=== PATIENT | female | born 1935 | race Caucasian/White ===

== ENCOUNTER 2016-07-25 16:26 | Emergency (ER) | payer OTHER ==
[~2016-07-25] VITALS: Ht 160 cm; Wt 69.4 kg
[~2016-07-25 16:26] MED LIST: ATEN50TA PO; BIOT1TAB5 PO; DILT120C9 PO; ENAL10TA9 PO; HMLIS SQ; HYDR4TAB78 PO; INSU100I2 SQ; INSU1INJ23 SQ; LEVO25TA5 PO; MULT-506 PO; NXM/40 PO; SIMV-151 PO; TRAZ1TAB16 PO; VTMD1000 PO
[2016-07-25 16:27] VITALS: TEMP 36.7; Ht 160 cm; Wt 69.4 kg
[2016-07-25] MEDS ORDERED: SODIUM CHLORIDE 0.9% 1000ML 500 ML IV STA (17:09)
[2016-07-25] MEDS ORDERED: HYDR4TAB2 PO (17:13)
--- NOTE | 2016-07-25 17:13 | EMERGENCY ROOM VISIT NOTE ---
History Report prepared by Adina: Thor Matthews Under the Supervision of: Dr. Mark Vargas M.D. First contact with patient: 17:00 Chief Complaint: FLANK PAIN Stated Complaint: PAIN IN RIGHT SIDE History of Present Illness The patient is a 81 year old female who presents to the Emergency Room with complaints of waxing and waning right flank pain beginning last night. She describes her pain as sharp and rates her pain a 5/10 in severity but notes it is worsened with movement. She notes that she did not have pain during the night , but had pain when she rolled over in bed this morning. She states she has back pain at baseline. The patient denies any nausea, urinary symptoms, or bowel issues. She has never had this pain before. She does not recall any recent activity that may have caused this pain. She states she had a hernia repair, Whipple procedure, and complete hysterectomy, and had pancreatic cancer 20 years ago. She notes she still has her pancreas and gallbladder. Source of History: patient Onset: last night Position: other (right flank) Symptom Intensity: 5/10 in severity but becomes worse Quality: sharp Timing: waxes/wanes Modifying Factors (Worsening): movement Associated Symptoms: + back pain (at baseline), No nausea, No urinary symptoms Note: The patient denies having any bowel issues. Review of Systems See HPI for pertinent positives & negatives. A total of 10 systems reviewed and were otherwise negative. Past Medical & Surgical Medical Problems: (1) Back pain (2) Cervicalgia (3) Dyslipidemia (4) GERD (gastroesophageal reflux disease) (5) HTN (hypertension) (6) Lumbar back pain with radiculopathy affecting left lower extremity (7) Pancreatic cancer Surgical Problems: (1) History of hernia repair (2) History of hysterectomy (3) History of resection of pancreas Family History Patient reports no known family medical history. Social History Smoking Status: Never Smoker Marital Status: Housing Status: lives with significant other Occupation Status: retired Current/Historical Medications Scheduled Atenolol (Tenormin), 50 MG PO QAM Biotin (Biotin 5000), 1 TAB PO DAILY Cholecalciferol (Vitamin D3), 1 TAB PO DAILY AFTERNOON Diltiazem Hcl (Diltiazem Hcl Er), 120 MG PO QAM Enalapril Maleate & Hydrochlor (Enalapril Maleate/Hydroch), 1 TAB PO QAM Insulin Human Lispro (Humalog Kwikpen), 12 UNITS SQ dinner Insulin Isophane (Human) (Humulin N Kwikpen), 34 UNITS SQ breakfast Insulin Isophane (Human) (Humulin N Kwikpen), 30 UNITS SQ HS Insulin Lispro (Human) (Humalog Kwikpen), 8 UNITS SQ breakfast Levothyroxine Sodium (Levothyroxine Sodium), 1 TAB PO QAM Multivitamin (Multivitamin), 1 TAB PO DAILY AFTERNOON Simvastatin (Simvastatin), 20 MG PO Q2D Scheduled PRN Esomeprazole Magnesium (Nexium), 40 MG PO DAILY PRN for PRN Hydromorphone Hcl (Dilaudid), 1 TAB PO QAM PRN for Pain Trazodone Hcl (Desyrel), 50 MG PO HS PRN for Sleep Allergies Coded Allergies: Codeine (Verified Allergy, Severe, RASH, 07/25/16) Sulfa Antibiotics (Verified Allergy, Intermediate, rash, 05/12/16) Sulfabenzamide (Verified Allergy, Intermediate, rash, 05/12/16) Sulfacetamide (Verified Allergy, Intermediate, rash, 05/12/16) Sulfathiazole (Verified Allergy, Intermediate, rash, 05/12/16) Insulin Glargine (Verified Allergy, Mild, patient reports she becomes itchy at inj sites after > 7 day, 05/12/16) Erythromycin (Verified Adverse Reaction, Intermediate, abdominal pain, ) NSAIDs (Verified Adverse Reaction, Intermediate, gastric bleeding, ) Hydrocodone (Verified Adverse Reaction, Mild, itching, 05/12/16) Oxycodone (Verified Adverse Reaction, Mild, itching, 05/12/16) Physical Exam Vital Signs Date Time Temp Pulse Resp B/P Pulse Ox O2 Delivery O2 Flow Rate FiO2 07/25/16 20:10 58 17 144/73 95 07/25/16 18:59 64 148/71 07/25/16 16:27 36.7 66 18 167/85 94 Room Air Physical Exam GENERAL: Patient is in no acute distress. HEENT: No acute trauma, normocephalic atraumatic, mucous membranes moist, no nasal congestion, no scleral icterus. NECK: No stridor, no adenopathy, no meningismus, trachea is midline. LUNGS: Clear to auscultation bilaterally, no wheeze, no rhonchi, breath sounds equal. HEART: 2/6 systolic murmur with regular rate and rhythm. ABDOMEN: Soft, tender in right lower quadrant; pain worsens with movement; bowel sounds positive, no hernias, no peritonitis. EXTREMITIES: No cyanosis or edema, full range of motion of all the joints without pain or difficulty, no signs for acute trauma. NEUROLOGIC: Oriented x 3, no acute motor or sensory deficits, no focal weakness. SKIN: No rash, no jaundice, no diaphoresis. Medical Decision & Procedures ER Provider Diagnostic Interpretation: Urine dip shows 1+ leukocytes and no blood. CT results as stated below per my review and radiologist interpretation: CT OF THE ABDOMEN AND PELVIS WITH CONTRAST FINDINGS: There is suspected scarring within visualized portions of the right middle lobe. No pneumatosis, free air or portal venous gas is present. A 5 cm cyst within the upper pole of the right kidney is noted. There is no hydronephrosis. The spleen is not visualized. The body and tail the pancreas are not visualized. There is no hydronephrosis. The adrenal glands and liver are unremarkable with exception of possible fatty infiltration of the liver. There is no evidence for a bowel obstruction. The appendix is normal. No lymphadenopathy is present. A few prominent upper abdominal lymph nodes are unchanged. Post surgical findings within the spine are noted. No ascites is present. There is no abscess. IMPRESSION: No acute process within the abdomen or pelvis. No significant change since prior exam of July 31, 2015. Electronically signed by: Du Newton M.D. 07/25/2016 7:15 PM Dictated Date/Time: 07/25/2016 7:06 PM Laboratory Results 07/25/16 17:45 Red Blood Count 3.94, Mean Corpuscular Volume 91.1, Mean Corpuscular Hemoglobin 31.5, Mean Corpuscular Hemoglobin Concent 34.5, Mean Platelet Volume 10.1, Neutrophils (%) (Auto) 38.7, Lymphocytes (%) (Auto) 41.9, Monocytes (%) (Auto) 12.1, Eosinophils (%) (Auto) 6.0, Basophils (%) (Auto) 1.1, Neutrophils # (Auto ) 4.11, Lymphocytes # (Auto) 4.46, Monocytes # (Auto) 1.29, Eosinophils # (Auto ) 0.64, Basophils # (Auto) 0.12 07/25/16 17:45 Test 07/25/16 16:50 07/25/16 17:45 07/25/16 18:57 Urine Color YELLOW Urine Appearance CLEAR (CLEAR) Urine pH 6.5 (4.5-7.5) Urine Specific Arley 1.010 (1.000-1.030) Urine Protein NEG (NEG) Urine Glucose (UA) NEG (NEG) Urine Ketones NEG (NEG) Urine Occult Blood NEG (NEG) Urine Nitrite NEG (NEG) Urine Bilirubin NEG (NEG) Urine Urobilinogen NEG (NEG) Urine Leukocyte Esterase MODERATE (NEG) Urine WBC (Auto) 10-30 /hpf (0-5) Urine RBC (Auto) 0-4 /hpf (0-4) Urine Hyaline Casts (Auto) 1-5 /lpf (0-5) Urine Epithelial Cells (Auto) >30 /lpf (0-5) Urine Bacteria (Auto) NEG (NEG) White Blood Count 10.64 K/uL (4.8-10.8) Red Blood Count 3.94 M/uL (4.2-5.4) Hemoglobin 12.4 g/dL (12.0-16.0) Hematocrit 35.9 % (37-47) Mean Corpuscular Volume 91.1 fL (80-100) Mean Corpuscular Hemoglobin 31.5 pg (25-34) Mean Corpuscular Hemoglobin Concent 34.5 g/dl (32-36) Platelet Count 325 K/uL (130-400) Mean Platelet Volume 10.1 fL (7.4-10.4) Neutrophils (%) (Auto) 38.7 % Lymphocytes (%) (Auto) 41.9 % Monocytes (%) (Auto) 12.1 % Eosinophils (%) (Auto) 6.0 % Basophils (%) (Auto) 1.1 % Neutrophils # (Auto) 4.11 K/uL (1.4-6.5) Lymphocytes # (Auto) 4.46 K/uL (1.2-3.4) Monocytes # (Auto) 1.29 K/uL (0.11-0.59) Eosinophils # (Auto) 0.64 K/uL (0-0.5) Basophils # (Auto) 0.12 K/uL (0-0.2) RDW Standard Deviation 43.8 fL (36.4-46.3) RDW Coefficient of Variation 13.1 % (11.5-14.5) Immature Granulocyte % (Auto) 0.2 % Immature Granulocyte # (Auto) 0.02 K/uL (0.00-0.02) Anion Gap 7.0 mmol/L (3-11) Est Creatinine Clear Calc Drug Dose 43.9 ml/min Estimated GFR () 64.4 Estimated GFR (Non- 55.5 BUN/Creatinine Ratio 21.2 (10-20) Calcium Level 10.0 mg/dl (8.5-10.1) Total Bilirubin 0.2 mg/dl (0.2-1) Aspartate Amino Transf (AST/SGOT) 24 U/L (15-37) Alanine Aminotransferase (ALT/SGPT) 26 U/L (12-78) Alkaline Phosphatase 73 U/L (45-117) Total Protein 8.2 gm/dl (6.4-8.2) Albumin 4.1 gm/dl (3.4-5.0) Globulin 4.1 gm/dl (2.5-4.0) Albumin/Globulin Ratio 1.0 (0.9-2) Lipase 94 U/L (73-393) Chemistry Specimen Hemolysis Bedside Glucose 73 mg/dl (70-90) Laboratory results reviewed by me. Medications Administered Medications (Trade) Dose Ordered Sig/Andria Route Start Time Stop Time Status Last Admin Dose Admin Sodium Chloride (Nss 1000ml) 500 ml @ 999 mls/hr Q31M STAT IV 07/25/16 17:09 07/25/16 17:39 DC 07/25/16 17:50 999 MLS/HR ED Course 1701: The patient was evaluated in room B2. A complete history and physical exam was performed. 1709: Ordered NSS 500 ml @ 999 mls/hr IV. 1950: Reevaluated the patient. Discussed results and discharge instructions: She verbalized understanding and agreement. The patient is ready for discharge. Medical Decision Differentials include diverticulitis, appendicitis, bowel obstruction, renal colic, UTI, musculoskeletal pain, and hernia. There is no leukocytosis or concerning anemia. No significant kidney failure. The patient's blood sugar is slightly low but she is asymptomatic. There is no hepatitis or pancreatitis. Abdominal and pelvis CT does not show appendicitis, no acute surgical process, no diverticulitis. On exam, the patient did not have peritonitis, there was no hernia. Urinalysis does not show infection or significant hematuria. The patient's pain is worse with movement, I think the pain is musculoskeletal. The patient was reassured. She was given some IV saline during her stay, she did not want anything for pain. Rest, over the counter pain medications, heat to the area were suggested. If worsening, she can return. Impression Primary Impression: RLQ abdominal pain Scribe Attestation The scribe's documentation has been prepared under my direction and personally reviewed by me in its entirety. I confirm that the note above accurately reflects all work, treatment, procedures, and medical decision making performed by me. Departure Information Dispostion Home / Self-Care Referrals Karlo Avalos (PCP) Patient Instructions A Signature Page, My [facility] Additional Instructions rest no lifting heat to the area may help pain meds as before at home return for fever, worsening symptoms or vomiting lab testing and imaging today was all ok
[2016-07-25] MEDS ORDERED: OPTIRAY 320 IV PRN (17:15)
[2016-07-25 17:27] LABS: URINE APPEARANCE CLEAR (CLEAR); URINE COLOR YELLOW; ZZUR CULT IF INDIC CLEAN CATCH YES
[2016-07-25] MEDS ORDERED: BIOTCAP2 PO (17:27)
[2016-07-25 17:28] LABS: URINE BILIRUBIN NEG (NEG); URINE EPITHELIAL CELL AUTO >30 /lpf (0-5); URINE NITRITE NEG (NEG); URINE PH 6.5 (4.5-7.5); UROBILINOGEN NEG (NEG)
[2016-07-25 17:29] LABS: MANUAL MICROSCOPIC REQUIRED? NO; REVIEW REQ? NO
[2016-07-25 17:52] LABS: BASO % 1.1 %; BASO ABS # 0.12 K/uL (0-0.2); COMPLETE YES; HEMATOCRIT 35.9 % (37-47); IG% 0.2 %; LYMPH % 41.9 %; LYMPH ABS # 4.46 K/uL (1.2-3.4); MEAN CELL VOLUME 91.1 fL (80-100); MEAN CORPUSCULAR HEMOGLOBIN 31.5 pg (25-34); MEAN CORPUSCULAR HGB CONC 34.5 g/dl (32-36); MEAN PLATELET VOLUME 10.1 fL (7.4-10.4); MONO % 12.1 %; NEUT % 38.7 %; PLATELET COUNT 325 K/uL (130-400); RED BLOOD COUNT 3.94 M/uL (4.2-5.4); WHITE BLOOD COUNT 10.64 K/uL (4.8-10.8)
[2016-07-25 18:23] LABS: BUN/CREATININE RATIO 21.2 (10-20); CREATININE 0.97 mg/dl (0.60-1.20); POTASSIUM 3.5 mmol/L (3.5-5.1)
--- NOTE | 2016-07-25 19:17 | DIAGNOSTIC IMAGING REPORT ---
CT OF THE ABDOMEN AND PELVIS WITH CONTRAST CLINICAL HISTORY: Abdominal pain. COMPARISON STUDY: CT of the abdomen and pelvis July 31, 2015. TECHNIQUE: Following IV administration of 118 mL of Optiray-320, axial images of the abdomen and pelvis were obtained from the lung bases to the proximal femurs. Images were reviewed in the axial, sagittal, and coronal planes. IV contrast was administered without complication. CT DOSE: 262.71 mGy.cm FINDINGS: There is suspected scarring within visualized portions of the right middle lobe. No pneumatosis, free air or portal venous gas is present. A 5 cm cyst within the upper pole of the right kidney is noted. There is no hydronephrosis. The spleen is not visualized. The body and tail the pancreas are not visualized. There is no hydronephrosis. The adrenal glands and liver are unremarkable with exception of possible fatty infiltration of the liver. There is no evidence for a bowel obstruction. The appendix is normal. No lymphadenopathy is present. A few prominent upper abdominal lymph nodes are unchanged. Post surgical findings within the spine are noted. No ascites is present. There is no abscess. IMPRESSION: No acute process within the abdomen or pelvis. No significant change since prior exam of July 31, 2015. Electronically signed by: Du Newton M.D. 07/25/2016 7:15 PM Dictated Date/Time: 07/25/2016 7:06 PM
[2016-07-25 20:10] VITALS: BP 144/73; PULSE 58; O2SAT 95
== END 2016-07-25 20:54 | disposition home or self-care (01) ==
LOC: C.EDB 16:27
DX: R10.31 Right lower quadrant pain (principal); E78.5 Hyperlipidemia, unspecified; I10 Essential (primary) hypertension; Z79.899 Other long term (current) drug therapy; Z79.4 Long term (current) use of insulin; Z85.07 Personal history of malignant neoplasm of pancreas

== ENCOUNTER → 2016-12-27 | Day surgery (SDC) | payer OTHER ==
[2016-12-22 08:40] VITALS: BMI 26.0
[~2016-12-27] VITALS: Ht 160 cm; Wt 67.7 kg
[~2016-12-27] MED LIST changes: -BIOT1TAB5 PO; +BIOTCAP2 PO; +LIDOCAINE HCL 2% 2 ML VIAL (20MG/ML) ONE; +PROPOFOL IV EMULSION 10 MG/ML 20 ML VIAL IV ONE; +TRAZ-119 PO; -TRAZ1TAB16 PO
[2016-12-27 08:46] VITALS: Ht 160 cm; Wt 67.7 kg
--- NOTE | 2016-12-27 08:54 | Endo History and Physical ---
History & Physical Date of Service: Dec 27, 2016. Chief Complaint: History of colon polyps Referring Physician: Karlo Avalos History of Present Illness 81 yo CF who presents for colonoscopy secondary to history of colon polyps. Past Medical History Diabetes, Arthritis, Asthma, Reflux, Cancer, Liver Disease Past Surgical History Hx Cardiac Surgery: No Hx Internal Defibrillator: No Hx Pacemaker: No Hx Abdominal Surgery: Yes (GHAZALA, RT INGUINAL HERNIA) Hx of Implantable Prosthesis: No Hx Post-Op Nausea and Vomiting: No Hx Cancer Surgery: Yes (WHIPPLE PROCEDURE) Hx Thoracic Surgery: No Hx Orthopedic: Yes (DECOMPESSION FUSION L4-S1) Hx Urinary Tract Surgery: No Family History None Social History Smoking Status: Never Smoker Hx Substance Use: No Hx Alcohol Use: Yes (ONCE A YEAR, ONE DRINK OF WINE) Allergies Coded Allergies: Codeine (Verified Allergy, Severe, RASH, 12/22/16) Sulfa Antibiotics (Verified Allergy, Intermediate, rash, 12/22/16) Sulfabenzamide (Verified Allergy, Intermediate, rash, 12/22/16) Sulfacetamide (Verified Allergy, Intermediate, rash, 12/22/16) Sulfathiazole (Verified Allergy, Intermediate, rash, 12/22/16) Insulin Glargine (Verified Allergy, Mild, patient reports she becomes itchy at inj sites after > 7 day, 12/22/16) Erythromycin (Verified Adverse Reaction, Intermediate, abdominal pain, 12/22) NSAIDs (Verified Adverse Reaction, Intermediate, gastric bleeding, 12/22/16) Hydrocodone (Verified Adverse Reaction, Mild, itching, 12/22/16) Oxycodone (Verified Adverse Reaction, Mild, itching, 12/22/16) Current Medications Reported Home Medications Medications Dose Route/Sig Max Daily Dose Days Date Category Dose Instructions Biotin 5000 (Biotin) 5 Mg Cap 1 Tab PO DAILY 07/25/16 Reported Multivitamin (Multivitamins) Tab 1 Tab PO DAILY AFTERNOON 05/12/16 Reported Levothyroxine Sodium 25 Mcg Tab 1 Tab PO QAM 90 05/12/16 Reported Desyrel (Trazodone Hcl) 50 Mg Tab 50 Mg PO HS PRN 07/31/15 Reported Simvastatin 20 Mg Tab 20 Mg PO Q2D 07/31/15 Reported TAKES IN PM Humalog Kwikpen (Insulin Human Lispro) 100 Units/Ml Inj 12 Units SQ DINNER 07/31/15 Reported Humalog Kwikpen (Insulin Lispro (Human)) 100 Unit/Ml Inj 8 Units SQ BREAKFAST 07/31/15 Reported Humulin N Kwikpen (Insulin Isophane (Human)) 100 Unit/Ml Inj 30 Units SQ HS 07/31/15 Reported Humulin N Kwikpen (Insulin Isophane (Human)) 100 Unit/Ml Inj 34 Units SQ BREAKFAST 07/31/15 Reported Vitamin D3 (Cholecalciferol) 1,000 Inter.unit Tab 1 Tab PO DAILY AFTERNOON 07/31/15 Reported Tenormin (Atenolol) 50 Mg Tab 50 Mg PO QAM 07/31/15 Reported Diltiazem Hcl Er (Diltiazem Hcl) 120 Mg Cap 120 Mg PO QAM 07/31/15 Reported Nexium (Esomeprazole Magnesium) 40 Mg Capcr 40 Mg PO DAILY PRN 07/31/15 Reported Enalapril Maleate/Hydroch (Enalapril Maleate & Hydrochlor) 1 Tab Tab 1 Tab PO QAM 07/31/15 Reported 10/25MG Dilaudid (Hydromorphone Hcl) 4 Mg Tab 1 Tab PO QAM PRN 07/31/15 Reported Vital Signs Weight (Kilograms): 67.73 Height (Feet): 5 Height (Inches): 3 Physical Exam General Appearance: WD/WN, no apparent distress Respiratory/Chest: Auscultation: breath sounds normal Cardiovascular: Heart Auscultation: RRR Abdomen: Bowel Sounds: normal Inspection & Palpation: soft, non-distended, no tenderness, guarding & rebound Assessment and Plan Assessment: 81 yo CF who presents for colonoscopy secondary to history of colon polyps. Plan: Proceed with colonoscopy.
--- NOTE | 2016-12-27 10:06 | GI REPORT ---
Procedure Date: 12/27/2016 9:18 AM Procedure: Colonoscopy Indications: High risk colon cancer surveillance: Personal history of colonic polyps Medicines: Monitored Anesthesia Care Complications: No immediate complications. Estimated Blood Loss: Estimated blood loss: none. Procedure: Pre-Anesthesia Assessment: - Prior to the procedure, a History and Physical was performed, and patient medications and allergies were reviewed. The patient's tolerance of previous anesthesia was also reviewed. The risks and benefits of the procedure and the sedation options and risks were discussed with the patient. All questions were answered, and informed consent was obtained. Prior Anticoagulants: The patient has taken no previous anticoagulant or antiplatelet agents. ASA Grade Assessment: II - A patient with mild systemic disease. After reviewing the risks and benefits, the patient was deemed in satisfactory condition to undergo the procedure. After I obtained informed consent, the scope was passed under direct vision. Throughout the procedure, the patient's blood pressure, pulse, and oxygen saturations were monitored continuously. The scope was introduced through the anus and advanced to the cecum, identified by appendiceal orifice and ileocecal valve. The colonoscopy was performed without difficulty. The patient tolerated the procedure well. The quality of the bowel preparation was good. The ileocecal valve, appendiceal orifice, and rectum were photographed. Findings: A 2 mm polyp was found in the cecum. The polyp was sessile. The polyp was removed with a cold biopsy forceps. Resection and retrieval were complete. Multiple small-mouthed diverticula were found in the sigmoid colon. Non-bleeding internal hemorrhoids were found during retroflexion. The hemorrhoids were small. Impression: - One 2 mm polyp in the cecum, removed with a cold biopsy forceps. Resected and retrieved. - Diverticulosis in the sigmoid colon. - Non-bleeding internal hemorrhoids. Recommendation: - Resume previous diet. - Continue present medications. - Repeat colonoscopy for surveillance based on pathology results. - Return to primary care physician as previously scheduled. Hernando Tirado, DO 12/27/2016 10:06:01 AM This report has been signed electronically. Note Initiated On: 12/27/2016 9:18 AM I attest to the content of the Intraoperative Record and orders documented therein, exceptions below
--- NOTE | 2016-12-27 10:06 | Discharge Instructions ---
Endoscopy Patient Instructions Date / Procedure(s) Performed Dec 27, 2016. Colonoscopy Allergy Information Coded Allergies: Codeine (Verified Allergy, Severe, RASH, 12/22/16) Sulfa Antibiotics (Verified Allergy, Intermediate, rash, 12/22/16) Sulfabenzamide (Verified Allergy, Intermediate, rash, 12/22/16) Sulfacetamide (Verified Allergy, Intermediate, rash, 12/22/16) Sulfathiazole (Verified Allergy, Intermediate, rash, 12/22/16) Insulin Glargine (Verified Allergy, Mild, patient reports she becomes itchy at inj sites after > 7 day, 12/22/16) Erythromycin (Verified Adverse Reaction, Intermediate, abdominal pain, 12/22) NSAIDs (Verified Adverse Reaction, Intermediate, gastric bleeding, 12/22/16) Hydrocodone (Verified Adverse Reaction, Mild, itching, 12/22/16) Oxycodone (Verified Adverse Reaction, Mild, itching, 12/22/16) Discharge Date / Findings Dec 27, 2016. Colon polyp Diverticulosis Internal hemorrhoids Provider Instructions Activity Restrictions - No exercising or heavy lifting for 24 hours. - Do not drink alcohol the day of the procedure. - Do not drive a car or operate machinery until the day after the procedure. - Do not make any important decisions or sign important papers in 24 hours after the procedure. Following Day: - Return to full activity which may include returning to work/school. Diet Start your diet with liquids and light foods (jello, soup, juice, toast). Then eat your usual diet if not nauseated. Treatment For Common After Affects For mild abdominal pain, bloating, or excessive gas: - Rest - Eat lightly - Lie on right side Follow-Up Information Follow-up with Dr. Karlo Avalos as scheduled Anesthesia Information What You Should Know You have had a procedure that required some medicine to reduce anxiety and discomfort. This treatment is called moderate sedation. After receiving the treatment, you may be sleepy, but you will be able to breathe on your own. The effects of the treatment may last for several hours. Follow these instructions along with Activity/Diet recommendations noted above: * Do NOT do anything where dizziness or clumsiness would be dangerous. * Rest quietly at home today, then you can be up and about tomorrow. * Have a responsible person stay with you the rest of today. * You may have had an I.V. today. If so, you may take the dressing off later today. Recommendations Call your doctor if: * Trouble breathing * Continuous vomiting for more than 24 hours * Temperature above 101 degrees * Severe abdominal pain or bloating * Pain not relieved by pain medicine ordered * There is increased drainage or redness from any incision * A large amount of rectal bleeding greater than 2-3 tablespoons. (If you had a polyp/s removed or have hemorrhoids, a small amount of blood - from the rectum is to be expected.) * You have any unanswered questions or concerns. IN THE EVENT OF A SERIOUS EMERGENCY, GO TO THE NEAREST EMERGENCY ROOM Your discharge instructions were prepared by provider Hernando Tirado. Patient Instructions Signature Page Ruth Beltran Patient (or Guardian) Signature/Date: I have read and understand the instructions given to me by my caregivers. Caregiver/RN/Doctor Signature/Date: The above-named patient and/or guardian has received patient instructions on this date. + Original Patient Signature Page (only) stays with chart. Please make copy for patient.
[2016-12-27 10:28] VITALS: BP 137/81; PULSE 64; O2SAT 95
--- NOTE | 2016-12-27 10:43 | Anesthesiology Progress Note ---
Anesthesia Post Op Note Date & Time Dec 27, 2016 at 10:43 Vital Signs Pain Intensity: 0 Vital Signs Past 12 Hours Date Time Temp Pulse Resp B/P (MAP) Pulse Ox O2 Delivery O2 Flow Rate FiO2 12/27/16 10:28 64 20 137/81 (99) 95 Room Air 12/27/16 10:18 66 20 147/87 (107) 95 Room Air 12/27/16 10:08 62 20 122/66 (84) 97 Room Air 12/27/16 08:53 36.6 72 20 173/94 (120) 96 Room Air Notes Mental Status: alert / awake / arousable, participated in evaluation Pt Amnestic to Procedure: Yes Nausea / Vomiting: adequately controlled Pain: adequately controlled Airway Patency, RR, SpO2: stable & adequate BP & HR: stable & adequate Hydration State: stable & adequate Anesthetic Complications: no major complications apparent
== END | disposition home or self-care (01) ==
LOC: C.GI 08:28
PROVIDERS: ATTEND Internal Medicine
DX: Z12.11 Encounter for screening for malignant neoplasm of colon (principal); D12.0 Benign neoplasm of cecum; Z86.010 Personal history of colon polyps; E11.9 Type 2 diabetes mellitus without complications; K57.30 Diverticulosis of large intestine without perforation or abscess without bleeding; K64.8 Other hemorrhoids; M19.90 Unspecified osteoarthritis, unspecified site; J45.909 Unspecified asthma, uncomplicated; K76.9 Liver disease, unspecified; Z79.4 Long term (current) use of insulin; Z79.899 Other long term (current) drug therapy

== ENCOUNTER 2018-07-30 07:55 | Observation (INO) ==
[2018-07-30] MEDS ORDERED: ACETAMINOPHEN 500 MG TAB PO STA (08:11)
--- NOTE | 2018-07-30 08:23 | Emergency Department Note ---
Entered by Clara Warren acting as a scribe for History of Present Illness General Chief complaint: Illness Stated complaint: ILLNESS Time Seen by Provider: 07/30/18 08:05 Source: patient History of Present Illness Provider complaint: right rib pain Onset (ago): day(s) 2 Location: chest (rib area) and right Maximum Pain Intensity: 10 Quality: + other (pain) Exacerbated By: + other (coughing, breathing) Associated symptoms: + confusion, + fever/chills and + other (runny nose) The patient is an 83 year old female who presents to the Emergency Room with complaints of right rib pain over the last 2 days. The patient rates her pain at a 10/10. She also reports having pain when she breaths and coughs. She states that her cough has been dry and also reports that she has had a runny nose. The patient states that she was here for 7 days with pneumonia. She states that she is taking her regular medications and Diltiazem and Atenolol. The patient states that she has not been taking Tylenol or Motrin. Per nursing staff, the patient is febrile and woke up more confused this morning. Home Medications Home Medications Medication Instructions Recorded Confirmed Type atenolol 50 mg PO QAM 07/18/18 07/30/18 History cholecalciferol (vitamin D3) 1,000 unit PO QAM 07/18/18 07/30/18 History diltiazem HCl 120 mg PO QAM 07/18/18 07/30/18 History enalapril-hydrochlorothiazide 1 tab PO QAM 07/18/18 07/30/18 History hydromorphone 4 mg PO DAILY PRN 07/18/18 07/30/18 History insulin NPH isoph U-100 human 26 - 30 units SUBCUT HS 07/18/18 07/30/18 History insulin NPH isoph U-100 human 34 units SUBCUT QAM 07/18/18 07/30/18 History insulin lispro 8 units SUBCUT QAM 07/18/18 07/30/18 History insulin lispro 12 units SUBCUT QPM 07/18/18 07/30/18 History multivitamin 1 tab PO QAM 07/18/18 07/30/18 History ranitidine HCl [Zantac] 150 mg PO QAM 07/18/18 07/30/18 History simvastatin 20 mg PO QPM 07/18/18 07/30/18 History trazodone 50 mg PO HS PRN 07/18/18 07/30/18 History albuterol sulfate 2 inha INH Q4H PRN #18 gm 07/22/18 07/30/18 Rx guaifenesin [Mucinex] 1,200 mg PO HS 07/30/18 07/30/18 History prednisone 10 mg PO QAM 07/30/18 07/30/18 History Allergies Allergy/AdvReac Type Severity Reaction Status Date / Time codeine Allergy Severe RASH Verified 07/30/18 09:04 Sulfa (Sulfonamide Allergy Intermediate rash Verified 07/30/18 09:04 Antibiotics) sulfabenzamide Allergy Intermediate rash Verified 07/30/18 09:04 sulfacetamide Allergy Intermediate rash Verified 07/30/18 09:04 sulfathiazole Allergy Intermediate rash Verified 07/30/18 09:04 insulin glargine Allergy Mild patient Verified 07/30/18 09:04 reports she becomes itchy at inj sites after > 7 day aspirin AdvReac Severe Gastrointestinal Unverified 07/30/18 09:08 Upset erythromycin base AdvReac Intermediate abdominal Verified 07/30/18 09:04 pain NSAIDS (Non-Steroidal AdvReac Intermediate gastric Verified 07/30/18 09:04 Anti-Inflamma bleeding hydrocodone AdvReac Mild itching Verified 07/30/18 09:04 oxycodone AdvReac Mild itching Verified 07/30/18 09:04 Past Med/Surg History Medical History Valvular heart disease Chronic cholecystitis History of pancreatic cancer Tachyarrhythmia GERD (gastroesophageal reflux disease) Osteoarthritis DM II (diabetes mellitus, type II), controlled Benign essential HTN HLD (hyperlipidemia) Pneumonia (Acute) Wheezing (Acute) SOB (shortness of breath) (Acute) Lumbar back pain with radiculopathy affecting left lower extremity Dyslipidemia GERD (gastroesophageal reflux disease) HTN (hypertension) Pancreatic cancer Surgical History History of splenectomy Social History marital status: Current Living Situation: Spouse current occupational status: retired Other Information That Helps Us Care for You: No Feels Safe at Home: Yes Safety Concerns: Feels Safe At This Time Smoking Status: Never smoker Second Hand Exposure: Yes Hx Alcohol Use: No Hx Substance Use: No Beliefs That Will Affect Care: None Preferred Language: Irish Communication Ability: Effective Communications Professor Required: No Review of Systems See HPI for pertinent positives & negatives. and A total of 10 systems reviewed and were otherwise negative Physical Exam Vital Signs Vital Signs - 24 hr 07/30/18 07:59 07/30/18 08:19 07/30/18 09:17 Temperature 37.6 C H Temperature Source Oral Sepsis Recent Fever Within 48 Hours Yes Sepsis New/Unexplained Change in Mental Status No Sepsis Action Taken by Nursing No Action Required Pulse Rate 90 88 Pulse Rate [Apical] 78 Pulse Rhythm Regular Respiratory Rate 20 20 19 Respiratory Effort / Characteristics Respiratory Depth Respiratory Pattern Blood Pressure 137/73 Blood Pressure [Right Arm] 152/82 H Blood Pressure Mean 94 Blood Pressure Mean [Right Arm] 105 Pulse Oximetry 94 95 93 Oxygen Delivery Method Room Air Room Air Room Air 07/30/18 11:20 07/30/18 12:22 07/30/18 12:45 Temperature 37.0 C Temperature Source Oral Sepsis Recent Fever Within 48 Hours Sepsis New/Unexplained Change in Mental Status Sepsis Action Taken by Nursing Pulse Rate Pulse Rate [Apical] 79 Pulse Rhythm Respiratory Rate 16 Respiratory Effort / Characteristics Non-Labored Spontaneous Non-Labored Spontaneous Short of Breath SOB on Exertion Respiratory Depth Normal Respiratory Pattern Regular Blood Pressure Blood Pressure [Right Arm] 129/62 Blood Pressure Mean Blood Pressure Mean [Right Arm] 84 Pulse Oximetry 94 94 Oxygen Delivery Method Room Air Room Air Room Air 07/30/18 13:43 Temperature Temperature Source Sepsis Recent Fever Within 48 Hours Sepsis New/Unexplained Change in Mental Status Sepsis Action Taken by Nursing Pulse Rate 79 Pulse Rate [Apical] Pulse Rhythm Respiratory Rate 16 Respiratory Effort / Characteristics Respiratory Depth Respiratory Pattern Blood Pressure 142/64 H Blood Pressure [Right Arm] Blood Pressure Mean Blood Pressure Mean [Right Arm] Pulse Oximetry 94 Oxygen Delivery Method Room Air GENERAL: Patient is awake alert in no acute distress patient is resting comfortably and showing no signs of anxiety EYES: The conjunctivae are injected bilaterally. EARS, NOSE, MOUTH AND THROAT: There is clear rhinorrhea noted bilaterally. NECK: The neck is nontender and supple. RESPIRATORY: Diminished breath sounds were noted throughout with scattered rhonchi. There is no tachypnea or conversational dyspnea. CARDIOVASCULAR: Regular rate and rhythm noted there no murmurs rubs or gallops normal S1 normal S2 GASTROINTESTINAL: The abdomen is soft. Bowel sounds are present in all quadrants. Abdomen is nontender MUSCULOSKELETAL/EXTREMITIES: There is no evidence of gross deformity full range of motion is noted in the hips and shoulders SKIN: There is no obvious evidence of any rash. There are no petechiae, pallor or cyanosis noted. NEUROLOGIC: Patient is awake alert and oriented x3. Course 0808: Past medical records reviewed. The patient was evaluated in room C6, and a complete history and physical examination were performed. 1032: I updated the patient who verbalized agreement and understanding of the treatment plan. 1131: I discussed the patient's case with Dr. Rosibel Kaur who will evaluate the patient for further management. Consultations Consultation #1: Dr. Rosibel Kaur Time: 11:31 Administered Medications Ioversol (Optiray 320 125ml) 120 ml IV ONCE PRN PRN Reason: Interaction Checking Stop: 08/03/18 09:36 Last Admin: 07/30/18 09:37 Dose: 120 ml Discontinued Medications Acetaminophen (Tylenol) 1,000 mg PO NOW STA Stop: 07/30/18 08:12 Last Admin: 07/30/18 08:23 Dose: 1,000 mg Albuterol (Duoneb) 3 ml NEB NOW STA Stop: 07/30/18 09:07 Last Admin: 07/30/18 09:15 Dose: 3 ml Sodium Chloride (Nss 1000ml) 1,000 mls @ 999 mls/hr IV .Q1H1M ONE Stop: 07/30/18 10:06 Last Infusion: 07/30/18 10:59 Dose: 0 mls/hr Admin: 07/30/18 09:16 Dose: 999 mls/hr Levofloxacin/Dextrose (Levaquin/D5w) 750 mg in 150 mls @ 100 mls/hr IV NOW STA Stop: 07/30/18 12:15 Last Infusion: 07/30/18 12:50 Dose: 0 mls/hr Admin: 07/30/18 11:19 Dose: 100 mls/hr Vancomycin HCl 1,250 mg/ (Sodium Chloride) 525 mls @ 200 mls/hr IV NOW ONE Stop: 07/30/18 13:23 Last Admin: 07/30/18 12:44 Dose: 200 mls/hr Sodium Chloride (Nss 1000ml) 1,000 mls @ 999 mls/hr IV .Q1H1M ONE Stop: 07/30/18 11:47 Last Infusion: 07/30/18 12:20 Dose: 0 mls/hr Admin: 07/30/18 11:19 Dose: 999 mls/hr Medical Decision Making Differential Diagnosis Differential diagnosis: Etiologies such as infections, reactive airway disease, COPD, pneumonia, pleural effusion, pulmonary edema, ARDS, pneumothorax, CHF, cardiac ischemia, cardiac tamponade, dysrhythmia, anemia, pulmonary embolism, musculoskeletal, gastrointestinal process, as well as others were entertained. Medical Records Attestation: I reviewed the patient's medical records. Home Medications Current Medication List: was personally reviewed by me Laboratory Data Attestation: I reviewed the patient's lab results. Result diagrams: 07/30/18 08:30 07/30/18 08:30 Lab Results 07/30/18 07/30/18 07/30/18 Range/Units 08:15 08:30 08:30 WBC 26.30 H (4.8-10.8) K/uL RBC 3.92 L (4.2-5.4) M/uL Hgb 12.2 (12.0-16.0) g/dL Hct 36.4 L (37-47) % MCV 92.9 (80-100) fL MCH 31.1 (25-34) pg MCHC 33.5 (32-36) g/dL RDW Std Deviation 45.3 (36.4-46.3) fL RDW Coeff of Flory 13.3 (11.5-14.5) % Plt Count 332 (130-400) K/uL MPV 9.9 (7.4-10.4) fL Immature Gran % (Auto) 0.5 % Neut % (Auto) 85.5 % Lymph % (Auto) 6.4 % Warrick % (Auto) 7.6 % Eos % (Auto) 0.0 % Baso % (Auto) 0.0 % Immature Gran # (Auto) 0.12 H (0.00-0.02) K/uL Neut # (Auto) 22.50 H (1.4-6.5) K/uL Lymph # (Auto) 1.68 (1.2-3.4) K/uL Warrick # (Auto) 1.99 H (0.11-0.59) K/uL Eos # (Auto) 0.00 (0-0.5) K/uL Baso # (Auto) 0.01 (0-0.2) K/uL Toxic Vacuolation 1+ Sigala-Edie Bodies 1+ PT 11.5 (9.0-12.0) Seconds INR 1.1 (0.9-1.1) APTT 27.4 (21.0-31.0) Seconds PTT Ratio 1.1 D-Dimer 650 H* (0-500) ug/L FEU Sodium (136-145) mmol/L Potassium (3.5-5.1) mmol/L Chloride (98-107) mmol/L Carbon Dioxide (21-32) mmol/L Anion Gap (3-11) BUN (7-18) mg/dl Creatinine (0.6-1.2) mg/dl Est Cr Clr Drug Dosing ml/min Est GFR ( Amer) Est GFR (Non-Af Amer) BUN/Creatinine Ratio (10-20) Glucose (70-99) mg/dl Calcium (8.5-10.1) mg/dl Magnesium (1.8-2.4) mg/dl Total Bilirubin (0.2-1) mg/dl AST (15-37) U/L ALT (12-78) U/L Alkaline Phosphatase (45-117) U/L Troponin I (0-0.045) ng/ml Total Protein (6.4-8.2) gm/dl Albumin (3.4-5.0) gm/dl Globulin (2.5-4.0) gm/dl Albumin/Globulin Ratio (0.9-2) Influenza Type A (PCR) Neg for Influ A (Neg) Influenza Type B (PCR) Neg for Influ B (Neg) 07/30/18 Range/Units 08:30 WBC (4.8-10.8) K/uL RBC (4.2-5.4) M/uL Hgb (12.0-16.0) g/dL Hct (37-47) % MCV (80-100) fL MCH (25-34) pg MCHC (32-36) g/dL RDW Std Deviation (36.4-46.3) fL RDW Coeff of Flory (11.5-14.5) % Plt Count (130-400) K/uL MPV (7.4-10.4) fL Immature Gran % (Auto) % Neut % (Auto) % Lymph % (Auto) % Warrick % (Auto) % Eos % (Auto) % Baso % (Auto) % Immature Gran # (Auto) (0.00-0.02) K/uL Neut # (Auto) (1.4-6.5) K/uL Lymph # (Auto) (1.2-3.4) K/uL Warrick # (Auto) (0.11-0.59) K/uL Eos # (Auto) (0-0.5) K/uL Baso # (Auto) (0-0.2) K/uL Toxic Vacuolation Sigala-Edie Bodies PT (9.0-12.0) Seconds INR (0.9-1.1) APTT (21.0-31.0) Seconds PTT Ratio D-Dimer (0-500) ug/L FEU Sodium 126 L (136-145) mmol/L Potassium 3.6 (3.5-5.1) mmol/L Chloride 91 L (98-107) mmol/L Carbon Dioxide 25 (21-32) mmol/L Anion Gap 10.0 (3-11) BUN 32 H (7-18) mg/dl Creatinine 1.21 H (0.6-1.2) mg/dl Est Cr Clr Drug Dosing 33.2 ml/min Est GFR ( Amer) 48.6 Est GFR (Non-Af Amer) 41.9 BUN/Creatinine Ratio 26.1 H (10-20) Glucose 261 H (70-99) mg/dl Calcium 8.8 (8.5-10.1) mg/dl Magnesium 2.0 (1.8-2.4) mg/dl Total Bilirubin 0.9 (0.2-1) mg/dl AST 10 L (15-37) U/L ALT 21 (12-78) U/L Alkaline Phosphatase 59 (45-117) U/L Troponin I < 0.015 (0-0.045) ng/ml Total Protein 7.8 (6.4-8.2) gm/dl Albumin 3.2 L (3.4-5.0) gm/dl Globulin 4.6 H (2.5-4.0) gm/dl Albumin/Globulin Ratio 0.7 L (0.9-2) Influenza Type A (PCR) (Neg) Influenza Type B (PCR) (Neg) Imaging Data Radiologist's Impression: Radiology results as stated below per my review and the radiologist's interpretation: XR chest 1V portable HISTORY: Dyspnea COMPARISON: Chest 07/21/2018. FINDINGS: No pneumothorax. No pleural effusions. The heart is normal in size. The left lung is clear. Hazy airspace opacity within the right medial lung base persist. IMPRESSION: No change in the right medial lung base hazy airspace opacity. This could represent a superimposed pneumonia on the background of chronic scarring. One month chest x-ray follow-up recommended. Electronically signed by: Wagner Trivedi M.D. 07/30/2018 8:[address] angio chest PE protocol CLINICAL HISTORY: 83 years-old Female presenting with dyspnea, clinical concern for pulmonary embolus. TECHNIQUE: Multidetector CT angiography of the chest was performed after administration of intravenous contrast. 3-D volumetric and/or maximum intensity projection (MIP) images were subsequently reconstructed for review. IV contrast : 120 mL of Optiray 320. A dose lowering technique was used consistent with the principles of ALARA (as low as reasonably achievable). COMPARISON: Chest x-ray performed earlier today. CT DOSE (mGy.cm): The estimated cumulative dose is 223.71 mGy.cm. 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 Pulmonary vasculature: The study is suboptimal for the assessment of the pulmonary vascular tree secondary to timing of the contrast bolus and respiratory motion artifact. Allowing for limited image quality, no central filling defect to suggest pulmonary embolus. Main pulmonary artery is not enlarged. No flattening of the interventricular septum. No intracardiac filling defect. No reflux of contrast into the hepatic veins. Remaining chest: On soft tissue windows, thyroid normal. Prominent right internal mammary lymph node measuring 5 mm in short axis (see series 4 image 163). Prominent subcentimeter mediastinal lymph nodes in the precarinal and subcarinal regions as well as the bilateral phill. No axillary lymphadenopathy. Atherosclerosis of the aorta. Normal heart size. No pericardial or pleural effusion. Exophytic right upper pole renal cyst. Hepatic steatosis. Nodular thickening of the left adrenal gland, nonspecific. On lung windows, extensive respiratory motion artifact degrades evaluation of the mid to lower lungs. No pneumothorax. Mild bronchial wall thickening suggested with an upper lobe predominance. Central airways patent. Reticular and solid consolidation in the right middle lobe, which demonstrates extensive volume loss. Tree-in-bud nodular opacities also evident in the posterior segment of the right upper lobe and to a lesser extent in the right apex. Mosaic attenuation of the upper lobes likely indicate small airways disease. Minimal dependent atelectasis in the left lower lobe. On bone windows, normal osseous structures. IMPRESSION: 1. Allowing for suboptimal image quality, no evidence of pulmonary embolus. 2. Extensive tree-in-bud opacities primarily in the right upper lobe concerning for infectious bronchiolitis. Follow-up could be considered after treatment. 3. Consolidation and extensive volume loss in the right middle lobe, which may reflect postinfectious or postinflammatory sequela. 4. Prominent bilateral hilar, mediastinal, and right internal mammary lymph nodes. This may be reactive. 5. Suspected hepatic steatosis. Electronically signed by: Jordan Pabon M.D. 07/30/2018 9:56 AM ECG Data Attestation: I personally reviewed and interpreted this ECG as follows: Indication: SOB/dyspnea Rate (beats per minute): 84 Rhythm: normal sinus Findings: no PAC, no PVC, no ST depression, no ST elevation and no ectopy Comparison ECG Date: from (08/05/15) Change: no significant change Blood Pressure Blood Pressure Findings: Elevated blood pressure Blood Pressure Disposition: further management by hospitalist TOR Narrative The patient is an 83-year-old female who presented to the emergency department for an evaluation of cough and fever. The patient had recently been diagnosed from our facility with a pneumonia. She states her symptoms started to improve and she is not currently taking antibiotics. She is still taking a steroid however. The patient started noticing right-sided chest pain as well as fever. Her overall presentation appear to be consistent with the flu but her flu swab was negative. She does appear to have an elevated white blood cell count which could be explained by the patient's steroid however it is higher than one would expect even given the steroid use. I discussed patient's laboratory and radiographic studies with her. She was treated with IV fluids and IV antibiotics to cover hospital-acquired pneumonia. She also had a CT the chest to ensure there was no venous thromboembolic disease process or complications of the pneumonia such as cavitation or abscess. The patient was feeling much better on subsequent reevaluation. Her oxygen level was noted to be low when I was in the room evaluating her. I discussed her case with the on-call [facility] hospitalist. They have agreed to evaluate the patient in the emergency department for further management and disposition. Impression & Plan Pneumonia, Hypoxia, Chest pain, Hyponatremia Discharge Plan Visit Data *Final* Discharge Date/Time: 07/30/18 13:43 Chief Complaint: Illness Stated Complaint: ILLNESS ED Provider: Emilio Power Discharge Problem: Pneumonia, Hypoxia, Chest pain, Hyponatremia Patient Disposition: Admitted As Inpatient Discharge Instructions Interventions: ED Discharge Assessment Last Done: 07/30/18 13:43 The scribe's documentation has been prepared under my direction and personally reviewed by me in its entirety. I confirm that the note above accurately reflects all work, treatment, procedures, and medical decision making performed by me.
--- NOTE | 2018-07-30 08:26 | XRay Report ---
XR chest 1V portable HISTORY: Dyspnea COMPARISON: Chest 07/21/2018. FINDINGS: No pneumothorax. No pleural effusions. The heart is normal in size. The left lung is clear. Hazy airspace opacity within the right medial lung base persist. IMPRESSION: No change in the right medial lung base hazy airspace opacity. This could represent a superimposed pn eumonia on the background of chronic scarring. One month chest x-ray follow-up recommended. Electronically signed by: Wagner Trivedi M.D. 07/30/2018 8:24 AM
[2018-07-30 08:47] LABS: Hematocrit (blood only) 36.4 % (37-47); Hemoglobin 12.2 g/dL (12.0-16.0); Mean Corpuscular Hgb Conc 33.5 g/dL (32-36); Mean Corpuscular Volume 92.9 fL (80-100); Mean Platelet Volume 9.9 fL (7.4-10.4); Platelet Count 332 K/uL (130-400); RDW Coefficient of Variation 13.3 % (11.5-14.5); RDW Standard Deviation 45.3 fL (36.4-46.3); Red Blood Count 3.92 M/uL (4.2-5.4)
[2018-07-30 09:02] LABS: Albumin Level 3.2 gm/dl (3.4-5.0); BUN Creatinine Ratio 26.1 (10-20); Blood Urea Nitrogen 32 mg/dl (7-18); Calcium 8.8 mg/dl (8.5-10.1); Carbon Dioxide 25 mmol/L (21-32); Chloride 91 mmol/L (98-107); Creatinine Clr Calc Pharmacy 33.2 ml/min; Est GFR (African American) 48.6; Est GFR (Non-African American) 41.9; Glucose 261 mg/dl (70-99); Potassium 3.6 mmol/L (3.5-5.1); Sodium 126 mmol/L (136-145)
[2018-07-30 09:03] LABS: INR 1.1 (0.9-1.1); Partial Thromboplastin Ratio 1.1; Partial Thromboplastin Time 27.4 Seconds (21.0-31.0); Prothrombin Time 11.5 Seconds (9.0-12.0)
[2018-07-30 09:05] LABS: Alanine Aminotransferase 21 U/L (12-78); Albumin Globulin Ratio 0.7 (0.9-2); Alkaline Phosphatase 59 U/L (45-117); Aspartate Aminotransferase 10 U/L (15-37); Bilirubin,Total 0.9 mg/dl (0.2-1); Globulin 4.6 gm/dl (2.5-4.0); Total Protein 7.8 gm/dl (6.4-8.2); Troponin I < 0.015 ng/ml (0-0.045)
[2018-07-30] MEDS ORDERED: SODIUM CHLORIDE 0.9% 1000ML 1,000 ML IV ONE ×2 (09:06→10:47)
[2018-07-30] MEDS ORDERED: ALBUT/IPRATROP 3MG/0.5MG NEB 3 ML VIAL NEB STA (09:06)
[2018-07-30 09:13] LABS: Influenza A virus by PCR Neg for Influ A (Neg); Influenza B virus by PCR Neg for Influ B (Neg)
[2018-07-30 09:14] LABS: Basophils # (auto) 0.01 K/uL (0-0.2); Immature Granulocytes # (auto) 0.12 K/uL (0.00-0.02); Immature Granulocytes % (auto) 0.5 %; Lymphocytes # (auto) 1.68 K/uL (1.2-3.4); Lymphocytes % (auto) 6.4 %; Monocytes # (auto) 1.99 K/uL (0.11-0.59); Monocytes % (auto) 7.6 %; Neutrophils % (auto) 85.5 %; Toxic Vacuolation 1+
[2018-07-30] MEDS ORDERED: OPTIRAY 320 125ml IV PRN (09:37)
--- NOTE | 2018-07-30 09:57 | CT Scan Report ---
CT angio chest PE protocol CLINICAL HISTORY: 83 years-old Female presenting with dyspnea, clinical concern for pulmonary embolus . TECHNIQUE: Multidetector CT angiography of the chest was performed after administration of intravenou s contrast. 3-D volumetric and/or maximum intensity projection (MIP) images were subsequently reconst ructed for review. IV contrast: 120 mL of Optiray 320. A dose lowering technique was used consistent with the principles of ALARA (as low as reasonably achievable). COMPARISON: Chest x-ray performed earlier today. CT DOSE (mGy.cm): The estimated cumulative dose is 223.71 mGy.cm. 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 Pulmonary vasculature: The study is suboptimal for the assessment of the pulmonary vascular tree secondary to timing of the contrast bolus and respiratory motion artifact. Allowing for limited image quality, no central fillin g defect to suggest pulmonary embolus. Main pulmonary artery is not enlarged. No flattening of the in terventricular septum. No intracardiac filling defect. No reflux of contrast into the hepatic veins. Remaining chest: On soft tissue windows, thyroid normal. Prominent right internal mammary lymph node measuring 5 mm in short axis (see series 4 image 163). Prominent subcentimeter mediastinal lymph nodes in the precarin al and subcarinal regions as well as the bilateral phill. No axillary lymphadenopathy. Atherosclerosis of the aorta. Normal heart size. No pericardial or pleural effusion. Exophytic right upper pole luis l cyst. Hepatic steatosis. Nodular thickening of the left adrenal gland, nonspecific. On lung windows, extensive respiratory motion artifact degrades evaluation of the mid to lower lungs. No pneumothorax. Mild bronchial wall thickening suggested with an upper lobe predominance. Central a irways patent. Reticular and solid consolidation in the right middle lobe, which demonstrates extensi ve volume loss. Tree-in-bud nodular opacities also evident in the posterior segment of the right uppe r lobe and to a lesser extent in the right apex. Mosaic attenuation of the upper lobes likely indicat e small airways disease. Minimal dependent atelectasis in the left lower lobe. On bone windows, normal osseous structures. IMPRESSION: 1. Allowing for suboptimal image quality, no evidence of pulmonary embolus. 2. Extensive tree-in-bud opacities primarily in the right upper lobe concerning for infectious bronc hiolitis. Follow-up could be considered after treatment. 3. Consolidation and extensive volume loss in the right middle lobe, which may reflect postinfectiou s or postinflammatory sequela. 4. Prominent bilateral hilar, mediastinal, and right internal mammary lymph nodes. This may be react hal. 5. Suspected hepatic steatosis. Electronically signed by: Jordan Pabon M.D. 07/30/2018 9:56 AM
[2018-07-30 10:12] LABS: Howell-Jolly Bodies 1+
[2018-07-30] MEDS ORDERED: VANCOMYCIN HCL 1,250 MG in SODIUM CHLORIDE 0.9% 500 ML IV ONE (10:46)
[2018-07-30] MEDS ORDERED: VANCOMYCIN CONSULT ACTIVE PRN (10:46)
[2018-07-30] MEDS ORDERED: LEVOFLOXACIN/D5W 750 MG/150 ML BAG IV STA (10:46)
--- NOTE | 2018-07-30 11:47 | History & Physical Report ---
Date of Service July 30, 2018 Assessment & Plan (1) Pneumonia: (2) SOB (shortness of breath): (3) Wheezing: (4) Leukocytosis: - Admit to med surg for observation - Most recent admit was Jul 18- for similar presentation, now with worsening cough. - afebrile, WBC elevated at 26.3 K with left shift, possible pneumonia not completely resolved from last admission - flu swab neg but presents with viral picture. - sputum culture - CXR with unchanged right medial lung base hazy airspace opacity. Possible superimposed pneumonia on the background of chronic scarring. - Was on rocephin and azithromycin during last admit and was discharged on Omnicef- pt got one dose of Vanc and Levaquin while in ER upon admission, will continue levaquin IV alone. Assess response tomorrow and can determine if needs more abx. - Pred taper scheduled to stop today, but will continue 10 mg daily for now with mild wheeze. - Continue Mucinex, Tessalon Perles, incentive spirometry, neb treatments - Follow BCx - Pt does not smoke however is exposed to second hand from (smokes in home and car) - discussed cessation and to promote smoking outside. Likely has COPD. - No on chronic O2 at baseline, currently on RA -D-dimer elevated at 650, CTA negative for PE (5) Hypoxia: (6) Benign essential HTN: -Continue atenolol 50 mg QAM, diltiazem 120 mg QAM, enalapril, HCTZ (7) DM II (diabetes mellitus, type II), controlled: - With significant hyperglycemia secondary to corticosteroid use - Continue basal bolus insulin, ISS with whit buitrago - Pharmacy glycemic management consultation (8) Osteoarthritis: (9) GERD (gastroesophageal reflux disease): - Cont ranitidine 150 mg daily (10) HLD (hyperlipidemia): -Continue simvastatin 20 mg daily (11) Vitamin D deficiency: -Continue supplementation (12) Lumbar back pain with radiculopathy affecting left lower extremity: -continue hydromorphone tablets 4 mg QAM (13) History of pancreatic cancer: - s/p Whipple in 1996, in remission since then (14) Valvular heart disease: -Follows with [facility] : most recent echocardiogram by verbal report given during last admission: in 12/2017, she was with mild MR, mild TR, preserved EF -history of 4 cardiac caths all with nonobstructive disease (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: - Patient reports severe reaction to pneumonia vaccination in the past (16) DVT prophylaxis: -teds, scds, lovenox subq (17) Chronic cholecystitis: - Reports a history of chronic cholecystitis but not having surgery due to history of Whipple from 20+ years ago History of Present Illness Primary Care Provider: Tasia Diaz DO This is a 83 yo F with PMHx of DM II, HTN, HLD, valvular heart disease, Vit D deficiency, osteoarthritis, hx of pancreatic cancer s/p Whipples procedure, on chronic opiods, constipation, who was recently admitted for pneumonia from -07/22/18 and discharged home. Patient reports that she initially felt better with prednisone taper and Omnicef antibiotic, however starting on 07/28/18, she began feeling worse. Patient has complaints of chills and sweats, body aches, malaise, generalized ill feeling, runny nose, sore throat, nasal congestion. She took a dose of Tylenol this morning. She reports she is a little bit short of breath but that she has minimal wheeze compared to what she was admitted for during first time around. She does not wear O2 chronically., Patient had been to her PCP office for a follow-up last week as well as had a repeat chest x-ray as an outpatient which per her report showed improvement of pneumonia. Here in the ER patient was administered 1 dose of vancomycin and Levaquin. WBC = 26.3 with left shift CXR reviewed showing RLL possible infectious bronchiolitis. D-dimer elevated at 650, CTA for PE is negative Sodium decreased at 126 Allergies Allergy/AdvReac Type Severity Reaction Status Date / Time codeine Allergy Severe RASH Verified 07/30/18 09:04 Sulfa (Sulfonamide Allergy Intermediate rash Verified 07/30/18 09:04 Antibiotics) sulfabenzamide Allergy Intermediate rash Verified 07/30/18 09:04 sulfacetamide Allergy Intermediate rash Verified 07/30/18 09:04 sulfathiazole Allergy Intermediate rash Verified 07/30/18 09:04 insulin glargine Allergy Mild patient Verified 07/30/18 09:04 reports she becomes itchy at inj sites after > 7 day aspirin AdvReac Severe Gastrointestinal Unverified 07/30/18 09:08 Upset erythromycin base AdvReac Intermediate abdominal Verified 07/30/18 09:04 pain NSAIDS (Non-Steroidal AdvReac Intermediate gastric Verified 07/30/18 09:04 Anti-Inflamma bleeding hydrocodone AdvReac Mild itching Verified 07/30/18 09:04 oxycodone AdvReac Mild itching Verified 07/30/18 09:04 Home Medications Home Medications Medication Instructions Recorded Confirmed Type atenolol 50 mg PO QAM 07/18/18 07/30/18 History cholecalciferol (vitamin D3) 1,000 unit PO QAM 07/18/18 07/30/18 History diltiazem HCl 120 mg PO QAM 07/18/18 07/30/18 History enalapril-hydrochlorothiazide 1 tab PO QAM 07/18/18 07/30/18 History hydromorphone 4 mg PO DAILY PRN 07/18/18 07/30/18 History insulin NPH isoph U-100 human 26 - 30 units SUBCUT 07/18/18 07/30/18 History insulin NPH isoph U-100 human 34 units SUBCUT QA 07/18/18 07/30/18 History insulin lispro 8 units SUBCUT QAM 07/18/18 07/30/18 History insulin lispro 12 units SUBCUT QPM 07/18/18 07/30/18 History multivitamin 1 tab PO QAM 07/18/18 07/30/18 History ranitidine HCl [Zantac] 150 mg PO QAM 07/18/18 07/30/18 History simvastatin 20 mg PO QPM 07/18/18 07/30/18 History trazodone 50 mg PO HS PRN 07/18/18 07/30/18 History albuterol sulfate 2 inha INH Q4H PRN #18 gm 07/22/18 07/30/18 Rx guaifenesin [Mucinex] 1,200 mg PO 07/30/18 07/30/18 History prednisone 10 mg PO QAM 07/30/18 07/30/18 History Past Med/Surg History Medical History Valvular heart disease Chronic cholecystitis History of pancreatic cancer Tachyarrhythmia GERD (gastroesophageal reflux disease) Osteoarthritis DM II (diabetes mellitus, type II), controlled Benign essential HTN HLD (hyperlipidemia) Pneumonia (Acute) Wheezing (Acute) SOB (shortness of breath) (Acute) Lumbar back pain with radiculopathy affecting left lower extremity Dyslipidemia GERD (gastroesophageal reflux disease) HTN (hypertension) Pancreatic cancer Surgical History History of splenectomy Social History marital status: Current Living Situation: Spouse current occupational status: retired Other Information That Helps Us Care for You: No Feels Safe at Home: Yes Safety Concerns: Feels Safe At This Time Smoking Status: Never smoker Second Hand Exposure: Yes Hx Alcohol Use: No Hx Substance Use: No Beliefs That Will Affect Care: None Preferred Language: Latvian Communication Ability: Effective Assistant Therapy Aide Required: No Review of Systems Constitutional: No fever, +sweats and chills, see HPI. Eyes: No diplopia, no worsening or blurred vision ENT: normal hearing, no trouble swallowing Respiratory: No cough, sputum, dyspnea at rest or on exertion Cardiovascular: No chest pain, tightness or palpitations Abdomen: No pain, nausea, vomiting, diarrhea or constipation Musculoskeletal: No joint pain, calf pain, swelling Neurologic: No weakness, numbness/tingling, or balance problems Psychiatric: No anxiety or depression Skin: No rash or itch Physical Exam 2 Vital Signs (Past 24 Hours): Last Vital Signs Temp 37.0 C 07/30/18 11:20 Pulse 79 07/30/18 11:20 Resp 16 07/30/18 11:20 BP 129/62 07/30/18 11:20 Pulse Ox 94 07/30/18 11:20 Physical Exam: Exam as done by Ninoska Farias DO: Constitutional: WD/WN, vitals as above Eyes: normal visual luna by confrontation and + anicteric sclerae Neck: normal visual inspection and trachea midline Respiratory: normal respiratory effort, lungs clear to auscultation Cardiovascular: Rate/Rhythm: regular rate and regular rhythm Gastrointestinal (Abdomen): Inspection/Auscultation: abdomen not distended Percussion/Palpation: abdomen soft; abdomen nontender Musculoskeletal: Head/Neck/Chest: normocephalic and head atraumatic Neg for peripheral LE edema, + pedal pulses Skin: no rashes, warm and dry Neurologic: awake; not confused Speech / Cognition: normal speech Psychiatric: A+Ox3, euthymic affect Lymphatic: Exam as done by Ninoska Farias DO Results & Data Diagnostic Findings XR chest 1V portable HISTORY: Dyspnea COMPARISON: Chest 07/21/2018. FINDINGS: No pneumothorax. No pleural effusions. The heart is normal in size. The left lung is clear. Hazy airspace opacity within the right medial lung base persist. IMPRESSION: No change in the right medial lung base hazy airspace opacity. This could represent a superimposed pneumonia on the background of chronic scarring. One month chest x-ray follow-up recommended. CT angio chest PE protocol CLINICAL HISTORY: 83 years-old Female presenting with dyspnea, clinical concern for pulmonary embolus. TECHNIQUE: Multidetector CT angiography of the chest was performed after administration of intravenous contrast. 3-D volumetric and/or maximum intensity projection (MIP) images were subsequently reconstructed for review. IV contrast : 120 mL of Optiray 320. A dose lowering technique was used consistent with the principles of ALARA (as low as reasonably achievable). COMPARISON: Chest x-ray performed earlier today. CT DOSE (mGy.cm): The estimated cumulative dose is 223.71 mGy.cm. FINDINGS: Physicist [place] topogram: Unremarkable. Pulmonary vasculature: The study is suboptimal for the assessment of the pulmonary vascular tree secondary to timing of the contrast bolus and respiratory motion artifact. Allowing for limited image quality, no central filling defect to suggest pulmonary embolus. Main pulmonary artery is not enlarged. No flattening of the interventricular septum. No intracardiac filling defect. No reflux of contrast into the hepatic veins. Remaining chest: On soft tissue windows, thyroid normal. Prominent right internal mammary lymph node measuring 5 mm in short axis (see series 4 image 163). Prominent subcentimeter mediastinal lymph nodes in the precarinal and subcarinal regions as well as the bilateral phill. No axillary lymphadenopathy. Atherosclerosis of the aorta. Normal heart size. No pericardial or pleural effusion. Exophytic right upper pole renal cyst. Hepatic steatosis. Nodular thickening of the left adrenal gland, nonspecific. On lung windows, extensive respiratory motion artifact degrades evaluation of the mid to lower lungs. No pneumothorax. Mild bronchial wall thickening suggested with an upper lobe predominance. Central airways patent. Reticular and solid consolidation in the right middle lobe, which demonstrates extensive volume loss. Tree-in-bud nodular opacities also evident in the posterior segment of the right upper lobe and to a lesser extent in the right apex. Mosaic attenuation of the upper lobes likely indicate small airways disease. Minimal dependent atelectasis in the left lower lobe. On bone windows, normal osseous structures. IMPRESSION: 1. Allowing for suboptimal image quality, no evidence of pulmonary embolus. 2. Extensive tree-in-bud opacities primarily in the right upper lobe concerning for infectious bronchiolitis. Follow-up could be considered after treatment. 3. Consolidation and extensive volume loss in the right middle lobe, which may reflect postinfectious or postinflammatory sequela. 4. Prominent bilateral hilar, mediastinal, and right internal mammary lymph nodes. This may be reactive. 5. Suspected hepatic steatosis. ECG Additional Comments: 30-JUL-2018 08:30:23 [facility] Poor data quality, interpretation may be adversely affected Normal sinus rhythm Nonspecific ST abnormality Abnormal ECG When compared with ECG of 05-AUG-2015 09:14, Non-specific change in ST segment in Inferior leads Vent. rate 84 BPM MD interval 140 ms QRS duration 78 ms QT/QTc 358/423 ms P-R-T axes 48 51 37 Supervising Physician Co-Signing Physician Notes Pt seen and examined by me. Denies chest pain or SOB. Tolerating PO without issue. Had felt febrile on presentation. Was given tylenol and this resolved, however returned several hours later. Cough and body aches are most concerning sx to pts. Is on steroids since recent d/c. Finished abx. Agree with HPI/ROS as noted by PA See above for my exam in PE section Agree with plan as outlined above Flu like sx, flu swab neg. PCR pending given potential for false negative Waxing/waning sx more c/w viral syndrome CXR shows no change, CTA suggests post-infectious appearance Cover with abx--levaquin only. Had jocelyn in ED, will cover for 24 hours If prelim blood cx neg, t/c supportive tx for virus WBC elevated in the setting of steroid use _ (1) HLD (hyperlipidemia) Hyperlipidemia type: unspecified Qualified Code(s): E78.5 - Hyperlipidemia, unspecified (2) DM II (diabetes mellitus, type II), controlled Chronic kidney disease stage: Diabetes mellitus complication detail: Diabetes mellitus complication status: with hyperglycemia Diabetes mellitus intermediate card tender insulin use: with care home use Diabetes mellitus macular edema: Diabetic retinopathy severity: Laterality: Proliferative retinopathy type: Qualified Code(s): E11.65 - Type 2 diabetes mellitus with hyperglycemia; Z79.4 - custodial (current) use of insulin (3) Pneumonia Aspiration pneumonia type: Laterality: right Lung location: lower lobe of lung Pneumonia type: due to unspecified organism Qualified Code(s): J18.1 - Lobar pneumonia, unspecified organism
[2018-07-30] MEDS ORDERED: GLUCOSE 40% GEL 15 GM TUBE PO PRN (14:28)
[2018-07-30] MEDS ORDERED: HYDROmorphone HCL 2 MG TAB PO PRN (14:28)
[2018-07-30] MEDS ORDERED: ACETAMINOPHEN 325 MG TAB PO PRN (14:28)
[2018-07-30] MEDS ORDERED: ONDANSETRON INJ 2 MG/ML 2 ML VIAL IV PRN (14:28)
[2018-07-30] MEDS ORDERED: GLUCOSE 10 TABS/TUBE PO PRN (14:28)
[2018-07-30] MEDS ORDERED: DEXTROSE 50% 50 ML SYRINGE IV PRN (14:28)
[2018-07-30] MEDS ORDERED: LEVALBUTEROL 1.25MG/0.5ML NEB NEB SCH (14:28)
[2018-07-30] MEDS ORDERED: GLUCAGON FOR INJ 1 MG VIAL SQ PRN (14:28)
[2018-07-30] MEDS ORDERED: PHARMACY GLYCEMIC MGMT CONSULT PRN (15:23)
--- NOTE | 2018-07-30 16:10 | Pharmacy Report ---
Glycemic Control Consultation - Date of Service July 30, 2018 - Scope Scope: Glycemic Pharmacist consulted by Suzanne Hannon on 07/30/18 for glycemic control and to write orders per [facility] inpatient glycemic control protocol - Objective Weight: 65.5 kg Accuchecks BSG (last 24hrs): 07/30/18 07/30/18 08:30 15:20 Glucose 261 H POC Glucose 236 H Laboratory Data (last 24hrs): 07/30/18 08:30 Potassium 3.6 Carbon Dioxide 25 Anion Gap 10.0 Creatinine 1.21 H Est Cr Clr Drug Dosing 33.2 - Recent Pertinent Medications Outpatient Anti-diabetic Regimen: * Lispro 8 units qAM, 12 units qPM * NPH 34 units QAM, 26-30 units qPM. * A1c = 8.1 % 07/20/2018 Risk Factors for Insulin Resistance: * Steroids: Prednisone 10mg daily * Infection: pneumonia, pt on vancomycin and levaquin * Diet: T2DM - Assessment & Plan Assessment & Plan: ASSESSMENT: * Pt with T2DM presented to the ER for SOB and wheezing. Recently discharged from [facility] on 07/22/18. * Pt hypergycemic upon admission. Last dose of insulin given at home this morning. Pt has been taking prednisone 10mg daily (since 07/24) which will make her more susceptible to hyperglycemia. * Will begin sliding scale based upon total daily insulin dosage of 82 units per day and a stress of 2. Will continue outpatient NPH with scale if bsg elevated. PLAN FOR INPATIENT GLYCEMIC CONTROL: * Basal insulin * NPH: sliding scale units SQ BID with meals - if bsg less than 140 mg/dL then give 26 units - if bsg 140 mg/dL or greater then give 30 units * Bolus insulin * NovoLog per scale ACHS or Q6hrs while NPO * Goal Range: Low 110 mg/dL - High 140 mg/dL * Correction Factor: 15 mg/dL/unit * Nutritional / Prandial insulin per carb ratio of 1 unit per 5 grams CHO consumed * Please note that the plan above was derived based on current level of insulin resistance and hospital stress. These recommendations are appropriate for inpatient admission only. Plan of care upon discharge will need to be reassessed to avoid potential outpatient hypo/hyperglycemia. Thank you.
[2018-07-30] MEDS ORDERED: LEVOFLOXACIN CONSULT ACTIVE PRN (16:22)
[2018-07-30] MEDS: dilTIAZem ER 120 MG CAPCR PO SCH (17:08)
[2018-07-30] MEDS: BENZONATATE 100 MG CAPSULE PO SCH ×2 (17:09→19:55)
[2018-07-30] MEDS: ATENOLOL 50 MG TABLET PO SCH (17:09)
[2018-07-30] MEDS: INSULIN HUMAN NPH SC SCH (17:13)
[2018-07-30] MEDS: INSULIN ASPART 100 UNITS/ML 3 ML PEN SC SCH ×2 (17:14→21:15)
[2018-07-30] MEDS: LEVALBUTEROL HCL 1.25 MG/3 ML NEB NEB SCH (19:03)
[2018-07-30] MEDS: ENOXAPARIN INJ 40 MG/0.4 ML SYR SQ SCH (19:54)
[2018-07-30] MEDS: guaiFENesin 600 MG TABCR PO SCH (19:55)
[2018-07-30] MEDS: SIMVASTATIN 20 MG TAB PO SCH (19:55)
[2018-07-30] MEDS: CARBOHYDRATES FOR HYPOGLYCEMIA PO PRN (20:35)
[2018-07-30] MEDS ORDERED: INSULIN LISPRO 12 UNIT SQ SCH (21:00)
[2018-07-30 22:00] LABS: Appearance Urine Clear (Clear); Bilirubin Urine Negative (Negative); Color Urine Yellow; Glucose Urine UA 2+ (Negative); Ketones Urine Negative (Negative); Leukocyte Esterase Urine Negative (Negative); Nitrite Urine Negative (Negative); Protein Urine Negative (Negative); Specific Gravity Urine 1.029 (1.000-1.030); Urobilinogen Urine Negative (Negative); pH Urine 7.5 (4.5-7.5)
[2018-07-30] MEDS: TRAZODONE HCL 50 MG TAB PO PRN (23:21)
[2018-07-31] MEDS: LEVALBUTEROL HCL 1.25 MG/3 ML NEB NEB SCH ×4 (01:58→20:19)
[2018-07-31] MEDS ORDERED: INSULIN ASPART 100 UNITS/ML 3 ML PEN SC ONE (02:00)
[2018-07-31 06:19] LABS: Hematocrit (blood only) 33.3 % (37-47); Hemoglobin 11.1 g/dL (12.0-16.0); Mean Corpuscular Hgb Conc 33.3 g/dL (32-36); Mean Corpuscular Volume 93.5 fL (80-100); Mean Platelet Volume 9.5 fL (7.4-10.4); Platelet Count 294 K/uL (130-400); RDW Coefficient of Variation 13.3 % (11.5-14.5); Red Blood Count 3.56 M/uL (4.2-5.4); White Blood Count 19.35 K/uL (4.8-10.8)
[2018-07-31 07:03] LABS: Albumin Globulin Ratio 0.6 (0.9-2); Albumin Level 2.6 gm/dl (3.4-5.0); BUN Creatinine Ratio 21.3 (10-20); Bilirubin,Total 0.6 mg/dl (0.2-1); Calcium 8.5 mg/dl (8.5-10.1); Creatinine Clr Calc Pharmacy 43.6 ml/min; Est GFR (African American) 67.7; Est GFR (Non-African American) 58.4; Globulin 4.2 gm/dl (2.5-4.0); Potassium 3.4 mmol/L (3.5-5.1); Total Protein 6.8 gm/dl (6.4-8.2)
[2018-07-31] MEDS: MULTIVITAMIN TAB PO SCH (08:18)
[2018-07-31] MEDS: guaiFENesin 600 MG TABCR PO SCH ×2 (08:18→20:31)
[2018-07-31] MEDS: CHOLECALCIFEROL 1,000 UNITS TAB PO SCH (08:18)
[2018-07-31] MEDS: predniSONE 10 MG TABLET PO SCH (08:18)
[2018-07-31] MEDS: hydroCHLOROthiazide 25 MG TAB PO SCH (08:19)
[2018-07-31] MEDS: BENZONATATE 100 MG CAPSULE PO SCH ×3 (08:19→20:30)
[2018-07-31] MEDS: ATENOLOL 50 MG TABLET PO SCH (08:19)
[2018-07-31] MEDS: dilTIAZem ER 120 MG CAPCR PO SCH (08:19)
[2018-07-31] MEDS: ENALAPRIL MALEATE 10 MG TAB PO SCH (08:19)
[2018-07-31] MEDS: INSULIN ASPART 100 UNITS/ML 3 ML PEN SC SCH ×4 (08:21→20:48)
[2018-07-31] MEDS: INSULIN HUMAN NPH SC SCH ×2 (08:23→17:49)
[2018-07-31] MEDS ORDERED: INSULIN NPH ISOPH U HUMAN SQ SCH (09:00)
[2018-07-31] MEDS ORDERED: INSULIN LISPRO 8 UNIT SQ SCH (09:00)
[2018-07-31] MEDS: POTASSIUM CHLORIDE 20 MEQ TABCR PO SCH ×2 (09:32→20:31)
--- NOTE | 2018-07-31 12:02 | Consultation Report ---
"DATE OF CONSULTATION: 07/31/2018 PULMONARY CONSULTATION TIME: 11:00 a.m. REPORT OF CONSULTATION: The patient was seen in room 232. HISTORY OF PRESENT ILLNESS: She is an 83-year-old female who was admitted to [facility] from 07/18/2018 until 07/22/2018. She had fevers, wheezing, and was diagnosed with pneumonia. She was treated with Rocephin and azithromycin, and she was discharged on cefdinir and azithromycin. She states she never felt that much better. She came back to the Emergency Room yesterday complaining of severe right rib pain. The pain is pleuritic. She had had it for 2 days. She has had severe coughing spasms. She does not expectorate. She felt achy and weak. Her temperature yesterday was 37.6. She denied prior lung problems. However, she admits that sometime within the past 6-9 months, she started to have wheezing. At first she did not think much of it. She saw Dr. Monsivais, her workforce consultant. She states he arranged for her to have a pulmonary function test at [facility]. She does not know the results. Her family doctor ordered her a medicine in an inhaler form which she refused to take. She states she read where the medicine could kill you if you have asthma. I suspect it was a long-acting beta agonist likely combined with the steroids. The patient relates that even when she is well, she wheezes going up steps. She is hard of hearing and thus obtaining the history is somewhat difficult. She only has noted the wheezing for the past half year or so. She states that she was referred apparently to pulmonary at [facility]. She has no idea what they suggested for her. The patient has never smoked. However, her , to whom she has been for 61 years, has been a heavy smoker. The doctors had advised that he only smoked outside of the home as of recent and he has been trying to do that. The patient has not coughed up any blood. Her appetite has been decreased, but she states she feels hungry today. She admits that her pain is a little better. Her breathing is somewhat better. PAST SURGICAL HISTORY: 1. Whipple's procedure in 1996 for pancreatic cancer. 2. Splenectomy done at the time of the Whipple's. 3. Hysterectomy in the 1950s. 4. Hernia repair in the 1970s. 5. Low back surgery. PAST MEDICAL HISTORY: 1. Hypertension. 2. Hyperlipidemia. 3. Diabetes. 4. Lumbar radiculopathy. 5. DJD. 6. GERD. 7. Vitamin D deficiency. 8. Pancreatic CA. 9. Chronic cholecystitis. 10. Valvular heart disease. 11. Tachycardia. SOCIAL HISTORY: Tobacco never, but she had secondhand smoke. ETOH - none. ALLERGIES: LISTED ALLERGIES TO CODEINE, SULFA, ASPIRIN, ERYTHROMYCIN, NONSTEROIDALS, HYDROCODONE, OXYCODONE. FAMILY HISTORY: Mother at age 92, congestive heart failure. Father at age 91, leukemia and hypertension. At least 3 siblings have of cancers of various types. 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 REVIEW OF SYSTEMS: Energy level has been decreased. No headache or dizziness. She has the right lateral chest pain, but no anterior chest pain. Appetite is improved as noted above. Denies bowel complaints. Denies urine complaints. The remainder of the review of systems is negative except as noted in the history of present illness. PHYSICAL EXAMINATION: GENERAL: The patient is an 83-year-old female who was cooperative, alert and oriented. She did not appear in any distress. Weight is 65.4 kilograms with a BMI of 25.5. VITAL SIGNS: Temperature is 36.6. Maximum temperature yesterday was 37.8. HEENT: Pupils were reactive. Nares showed a lesion underneath the right nostril that would appear to be herpetic. Mouth exam showed no erythema or exudate. NECK: Palpation of the neck reveals no lymph nodes. CHEST: Normal expansion. Cardiac rate is 86 per minute. The rhythm was regular. Blood pressure 136/68. LUNGS: Auscultation of the lung luna reveals good breath sounds. She did not cough much. There were some rales on the right chest which were mild. Respiratory rate 16. Saturation 98% on room air. ABDOMEN: Soft. Bowel sounds were present. There was no tenderness to palpation or definite mass palpable. EXTREMITIES: Showed no cyanosis, clubbing or edema. LABORATORY DATA: White count yesterday was 26.3. Today, it is 19.35. Neutrophils yesterday was 85.5. There were 6.4 lymphs and 7.6 monos. Hemoglobin was 12.2 and platelets were 332,000. Coags were normal. D-dimer 650. Electrolytes show sodium 134, potassium 3.4, chloride 100, bicarbonate 27. BUN is 20, creatinine of 0.92. Yesterday's BUN was 32 and the creatinine was 1.21. Thus, today's are improved. Liver functions were normal. Albumin was decreased to 2.6 and globulin was 4.2. Urinalysis showed +2 glucose. Flu test was negative. Chest x-ray yesterday showed haziness in the right medial lung base. CT angio of the chest done yesterday showed no evidence of pulmonary embolic disease. Right upper lobe had extensive tree-in-bud opacities consistent with infectious bronchiolitis. There was consolidation and some volume loss in the right middle lobe, which I suspect reflects infiltrate and pneumonia. There was slightly prominent mediastinal and hilar lymph nodes. They did measure less than 1 cm, however. EKG showed a sinus rhythm with mild nonspecific ST-T wave changes. IMPRESSION: 1. Pneumonia, right lung. 2. History of wheezing of undetermined etiology. COMMENTS AND RECOMMENDATIONS: The patient seems to be clinically doing well today. Admittedly, this was the first time I was seeing her. She is now on levofloxacin. I agree with that. She is on benzonatate perles. These are currently ordered t.i.d., but as she improves, I would change that to t.i.d. p.r.n. She is on prophylactic Lovenox. She has guaifenesin q. 12 hours. She is on prednisone 10 mg daily. I am not certain if she is on that long-term or not. She is on neb treatments with levalbuterol. The patient will probably need subsequent CAT scanning in a few months. It may be of benefit to obtain a copy of the pulmonary function testing done through e|tab. Thank you very much for asking me to assist in her care."
--- NOTE | 2018-07-31 12:09 | Pharmacy Report ---
Pharmacy Glycemic Short Note 2 - Date of Service July 31, 2018 - Glycemic Short BSG Results (Last 24 hours): 07/30/18 07/30/18 07/30/18 15:20 16:43 20:29 Glucose POC Glucose 236 H 193 H 69 L* 07/30/18 07/30/18 07/31/18 20:31 20:51 02:08 Glucose POC Glucose 67 L* 77 95 07/31/18 07/31/18 07/31/18 05:53 07:24 11:05 Glucose 97 POC Glucose 105 H 273 H OUTPATIENT ANTIDIABETIC REGIMEN: * Lispro 8 units qAM, 12 units qPM * NPH 34 units QAM, 26-30 units qPM. * A1c = 8.1 % 07/20/2018 Risk Factors for Insulin Resistance: * Steroids: Prednisone 10mg daily (continued from home) * Infection: pneumonia; levaquin * Diet: T2DM ASSESSMENT: 07/31/18: * Ruth received 73 units of insulin yesterday (this includes doses taken at home) * Hyperglycemia resolved last evening. Her bedtime BSG was below goal, 69 mg/ dL. This was likely due to evening NPH dose peaking in addition to 11 units of Novolog given at dinnertime. Novolog CF and CR were loosened significantly at that time (from 27/11 to 14/05). * Fasting BSG of 105 mg/dL is at goal. NPH is ordered BID per scale. I will continue dosing per scale until basal needs are established. I will slightly decrease doses since BSG was trending down overnight. * Lunch BSG today is elevated. I will tighten Novolog carb coverage only. Due to the pharmacokinetics of NPH, may need to use carb coverage with breakfast and dinner only. 07/30/18: * Pt with T2DM presented to the ER for SOB and wheezing. Recently discharged from [facility] on 07/22/18. * Pt hypergycemic upon admission. Last dose of insulin given at home this morning. Pt has been taking prednisone 10mg daily (since 07/24) which will make her more susceptible to hyperglycemia. * Will begin sliding scale based upon total daily insulin dosage of 82 units per day and a stress of 2. Will continue outpatient NPH with scale if bsg elevated. PLAN FOR INPATIENT GLYCEMIC CONTROL: * Basal insulin - decrease * NPH SQ: sliding scale BID with meals - if bsg less than 140 mg/dL then give 22 units - if bsg 140 mg/dL or greater then give 28 units * Bolus insulin * NovoLog per scale ACHS or Q6hrs while NPO * Goal Range: Low 110 mg/dL - High 140 mg/dL * Correction Factor: 30 mg/dL/unit * Nutritional / Prandial insulin per carb ratio of 1 unit per 8 grams CHO consumed * Please note that the plan above was derived based on current level of insulin resistance and hospital stress. These recommendations are appropriate for inpatient admission only. Plan of care upon discharge will need to be reassessed to avoid potential outpatient hypo/hyperglyc
[2018-07-31] MEDS: SIMVASTATIN 20 MG TAB PO SCH (20:33)
[2018-07-31] MEDS: ENOXAPARIN INJ 40 MG/0.4 ML SYR SQ SCH (20:34)
[2018-07-31] MEDS: TRAZODONE HCL 50 MG TAB PO PRN (23:21)
--- NOTE | 2018-07-31 23:36 | Hospitalist Progress Note ---
Date of Service July 31, 2018 Assessment & Plan (1) Pneumonia: (2) SOB (shortness of breath): (3) Wheezing: (4) Leukocytosis: - Admit to med surg for observation - Most recent admit was Jul 18- for similar presentation, now with worsening cough. - afebrile, WBC elevated at 26.3 K with left shift, possible pneumonia not completely resolved from last admission - flu swab neg but presents with viral picture. - sputum culture - CXR with unchanged right medial lung base hazy airspace opacity. Possible superimposed pneumonia on the background of chronic scarring. - Was on rocephin and azithromycin during last admit and was discharged on Omnicef- pt got one dose of Vanc and Levaquin while in ER upon admission, will continue levaquin IV alone. Assess response tomorrow and can determine if needs more abx. - Pred taper scheduled to stop today, but will continue 10 mg daily for now with mild wheeze. - Continue Mucinex, Tessalon Perles, incentive spirometry, neb treatments - Follow BCx - Pt does not smoke however is exposed to second hand from (smokes in home and car) - discussed cessation and to promote smoking outside. Likely has COPD. - No on chronic O2 at baseline, currently on RA -D-dimer elevated at 650, CTA negative for PE Leukocytosis appears to be improving. Will continue renal dosing of her levaquin. There does appear to be an infiltrate on her chest x-ray. Will have patient continue on antibiotics and re-assess in AM. I do not anticipate a lengthy hospital stay. Will transfer patient off tele. (5) Hypoxia: (6) Benign essential HTN: -Continue atenolol 50 mg QAM, diltiazem 120 mg QAM, enalapril, HCTZ (7) DM II (diabetes mellitus, type II), controlled: - With significant hyperglycemia secondary to corticosteroid use - Continue basal bolus insulin, ISS with [facility] - Pharmacy glycemic management consultation (8) Osteoarthritis: (9) GERD (gastroesophageal reflux disease): - Cont ranitidine 150 mg daily (10) HLD (hyperlipidemia): -Continue simvastatin 20 mg daily (11) Vitamin D deficiency: -Continue supplementation (12) Lumbar back pain with radiculopathy affecting left lower extremity: -continue hydromorphone tablets 4 mg QAM (13) History of pancreatic cancer: - s/p Whipple in 1996, in remission since then (14) Valvular heart disease: -Follows with [facility] : most recent echocardiogram by verbal report given during last admission: in 12/2017, she was with mild MR, mild TR, preserved EF -history of 4 cardiac caths all with nonobstructive disease (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 Revwieing recent hospital admission, discussing with customer care voice consultant Subjective 83 yo female appears to be feeling better. She is still coughing but it is much less than it was the day prior. She reports also less shortness of breath. Patient deneis any fever, chills, nausea, vomiting. Physical Exam 2 Vital Signs (Past 24 Hours): Last Vital Signs Temp 36.7 C 07/31/18 15:30 Pulse 69 07/31/18 20:19 Resp 20 07/31/18 20:19 BP 125/64 07/31/18 15:30 Pulse Ox 96 07/31/18 20:19 Physical Exam: Constitutional: WD/WN Eyes: normal visual luna by confrontation and + anicteric sclerae Neck: normal visual inspection and trachea midline Respiratory: normal respiratory effort, lungs clear to auscultation Cardiovascular: Rate/Rhythm: regular rate and regular rhythm Gastrointestinal (Abdomen): Inspection/Auscultation: abdomen not distended Percussion/Palpation: abdomen soft; abdomen nontender Musculoskeletal: Head/Neck/Chest: normocephalic and head atraumatic Neg for peripheral LE edema, + pedal pulses Skin: no rashes, warm and dry Neurologic: awake; not confused Speech / Cognition: normal speech Psychiatric: A+Ox3, euthymic affect _ (1) HLD (hyperlipidemia) Hyperlipidemia type: unspecified Qualified Code(s): E78.5 - Hyperlipidemia, unspecified (2) DM II (diabetes mellitus, type II), controlled Chronic kidney disease stage: Diabetes mellitus complication detail: Diabetes mellitus complication status: with hyperglycemia Diabetes mellitus long-term insulin use: with long-term use Diabetes mellitus macular edema: Diabetic retinopathy severity: Laterality: Proliferative retinopathy type: Qualified Code(s): E11.65 - Type 2 diabetes mellitus with hyperglycemia; Z79.4 - long-term (current) use of insulin (3) Pneumonia Aspiration pneumonia type: Laterality: right Lung location: lower lobe of lung Pneumonia type: due to unspecified organism Qualified Code(s): J18.1 - Lobar pneumonia, unspecified organism
[2018-08-01] MEDS: LEVALBUTEROL HCL 1.25 MG/3 ML NEB NEB SCH ×2 (02:16→07:42)
[2018-08-01] MEDS: CARBOHYDRATES FOR HYPOGLYCEMIA PO PRN (07:49)
[2018-08-01] MEDS: hydroCHLOROthiazide 25 MG TAB PO SCH (07:52)
[2018-08-01] MEDS: POTASSIUM CHLORIDE 20 MEQ TABCR PO SCH (07:52)
[2018-08-01] MEDS: BENZONATATE 100 MG CAPSULE PO SCH ×2 (07:53→13:00)
[2018-08-01] MEDS: predniSONE 10 MG TABLET PO SCH (07:53)
[2018-08-01] MEDS: dilTIAZem ER 120 MG CAPCR PO SCH (07:53)
[2018-08-01] MEDS: guaiFENesin 600 MG TABCR PO SCH (07:53)
[2018-08-01] MEDS: MULTIVITAMIN TAB PO SCH (07:53)
[2018-08-01] MEDS: ATENOLOL 50 MG TABLET PO SCH (07:53)
[2018-08-01] MEDS: CHOLECALCIFEROL 1,000 UNITS TAB PO SCH (07:54)
[2018-08-01] MEDS: ENALAPRIL MALEATE 10 MG TAB PO SCH (07:54)
[2018-08-01] MEDS: INSULIN HUMAN NPH SC SCH (08:36)
[2018-08-01] MEDS: INSULIN ASPART 100 UNITS/ML 3 ML PEN SC SCH ×2 (08:37→12:57)
--- NOTE | 2018-08-01 08:53 | Pharmacy Report ---
Pharmacy Glycemic Short Note 2 - Date of Service August 01, 2018 - Glycemic Short BSG Results (Last 24 hours): 07/31/18 07/31/18 07/31/18 11:05 16:31 20:19 POC Glucose 273 H 177 H 260 H Blood sugars this morning which have not crossed into [employer]: 57mg/dl, 61mg/dl - treated with/ 15 g CHO - 114mg/dl OUTPATIENT ANTIDIABETIC REGIMEN: * Lispro 8 units qAM, 12 units qPM * NPH 34 units QAM, 26-30 units qPM. * A1c = 8.1 % 07/20/2018 Risk Factors for Insulin Resistance: * Steroids: Prednisone 10mg daily (continued from home) * Infection: pneumonia; levaquin * Diet: T2DM ASSESSMENT: 08/01/18: * Patient with hypoglycemia this morning, likely d/t too much NPH overnight. I will decrease NPH dose and change parameters. * Patient is having some hyperglycemia postprandial - will tighten CR. * I will also change goal range slightly to prevent hypoglycemia. * Patient states she requires less insulin when she is sick. 07/31/18: * Ruth received 73 units of insulin yesterday (this includes doses taken at home) * Hyperglycemia resolved last evening. Her bedtime BSG was below goal, 69 mg/ dL. This was likely due to evening NPH dose peaking in addition to 11 units of Novolog given at dinnertime. Novolog CF and CR were loosened significantly at that time (from 27/11 to 14/05). * Fasting BSG of 105 mg/dL is at goal. NPH is ordered BID per scale. I will continue dosing per scale until basal needs are established. I will slightly decrease doses since BSG was trending down overnight. * Lunch BSG today is elevated. I will tighten Novolog carb coverage only. Due to the pharmacokinetics of NPH, may need to use carb coverage with breakfast and dinner only. 07/30/18: * Pt with T2DM presented to the ER for SOB and wheezing. Recently discharged from [facility] on 07/22/18. * Pt hypergycemic upon admission. Last dose of insulin given at home this morning. Pt has been taking prednisone 10mg daily (since 07/24) which will make her more susceptible to hyperglycemia. * Will begin sliding scale based upon total daily insulin dosage of 82 units per day and a stress of 2. Will continue outpatient NPH with scale if bsg elevated. PLAN FOR INPATIENT GLYCEMIC CONTROL: * Basal insulin - decrease * NPH SQ: sliding scale BID with meals - if bsg less than 200 mg/dL then give 22 units - if bsg 200 mg/dL or greater then give 25 units * Bolus insulin * NovoLog per scale ACHS or Q6hrs while NPO * CHANGE: Goal Range: Low 120 mg/dL - High 150 mg/dL * Correction Factor: 30 mg/dL/unit * TIGHTEN: Nutritional / Prandial insulin per carb ratio of 1 unit per 7 grams CHO consumed * Please note that the plan above was derived based on current level of insulin resistance and hospital stress. These recommendations are appropriate for inpatient admission only. Plan of care upon discharge will need to be reassessed to avoid potential outpatient hypo/hyperglyc
[2018-08-01 10:14] LABS: Basophils # (auto) 0.02 K/uL (0-0.2); Basophils % (auto) 0.1 %; Eosinophils # (auto) 0.02 K/uL (0-0.5); Eosinophils % (auto) 0.1 %; Hemoglobin 11.9 g/dL (12.0-16.0); Immature Granulocytes # (auto) 0.04 K/uL (0.00-0.02); Immature Granulocytes % (auto) 0.3 %; Lymphocytes # (auto) 1.57 K/uL (1.2-3.4); Mean Corpuscular Volume 94.1 fL (80-100); Mean Platelet Volume 9.5 fL (7.4-10.4); Monocytes # (auto) 1.15 K/uL (0.11-0.59); Monocytes % (auto) 8.1 %; Neutrophils # (auto) 11.47 K/uL (1.4-6.5); Neutrophils % (auto) 80.4 %; Platelet Count 325 K/uL (130-400); RDW Coefficient of Variation 13.3 % (11.5-14.5); Red Blood Count 3.72 M/uL (4.2-5.4); White Blood Count 14.27 K/uL (4.8-10.8)
[2018-08-01 10:41] LABS: BUN Creatinine Ratio 20.8 (10-20); Calcium 8.8 mg/dl (8.5-10.1); Creatinine Clr Calc Pharmacy 33.7 ml/min; Est GFR (African American) 49.6; Est GFR (Non-African American) 42.8; Potassium 3.5 mmol/L (3.5-5.1)
[2018-08-01] MEDS ORDERED: LEVOFLOXACIN/D5W 750 MG/150 ML BAG IV SCH (12:00)
--- NOTE | 2018-08-02 09:34 | Discharge Summary ---
Date of Service August 01, 2018 Admission HPI Per Admitting Provider This is a 83 yo F with PMHx of DM II, HTN, HLD, valvular heart disease, Vit D deficiency, osteoarthritis, hx of pancreatic cancer s/p Whipples procedure, on chronic opiods, constipation, who was recently admitted for pneumonia from -07/22/18 and discharged home. Patient reports that she initially felt better with prednisone taper and Omnicef antibiotic, however starting on 07/28/18, she began feeling worse. Patient has complaints of chills and sweats, body aches, malaise, generalized ill feeling, runny nose, sore throat, nasal congestion. She took a dose of Tylenol this morning. She reports she is a little bit short of breath but that she has minimal wheeze compared to what she was admitted for during first time around. She does not wear O2 chronically., Patient had been to her PCP office for a follow-up last week as well as had a repeat chest x-ray as an outpatient which per her report showed improvement of pneumonia. Here in the ER patient was administered 1 dose of vancomycin and Levaquin. WBC = 26.3 with left shift CXR reviewed showing RLL possible infectious bronchiolitis. D-dimer elevated at 650, CTA for PE is negative Sodium decreased at 126 Principal Diagnosis Pneumonia Discharge Exam Constitutional: WD/WN Eyes: normal visual luna by confrontation and + anicteric sclerae Neck: normal visual inspection and trachea midline Respiratory: normal respiratory effort, lungs clear to auscultation Cardiovascular: Rate/Rhythm: regular rate and regular rhythm Gastrointestinal (Abdomen): Inspection/Auscultation: abdomen not distended Percussion/Palpation: abdomen soft; abdomen nontender Musculoskeletal: Head/Neck/Chest: normocephalic and head atraumatic Neg for peripheral LE edema, + pedal pulses Skin: no rashes, warm and dry Neurologic: awake; not confused Speech / Cognition: normal speech Psychiatric: A+Ox3, euthymic affect Discharge Data Allergies Allergy/AdvReac Type Severity Reaction Status Date / Time codeine Allergy Severe RASH Verified 07/30/18 09:04 Sulfa (Sulfonamide Allergy Intermediate rash Verified 07/30/18 09:04 Antibiotics) sulfabenzamide Allergy Intermediate rash Verified 07/30/18 09:04 sulfacetamide Allergy Intermediate rash Verified 07/30/18 09:04 sulfathiazole Allergy Intermediate rash Verified 07/30/18 09:04 insulin glargine Allergy Mild patient Verified 07/30/18 09:04 reports she becomes itchy at inj sites after > 7 day aspirin AdvReac Severe Gastrointestinal Unverified 07/30/18 09:08 Upset erythromycin base AdvReac Intermediate abdominal Verified 07/30/18 09:04 pain NSAIDS (Non-Steroidal AdvReac Intermediate gastric Verified 07/30/18 09:04 Anti-Inflamma bleeding hydrocodone AdvReac Mild itching Verified 07/30/18 09:04 oxycodone AdvReac Mild itching Verified 07/30/18 09:04 Consultations 07/30/18 10:59 ED Decision to Admit Stat 07/30/18 14:28 Consult Case Management - Discharge Planning Routine 07/31/18 08:58 Consult Pulmonology Routine Ordered Studies 07/30/18 09:06 CT angio chest PE protocol Stat Hospital Course (1) Pneumonia: (2) SOB (shortness of breath): (3) Wheezing: (4) Leukocytosis: - Admit to med surg for observation - Most recent admit was Jul 18- for similar presentation, now with worsening cough. - afebrile, WBC elevated at 26.3 K with left shift, possible pneumonia not completely resolved from last admission - flu swab neg but presents with viral picture. - sputum culture - CXR with unchanged right medial lung base hazy airspace opacity. Possible superimposed pneumonia on the background of chronic scarring. - Was on rocephin and azithromycin during last admit and was discharged on Omnicef- pt got one dose of Vanc and Levaquin while in ER upon admission, will continue levaquin IV alone. Assess response tomorrow and can determine if needs more abx. - Pred taper scheduled to stop today, but will continue 10 mg daily for now with mild wheeze. - Continue Mucinex, Tessalon Perles, incentive spirometry, neb treatments - Follow BCx - Pt does not smoke however is exposed to second hand from (smokes in home and car) - discussed cessation and to promote smoking outside. Likely has COPD. - No on chronic O2 at baseline, currently on RA -D-dimer elevated at 650, CTA negative for PE Hospital course Leukocytosis is improving. Patient clinically improved, on room air on day of discharge. Will continue renal dosing of her levaquin. There does appear to be an infiltrate on her chest x-ray. Will discharge on oral antibiotics at a renal dose. All questions by patient were answered. (5) Hypoxia: (6) Benign essential HTN: -Continue atenolol 50 mg QAM, diltiazem 120 mg QAM, enalapril, HCTZ (7) DM II (diabetes mellitus, type II), controlled: - With significant hyperglycemia secondary to corticosteroid use - Continue basal bolus insulin, ISS with [facility] - Pharmacy glycemic management consultation (8) Osteoarthritis: (9) GERD (gastroesophageal reflux disease): - Cont ranitidine 150 mg daily (10) HLD (hyperlipidemia): -Continue simvastatin 20 mg daily (11) Vitamin D deficiency: -Continue supplementation (12) Lumbar back pain with radiculopathy affecting left lower extremity: -continue hydromorphone tablets 4 mg QAM (13) History of pancreatic cancer: - s/p Whipple in 1996, in remission since then (14) Valvular heart disease: -Follows with [facility] : most recent echocardiogram by verbal report given during last admission: in 12/2017, she was with mild MR, mild TR, preserved EF -history of 4 cardiac caths all with nonobstructive disease (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: - Patient reports severe reaction to pneumonia vaccination in the past (16) DVT prophylaxis: -teds, scds, lovenox subq (17) Chronic cholecystitis: - Reports a history of chronic cholecystitis but not having surgery due to history of Whipple from 20+ years ago Total Time Total Time Spent Total Time Spent (In Minutes): 32 minutes Total Time Includes: Examination of the Patient, Discharge Planning and Medication Reconciliation Discharge Plan Discharge Items Patient Disposition: Home - Self-Care Reason For Visit: WORSENING COUGH, BODY ACHES, CHILLS Discharge Diagnosis: Pneumonia Discharge Goals: Decrease discomfort Activity: Resume your previous activity Non-emergency contact: Primary Care Provider Call non-emergency contact if: you have any medication questions Diet: Regular Addtl Provider Instructions: Continue antibiotic on Sunday and finsih on Sunday. Followup with PCP in 1-2 weeks Prescriptions: Continue enalapril-hydrochlorothiazide 10-25 mg tablet 1 tab PO QAM RF: 0 diltiazem HCl 120 mg capsule,extended release 24 hr 120 mg PO QAM RF: 0 simvastatin 20 mg tablet 20 mg PO QPM RF: 0 hydromorphone 4 mg tablet 4 mg PO DAILY PRN (Reason: PAIN) RF: 0 atenolol 50 mg tablet 50 mg PO QAM RF: 0 insulin lispro 100 unit/mL insulin pen 8 units subcut QAM RF: 0 multivitamin Tablet 1 tab PO QAM RF: 0 trazodone 50 mg tablet 50 mg PO HS PRN (Reason: Sleep) RF: 0 ranitidine HCl [Zantac] 150 mg Tablet 150 mg PO QAM RF: 0 cholecalciferol (vitamin D3) 1,000 unit Capsule 1,000 unit PO QAM RF: 0 insulin lispro 100 unit/mL insulin pen 12 units subcut QPM RF: 0 insulin NPH isoph U-100 human 100 unit/mL (3 mL) insulin pen 34 units subcut QAM RF: 0 insulin NPH isoph U-100 human 100 unit/mL (3 mL) insulin pen 26 - 30 units subcut HS RF: 0 albuterol sulfate 90 mcg/actuation HFA aerosol inhaler 2 inha INH Q4H PRN (Reason: shortness of breath,cough, or wheezing) Qty: 18 RF: 0 guaifenesin [Mucinex] 600 mg tablet extended release 12hr 1,200 mg PO HS RF: 0 prednisone 10 mg tablet 10 mg PO QAM RF: 0 Stand-Alone Forms: [facility] Discharge Orders: Discharge Order (Routine); Ordered 08/01/18 Ordered By: Bud Serrato Admission Data Admit Date/Time: 07/30/18 12:38 Attending Provider: Bud Serrato Admit Provider: Ninoska Farias Primary Care Provider: Tasia Diaz Other Providers: Ninoska Farias ; Maynor Hwang Service: Medical Other Interventions: Discharge Summary Assessment (RN) Last Done: 08/01/18 13:18 DC Date/Time DO NOT enter until pt leaves facility: 08/01/18 14:44
== END 2018-08-01 14:44 | disposition home or self-care (01) ==
LOC: 2S 07:55 → ED 07:55 → SUATTDRO 12:38 → 2S 13:43 → 4W 07-31 13:05

== ENCOUNTER 2019-05-28 06:08 | Inpatient (IN) ==
--- NOTE | 2019-05-16 15:55 | PAT Medication Instructions ---
Medication Instructions Date of Service May 16, 2019 Home Medications Medication Instructions Recorded albuterol sulfate 90 mcg/actuation 2 puffs INH Q6H PRN #1 ea 12/18/18 breath activated powder inhaler atenolol 50 mg tablet 50 mg PO QAM #90 tab 12/18/18 insulin lispro (U- 100) 100 See Rx Instructions SQ TID #3 box 03/07/19 unit/mL subcutaneous pen enalapril 10 1 tab PO DAILY #90 tab 05/07/19 mg-hydrochlorothiazide 25 mg tablet simvastatin 20 mg tablet 40 mg PO QPM #90 tab 05/07/19 diltiazem ER 120 mg capsule,24 120 mg PO DAILY #90 cap 05/09/19 hr,extended release multivitamin 1 tab PO QAM trazodone 50 mg PO HS PRN albuterol sulfate 2.5 mg/3 mL (0.083 %) solution for nebulization 2.5 mg INHALATION ONCE PRN albuterol sulfate 90 mcg/actuation breath activated powder inhaler 2 puffs INH Q6H PRN atenolol 50 mg tablet 50 mg PO QAM biotin 1 mg tablet 1 mg PO QAM cholecalciferol (vitamin D3) 1,000 unit capsule 1,000 unit PO QAM insulin NPH isophane U-100 human 100 unit/mL (3 mL) subcutaneous pen 30 units SUBCUT QAM insulin NPH isophane U-100 human 100 unit/mL (3 mL) subcutaneous pen See Rx Instructions SUBCUT HS insulin lispro (U- 100) 100 unit/mL subcutaneous pen See Rx Instructions SQ TID esomeprazole magnesium [Nexium] 20 mg PO QAM melatonin 5 mg PO HS PRN enalapril 10 mg-hydrochlorothiazide 25 mg tablet 1 tab PO DAILY simvastatin 20 mg tablet 40 mg PO QPM diltiazem ER 120 mg capsule,24 hr,extended release 120 mg PO DAILY STOP taking 2 weeks before surgery biotin 1 mg tablet 1 mg PO QAM DO NOT take the morning of surgery multivitamin 1 tab PO QAM cholecalciferol (vitamin D3) 1,000 unit capsule 1,000 unit PO QAM insulin lispro (U- 100) 100 unit/mL subcutaneous pen See Rx Instructions SQ TID enalapril 10 mg-hydrochlorothiazide 25 mg tablet 1 tab PO DAILY Take morning of surgery With a small sip of water, OTHERWISE NOTHING TO EAT OR DRINK AFTER MIDNIGHT: albuterol sulfate 2.5 mg/3 mL (0.083 %) solution for nebulization 2.5 mg INHALATION ONCE PRN (if needed) albuterol sulfate 90 mcg/actuation breath activated powder inhaler 2 puffs INH Q6H PRN (use if needed; please bring with you to hospital day of surgery if possible) atenolol 50 mg tablet 50 mg PO QAM esomeprazole magnesium [Nexium] 20 mg PO QAM diltiazem ER 120 mg capsule,24 hr,extended release 120 mg PO DAILY Take evening before surgery trazodone 50 mg PO HS PRN (if needed) albuterol sulfate 2.5 mg/3 mL (0.083 %) solution for nebulization 2.5 mg INHALATION ONCE PRN (if needed) albuterol sulfate 90 mcg/actuation breath activated powder inhaler 2 puffs INH Q6H PRN (if needed) insulin NPH isophane U-100 human 100 unit/mL (3 mL) subcutaneous pen See Rx Instructions SUBCUT HS insulin lispro (U- 100) 100 unit/mL subcutaneous pen See Rx Instructions SQ TID melatonin 5 mg PO HS PRN (if needed) simvastatin 20 mg tablet 40 mg PO QPM Insulin Dependent Diabetic Patients * Test your blood sugar the morning of surgery * If Blood Sugar is GREATER THAN 150, take HALF of your regular dose of: insulin NPH isophane U-100 human 100 unit/mL (3 mL) subcutaneous pen-- take 15 units * If Blood Sugar is LESS THAN 150, DO NOT TAKE ANY: insulin NPH isophane U-100 human 100 unit/mL (3 mL) subcutaneous pen 30 units SUBCUT QAM Other Notes If you have any questions please call us at [phone] or [phone] or [phone] or [phone]
--- NOTE | 2019-05-19 11:06 | Anesthesiology Consultation ---
Date of Service May 19, 2019 Assessment & Plan (1) Encounter for pre-operative examination: - Cardiology: 04/28/19: "She is of course at risk for cardiac and noncardiac complications of spine surgery given her age and comorbidities, but she appears to be clinical stable from a cardiac perspective to proceed with spine surgery if felt to be clinically indicated with anticipated low risk of cardiac complication.. Patient willing to accept this degree of cardiac risk." - Check BSG AM DOS - Possible difficult intubation: due to decreased cervical extension Chart Review Chart Review: Pending: Refer to Additional Notes / Consult section (pending preop testing (labs, CXR)) and Patient seen in Pre Admission Testing Teaching & Discussion Pre-Anesthesia Teaching/Discussion Notes: Instructed NPO after midnight before surgery,except medications with 15 cc of water. Medication instructions provided according to the PAT guidelines. History Surgery Operation Date: 05/28/19 07:45 Proposed Procedures p L3-L4 Decompression and Fusion, L4-S1 Hardware Removal, Spinal Cord Monitoring - Marck Casillas, Height/Weight Height: 5 ft 3 in Weight: 68.3 kg Allergies Allergy/AdvReac Type Severity Reaction Status Date / Time codeine Allergy Severe RASH Verified 04/21/19 09:06 Sulfa (Sulfonamide Allergy Intermediate rash Verified 04/21/19 09:06 Antibiotics) sulfabenzamide Allergy Intermediate rash Verified 04/21/19 09:06 sulfacetamide Allergy Intermediate rash Verified 04/21/19 09:06 sulfathiazole Allergy Intermediate rash Verified 04/21/19 09:06 insulin glargine Allergy Mild pruritus Verified 05/19/19 11:10 (noted after 7+ days of use) aspirin AdvReac Severe Gastrointestinal Unverified 04/21/19 09:06 Upset erythromycin base AdvReac Intermediate abdominal Verified 04/21/19 09:06 pain NSAIDS (Non-Steroidal AdvReac Intermediate gastric Verified 04/21/19 09:06 Anti-Inflamma bleeding hydrocodone AdvReac Mild itching Verified 04/21/19 09:06 oxycodone AdvReac Mild itching Verified 04/21/19 09:06 ciprofloxacin Allergy Unknown unknown Uncoded 05/19/19 11:11 reaction amitriptyline AdvReac Unknown "drunk Uncoded 05/19/19 11:11 feeling" erythromycin AdvReac Unknown abdominal Uncoded 05/19/19 11:11 cramps/pain Medications Home Medications Medication Instructions Recorded Confirmed Last Taken multivitamin 1 tab PO QAM 07/18/18 04/21/19 07/29/18 trazodone 50 mg PO HS PRN 07/18/18 04/21/19 Unknown blood sugar diagnostic strips #10 ea 12/12/18 04/21/19 Unknown lancets 28 gauge #25 ea 12/12/18 04/21/19 Unknown pen needle, diabetic 31 gauge x #30 ea 12/12/18 04/21/19 Unknown 3/" albuterol sulfate 2.5 mg/3 mL 2.5 mg INHALATION ONCE PRN #2 ml 12/18/18 04/21/19 Unknown (0.083 %) solution for nebulization albuterol sulfate 90 mcg/actuation 2 puffs INH Q6H PRN #1 ea 12/18/18 04/21/19 Unknown breath activated powder inhaler atenolol 50 mg tablet 50 mg PO QAM #90 tab 12/18/18 04/21/19 Unknown biotin 1 mg tablet 1 mg PO QAM tab 12/18/18 04/21/19 Unknown cholecalciferol (vitamin D3) 1,000 1,000 unit PO QAM 12/18/18 04/21/19 Unknown unit capsule insulin NPH isophane U-100 human 30 units SUBCUT QAM ml 12/18/18 04/21/19 Unknown 100 unit/mL (3 mL) subcutaneous pen insulin NPH isophane U-100 human See Rx Instructions SUBCUT HS ml 12/18/18 04/21/19 Unknown 100 unit/mL (3 mL) subcutaneous pen insulin lispro (U- 100) 100 See Rx Instructions SQ TID #3 box 03/07/19 04/21/19 Unknown unit/mL subcutaneous pen esomeprazole magnesium [Nexium] 20 mg PO QAM 04/21/19 04/21/19 Unknown melatonin 5 mg PO HS PRN 04/21/19 04/21/19 Unknown enalapril 10 1 tab PO DAILY #90 tab 05/07/19 Unknown mg-hydrochlorothiazide 25 mg tablet simvastatin 20 mg tablet 40 mg PO QPM #90 tab 05/07/19 Unknown diltiazem ER 120 mg capsule,24 120 mg PO DAILY #90 cap 05/09/19 Unknown hr,extended release Past Medical History Medical History Hearing loss, bilateral Paroxysmal SVT (supraventricular tachycardia) on atenolol Insomnia Hiatal hernia Gastroparesis Fibromyalgia Diverticulosis Diabetic nephropathy Diabetes mellitus IDDM Chronic obstructive pulmonary disease stable Cervical spine degeneration Chronic cholecystitis History of pancreatic cancer 1989 s/p whipple procedure Osteoarthritis HLD (hyperlipidemia) Lumbar back pain with radiculopathy affecting left lower extremity Cyst of right kidney GERD (gastroesophageal reflux disease) occasional Gastric bleeding hx years ago in setting of NSAID use HTN (hypertension) Exercise / Class Metabolic Activity III < 4 Walking/Shop/Light housework (one flight of stairs (no chest pain, + SOB in setting of worsening back pain)) Past Family History Family History Mother Arthritis Colorectal cancer Myocardial infarction Father Stroke Colorectal cancer Family history of leukemia Prostate cancer Brother Diabetes Sister Diabetes Past Surgical History Surgical History History of splenectomy whipple procedure ([facility]) History of breast biopsy History of lumbar spinal fusion Hx of colonoscopy Hx of esophagogastroduodenoscopy Hx of right inguinal hernia repair Hx of total hysterectomy with removal of both tubes and ovaries Past Anesthesia History No Hx of Anesthesia Complications (except PONV x 1 episode) and No Family Hx of Anesthesia Complications History of PONV History of PONV (x1 episode) and Hx of Motion Sickness (occasional) Social History Smoking Status: Never smoker Do You Dip or Chew Tobacco: No Hx Alcohol Use: No Hx Substance Use: No substance use type: does not use Review of Systems Occasional reflux. Patient denies chest pain, shortness of breath, cough, wheezing, palpitations. Physical Exam Vital Signs VITALS BP 125/73 P 70 TEMP 98.2 SP02 94%RA RESP 20 PHYSICAL Decreased cervical extension (related to DDD) Full TMJ range of motion. TMD 3 finger breaths Mallampati Score 3 Dentition: full dentures upper/lower Lungs: clear throughout to auscultation Cardiac: regular rate and rhythm, distant heart sounds Spine: normal Carotid arteries: negative bruit Extremities: no edema Testing Electrocardiogram Date: 07/30/18 NSR at 84bpm. NS STA. *Poor data quality* Echocardiogram Date: 12/17/17 EF 55-59%. Borderline increased cLV wall thickness. Grade I DD. Mild LAE. No RWMA. Mild MR/TR. Stress Test Date: 02/08/18 Type: nuclear Combined low intensity exercise/pharmacologic nuclear stress was negative for inducible ischemia. No evidence of infarction. LVEF >70%. 85% MPHR.
--- NOTE | 2019-05-19 12:00 | XRay Report ---
XR chest Pre-admission PA/Lat HISTORY: 84 years-old Female pat acute shortness of breath COMPARISON: Chest radiograph and CTA chest 07/30/2018 TECHNIQUE: PA and lateral views of the chest FINDINGS: Cardiac silhouette is unchanged. Calcified plaque of the thoracic aorta and arch. There is moderately improved aeration of the medial right lung base with persistent ill-defined right middle lobe and po sterior basal segment right lower lobe opacities. No pneumothorax, pleural effusion or overt pulmonar y edema. Fusion hardware of the lumbar spine is partially imaged. IMPRESSION: Persistent moderately improved right middle lobe opacities. Residual infectious or inflam matory pneumonitis versus postinflammatory scarring are the differential considerations. The above report was generated using voice recognition software. It may contain grammatical, syntax o r spelling errors. Electronically signed by: Lucian Park M.D. 05/19/2019 11:59 AM
[2019-05-19 12:22] LABS: Basophils % (auto) 0.9 %; Eosinophils % (auto) 4.7 %; Hematocrit (blood only) 36.6 % (37-47); Hemoglobin 12.2 g/dL (12.0-16.0); Immature Granulocytes # (auto) 0.02 K/uL (0.00-0.02); Immature Granulocytes % (auto) 0.2 %; Lymphocytes # (auto) 3.03 K/uL (1.2-3.4); Lymphocytes % (auto) 28.3 %; Mean Corpuscular Hemoglobin 30.9 pg (25-34); Mean Corpuscular Hgb Conc 33.3 g/dL (32-36); Mean Corpuscular Volume 92.7 fL (80-100); Mean Platelet Volume 10.6 fL (7.4-10.4); Monocytes # (auto) 0.95 K/uL (0.11-0.59); Monocytes % (auto) 8.9 %; Neutrophils # (auto) 6.09 K/uL (1.4-6.5); Platelet Count 328 K/uL (130-400); RDW Coefficient of Variation 13.2 % (11.5-14.5); RDW Standard Deviation 44.8 fL (36.4-46.3); Red Blood Count 3.95 M/uL (4.2-5.4); White Blood Count 10.69 K/uL (4.8-10.8)
[2019-05-19 12:28] LABS: Appearance Urine Clear (Clear); Bilirubin Urine Negative (Negative); Blood Urine Negative (Negative); Color Urine Yellow; Glucose Urine UA Negative (Negative); Ketones Urine Negative (Negative); Leukocyte Esterase Urine Negative (Negative); Nitrite Urine Negative (Negative); Protein Urine Negative (Negative); Specific Gravity Urine 1.017 (1.000-1.030); Urobilinogen Urine Negative (Negative)
[2019-05-19 12:35] LABS: INR 1.1 (0.9-1.1); Partial Thromboplastin Time 26.2 Seconds (21.0-31.0); Prothrombin Time 10.9 Seconds (9.0-12.0)
[2019-05-19 12:41] LABS: Estimated Average Glucose 194 mg/dl; Hemoglobin A1C 8.4 % (4.5-5.6)
[2019-05-19 12:58] LABS: BUN Creatinine Ratio 22.8 (10-20); Calcium 9.8 mg/dl (8.5-10.1); Creatinine Clr Calc Pharmacy 39.8 ml/min; Est GFR (Non-African American) 51.8; Potassium 3.9 mmol/L (3.5-5.1)
[~2019-05-28 06:08] MED LIST changes: -ATEN50TA PO; -BIOTCAP2 PO; +CEFAZOLIN 1000MG 1,000 MG/7.5 ML SYR IV SCH; -DILT120C9 PO; -ENAL10TA9 PO; +GABAPENTIN 300 MG CAP PO SCH; -HMLIS SQ; -HYDR4TAB78 PO; -INSU100I2 SQ; -INSU1INJ23 SQ; -LEVO25TA5 PO; -LIDOCAINE HCL 2% 2 ML VIAL (20MG/ML) ONE; +LR 15ML/HR IV SCH; -MULT-506 PO; -NXM/40 PO; -PROPOFOL IV EMULSION 10 MG/ML 20 ML VIAL IV ONE; -SIMV-151 PO; -TRAZ-119 PO; -VTMD1000 PO
[2019-05-28] MEDS ORDERED: HYDROmorphone INJ 2 MG/ML SYR/VIAL ONE ×2 (06:35→08:11)
[2019-05-28] MEDS ORDERED: fentaNYL citrate 100 MCG/2 ML VIAL ONE ×4 (06:35→09:31)
[2019-05-28] MEDS ORDERED: BACITRACIN INJ 50,000 UNIT VIAL ONE (07:00)
[2019-05-28] MEDS ORDERED: BUPIVACAINE/EPINEPHRINE 0.25% 1:200,000 30 ML VIAL ONE (07:00)
--- NOTE | 2019-05-28 07:22 | History & Physical Bridge Note ---
Date of Service May 28, 2019 History & Physical Bridge Note I have examined the patient, reviewed the History & Physical and in the interval since the performance of the History & Physical I have noted the following changes of clinical significance: no changes noted
--- NOTE | 2019-05-28 07:23 | History & Physical Report ---
Date of Service May 28, 2019 Assessment & Plan (1) Neurogenic claudication due to lumbar spinal stenosis: Decompression and fusion L3-4 hardware removal L4-S1 Present on Admission?: Yes History of Present Illness Chief Complaint: Back and bilateral leg pain Primary Care Provider: SHANNAN Hernandes This is an 84-year-old female presents with chronic persistent back and bilateral leg pain. Failing extensive course of nonoperative care is here for surgical intervention. Allergies Allergy/AdvReac Type Severity Reaction Status Date / Time codeine Allergy Severe RASH Verified 05/28/19 06:34 Sulfa (Sulfonamide Allergy Intermediate rash Verified 05/28/19 06:34 Antibiotics) sulfabenzamide Allergy Intermediate rash Verified 05/28/19 06:34 sulfacetamide Allergy Intermediate rash Verified 05/28/19 06:34 sulfathiazole Allergy Intermediate rash Verified 05/28/19 06:34 insulin glargine Allergy Mild pruritus Verified 05/28/19 06:34 (noted after 7+ days of use) aspirin AdvReac Severe Gastrointestinal Unverified 05/28/19 06:34 Upset erythromycin base AdvReac Intermediate abdominal Verified 05/28/19 06:34 pain NSAIDS (Non-Steroidal AdvReac Intermediate gastric Verified 05/28/19 06:34 Anti-Inflamma bleeding hydrocodone AdvReac Mild itching Verified 05/28/19 06:34 oxycodone AdvReac Mild itching Verified 05/28/19 06:34 ciprofloxacin Allergy Unknown unknown Uncoded 05/28/19 06:34 reaction amitriptyline AdvReac Unknown "drunk Uncoded 05/28/19 06:34 feeling" erythromycin AdvReac Unknown abdominal Uncoded 05/28/19 06:34 cramps/pain Home Medications Home Medications Medication Instructions Recorded Confirmed Type multivitamin 1 tab PO QAM 07/18/18 05/28/19 History trazodone 50 mg PO HS PRN 07/18/18 05/28/19 History blood sugar diagnostic #10 ea 12/12/18 05/22/19 History lancets 28 gauge #25 ea 12/12/18 05/22/19 History pen needle, diabetic 31 gauge x #30 ea 12/12/18 05/22/19 History 3/16" albuterol sulfate 2.5 mg/3 mL 2.5 mg INHALATION ONCE PRN #2 ml 12/18/18 05/28/19 History (0.083 %) solution for nebulization albuterol sulfate 90 mcg/actuation 2 puffs INH Q6H PRN #1 ea 12/18/18 05/28/19 Rx breath activated powder inhaler atenolol 50 mg tablet 50 mg PO QAM #90 tab 12/18/18 05/28/19 Rx biotin 1 mg tablet 1 mg PO QAM tab 12/18/18 05/28/19 History cholecalciferol (vitamin D3) 1,000 1,000 unit PO QAM 12/18/18 05/28/19 History unit capsule insulin NPH isoph U-100 human 100 30 units SUBCUT QAM ml 12/18/18 05/28/19 History unit/mL (3 mL) subcutaneous pen insulin NPH isoph U-100 human 100 See Rx Instructions SUBCUT HS ml 12/18/18 05/28/19 History unit/mL (3 mL) subcutaneous pen insulin lispro 100) 100 unit/mL See Rx Instructions SQ TID #3 box 03/07/19 05/28/19 Rx subcutaneous pen esomeprazole magnesium [Nexium] 20 mg PO QAM 04/21/19 05/28/19 History melatonin 5 mg PO HS PRN 04/21/19 05/28/19 History enalapril 10 1 tab PO DAILY #90 tab 05/07/19 05/28/19 Rx mg-hydrochlorothiazide 25 mg tablet simvastatin 20 mg tablet 40 mg PO QPM #90 tab 05/07/19 05/28/19 Rx diltiazem HCl 120 mg capsule,24 120 mg PO DAILY #90 cap 05/09/19 05/28/19 Rx hr,extended release Past Med/Surg History Medical History Hearing loss, bilateral Paroxysmal SVT (supraventricular tachycardia) on atenolol Insomnia Hiatal hernia Gastroparesis Fibromyalgia Diverticulosis Diabetic nephropathy Diabetes mellitus IDDM Chronic obstructive pulmonary disease stable Cervical spine degeneration Chronic cholecystitis History of pancreatic cancer 1989 s/p whipple procedure Osteoarthritis HLD (hyperlipidemia) Lumbar back pain with radiculopathy affecting left lower extremity Cyst of right kidney GERD (gastroesophageal reflux disease) occasional Gastric bleeding hx years ago in setting of NSAID use HTN (hypertension) Surgical History History of splenectomy whipple procedure ([facility]) History of breast biopsy History of lumbar spinal fusion Hx of colonoscopy Hx of esophagogastroduodenoscopy Hx of right inguinal hernia repair Hx of total hysterectomy with removal of both tubes and ovaries Family History Mother Arthritis Colorectal cancer Myocardial infarction Father Stroke Colorectal cancer Family history of leukemia Prostate cancer Brother Diabetes Sister Diabetes Social History Preferred Language: Turkmen Communication Ability: Effective Monumental Stonemason Required: No Beliefs That Will Affect Care: None marital status: Current Living Situation: Spouse current occupational status: retired Other Information That Helps Us Care for You: No Feels Safe at Home: Yes Safety Concerns: Feels Safe At This Time Smoking Status: Never smoker Do You Dip or Chew Tobacco: No ; Second Hand Exposure: Yes ; Tobacco Cessation Education Requested by Patient: No Hx Alcohol Use: No Hx Substance Use: No Physical Exam Physical Exam: Patient is alert and oriented neurologically intact. Results & Data Vital Signs (Past 12 Hours) Vital Signs Temp Pulse Resp BP Pulse Ox 05/28/19 06:45 36.6 C 73 20 161/85 H 96
[2019-05-28] MEDS ORDERED: LABETALOL HCL IV 5 MG/ML 20ML IV PRN (07:25)
[2019-05-28] MEDS ORDERED: PROMETHAZINE HCL 6.25 MG in SODIUM CHLORIDE 0.9% 50 ML IV PRN (07:25)
[2019-05-28] MEDS ORDERED: ONDANSETRON INJ 2 MG/ML 2 ML VIAL IV PRN ×2 (07:25→11:29)
[2019-05-28] MEDS ORDERED: ATROPINE SULFATE 0.1 MG/ML 10ML SYR IV PRN (07:25)
[2019-05-28] MEDS ORDERED: ONDANSETRON INJ 2 MG/ML 2 ML VIAL ONE (08:11)
[2019-05-28] MEDS ORDERED: NEOSTIGMINE METHYLSULFATE 1 MG/ML 10ML VIAL ONE (08:11)
[2019-05-28] MEDS ORDERED: ROCURONIUM BROMIDE 10 MG/ML 5 ML VIAL ONE (08:11)
[2019-05-28] MEDS ORDERED: LARYING-O-JET KIT (LTA) ONE (08:11)
[2019-05-28] MEDS ORDERED: LIDOCAINE HCL 2% 2 ML VIAL/AMP(20MG/ML) INFIL ONE (08:11)
[2019-05-28] MEDS ORDERED: PROPOFOL IV EMULSION 10 MG/ML 20 ML VIAL IV ONE (08:11)
[2019-05-28] MEDS ORDERED: DEXAMETHASONE SOD INJ 4 MG/ML VIAL ONE (08:11)
[2019-05-28] MEDS ORDERED: GLYCOPYRROLATE 0.2 MG/ML VIAL ONE (08:11)
[2019-05-28] MEDS ORDERED: FLOSEAL HEMOSTATIC MATRIX 10ML TOP ONE (08:36)
[2019-05-28] MEDS ORDERED: ePHEDrine sulfate 50 MG/ML SYR ONE (08:55)
[2019-05-28] MEDS ORDERED: ePHEDrine sulfate 50 MG/ML AMP ONE (08:55)
[2019-05-28] MEDS ORDERED: KETOROLAC 30 MG/ML VIAL ONE (09:34)
--- NOTE | 2019-05-28 09:46 | Operative Report ---
Post Operative Report Pre & Post Diagnosis Operation Date: 05/28/19 07:45 Pre-Op Diagnosis: Lumbar spinal stenosis with neurogenic claudication Post-Op Diagnosis: Same I identified the patient and participated in the time-out.: Yes Procedure Operation Date: 05/28/19 07:45 Actual Procedures #1 removal of posterior instrumentation L4-5 L5-S1. #2 exploration of fusion L4-5 L5-S1. #3 lumbar decompression with bilateral medial facetectomies and foraminotomies L2-3 L3-4. #4 posterior spinal fusion L3-4. #5 placement posterior instrumentation L3-4 L4-5. #6 interbody fusion L3-4 per #7 placed a peek cage 12 x 22 mm at L3-4. #8 placement of locally harvested morselized autograft in the posterior lateral gutters per #9 placement infuse collagen spo nge, mass graft in the posterior lateral gutters and ostial amp and interbody space. Surgeon Marck Casillas, Cap Jewel Plate Assembler None Estimated Blood Loss 75 Findings Consistent with Post-Op Diagnosis Specimens None Indications This is an 84-year-old female who presents with above-mentioned diagnosis after failing extensive course of nonoperative care elected to go the above-mentioned procedure. Description of Procedure Patient was met with identified and informed consent obtained. Patient was then taken to the operative suite underwent intubation placed in a prone position the Josesito table on top of the Jonel frame. All bony prominences well-padded eyes inspected to ensure no external pressure placed upon the peer at this point the lumbar spine was prepped and draped in normal sterile fashion. Sharp dissection with the assistance of Bovie cautery was performed down to and exposing the lamina and transverse processes of L3 and instrumentation at L4-L5 S1 levels bilaterally. Then proceed remove the hardware bilaterally explore the fusion mass at L4 L5-S1 noting it to be intact. Then performed a complete laminectomy of L3 partial laminectomy L2 including bilateral medial facetectomies and foraminotomies addressing severe stenosis as well as a massive facet cyst at L3- 4 on the right. After complete removal and decompression pedicle screws were placed in L3-L4-L5 bilaterally with assistance of fluoroscopy and process tameka placed. By way of a transforaminal approach on the right complete discectomy of L3-4 was performed endplates curetted to subcortical being bone and a 12 x 22 mm peek cage filled with ostium bone graft tapped in position. The rods and locked in final position bilaterally. The transverse processes of L3-L4-L5 bur to subcortical bleeding bone. Infuse collagen sponge master graft and local autograft placed in the posterior lateral gutters. 15 round JOSSELYN drain inserted. The incision was then closed with 1 Vicryl in the fascia 2-0 Vicryl subcutaneously in 4 Monocryl for final skin closure. Steri-Strip sterile dressings placed. Patient will continue to PACU stable disc. Please note spinal cord monitoring was utilized that the procedure no changes noted. I attest to the content of the Intraoperative Record and any orders documented therein. Any exceptions are noted below.
--- NOTE | 2019-05-28 09:49 | Fluoroscopy Report ---
LUMBAR SPINE, INTRAOPERATIVE FLUOROSCOPY HISTORY: L4-S1 hardware removal. L3-L4 decompression and fusion. FLUOROSCOPY TIME: 12 seconds. FINDINGS: Intraoperative fluoroscopy was provided for the lumbar spine. 2 fluoroscopic spot images we re obtained. Posterior decompression fusion from L2 through L4 with pedicle screws and rods. The hard henriquez appears intact. IMPRESSION: Fluoroscopy provided for a L2-L4 posterior decompression and fusion. Electronically signed by: Wagner Trivedi M.D. 05/28/2019 9:48 AM
[2019-05-28] MEDS ORDERED: ESMOLOL HCL INJ 10 MG/ML 10ML VIAL IV ONE (10:04)
[2019-05-28] MEDS: HYDROmorphone INJ 1 MG/ML SYRINGE IV PRN ×5 (10:19→10:39)
[2019-05-28] MEDS ORDERED: ONDANSETRON 4 MG OD TAB PO PRN (11:29)
[2019-05-28] MEDS ORDERED: ALUMINUM/MAGNESIUM SUSP 30 ML UDC PO PRN (11:29)
[2019-05-28] MEDS ORDERED: ALBUTEROL 0.083% NEBU SOLN 3 ML VIAL INH PRN (11:29)
[2019-05-28] MEDS ORDERED: PROMETHAZINE HCL 12.5 MG in SODIUM CHLORIDE 0.9% 50 ML IV PRN (11:29)
[2019-05-28] MEDS ORDERED: NALOXONE HCL 0.4 MG/1 ML VIAL/CARP IV PRN (11:29)
[2019-05-28] MEDS ORDERED: DO NOT ADMINISTER FLU VACCINE PRN (11:29)
[2019-05-28] MEDS ORDERED: NON-FORMULARY MEDICATION (Melatonin 5 MG) PO PRN (11:29)
[2019-05-28] MEDS ORDERED: DO NOT ADMINISTER PNEUMOCOCCAL VACCINE PRN (11:29)
[2019-05-28] MEDS ORDERED: TRAZODONE HCL 50 MG TAB PO PRN (11:29)
[2019-05-28] MEDS ORDERED: BISACODYL 10 MG SUPP PR PRN (11:29)
[2019-05-28] MEDS ORDERED: LORazepam 0.5 MG/1 ML VIAL IV PRN (11:29)
[2019-05-28] MEDS ORDERED: SOD PHOSPHATE/SOD BIPHOSPHATE ENEMA 132 ML BTL PR PRN (11:29)
[2019-05-28] MEDS ORDERED: FAMOTIDINE 20 MG TAB PO PRN (11:29)
[2019-05-28] MEDS ORDERED: LORazepam 0.5 MG TAB PO PRN (11:29)
[2019-05-28] MEDS ORDERED: ACETAMINOPHEN 500 MG TAB PO PRN (11:29)
[2019-05-28] MEDS ORDERED: HYDROmorphone INJ 0.5 MG/0.5 ML SYR IV PRN (11:29)
[2019-05-28] MEDS ORDERED: METOCLOPRAMIDE HCL INJ 5 MG/ML 2 ML VIAL IV PRN (11:29)
[2019-05-28] MEDS ORDERED: MAGNESIUM HYDROXIDE SUSP 30 ML UDC PO PRN (11:29)
[2019-05-28] MEDS ORDERED: ACETAMINOPHEN 1,000 MG/100 ML VIAL IV PRN (11:29)
--- NOTE | 2019-05-28 11:43 | Anesthesiology Progress Note ---
Date of Service May 28, 2019 Anesthesia Post Procedure Vital Signs Vital Signs: Temp Pulse Pulse Resp BP Pulse Ox 05/28/19 11:15 36.6 C 64 16 128/65 98 05/28/19 10:55 36.5 C 59 L 15 129/56 L 96 05/28/19 10:45 60 15 136/65 94 05/28/19 10:35 60 14 131/59 L 97 05/28/19 10:25 68 16 143/59 H 93 05/28/19 10:15 70 15 139/54 L 96 05/28/19 10:05 71 13 150/65 H 100 05/28/19 09:55 36.9 C 70 16 138/56 L 98 05/28/19 06:45 36.6 C 73 20 161/85 H 96 Pain Intensity Lower Medial Back: Pain Intensity: 7 Transfer of Care Handoff Completed per policy Notes Mental Status: alert / awake / arousable Patient Amnestic to Procedure: Yes Nausea / Vomiting: adequately controlled Pain: adequately controlled Airway Patency, RR, SpO2: stable & adequate BP & HR: stable & adequate Hydration State: stable & adequate Anesthetic Complications: no major complications apparent
[2019-05-28] MEDS ORDERED: ALBUTEROL HFA 8 GM INHALER INH PRN (12:09)
[2019-05-28] MEDS: SODIUM CHLORIDE 0.9% 1000ML 1,000 ML IV SCH (12:31)
[2019-05-28] MEDS: CLINDAMYCIN 600 MG in DEXTROSE 5% 50 ML IV SCH ×2 (12:33→22:47)
--- NOTE | 2019-05-28 13:08 | Orthopedic Progress Note ---
Date of Service May 28, 2019 Results & Data Vital Signs (Past 12 Hours) Vital Signs Temp Pulse Pulse Resp BP Pulse Ox 05/28/19 12:21 62 18 117/65 94 05/28/19 11:51 58 L 18 133/62 96 05/28/19 11:15 36.6 C 64 16 128/65 98 05/28/19 10:55 36.5 C 59 L 15 129/56 L 96 05/28/19 10:45 60 15 136/65 94 05/28/19 10:35 60 14 131/59 L 97 05/28/19 10:25 68 16 143/59 H 93 05/28/19 10:15 70 15 139/54 L 96 05/28/19 10:05 71 13 150/65 H 100 05/28/19 09:55 36.9 C 70 16 138/56 L 98 05/28/19 06:45 36.6 C 73 20 161/85 H 96
[2019-05-28] MEDS ORDERED: DEXTROSE 50% 50 ML SYRINGE IV PRN ×2 (14:59→15:23)
[2019-05-28] MEDS ORDERED: GLUCAGON FOR INJ 1 MG VIAL SQ PRN ×2 (14:59→15:23)
[2019-05-28] MEDS ORDERED: GLUCOSE 40% GEL 15 GM TUBE PO PRN ×2 (14:59→15:23)
[2019-05-28] MEDS ORDERED: GLUCOSE 10 TABS/TUBE PO PRN ×2 (14:59→15:23)
[2019-05-28] MEDS ORDERED: CARBOHYDRATES FOR HYPOGLYCEMIA PO PRN (15:23)
[2019-05-28] MEDS ORDERED: PHARMACY GLYCEMIC MGMT CONSULT PRN (15:30)
[2019-05-28] MEDS ORDERED: INSULIN HUMAN NPH SC ONE ×2 (16:00→16:15)
--- NOTE | 2019-05-28 16:01 | Pharmacy Report ---
Glycemic Control Consultation - Date of Service May 28, 2019 - Scope Scope: Glycemic Pharmacist consulted by Dr Stephens on 05/28/19 for glycemic control and to write orders per [facility] inpatient glycemic control protocol - Objective Weight: 68.75 kg Accuchecks BSG (last 24hrs): 05/28/19 05/28/19 05/28/19 06:28 09:57 12:18 POC Glucose 139 H 196 H 252 H 05/28/19 15:45 POC Glucose 281 H HbA1c: Hemoglobin A1c 8.4 % (4.5-5.6) H 05/19/19 11:29 - Recent Pertinent Medications Outpatient Anti-diabetic Regimen: * Humalog 10u Breakfast and 14u Dinner, NPH 30u QAM and 26-28u QPM * A1c = 8.4 % 05/19/19 - Assessment & Plan Assessment & Plan: ASSESSMENT: * Pt is an 84yo F POD: 0 for lumber decompression. She received 12mg IV DXM perioperatively. She is on a clear diet and will be advanced as tolerated. I went in to speak with her and she is quite somnolent. Post-op BSGs have all been elevated: [id number]. She did not receive her AM dose of NPH per the med rec. PMHx consistent with HTN, HLD, among others. Per previous progress notes she is a type 2 diabetic. PLAN FOR INPATIENT GLYCEMIC CONTROL: * Basal insulin * NPH 45u x1 STAT. To help cover missed 30 units this AM plus additional 15units for steroid induced hyperglycemia. Will delineate further doses of NPH per her response to the 45u * Bolus insulin * NovoLog per scale ACHS or Q6hrs while NPO * Goal Range: Low 110 mg/dL - High 140 mg/dL * Correction Factor: 20 mg/dL/unit * Nutritional / Prandial insulin per carb ratio of 1 unit per 5 grams CHO consumed * will add 00,04 checks to ensure we are obtaining euglycemia * Please note that the plan above was derived based on current level of insulin resistance and hospital stress. These recommendations are appropriate for inpatient admission only. Plan of care upon discharge will need to be reassessed to avoid potential outpatient hypo/hyperglycemia. Thank you.
--- NOTE | 2019-05-28 17:06 | Hospitalist Consultation ---
Date of Consultation May 28, 2019 Assessment & Plan (1) Status post lumbar spine operative procedure for decompression of spinal cord: POD #0. Pain management as per surgery. (2) Neurogenic claudication due to lumbar spinal stenosis: As above (3) Benign essential HTN: Will hold hydrochlorothiazide due to history of hyponatremia and currently dry mucous membranes with low normal blood pressures. Suspect this can be continued on eventual discharge. Continue other home blood pressure medications; atenolol, diltiazem, enalapril (4) GERD (gastroesophageal reflux disease): Esomeprazole switched to pantoprazole as per hospital formulary. (5) Paroxysmal SVT (supraventricular tachycardia): Continue atenolol and diltiazem (6) Coordination abnormal: Difficult history from the patient regarding chronicity of this. Suspect acutely worsened due to medications from anesthesia and pain. Discussed with anesthesiology and the myoclonic jerking not thought to be side effects of medications given. Given unclear chronicity and the fact this will hamper her recovery from this operation we start a limited work-up for this with CT head, CBC, CMP, PT/INR, PTT, ABG. If continues would recommend consulting neurology. Ideally we would get an MRI however she is just had new hardware placed from her back operation today. If purely just having a postural, kinetic tremor this would be consistent with a benign essential tremor (with possible history of head-bobbing). However also having diplopia (possibly due to disuse of her right eye from cataract) and gait abnormalities (possibly due to spinal stenosis). Having all of the above would be consistent with a cerebellar process. (7) Binocular vision disorder with diplopia: With associated vision loss and right eye. Progressive over the months the patient. Possibly related to cataract in right eye causing disuse. 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 On long-term insulin with endocrinology. Glycemic pharmacy consult placed -note reviewed. Appreciate management. (9) Chronic obstructive pulmonary disease: Unclear exact history and requested causing her pulmonary most recent visit and PFT results. Suspect she was started on Symbicort as per description, we will switch this to Advair while admitted. Current mild wheezing on exam. Will also prescribe scheduled Duonebs and follow-up in the morning. ABG ordered to rule out CO2 retention as a cause of her coordination abnormality. (10) DVT prophylaxis: As per primary surgery team. History of Present Illness Reason for Consultation: medical management Attending Physician: Marck Casillas DO History of Present Illness 84-year-old female admission for elective decompression fusion L3-4 with hardware removal L4-S1 for neurogenic claudication due to lumbar spinal stenosis performed by Dr. Casillas. Currently POD#0. She has multiple chronic medical issues: COPD from secondhand smoke, no PFTs available (will request from [employer]), uses albuterol occasionally, reports other using maintenance medications but she felt they did not work or were empty (possible Symbicort). Diabetes - under endocrinology, insulin dependant due to prior whipple's procedure on long-term insulin, HbA1c 8.4 05/2019. Paroxysmal SVT -apparently previously picked up on a human resource officer after stopping her atenolol. Hypertension -she denies any dizziness or lightheadedness on standing Patient is currently awake and alert after the operation. She reportedly took a long time to wake up from the anesthesia. She is currently complaining of abnormal upper limb and occasional lower limb movements. She initially reported this is completely new for her although on further questioning she has had chronic issues with dropping objects getting worse over a number of months. She reports no neurological evaluation for this and no recent CT of her head. She has no known diagnosis of benign essential tremor although reports other people notice her head popping occasionally. She is currently struggling eating her dinner due to lack of coordination, she is finding hard to know where her hand is in space. She thinks these symptoms are worse after the operation. Allergies Allergy/AdvReac Type Severity Reaction Status Date / Time codeine Allergy Severe RASH Verified 05/28/19 06:34 Sulfa (Sulfonamide Allergy Intermediate rash Verified 05/28/19 06:34 Antibiotics) sulfabenzamide Allergy Intermediate rash Verified 05/28/19 06:34 sulfacetamide Allergy Intermediate rash Verified 05/28/19 06:34 sulfathiazole Allergy Intermediate rash Verified 05/28/19 06:34 insulin glargine Allergy Mild pruritus Verified 05/28/19 06:34 (noted after 7+ days of use) aspirin AdvReac Severe Gastrointestinal Unverified 05/28/19 06:34 Upset erythromycin base AdvReac Intermediate abdominal Verified 05/28/19 06:34 pain NSAIDS (Non-Steroidal AdvReac Intermediate gastric Verified 05/28/19 06:34 Anti-Inflamma bleeding hydrocodone AdvReac Mild itching Verified 05/28/19 06:34 oxycodone AdvReac Mild itching Verified 05/28/19 06:34 ciprofloxacin Allergy Unknown unknown Uncoded 05/28/19 06:34 reaction amitriptyline AdvReac Unknown "drunk Uncoded 05/28/19 06:34 feeling" erythromycin AdvReac Unknown abdominal Uncoded 05/28/19 06:34 cramps/pain Home Medications Home Medications Medication Instructions Recorded Confirmed Type multivitamin 1 tab PO QAM 07/18/18 05/28/19 History trazodone 50 mg PO HS PRN 07/18/18 05/28/19 History blood sugar diagnostic #10 ea 12/12/18 05/22/19 History lancets 28 gauge #25 ea 12/12/18 05/22/19 History pen needle, diabetic 31 gauge x #30 ea 12/12/18 05/22/19 History 3/16" albuterol sulfate 2.5 mg/3 mL 2.5 mg INHALATION ONCE PRN #2 ml 12/18/18 05/28/19 History (0.083 %) solution for nebulization albuterol sulfate 90 mcg/actuation 2 puffs INH Q6H PRN #1 ea 12/18/18 05/28/19 R x breath activated powder inhaler atenolol 50 mg tablet 50 mg PO QAM #90 tab 12/18/18 05/28/19 Rx biotin 1 mg tablet 1 mg PO QAM tab 12/18/18 05/28/19 History cholecalciferol (vitamin D3) 1,000 1,000 unit PO QAM 12/18/18 05/28/19 History unit capsule insulin NPH isoph U-100 human 100 30 units SUBCUT QAM ml 12/18/18 05/28/19 History unit/mL (3 mL) subcutaneous pen insulin NPH isoph U-100 human 100 See Rx Instructions SUBCUT HS ml 12/18/18 05/28/19 History unit/mL (3 mL) subcutaneous pen insulin lispro 100) 100 unit/mL See Rx Instructions SQ TID #3 box 03/07/19 05/28/19 Rx subcutaneous pen esomeprazole magnesium [Nexium] 20 mg PO QAM 04/21/19 05/28/19 History melatonin 5 mg PO HS PRN 04/21/19 05/28/19 History enalapril 10 1 tab PO DAILY #90 tab 05/07/19 05/28/19 Rx mg-hydrochlorothiazide 25 mg tablet simvastatin 20 mg tablet 40 mg PO QPM #90 tab 05/07/19 05/28/19 Rx diltiazem HCl 120 mg capsule,24 120 mg PO DAILY #90 cap 05/09/19 05/28/19 Rx hr,extended release Patient History Medical History (Updated 05/28/19 @ 20:44 by Raymond Hernandez MD) Benign essential HTN (Chronic) Biliary dyskinesia (Resolved) Cervical spine degeneration (Chronic) Chronic cholecystitis Chronic obstructive pulmonary disease (Chronic) stable Constipation (Chronic) Cyst of right kidney Diabetes mellitus (Chronic) IDDM Diabetic nephropathy (Chronic) Diverticulosis (Chronic) Fibromyalgia (Chronic) Gastric bleeding hx years ago in setting of NSAID use Gastric polyps (Chronic) Gastroparesis (Chronic) GERD (gastroesophageal reflux disease) occasional Hearing loss, bilateral Hiatal hernia (Chronic) History of pancreatic cancer 1989 s/p whipple procedure HLD (hyperlipidemia) (Chronic) HTN (hypertension) Hypercholesteremia (Chronic) Insomnia (Chronic) Internal hemorrhoids (Chronic) Lumbar back pain with radiculopathy affecting left lower extremity (Chronic) Osteoarthritis (Chronic) Paroxysmal SVT (supraventricular tachycardia) on atenolol Tubular adenoma of colon (Chronic) Valvular heart disease (Chronic) Vitamin D deficiency (Chronic) Surgical History (Updated 05/28/19 @ 19:34 by Raymond Hernandez MD) History of breast biopsy History of lumbar spinal fusion History of splenectomy whipple procedure ([facility]) Hx of colonoscopy Hx of esophagogastroduodenoscopy Hx of right inguinal hernia repair Hx of total hysterectomy with removal of both tubes and ovaries Family History Mother Arthritis Colorectal cancer Myocardial infarction Father Stroke Colorectal cancer Family history of leukemia Prostate cancer Brother Diabetes Sister Diabetes Social History Preferred Language: Swedish Communication Ability: Effective Digital Sales 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 Required: No Beliefs That Will Affect Care: None marital status: Current Living Situation: Spouse current occupational status: retired Feels Safe at Home: Yes Smoking Status: Never smoker Second Hand Exposure: Yes ; Hx Alcohol Use: No Hx Substance Use: No Review of Systems Review of Systems: All systems reviewed & are unremarkable except as noted in HPI & below Constitutional: no chills and no sweats Eyes: + diplopia (Patient reports due to cataracts), + decreased night vision and + worsening vision (R > L); no discharge, no dry eyes, no eye pain, no itchy eyes, no loss of peripheral vision, no photophobia, not seeing flashes and no tunnel vision Ear, Nose, Mouth, Throat: + dry mouth and + sore throat (Acute since anesthesia); no ear pain, no ear discharge, no tinnitus, no dizziness, no nasal congestion, no nasal discharge, no post nasal drip and no dysphagia Respiratory: + cough, + dyspnea on exertion and + wheezing; no dyspnea, no hemoptysis and no pain on inspiration Cardiovascular: no orthopnea, no paroxysmal nocturnal dyspnea and no syncope Gastrointestinal: no abdominal pain, no nausea, no vomiting, no dysphagia, no constipation, no diarrhea/loose stools and no blood in stools Genitourinary: no dysuria and no urinary frequency Neurologic: + unsteadiness, + numbness (Right upper thigh), + lack of coordination and + abnormal movements; no dizziness, no syncope, no abnormal speech and no memory loss Physical Exam Constitutional: WD/WN, vitals as above no acute distress Eyes: + anicteric sclerae and PERRL; + EOM not intact (Diplopia resolved with monocular vision) and no nystagmus Less red reflex on right side ENMT: Ears: no external ear abnormality Nose: no external nose abnormality Mouth: + dry oral mucous membranes Neck: trachea midline, no thyromegaly Respiratory: normal respiratory effort and + pursed lip breathing (Occasional); no respiratory distress, no retractions, does not use accessory muscles and no stridor Auscultation: + wheezes (Bilateral end expiratory); no crackles, no rales and no rhonchi Cardiovascular: Rate/Rhythm: regular rate and regular rhythm Heart Sounds: no murmur Vessels: no JVD Extremities: no edema Gastrointestinal (Abdomen): normal bowel sounds, soft, nontender, no hepatosplenomegaly Musculoskeletal: no cyanosis or clubbing, extremities motor strength 5/5 Skin: no rashes, warm and dry Neurologic: moves all extremities and awake; no focal motor deficits and not confused Motor/Sensory: + tremor (Bilateral equal intention), + abnormal movement (Occasional jerking of bilateral upper and less frequent lower extremities) and + sensory deficit (Right upper thigh); no pronator drift Gait: + wide-based gait (Very unsteady balance) Psychiatric: Orientation: alert and oriented x 3 Affect: euthymic affect; no anxious affect Results & Data Vital Signs (Past 12 Hours) Vital Signs Temp Pulse Pulse Resp BP Pulse Ox 05/28/19 15:22 97.9 F 67 17 115/56 L 96 05/28/19 14:19 60 16 106/56 L 91 05/28/19 13:21 59 L 18 103/54 L 91 05/28/19 12:21 62 18 117/65 94 05/28/19 11:51 58 L 18 133/62 96 05/28/19 11:15 97.9 F 64 16 128/65 98 05/28/19 10:55 97.7 F 59 L 15 129/56 L 96 05/28/19 10:45 60 15 136/65 94 05/28/19 10:35 60 14 131/59 L 97 05/28/19 10:25 68 16 143/59 H 93 05/28/19 10:15 70 15 139/54 L 96 05/28/19 10:05 71 13 150/65 H 100 05/28/19 09:55 98.4 F 70 16 138/56 L 98 05/28/19 06:45 97.9 F 73 20 161/85 H 96 PG Care Time/CCT Total # of Minutes Spent Total Time Spent with Patient: Total time spent is greater than 50% in coordination of care (as documented) at patient's floor/unit and/or counseling patient: (1) GERD (gastroesophageal reflux disease) Esophagitis presence: esophagitis presence not specified Qualified Code(s): K21.9 - Gastro-esophageal reflux disease without esophagitis (2) Diabetes mellitus Diabetes mellitus type: due to underlying condition Diabetes mellitus custodial insulin use: with custodial use Diabetes mellitus complication status: with neurologic complications Diabetes mellitus complication detail: with polyneuropathy Qualified Code(s): E08.42 - Diabetes mellitus due to underlying condition with diabetic polyneuropathy; 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
[2019-05-28] MEDS: INSULIN ASPART 100 UNITS/ML 3 ML PEN SC SCH ×2 (17:51→20:55)
[2019-05-28] MEDS ORDERED: ALBUT/IPRATROP 3MG/0.5MG NEB 3 ML VIAL NEB PRN (18:04)
[2019-05-28] MEDS: ALBUT/IPRATROP 3MG/0.5MG NEB 3 ML VIAL NEB SCH (19:13)
--- NOTE | 2019-05-28 20:07 | CT Scan Report ---
CT head/brain wo con CLINICAL HISTORY: 84 years-old Female with acute on chronic cerebellar symptoms. TECHNIQUE: Multiple axial CT images of the head were obtained without contrast. A dose lowering tech nique was utilized adhering to the principles of ALARA. CT DOSE: 638.56 mGycm COMPARISON: None. FINDINGS: No acute intracranial hemorrhage, midline shift, intracranial mass, hydrocephalus, territorial ischem ia or abnormal extra-axial collection. Minimal patchy white matter hypodensities suggest chronic micr ovascular ischemic disease. Minimal age-related involutional changes. Cerebral vascular calcification s are noted. The calvarium is intact. The paranasal sinuses, mastoid air cells, and middle ear cavities are clear . IMPRESSION: No acute intracranial abnormality. The above report was generated using voice recognition software. It may contain grammatical, syntax o r spelling errors. Electronically signed by: Lucian Park M.D. 05/28/2019 8:05 PM
[2019-05-28 20:32] LABS: Basophils # (auto) 0.01 K/uL (0-0.2); Hematocrit (blood only) 33.1 % (37-47); Hemoglobin 10.8 g/dL (12.0-16.0); Immature Granulocytes % (auto) 0.5 %; Lymphocytes # (auto) 1.06 K/uL (1.2-3.4); Lymphocytes % (auto) 5.2 %; Mean Corpuscular Hemoglobin 31.1 pg (25-34); Mean Corpuscular Volume 95.4 fL (80-100); Mean Platelet Volume 10.2 fL (7.4-10.4); Monocytes # (auto) 0.65 K/uL (0.11-0.59); Monocytes % (auto) 3.2 %; Neutrophils # (auto) 18.59 K/uL (1.4-6.5); Neutrophils % (auto) 91.1 %; Platelet Count 287 K/uL (130-400); RDW Coefficient of Variation 13.8 % (11.5-14.5); RDW Standard Deviation 47.8 fL (36.4-46.3); Red Blood Count 3.47 M/uL (4.2-5.4); White Blood Count 20.41 K/uL (4.8-10.8)
[2019-05-28 20:42] LABS: Mean Corpuscular Hgb Conc 32.6 g/dL (32-36)
[2019-05-28 20:44] LABS: Base Excess ABG -6.8 mEq/L (-9-1.8); HCO3 ABG 20 mmol/L (19-24); Oxygen Saturation ABG 92.7 % (90-95); PCO2 ABG 44 mmHg (35-46); PO2 ABG 69 mm/Hg (80-95); pH ABG 7.27 (7.35-7.45)
[2019-05-28] MEDS: FLUTICASONE/SALMETEROL 250/50 (ADVAIR) 14 PUFF/1 INHALER INH SCH (20:46)
[2019-05-28 20:47] LABS: Allen Test POS (Pos)
[2019-05-28] MEDS: DOCUSATE SODIUM/SENNA 50/8.6MG TAB PO SCH (20:47)
[2019-05-28 20:48] LABS: INR 1.1 (0.9-1.1); Partial Thromboplastin Ratio 0.9; Partial Thromboplastin Time 25.7 Seconds (21.0-31.0); Prothrombin Time 10.9 Seconds (9.0-12.0)
[2019-05-28] MEDS: SIMVASTATIN 40 MG TAB PO SCH (20:49)
[2019-05-28] MEDS ORDERED: INSULIN HUMAN REGULAR PER UNIT 5 UNITS in SYRINGE 4.95 ML IV ONE (21:00)
[2019-05-28] MEDS ORDERED: NON-FORMULARY MEDICATION (Insulin Lispro [Humalog Kwikpen Insulin] 10 UNITS) SQ SCH (21:00)
[2019-05-28] MEDS ORDERED: [UNRECOGNIZED DRUG - OTHER] SQ SCH (21:00)
[2019-05-28] MEDS ORDERED: INSULIN HUMAN NPH SC SCH (21:00)
[2019-05-28] MEDS ORDERED: INSULIN ISOPHANE SQ SCH (21:00)
[2019-05-28 21:06] LABS: Albumin Globulin Ratio 0.9 (0.9-2); Albumin Level 3.5 gm/dl (3.4-5.0); Bilirubin,Total 0.2 mg/dl (0.2-1); Calcium 8.5 mg/dl (8.5-10.1); Creatinine Clr Calc Pharmacy 24.6 ml/min; Est GFR (African American) 33.4; Est GFR (Non-African American) 28.8; Potassium 4.2 mmol/L (3.5-5.1); Total Protein 7.5 gm/dl (6.4-8.2)
[2019-05-28] MEDS ORDERED: SODIUM CHLORIDE 0.9% 1000ML 1,000 ML IV ONE (21:08)
[2019-05-28] MEDS ORDERED: DKA GOAL RANGE 150-250 mg/dl ONE (21:12)
[2019-05-28 21:16] LABS: Beta-Hydroxybutyrate 1.11 mg/dl (0.2-2.81)
[2019-05-28] MEDS ORDERED: INSULIN HUMAN REGULAR BOLUS IV ONE (21:45)
[2019-05-28] MEDS ORDERED: INSULIN REGULAR 250 UNITS in SODIUM CHLORIDE 0.9% 247.5 ML IV SCH (21:45)
--- NOTE | 2019-05-28 21:45 | Communication Note ---
Date of Service: May 28, 2019 After labs back apparent patient in DKA with PALMA. pH 7.27. Anion gap 16. Initial labs, insulin IV drip and order set placed with 1L NSS bolus. Discussed with pharmacy and handed over the Dr Ojeda (Museum Exhibit Technician) for further fluid management. Informed patient of condition. She will be transferred to PCU.
[2019-05-28 21:54] LABS: Magnesium 1.7 mg/dl (1.8-2.4)
[2019-05-29] MEDS ORDERED: INSULIN ASPART 100 UNITS/ML 3 ML PEN SC SCH
[2019-05-29 00:54] LABS: BUN Creatinine Ratio 23.2 (10-20); Calcium 7.9 mg/dl (8.5-10.1); Creatinine Clr Calc Pharmacy 31.8 ml/min; Est GFR (African American) 45.5; Est GFR (Non-African American) 39.3; Magnesium 1.6 mg/dl (1.8-2.4); Potassium 3.7 mmol/L (3.5-5.1)
[2019-05-29] MEDS: SODIUM CHLORIDE 0.9% 1000ML 1,000 ML IV SCH ×3 (01:03→21:42)
[2019-05-29 01:17] LABS: Phosphorus 2.4 mg/dl (2.5-4.9)
[2019-05-29] MEDS ORDERED: D5NSS + 20MEQ KCL 20 MEQ/1,000 ML BAG IV SCH (02:00)
[2019-05-29 05:27] LABS: Basophils # (auto) 0.01 K/uL (0-0.2); Hematocrit (blood only) 27.6 % (37-47); Hemoglobin 9.2 g/dL (12.0-16.0); Immature Granulocytes # (auto) 0.08 K/uL (0.00-0.02); Immature Granulocytes % (auto) 0.4 %; Lymphocytes # (auto) 1.66 K/uL (1.2-3.4); Lymphocytes % (auto) 7.9 %; Mean Corpuscular Hgb Conc 33.3 g/dL (32-36); Mean Corpuscular Volume 92.9 fL (80-100); Mean Platelet Volume 9.5 fL (7.4-10.4); Monocytes # (auto) 1.83 K/uL (0.11-0.59); Monocytes % (auto) 8.7 %; Neutrophils # (auto) 17.52 K/uL (1.4-6.5); Platelet Count 255 K/uL (130-400); RDW Coefficient of Variation 13.7 % (11.5-14.5); RDW Standard Deviation 46.5 fL (36.4-46.3); Red Blood Count 2.97 M/uL (4.2-5.4)
[2019-05-29 05:55] LABS: BUN Creatinine Ratio 25.1 (10-20); Calcium 8.1 mg/dl (8.5-10.1); Creatinine Clr Calc Pharmacy 38.4 ml/min; Est GFR (African American) 57.3; Est GFR (Non-African American) 49.4; Magnesium 1.7 mg/dl (1.8-2.4); Phosphorus 2.2 mg/dl (2.5-4.9); Potassium 4.3 mmol/L (3.5-5.1)
[2019-05-29] MEDS: POLYETHYLENE (MIRALAX) 17 GM PACK PO SCH ×4 (06:37→23:50)
[2019-05-29] MEDS: ALBUT/IPRATROP 3MG/0.5MG NEB 3 ML VIAL NEB SCH ×4 (07:13→18:59)
--- NOTE | 2019-05-29 08:13 | Anesthesiology Progress Note ---
Date of Service May 29, 2019 Anesthesia Post Procedure Vital Signs Vital Signs: Temp Pulse Pulse Resp BP Pulse Ox 05/29/19 07:15 87 18 96 05/29/19 07:12 36.6 C 87 19 110/63 97 05/29/19 03:40 36.9 C 90 20 141/66 H 96 05/28/19 23:27 36.6 C 76 20 124/52 L 94 05/28/19 19:17 76 16 95 05/28/19 15:22 36.6 C 67 17 115/56 L 96 05/28/19 14:19 60 16 106/56 L 91 05/28/19 13:21 59 L 18 103/54 L 91 05/28/19 12:21 62 18 117/65 94 05/28/19 11:51 58 L 18 133/62 96 05/28/19 11:15 36.6 C 64 16 128/65 98 05/28/19 10:55 36.5 C 59 L 15 129/56 L 96 05/28/19 10:45 60 15 136/65 94 05/28/19 10:35 60 14 131/59 L 97 05/28/19 10:25 68 16 143/59 H 93 05/28/19 10:15 70 15 139/54 L 96 05/28/19 10:05 71 13 150/65 H 100 05/28/19 09:55 36.9 C 70 16 138/56 L 98 Pain Intensity Lower Medial Back: Pain Intensity: 7 Notes Mental Status: alert / awake / arousable and participated in evaluation Patient Amnestic to Procedure: Yes Nausea / Vomiting: adequately controlled Pain: adequately controlled Airway Patency, RR, SpO2: stable & adequate BP & HR: stable & adequate Hydration State: stable & adequate Anesthetic Complications: no major complications apparent and Pt Satisfied with anesthetic care
[2019-05-29] MEDS ORDERED: INSULIN HUMAN NPH SC ONE ×4 (08:15→17:15)
--- NOTE | 2019-05-29 08:31 | Orthopedic Progress Note ---
Date of Service May 29, 2019 Assessment & Plan (1) Neurogenic claudication due to lumbar spinal stenosis: At this time we will initiate physical therapy as tolerated. Hopefully she will be cleared to transfer to the orthopedic floor in the next day or so. We may consider an MRI of the cervical spine if her arm symptoms fail to resolve. Present on Admission?: Yes Subjective Patient complaining of some left arm symptoms. Apparently is been going on for several weeks. He does have radicular pattern. Otherwise her back pain is controlled she has no leg complaints. Physical Exam Physical Exam: Patient does appear comfortable. She has good strength testing to the upper and lower extremities. Results & Data Vital Signs (Past 12 Hours) Vital Signs Temp Pulse Pulse Resp BP Pulse Ox 05/29/19 07:15 87 18 96 05/29/19 07:12 36.6 C 87 19 110/63 97 05/29/19 03:40 36.9 C 90 20 141/66 H 96 05/28/19 23:27 36.6 C 76 20 124/52 L 94
[2019-05-29] MEDS ORDERED: INSULIN HUMAN NPH SC SCH (09:00)
[2019-05-29] MEDS ORDERED: ENALAPRIL MALEATE 10 MG TAB PO SCH (09:00)
[2019-05-29] MEDS ORDERED: NON-FORMULARY MEDICATION (Biotin 1 MG) PO SCH (09:00)
[2019-05-29] MEDS ORDERED: hydroCHLOROthiazide 25 MG TAB PO SCH (09:00)
[2019-05-29] MEDS: ATENOLOL 50 MG TABLET PO SCH (09:28)
[2019-05-29] MEDS: MAGNESIUM SULFATE / D5W 1 GM/100 ML BAG IV SCH ×2 (09:28→12:20)
[2019-05-29] MEDS: HYDROmorphone INJ 1 MG/ML SYRINGE IV PRN ×2 (09:28→17:23)
[2019-05-29] MEDS: MULTIVITAMIN TAB PO SCH (09:29)
[2019-05-29] MEDS: FLUTICASONE/SALMETEROL 250/50 (ADVAIR) 14 PUFF/1 INHALER INH SCH ×2 (09:39→21:42)
[2019-05-29] MEDS: dilTIAZem ER 120 MG CAPCR PO SCH (09:40)
[2019-05-29] MEDS: PANTOprazole 40 MG TAB PO SCH (09:40)
[2019-05-29] MEDS: CHOLECALCIFEROL 1,000 UNITS TAB PO SCH (09:41)
[2019-05-29] MEDS: INSULIN ASPART 100 UNITS/ML 3 ML PEN SC SCH ×4 (09:41→21:46)
[2019-05-29 09:52] LABS: BUN Creatinine Ratio 23.6 (10-20); Calcium 8.2 mg/dl (8.5-10.1); Creatinine Clr Calc Pharmacy 40.6 ml/min; Est GFR (African American) 58.6; Est GFR (Non-African American) 50.6; Potassium 4.3 mmol/L (3.5-5.1)
[2019-05-29 10:00] LABS: Magnesium 1.8 mg/dl (1.8-2.4); Phosphorus 2.1 mg/dl (2.5-4.9)
[2019-05-29 14:02] LABS: BUN Creatinine Ratio 24.1 (10-20); Calcium 8.4 mg/dl (8.5-10.1); Creatinine Clr Calc Pharmacy 43.1 ml/min; Est GFR (Non-African American) 54.4; Magnesium 2.7 mg/dl (1.8-2.4); Potassium 4.4 mmol/L (3.5-5.1)
[2019-05-29 14:05] LABS: Phosphorus 2.7 mg/dl (2.5-4.9)
--- NOTE | 2019-05-29 15:31 | Pharmacy Report ---
Pharmacy Glycemic Short Note 2 - Date of Service May 29, 2019 - Glycemic Short BSG Results (Last 24 hours): 05/28/19 05/28/19 05/28/19 15:45 20:20 20:20 Glucose 321 H* Cancelled POC Glucose 281 H 05/28/19 05/28/19 05/28/19 20:49 20:51 23:30 Glucose POC Glucose 322 H* 314 H* 213 H 05/29/19 05/29/19 05/29/19 00:01 00:26 00:33 Glucose 176 H POC Glucose 199 H 173 H 05/29/19 05/29/19 05/29/19 01:32 02:31 03:36 Glucose POC Glucose 155 H 131 H 139 H 05/29/19 05/29/19 05/29/19 04:27 05:20 05:44 Glucose 127 H POC Glucose 137 H 126 H 05/29/19 05/29/19 05/29/19 06:33 07:30 08:42 Glucose POC Glucose 128 H 133 H 176 H 05/29/19 05/29/19 05/29/19 09:07 09:47 10:29 Glucose 178 H POC Glucose 193 H 175 H 05/29/19 05/29/19 05/29/19 11:31 12:27 12:46 Glucose POC Glucose 160 H 169 H 203 H 05/29/19 05/29/19 05/29/19 13:38 13:57 14:49 Glucose 135 H POC Glucose 206 H 139 H OUTPATIENT ANTIDIABETIC REGIMEN: * NPH 30 units with breakfast, 26-28 with dinner * Humalog 10 units breakfast, 14 dinner ASSESSMENT: * Insulin infusion was started last evening as patient may have been in mild DKA, gap of 16, bicarb 19. This was corrected with next set of labs. Transitioning off of drip this morning. * Gave 36 units of NPH x 1, scale for dinner up to 34 units (20% increase from home max dose) given 12 mg of dexamethasone given in OR yesterday * Will start novolog parameters of 25 and 6 once transitioned off of insulin infusion. PLAN FOR INPATIENT GLYCEMIC CONTROL: * Hold outpatient oral diabetes medications * Basal insulin * NPH 36 units this morning, 28-34 this evening * Bolus insulin * NovoLog per scale ACHS or Q6hrs while NPO * Goal Range: Low 110 mg/dL - High 140 mg/dL * Correction Factor: 25 mg/dL/unit * Nutritional / Prandial insulin per carb ratio of 1 unit per 6 grams CHO consumed
--- NOTE | 2019-05-29 20:22 | Hospitalist Progress Note ---
Date of Service May 29, 2019 Assessment & Plan (1) Diabetic ketoacidosis: Occurred due to receiving first insulin dose yesterday later in the day. Appears she did not get her insulin dosing preoperatively. Clearly she is at high risk of developing DKA given how quickly this occurred yesterday in the setting of pancreatectomy. Mild. pH 7.27. Anion gap 16. Placed on insulin drip overnight. Gap closed this morning. Will continue on IV fluids. Switch IV insulin to subcutaneous as discussed with pharmacy. Will continue on PCU today, as long as stable can stepdown to surgical floor tomorrow. 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 On long-term insulin with endocrinology. Appreciate glycemic pharmacy management, as above for DKA (3) Status post lumbar spine operative procedure for decompression of spinal cord: POD #1. Pain management as per surgery. (4) Neurogenic claudication due to lumbar spinal stenosis: As above (5) Cervical radiculopathy at C6: Acute on chronic suspect due to positioning during surgery. Will defer imaging to Dr. Casillas. (6) Benign essential HTN: Holding hydrochlorothiazide and enalapril due to low normal blood pressures. Continue atenolol and diltiazem mainly for rate control. (7) GERD (gastroesophageal reflux disease): Esomeprazole switched to pantoprazole as per hospital formulary. (8) Paroxysmal SVT (supraventricular tachycardia): Continue atenolol and diltiazem (9) Coordination abnormal: Suspect upper extremity shaking due to benign essential tremor. Suspect acutely worsened due to pain medication and diabetic ketoacidosis. The patient now alludes to her balance being similar since her initial spine operation in 2017. CT had negative for acute pathology. History is again somewhat confusing even with her present as he reports he has both never seen her tremor and also it is been going on for a while and gradually progressing. Recommend neurology outpatient follow-up. (10) Binocular vision disorder with diplopia: With associated vision loss and right eye. Progressive over the months the patient. CT head negative for acute pathology. Suspect secondary to cataracts and right eye worse than left causing disuse. (11) Chronic obstructive pulmonary disease: Unclear exact history and requested causing her pulmonary most recent visit and PFT results. Suspect she was started on Symbicort as per description, we will switch this to Advair while admitted. Current mild wheezing on exam. Will also prescribe scheduled Duonebs and follow-up in the morning. ABG ordered to rule out CO2 retention as a cause of her coordination abnormality. (12) Benign essential tremor: Suspected based on history and current exam however this diagnosis still questionable given unclear history from the patient and her . Recommend neurology follow-up. (13) DVT prophylaxis: As per primary surgery team. Subjective Patient feels her tremors have improved. She is still having some difficulty eating breakfast and drinking. She also reports pain radiating from her neck down to her thumb which has been going on for some months although pain is worse since her operation yesterday. She denies any chest pain, fevers, chills, shortness of breath, orthopnea, PND. She still has some dry mouth but is vastly improved since yesterday. History taken from regarding her tremors and poor coordination. He is very unclear whether this is been going on for days, months, years or new since this operation -eventually he settled on this is been a gradual process over the course of months. Review of Systems Eyes: + decreased night vision and + worsening vision (R > L); no discharge, no dry eyes, no eye pain, no itchy eyes, no loss of peripheral vision, no photophobia, not seeing flashes and no tunnel vision Ear, Nose, Mouth, Throat: + sore throat (New since operation); no ear pain, no ear discharge, no tinnitus, no dizziness, no nasal congestion, no nasal discharge, no post nasal drip, no dry mouth and no dysphagia Respiratory: + cough, + dyspnea on exertion and + wheezing; no dyspnea, no hemoptysis and no pain on inspiration Neurologic: + unsteadiness, + numbness (Right upper thigh), + lack of coordination and + abnormal movements; no dizziness, no syncope, no abnormal speech and no memory loss Physical Exam Constitutional: WD/WN, vitals as above no acute distress Eyes: + anicteric sclerae and PERRL; + EOM not intact (Diplopia resolved with monocular vision) and no nystagmus ENMT: Ears: no external ear abnormality Nose: no external nose abnormality Mouth: + dry oral mucous membranes Neck: trachea midline, no thyromegaly Respiratory: normal respiratory effort; no respiratory distress, no retractions, does not use accessory muscles, no pursed lip breathing and no stridor Auscultation: no crackles, no rales, no rhonchi and no wheezes Cardiovascular: Rate/Rhythm: regular rate and regular rhythm Heart Sounds: no murmur Vessels: no JVD Extremities: no edema Gastrointestinal (Abdomen): normal bowel sounds, soft, nontender, no hepatosplenomegaly Musculoskeletal: no cyanosis or clubbing, extremities motor strength 5/5 Skin: no rashes, warm and dry Neurologic: moves all extremities and awake; no focal motor deficits and not confused Motor/Sensory: + tremor (Bilateral equal intention, improves with rest) and + abnormal movement (Occasional jerking of bilateral upper and less frequent lower extremities); no pronator drift and no sensory deficit Psychiatric: Orientation: alert and oriented x 3 Affect: euthymic affect; no anxious affect Results & Data Vital Signs (Past 12 Hours) Vital Signs Temp Pulse Pulse Pulse Resp BP Pulse Ox 05/29/19 19:00 78 18 92 05/29/19 15:50 80 05/29/19 15:29 98.2 F 132 H 20 115/55 L 91 05/29/19 15:02 77 18 94 05/29/19 11:39 82 19 94 05/29/19 11:29 98.2 F 73 18 88/58 L 93 PG Care Time/CCT Total # of Minutes Spent Total Time Spent with Patient: Total time spent is greater than 50% in coordination of care (as documented) at patient's floor/unit and/or counseling patient: (1) GERD (gastroesophageal reflux disease) Esophagitis presence: esophagitis presence not specified Qualified Code(s): K21.9 - Gastro-esophageal reflux disease without esophagitis (2) Diabetes mellitus Diabetes mellitus type: due to underlying condition Diabetes mellitus retirement insulin use: with retirement use Diabetes mellitus complication status: with neurologic complications Diabetes mellitus complication detail: with polyneuropathy Qualified Code(s): 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
[2019-05-29] MEDS: SIMVASTATIN 40 MG TAB PO SCH (21:42)
[2019-05-29] MEDS: DOCUSATE SODIUM/SENNA 50/8.6MG TAB PO SCH (21:45)
[2019-05-30] MEDS: INSULIN ASPART 100 UNITS/ML 3 ML PEN SC SCH ×6 (00:05→22:14)
[2019-05-30] MEDS: TRAMADOL HCL 50 MG TABLET PO PRN ×3 (04:25→20:06)
[2019-05-30] MEDS: SODIUM CHLORIDE 0.9% 1000ML 1,000 ML IV SCH (05:34)
[2019-05-30] MEDS: POLYETHYLENE (MIRALAX) 17 GM PACK PO SCH ×3 (05:34→17:18)
[2019-05-30 06:30] LABS: Basophils # (auto) 0.01 K/uL (0-0.2); Eosinophils # (auto) 0.02 K/uL (0-0.5); Eosinophils % (auto) 0.1 %; Hematocrit (blood only) 29.1 % (37-47); Hemoglobin 9.6 g/dL (12.0-16.0); Immature Granulocytes # (auto) 0.11 K/uL (0.00-0.02); Immature Granulocytes % (auto) 0.5 %; Lymphocytes % (auto) 14.2 %; Mean Corpuscular Hemoglobin 31.2 pg (25-34); Mean Corpuscular Volume 94.5 fL (80-100); Mean Platelet Volume 9.9 fL (7.4-10.4); Monocytes # (auto) 1.96 K/uL (0.11-0.59); Neutrophils # (auto) 16.61 K/uL (1.4-6.5); Neutrophils % (auto) 76.2 %; Platelet Count 260 K/uL (130-400); RDW Coefficient of Variation 14.1 % (11.5-14.5); RDW Standard Deviation 48.7 fL (36.4-46.3); Red Blood Count 3.08 M/uL (4.2-5.4); White Blood Count 21.81 K/uL (4.8-10.8)
[2019-05-30] MEDS: ALBUT/IPRATROP 3MG/0.5MG NEB 3 ML VIAL NEB SCH ×3 (07:12→19:02)
[2019-05-30 08:04] LABS: Albumin Level 3.1 gm/dl (3.4-5.0); BUN Creatinine Ratio 24.1 (10-20); Calcium 8.8 mg/dl (8.5-10.1); Creatinine Clr Calc Pharmacy 41.7 ml/min; Est GFR (African American) 60.8; Est GFR (Non-African American) 52.4; Magnesium 2.4 mg/dl (1.8-2.4); Potassium 4.4 mmol/L (3.5-5.1)
[2019-05-30 08:16] LABS: Albumin Globulin Ratio 0.9 (0.9-2); Bilirubin,Total 0.4 mg/dl (0.2-1); Globulin 3.6 gm/dl (2.5-4.0); Phosphorus 1.3 mg/dl (2.5-4.9); Total Protein 6.7 gm/dl (6.4-8.2)
[2019-05-30] MEDS ORDERED: SODIUM PHOSPHATE 3 MMOL/1 ML INFUSION IV STA (08:26)
[2019-05-30] MEDS: MULTIVITAMIN TAB PO SCH (08:33)
[2019-05-30] MEDS: FLUTICASONE/SALMETEROL 250/50 (ADVAIR) 14 PUFF/1 INHALER INH SCH ×2 (08:33→20:06)
[2019-05-30] MEDS: ATENOLOL 50 MG TABLET PO SCH (08:33)
[2019-05-30] MEDS: PANTOprazole 40 MG TAB PO SCH (08:33)
[2019-05-30] MEDS: dilTIAZem ER 120 MG CAPCR PO SCH (08:34)
[2019-05-30] MEDS: CHOLECALCIFEROL 1,000 UNITS TAB PO SCH (08:34)
[2019-05-30] MEDS ORDERED: SODIUM PHOSPHATE 30 MMOL in SODIUM CHLORIDE 0.9% 500 ML IV ONE (08:45)
[2019-05-30] MEDS ORDERED: INSULIN HUMAN NPH SC STA (10:04)
[2019-05-30] MEDS: ENALAPRIL MALEATE 10 MG TAB PO SCH (10:08)
--- NOTE | 2019-05-30 10:52 | Hospitalist Progress Note ---
Date of Service May 30, 2019 Assessment & Plan (1) Diabetic ketoacidosis: Occurred post operatively due to late insulin given. High risk of DKA given pancreatectomy. Mild. pH 7.27. Anion gap 16. Appreciate pharmacy glycemic management of SQ insulin. Appears stable although she is concerned about being transferred upstairs too quickly after this therefore will transfer first thing tomorrow as long as stable overnight. 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 On long-term insulin with endocrinology. Appreciate glycemic pharmacy management, as above for DKA (3) Status post lumbar spine operative procedure for decompression of spinal cord: POD #2. Pain management as per surgery. (4) Neurogenic claudication due to lumbar spinal stenosis: As above (5) Cervical radiculopathy at C6: Acute on chronic suspect due to positioning during surgery. Will defer imaging to Dr. Casillas. Appears improved today as per patient but still worse than usual. (6) Benign essential HTN: Holding hydrochlorothiazide and enalapril due to low normal blood pressures. Continue atenolol and diltiazem mainly for rate control. (7) GERD (gastroesophageal reflux disease): Esomeprazole switched to pantoprazole as per hospital formulary. (8) Paroxysmal SVT (supraventricular tachycardia): Continue atenolol and diltiazem (9) Coordination abnormal: Suspect upper extremity shaking due to benign essential tremor. Suspect acutely worsened due to pain medication and diabetic ketoacidosis. The patient now alludes to her balance being similar since her initial spine operation in 2017. CT had negative for acute pathology. History is again somewhat confusing even with her present as he reports he has both never seen her tremor and also it is been going on for a while and gradually progressing. Recommend neurology outpatient follow-up. (10) Binocular vision disorder with diplopia: With associated vision loss and right eye. Progressive over the months the patient. CT head negative for acute pathology. Suspect secondary to cataracts and right eye worse than left causing disuse. (11) Chronic obstructive pulmonary disease: Unclear exact history and requested causing her pulmonary most recent visit and PFT results. Suspect she was started on Symbicort as per description, we will switch this to Advair while admitted. Current mild wheezing on exam. Will also prescribe scheduled Duonebs and follow-up in the morning. ABG ordered to rule out CO2 retention as a cause of her coordination abnormality. (12) Benign essential tremor: Suspected based on history and current exam however this diagnosis still questionable given unclear history from the patient and her . Recommend neurology follow-up. (13) DVT prophylaxis: As per primary surgery team. Subjective Tremors improving. Did not feel hypoglycemic episode. Review of Systems Review of Systems: All systems reviewed & are unremarkable except as noted in HPI & below Physical Exam Constitutional: WD/WN, vitals as above no acute distress Eyes: + anicteric sclerae and PERRL; + EOM not intact (Diplopia resolved with monocular vision) and no nystagmus ENMT: Ears: no external ear abnormality Nose: no external nose abnormality Mouth: + dry oral mucous membranes Neck: trachea midline, no thyromegaly Respiratory: normal respiratory effort; no respiratory distress, no retractions, does not use accessory muscles, no pursed lip breathing and no stridor Auscultation: no crackles, no rales, no rhonchi and no wheezes Cardiovascular: Rate/Rhythm: regular rate and regular rhythm Heart Sounds: no murmur Vessels: no JVD Extremities: no edema Gastrointestinal (Abdomen): normal bowel sounds, soft, nontender, no hepatosplenomegaly Musculoskeletal: no cyanosis or clubbing, extremities motor strength 5/5 Skin: no rashes, warm and dry Neurologic: moves all extremities and awake; no focal motor deficits and not confused Motor/Sensory: + tremor (Bilateral equal intention, improves with rest) and + abnormal movement (Occasional jerking of bilateral upper and less frequent lower extremities); no pronator drift and no sensory deficit Gait: + wide-based gait (Very unsteady balance) Psychiatric: Orientation: alert and oriented x 3 Affect: euthymic affect; no anxious affect Results & Data Vital Signs (Past 12 Hours) Vital Signs Temp Pulse Pulse Resp BP Pulse Ox 05/30/19 07:20 112 H 82 19 95 05/30/19 07:13 99.9 F H 111 H 19 163/80 H 95 05/30/19 02:58 98.6 F 97 H 19 145/75 H 92 05/29/19 23:10 98.2 F 86 19 137/67 92 PG Care Time/CCT Total # of Minutes Spent Total Time Spent with Patient: Total time spent is greater than 50% in coordination of care (as documented) at patient's floor/unit and/or counseling patient: (1) Diabetic ketoacidosis Diabetes mellitus complication detail: without coma Diabetes mellitus type: due to underlying condition Qualified Code(s): E08.10 - Diabetes mellitus due to underlying condition with ketoacidosis without coma (2) Diabetes mellitus Diabetes mellitus complication detail: with polyneuropathy Diabetes mellitus complication status: with neurologic complications Diabetes mellitus [facility] use: with [facility] use Diabetes mellitus type: due to underlying condition Qualified Code(s): 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
--- NOTE | 2019-05-30 11:05 | Orthopedic Progress Note ---
Date of Service May 30, 2019 Assessment & Plan (1) Neurogenic claudication due to lumbar spinal stenosis: This time we will continue physical therapy as tolerated we will continue to monitor her JOSSELYN output. Present on Admission?: Yes Subjective Patient complaining of back pain. She was tolerating physical therapy reasonably well. Physical Exam Physical Exam: On exam patient is sitting up at the bedside. Is good strength testing. Dressings in place. JOSSELYN drain working appropriately. Results & Data Vital Signs (Past 12 Hours) Vital Signs Temp Pulse Pulse Resp BP Pulse Ox 05/30/19 07:20 112 H 82 19 95 05/30/19 07:13 37.7 C H 111 H 19 163/80 H 95 05/30/19 02:58 37.0 C 97 H 19 145/75 H 92 05/29/19 23:10 36.8 C 86 19 137/67 92
--- NOTE | 2019-05-30 11:47 | XRay Report ---
XR chest 2V PA/lateral CLINICAL HISTORY: 84 years-old Female presenting with shortness of breath, hypoxia, LLL crackles. TECHNIQUE: Portable upright AP view of the chest was obtained. COMPARISON: 05/19/2019. FINDINGS: Atherosclerosis of the aortic arch. Cardiac silhouette enlarged. Minimal basilar opacities greater on the right. Trace bilateral pleural effusions. No pneumothorax. Osseous structures normal. Upper abdo men normal. IMPRESSION: 1. Cardiomegaly with bilateral trace pleural effusions. 2. Minimal bibasilar atelectasis suspected. 3. No significant congestive change or evidence of pepito pulmonary edema. Electronically signed by: Jordan Pabon M.D. 05/30/2019 11:46 AM
--- NOTE | 2019-05-30 14:20 | Pharmacy Report ---
Pharmacy Glycemic Short Note 2 - Date of Service May 30, 2019 - Glycemic Short BSG Results (Last 24 hours): 05/29/19 05/29/19 05/29/19 14:49 15:31 16:19 Glucose POC Glucose 139 H 134 H 139 H 05/29/19 05/29/19 05/30/19 20:47 23:52 03:04 Glucose POC Glucose 111 H 82 70 05/30/19 05/30/19 05/30/19 04:14 07:15 07:37 Glucose 89 POC Glucose 141 H 108 H 05/30/19 11:06 Glucose POC Glucose 175 H OUTPATIENT ANTIDIABETIC REGIMEN: * NPH 30 units with breakfast, 26-28 with dinner * Humalog 10 units breakfast, 14 dinner ASSESSMENT: * BSGs look to be improved. AM fasting of 108 and lunch pre-prandial of 175mg/dL adequate. She is tolerating her diet. Dextrose containing IVFs have been d/c'd. Minimal other RF to confer insulin resistance at this juncture. PLAN FOR INPATIENT GLYCEMIC CONTROL: * Basal insulin NPH: * gave 30 units this AM (home rx) then NPH scale with dinner tonight: BSGs <120 give 15 units, BSGs 120-200 give 20 units, BSGs >200 give 25 units * Bolus insulin * NovoLog per scale ACHS or Q6hrs while NPO * Goal Range: Low 110 mg/dL - High 140 mg/dL * Correction Factor: 25 mg/dL/unit * Nutritional / Prandial insulin per carb ratio of 1 unit per 6 grams CHO consumed
[2019-05-30] MEDS: CARBOHYDRATES FOR HYPOGLYCEMIA PO PRN (16:32)
[2019-05-30] MEDS: SIMVASTATIN 40 MG TAB PO SCH (20:07)
[2019-05-30] MEDS: DOCUSATE SODIUM/SENNA 50/8.6MG TAB PO SCH (20:09)
[2019-05-30] MEDS ORDERED: INSULIN HUMAN NPH SC ONE (21:15)
[2019-05-31] MEDS: POLYETHYLENE (MIRALAX) 17 GM PACK PO SCH ×4 (01:20→19:02)
[2019-05-31] MEDS: TRAMADOL HCL 50 MG TABLET PO PRN ×5 (02:18→21:45)
[2019-05-31 06:26] LABS: Basophils # (auto) 0.05 K/uL (0-0.2); Basophils % (auto) 0.3 %; Eosinophils # (auto) 0.19 K/uL (0-0.5); Eosinophils % (auto) 1.2 %; Hematocrit (blood only) 28.4 % (37-47); Hemoglobin 9.4 g/dL (12.0-16.0); Immature Granulocytes # (auto) 0.06 K/uL (0.00-0.02); Immature Granulocytes % (auto) 0.4 %; Lymphocytes # (auto) 3.74 K/uL (1.2-3.4); Lymphocytes % (auto) 23.2 %; Mean Corpuscular Hemoglobin 31.4 pg (25-34); Mean Corpuscular Hgb Conc 33.1 g/dL (32-36); Mean Platelet Volume 10.4 fL (7.4-10.4); Monocytes # (auto) 1.63 K/uL (0.11-0.59); Monocytes % (auto) 10.1 %; Neutrophils # (auto) 10.43 K/uL (1.4-6.5); Neutrophils % (auto) 64.8 %; Platelet Count 264 K/uL (130-400); RDW Standard Deviation 48.9 fL (36.4-46.3); Red Blood Count 2.99 M/uL (4.2-5.4)
[2019-05-31] MEDS: ALBUT/IPRATROP 3MG/0.5MG NEB 3 ML VIAL NEB SCH ×3 (07:04→11:29)
[2019-05-31 07:08] LABS: BUN Creatinine Ratio 18.3 (10-20); Calcium 8.9 mg/dl (8.5-10.1); Creatinine Clr Calc Pharmacy 54.2 ml/min; Est GFR (African American) 83.3; Est GFR (Non-African American) 71.9; Magnesium 2.2 mg/dl (1.8-2.4); Phosphorus 2.5 mg/dl (2.5-4.9)
[2019-05-31] MEDS ORDERED: INSULIN HUMAN NPH SC STA (07:55)
--- NOTE | 2019-05-31 08:15 | Orthopedic Progress Note ---
Date of Service May 31, 2019 Assessment & Plan (1) Neurogenic claudication due to lumbar spinal stenosis: This time we will continue to encourage her to get to the chair with all of her meals ambulate as much as tolerated. She can discontinue her drain change her dressing today. Present on Admission?: Yes Subjective Patient complaining of back pain only. Feels her leg symptoms are improved. She is tolerating ambulation for short distances. Physical Exam Physical Exam: Patient stable but has good strength testing appears comfortable. Results & Data Vital Signs (Past 12 Hours) Vital Signs Temp Pulse Pulse Resp BP Pulse Ox 05/31/19 07:53 37.3 C 92 H 18 158/81 H 97 05/31/19 07:04 83 16 95 05/31/19 03:44 37.0 C 83 20 148/65 H 95 05/30/19 23:45 37.1 C 90 17 161/67 H 95
[2019-05-31] MEDS: MULTIVITAMIN TAB PO SCH (08:47)
[2019-05-31] MEDS: PANTOprazole 40 MG TAB PO SCH (08:47)
[2019-05-31] MEDS: CHOLECALCIFEROL 1,000 UNITS TAB PO SCH (08:47)
[2019-05-31] MEDS: FLUTICASONE/SALMETEROL 250/50 (ADVAIR) 14 PUFF/1 INHALER INH SCH ×2 (08:47→20:31)
[2019-05-31] MEDS: ATENOLOL 50 MG TABLET PO SCH (08:47)
[2019-05-31] MEDS: ENALAPRIL MALEATE 10 MG TAB PO SCH (08:47)
[2019-05-31] MEDS: dilTIAZem ER 120 MG CAPCR PO SCH (08:48)
[2019-05-31] MEDS: INSULIN ASPART 100 UNITS/ML 3 ML PEN SC SCH ×4 (08:52→23:01)
[2019-05-31] MEDS: CARBOHYDRATES FOR HYPOGLYCEMIA PO PRN (17:24)
[2019-05-31] MEDS: INSULIN HUMAN NPH SC SCH (17:32)
[2019-05-31] MEDS: SIMVASTATIN 40 MG TAB PO SCH (21:35)
[2019-05-31] MEDS: DOCUSATE SODIUM/SENNA 50/8.6MG TAB PO SCH (21:35)
--- NOTE | 2019-05-31 23:46 | Hospitalist Progress Note ---
Date of Service May 31, 2019 Assessment & Plan (1) Diabetic ketoacidosis: Now resolved. Occurred post operatively due to late insulin given. High risk of DKA given pancreatectomy. Mild. pH 7.27. Anion gap 16. Appreciate pharmacy glycemic management of SQ insulin. 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 On long-term insulin with endocrinology. Appreciate glycemic pharmacy management, as above for DKA (3) Hypoxia: Very unclear history of her shortness of breath and COPD but appears even pre-operatively her exercise tolerance was poor. Suspect current hypoxia mostly atelectasis as heard yesterday and on subsequent CXR cause of her current hypoxia however if prolonged we may have to treat for a mild COPD exacerbation with more steroids and azithromycin but given brittle diabetic will try to avoid currently. She appears to have more fine crackles on exam therefore will get another CXR in AM to see if progressing to a full pneumonia vs. pulmonary edema (since holding HCTZ) in AM. Wheezing on exertion noticed by nursing staff but nothing at rest and she seems to feel that is her baseline. I am very unclear if the duonebs are helping from what she tells me but given her tremor will just continue these PRN at this stage. (4) Status post lumbar spine operative procedure for decompression of spinal cord: POD #2. Pain management as per surgery. (5) Neurogenic claudication due to lumbar spinal stenosis: As above (6) Cervical radiculopathy at C6: Improving. (7) Benign essential HTN: Holding hydrochlorothiazide and enalapril due to low normal blood pressures. Continue atenolol and diltiazem mainly for rate control. (8) GERD (gastroesophageal reflux disease): Esomeprazole switched to pantoprazole as per hospital formulary. (9) Paroxysmal SVT (supraventricular tachycardia): Continue atenolol and diltiazem (10) Coordination abnormal: Suspect upper extremity shaking due to benign essential tremor. Suspect acutely worsened due to pain medication and diabetic ketoacidosis. The patient now alludes to her balance being similar since her initial spine operation in 2017. CT had negative for acute pathology. History is again somewhat confusing even with her present as he reports he has both never seen her tremor and also it is been going on for a while and gradually progressing. Recommend neurology outpatient follow-up. (11) Binocular vision disorder with diplopia: With associated vision loss and right eye. Progressive over the months the patient. CT head negative for acute pathology. Suspect secondary to cataracts and right eye worse than left causing disuse. (12) Chronic obstructive pulmonary disease: Unclear exact history and requested causing her pulmonary most recent visit and PFT results. Suspect she was started on Symbicort as per description, we will switch this to Advair while admitted. Current mild wheezing on exam. Will also prescribe scheduled Duonebs and follow-up in the morning. ABG ordered to rule out CO2 retention as a cause of her coordination abnormality. (13) Benign essential tremor: Suspected based on history and current exam however this diagnosis still questionable given unclear history from the patient and her . Recommend neurology follow-up. (14) DVT prophylaxis: As per primary surgery team. Subjective Patient confirms she is short of breath on exertion although unclear how off her baseline she is. She reports normally being short of breath on exertion especially poor with steps although she does not normally require O2. She reports post nasal drip improving. She re-iterates poor balance on standing but also reports this is longstanding. Appears to find it hard to tell me what her new symptoms are. Review of Systems Review of Systems: All systems reviewed & are unremarkable except as noted in HPI & below Respiratory: + dyspnea on exertion; no cough Physical Exam Constitutional: well developed and + overweight; no acute distress Eyes: + anicteric sclerae; + EOM not intact (Diplopia resolves with monocular vision) and no nystagmus ENMT: Ears: no external ear abnormality Nose: no external nose abnormality Mouth: + dry oral mucous membranes Neck: trachea midline, no thyromegaly Respiratory: normal respiratory effort; no respiratory distress, no retractions, does not use accessory muscles, no pursed lip breathing and no stridor Auscultation: no crackles, no rales, no rhonchi and no wheezes Cardiovascular: Rate/Rhythm: regular rate and regular rhythm Heart Sounds: no murmur Vessels: no JVD Extremities: no edema Gastrointestinal (Abdomen): normal bowel sounds, soft, nontender, no hepatosplenomegaly Musculoskeletal: no cyanosis or clubbing, extremities motor strength 5/5 Skin: no rashes, warm and dry Neurologic: moves all extremities and awake; no focal motor deficits and not confused Motor/Sensory: + tremor (Bilateral equal intention, improves with rest) and + abnormal movement (Occasional jerking of bilateral upper and less frequent lower extremities); no pronator drift and no sensory deficit Gait: + wide-based gait (Very unsteady balance) Psychiatric: Orientation: alert and oriented x 3 Affect: euthymic affect; no anxious affect Results & Data Vital Signs (Past 12 Hours) Vital Signs Temp Pulse Resp BP Pulse Ox 05/31/19 23:00 98.6 F 79 18 120/61 96 05/31/19 15:44 98.2 F 75 18 133/63 91 PG Care Time/CCT Total # of Minutes Spent Total Time Spent with Patient: Total time spent is greater than 50% in coordination of care (as documented) at patient's floor/unit and/or counseling patient: (1) Diabetic ketoacidosis Diabetes mellitus complication detail: without coma Diabetes mellitus type: due to underlying condition Qualified Code(s): E08.10 - Diabetes mellitus due to underlying condition with ketoacidosis without coma (2) Diabetes mellitus Diabetes mellitus complication detail: with polyneuropathy Diabetes mellitus complication status: with neurologic complications Diabetes mellitus [employer] insulin use: with [employer] use Diabetes mellitus type: due to underlying co ndition Qualified Code(s): E08.42 - Diabetes mellitus due to underlying condition with diabetic polyneuropathy; Z79.4 - [facility] (3) Chronic obstructive pulmonary disease COPD type: unspecified COPD Qualified Code(s): J44.9 - Chronic obstructive pulmonary disease, unspecified (4) GERD (gastroesophageal reflux disease) Esophagitis presence: esophagitis presence not specified Qualified Code(s): K21.9 - Gastro-esophageal reflux disease without esophagitis
[2019-06-01] MEDS: TRAMADOL HCL 50 MG TABLET PO PRN ×3 (05:08→21:20)
[2019-06-01 05:36] LABS: Basophils # (auto) 0.06 K/uL (0-0.2); Basophils % (auto) 0.4 %; Eosinophils % (auto) 2.6 %; Hematocrit (blood only) 28.4 % (37-47); Hemoglobin 9.3 g/dL (12.0-16.0); Immature Granulocytes # (auto) 0.05 K/uL (0.00-0.02); Immature Granulocytes % (auto) 0.3 %; Lymphocytes # (auto) 3.53 K/uL (1.2-3.4); Lymphocytes % (auto) 22.8 %; Mean Corpuscular Hgb Conc 32.7 g/dL (32-36); Mean Corpuscular Volume 94.7 fL (80-100); Mean Platelet Volume 9.9 fL (7.4-10.4); Monocytes # (auto) 1.47 K/uL (0.11-0.59); Monocytes % (auto) 9.5 %; Neutrophils # (auto) 9.97 K/uL (1.4-6.5); Neutrophils % (auto) 64.4 %; Platelet Count 277 K/uL (130-400); RDW Coefficient of Variation 13.5 % (11.5-14.5); White Blood Count 15.48 K/uL (4.8-10.8)
[2019-06-01 06:04] LABS: Calcium 8.9 mg/dl (8.5-10.1); Creatinine Clr Calc Pharmacy 44.8 ml/min; Est GFR (African American) 67.2; Magnesium 2.1 mg/dl (1.8-2.4)
[2019-06-01 06:05] LABS: Phosphorus 2.8 mg/dl (2.5-4.9)
[2019-06-01] MEDS ORDERED: INSULIN HUMAN NPH SC SCH (08:00)
[2019-06-01] MEDS: FLUTICASONE/SALMETEROL 250/50 (ADVAIR) 14 PUFF/1 INHALER INH SCH ×2 (08:37→21:21)
[2019-06-01] MEDS: ENALAPRIL MALEATE 10 MG TAB PO SCH (08:37)
[2019-06-01] MEDS: INSULIN ASPART 100 UNITS/ML 3 ML PEN SC SCH ×4 (08:39→21:19)
[2019-06-01] MEDS: INSULIN HUMAN NPH SC SCH ×2 (08:39→18:27)
--- NOTE | 2019-06-01 08:54 | Orthopedic Progress Note ---
Date of Service June 01, 2019 Assessment & Plan (1) Status post lumbar spine operative procedure for decompression of spinal cord: At this time we will continue GI DVT prophylaxis as well as pain control. We will mobilize her with physical therapy and to continue to treat her overlying medical conditions. She is not safe for discharge at this point and will continue to follow her along. Subjective Patient was seen bedside in room 384. She is awake and sitting in her chair. Unfortunately she does not have her hearing aids and has difficulties communicating. She is not complaining of any pain other than some tremors that she is experiencing in her lower extremities. She denies any other numbness, tingling, or paresthesias. Physical Exam Physical Exam: On exam the patient is arousable. Her dressing is clean dry and intact. Her calves are supple nontender her abdomen supple nontender. Gait was not observed. Results & Data Vital Signs (Past 12 Hours) Vital Signs Temp Pulse Resp BP BP Pulse Ox 06/01/19 07:11 36.8 C 79 18 155/62 H 96 05/31/19 23:00 37 C 79 18 120/61 96
[2019-06-01] MEDS: dilTIAZem ER 120 MG CAPCR PO SCH (09:13)
[2019-06-01] MEDS: PANTOprazole 40 MG TAB PO SCH (09:14)
[2019-06-01] MEDS: ATENOLOL 50 MG TABLET PO SCH (09:14)
[2019-06-01] MEDS: CHOLECALCIFEROL 1,000 UNITS TAB PO SCH (09:14)
[2019-06-01] MEDS: MULTIVITAMIN TAB PO SCH (09:14)
--- NOTE | 2019-06-01 09:27 | XRay Report ---
XR chest 2V PA/lateral HISTORY: 84 years-old Female prolonged hypoxia, ?developing pneumonia acute hypoxia with possible pn eumonia COMPARISON: Chest radiograph 05/30/2019 TECHNIQUE: AP and lateral views of the chest FINDINGS: Cardiac silhouette is mildly enlarged, unchanged. Mild hyperinflation. Unchanged mild interstitial co arsening. Trace pleural effusions with mild bibasilar opacities. No pneumothorax or overt pulmonary e watson. The bones appear grossly intact. Degenerative changes of the shoulders and spine. IMPRESSION: 1. Cardiomegaly without overt pulmonary edema. 2. Trace pleural effusions with mild bibasilar opacities suggestive of probable atelectasis. The above report was generated using voice recognition software. It may contain grammatical, syntax o r spelling errors. Electronically signed by: Lucian Park M.D. 06/01/2019 9:26 AM
--- NOTE | 2019-06-01 10:39 | Pharmacy Report ---
Pharmacy Glycemic Short Note 2 - Date of Service June 01, 2019 - Glycemic Short BSG Results (Last 24 hours): 05/31/19 05/31/19 05/31/19 12:21 17:19 17:21 Glucose POC Glucose 115 H 69 L* 69 L* 05/31/19 05/31/19 06/01/19 17:43 20:39 05:05 Glucose POC Glucose 82 121 H 187 H 06/01/19 06/01/19 05:19 08:02 Glucose 177 H POC Glucose 210 H OUTPATIENT ANTIDIABETIC REGIMEN: * NPH 30 units with breakfast, 26-28 with dinner * Humalog 10 units breakfast, 14 dinner ASSESSMENT: * BSGs adequate over the previous 24hrs. She was 69mg/dL around dinner yesterday, asymptomatic. PLAN FOR INPATIENT GLYCEMIC CONTROL: * Basal insulin NPH: * gave 25 units this AM then NPH scale with dinner tonight: BSGs <120 give 5 units, BSGs 120-200 give 10 units, BSGs >200 give 15 units * Bolus insulin * NovoLog per scale ACHS or Q6hrs while NPO * Goal Range: Low 110 mg/dL - High 140 mg/dL * Correction Factor: 25 mg/dL/unit * Nutritional / Prandial insulin per carb ratio of 1 unit per 6 grams CHO consumed
[2019-06-01] MEDS: SIMVASTATIN 40 MG TAB PO SCH (21:21)
[2019-06-01] MEDS: DOCUSATE SODIUM/SENNA 50/8.6MG TAB PO SCH (21:21)
--- NOTE | 2019-06-01 23:17 | Hospitalist Progress Note ---
Date of Service June 01, 2019 Assessment & Plan (1) Benign essential tremor: Suspected diagnosis based on history and current exam however this diagnosis still questionable given unclear history from the patient and her . However she feels they are having an effect on her rehabilitation therefore I would recommend consulting neurology at this time. Suspect initially exacerbated by operation, medication and DKA however her symptoms have persisted for 3 days without improvement. (2) Coordination abnormal: Suspect upper extremity shaking due to benign essential tremor. I am unclear how acute lower extremity reduced coordination has been going on. CT head negative for acute pathology. (3) Poor appetite: Unclear etiology. She denies anxiety, dysphagia, odynophagia. Possibly early satiety due to diabetes. Will have nutrition consult at this time. (4) Binocular vision disorder with diplopia: Concerning regarding above coordination abnormalities. However history is subacute with associated vision loss on right eye. Progressive over the months the patient. CT head negative for acute pathology. Suspect secondary to cataracts and right eye worse than left causing disuse. (5) Diabetic ketoacidosis: Now resolved. Occurred post operatively due to late insulin given. High risk of DKA given pa ncreatectomy. Mild. pH 7.27. Anion gap 16. Appreciate pharmacy glycemic management of SQ insulin. 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 On long-term insulin with endocrinology. Appreciate glycemic pharmacy management, as above for DKA (7) Hypoxia: Repeat chest x-ray confirmed ongoing atelectasis but no pneumonia. Currently has wheezing on exertion which appears to be her baseline. No overt signs of COPD exacerbation (8) Status post lumbar spine operative procedure for decompression of spinal cord: POD #4. Pain management as per surgery. (9) Neurogenic claudication due to lumbar spinal stenosis: As above (10) Cervical radiculopathy at C6: Improving. Affect acute worsening due to positioning during surgery. (11) Benign essential HTN: Holding hydrochlorothiazide as her blood pressure remained stable off this Restarted on enalapril due to low normal blood pressures. Continue atenolol and diltiazem (12) GERD (gastroesophageal reflux disease): Esomeprazole switched to pantoprazole as per hospital formulary. (13) Paroxysmal SVT (supraventricular tachycardia): Continue atenolol and diltiazem (14) Chronic obstructive pulmonary disease: Unclear exact history and requested causing her pulmonary most recent visit and PFT results. Suspect she was started on Symbicort as per description, we will switch this to Advair while admitted. No current wheezing. Duo nebs as needed. (15) DVT prophylaxis: As per primary surgery team. (16) Discharge planning issues: Main issue pending medical clearance is hypoxia and ongoing balance issues (although unclear how acute her balance issues are). Suspect atelectasis is main cause of ongoing hypoxia, 6-minute walk ordered. Subjective Patient complaining of ongoing tremors and jerks which do not seem to be getting better. She feels these are much worse after the operation and not improving. She feels she is not ready to go home because of this. She is also still requiring 2 L O2 and serial chest x-rays have not changed and are just suggestive of atelectasis. She feels her shortness of breath on exertion is at her baseline however. She says the nurses have noticed her wheezing when she is walking around however she has not noticed this. Postnasal drip improving. Review of Systems Review of Systems: All systems reviewed & are unremarkable except as noted in HPI & below Physical Exam Constitutional: well developed and + overweight; no acute distress Eyes: + anicteric sclerae; + EOM not intact (Diplopia resolves with monocular vision) ENMT: external ear and nose normal, oropharynx normal Mouth: + dry oral mucous membranes Neck: trachea midline, no thyromegaly Respiratory: normal respiratory effort; no respiratory distress, no retractions, does not use accessory muscles and no stridor Auscultation: + crackles (Fine crackles improved from previous day); no rales, no rhonchi and no wheezes Cardiovascular: Rate/Rhythm: regular rate and regular rhythm Heart Sounds: no murmur Vessels: no JVD Extremities: no edema Gastrointestinal (Abdomen): normal bowel sounds, soft, nontender, no hepatosplenomegaly Musculoskeletal: no cyanosis or clubbing, extremities motor strength 5/5 Skin: no rashes, warm and dry Neurologic: moves all extremities and awake; no focal motor deficits and not confused Motor/Sensory: + tremor (Bilateral equal intention, improves with rest) and + abnormal movement (Occasional jerking of bilateral upper and less frequent lower extremities); no pronator drift and no sensory deficit Gait: + wide-based gait (unsteady balance) Psychiatric: Orientation: alert and oriented x 3 Affect: + anxious affect Results & Data Vital Signs (Past 12 Hours) Vital Signs Temp Pulse Resp BP Pulse Ox 06/01/19 15:43 98.4 F 88 17 126/69 93 PG Care Time/CCT Total # of Minutes Spent Total Time Spent with Patient: Total time spent is greater than 50% in coordination of care (as documented) at patient's floor/unit and/or counseling patient: (1) Diabetic ketoacidosis Diabetes mellitus complication detail: without coma Diabetes mellitus type: due to underlying condition Qualified Code(s): E08.10 - Diabetes mellitus due to underlying condition with ketoacidosis without coma (2) Diabetes mellitus Diabetes mellitus complication detail: with polyneuropathy Diabetes mellitus complication status: with neurologic complications Diabetes mellitus correction insulin use: with correction use Diabetes mellitus type: due to underlying condition Qualified Code(s): E08.42 - Diabetes mellitus due to underlying condition with diabetic polyneuropathy; Z79.4 - tick eradicator (current) use of insulin (3) Chronic obstructive pulmonary disease COPD type: unspecified COPD Qualified Code(s): J44.9 - Chronic obstructive pulmonary disease, unspecified (4) GERD (gastroesophageal reflux disease) Esophagitis presence: esophagitis presence not specified Qualified Code(s): K21.9 - Gastro-esophageal reflux disease without esophagitis
[2019-06-02] MEDS: TRAMADOL HCL 50 MG TABLET PO PRN ×2 (06:10→20:20)
[2019-06-02] MEDS: PANTOprazole 40 MG TAB PO SCH (08:18)
[2019-06-02] MEDS: dilTIAZem ER 120 MG CAPCR PO SCH (08:18)
[2019-06-02] MEDS: MULTIVITAMIN TAB PO SCH (08:18)
[2019-06-02] MEDS: ENALAPRIL MALEATE 10 MG TAB PO SCH (08:18)
[2019-06-02] MEDS: CHOLECALCIFEROL 1,000 UNITS TAB PO SCH (08:18)
[2019-06-02] MEDS: HYDROmorphone INJ 1 MG/ML SYRINGE IV PRN (08:19)
[2019-06-02] MEDS: ATENOLOL 50 MG TABLET PO SCH (08:19)
[2019-06-02] MEDS: FLUTICASONE/SALMETEROL 250/50 (ADVAIR) 14 PUFF/1 INHALER INH SCH ×2 (08:20→20:22)
[2019-06-02] MEDS: INSULIN ASPART 100 UNITS/ML 3 ML PEN SC SCH ×4 (08:22→21:50)
[2019-06-02] MEDS: INSULIN HUMAN NPH SC SCH ×2 (08:25→17:33)
--- NOTE | 2019-06-02 09:47 | Pharmacy Report ---
Pharmacy Glycemic Short Note 2 - Date of Service June 02, 2019 - Glycemic Short BSG Results (Last 24 hours): 06/01/19 06/01/19 06/01/19 11:59 17:09 20:43 POC Glucose 294 H 226 H 166 H 06/02/19 05:57 POC Glucose 188 H OUTPATIENT ANTIDIABETIC REGIMEN: * NPH 30 units with breakfast, 26-28 with dinner * Humalog 10 units breakfast, 14 dinner * HbA1c: 8.4% (05/19/19) ASSESSMENT: * Patient is now POD #5 s/p lumbar decompression/fusion * BSGs yesterday ranging 166-210 mg/dL * Fasting BSG this morning is 188 mg/dL * Patient received 78 units of insulin yesterday (40 of which were basal) * NPH 25 units with breakfast and 15 units with dinner * Discharge likely in the next couple of days PLAN FOR INPATIENT GLYCEMIC CONTROL: * Basal insulin NPH: * Continue current NPH regimen of 25 units AM, scale PM (5 units if BSG < 120 mg/dL, 10 units if BS-200 mg/dL, 15 units if BSG > 200 mg/dL * Bolus insulin - tighten CF * NovoLog per scale ACHS or Q6hrs while NPO * Goal Range: Low 110 mg/dL - High 140 mg/dL * Correction Factor: 20 mg/dL/unit * Nutritional / Prandial insulin per carb ratio of 1 unit per 6 grams CHO consumed
--- NOTE | 2019-06-02 09:58 | Neurology Consultation ---
Date of Consultation June 02, 2019 Assessment & Plan (1) Benign essential tremor: (2) Lumbar back pain with radiculopathy affecting left lower extremity: (3) Cervical radiculopathy at C6: (4) Binocular vision disorder with diplopia: Patient has a mild essential tremor in the right upper extremity and chin. It is less prominent in the left upper extremity. I do not see any obvious resting tremor. I do not see significant bradykinesia or cogwheel rigidity of the limbs. I do not believe she has Parkinson's disease or parkinsonism. Her gait is somewhat slow and shuffling but she has just had lumbar spine surgery. The etiology of the tremor could be medication effect (albuterol) or chronic pain. She has unusual jerking of the limbs. There are reminiscent of myoclonic jerks but they are not entirely random (they sent to occur when I am asking her to do things but not in a consistent or physiologic manner). She has an unusual blurry vision and double vision problem although I cannot detect any actual dysconjugate gaze. Intracranial problem cannot entirely be excluded. She has chronic low back and cervical spine pain post lumbar spine surgery 5 days ago. She continues to have radicular symptoms in the left greater than right leg and in the left greater than right arm. Her balance is poor which is likely secondary to her pain and lumbar spine surgery Recommendations: 1. Obtain TSH in B12 if not done recently. 2. Consider MRI of the brain as an outpatient. I would obtain a full ophthalmology consult as an outpatient 1st however. 3. We could consider EMG and nerve conduction studies of the upper extremities as an outpatient and perhaps an MRI of the cervical spine depending on her findings and clinical course. 4. Physical and occupational therapy. She would benefit from a rehabilitation hospital stay probably. I have no further neurologic recommendations to make at this time. Please contact me if I can be of further assistance. Overall, I spent a total of 110 minutes with this case including review of records, review of MRI lumbar spine films, direct evaluation the patient at bedside, and discussion the case with the patient at bedside, and Dr. Serrato, including differential diagnosis and treatment options. History of Present Illness Reason for Consultation: Patient is an 84-year-old, who I was asked to see the request of Dr. Hernandez, for neurologic evaluation regarding tremor Requesting Physician: Dr. Hernandez Attending Physician: Marck Casillas, DO History of Present Illness Patient has a history of hypertension, gastroesophageal reflux disease, COPD, and dyslipidemia. In 1989, because of pancreatic cancer, she underwent Whipple's procedure was splenectomy in 80% pancreas removal. She has had diabetes since. Patient has a history of lumbar spinal stenosis with lumbosacral radiculopathy and a fusion from L4-S1 by Dr. Casillas in July of 2016. She continued to have left greater than right lower extremity pain and low back pain over time. In addition, the patient has a history of chronic cervical spine pain and radicular symptoms in the arms likely at the C6 level. Patient was admitted and had repeat lumbar spine surgery on May [address] Casillas. He removed previous instrumentation and decompressed L3-4 now fusing from L2 through S1. Over the last 2 years, she has had tremor and what could be myoclonic jerks. These are intermittent and involve the upper extremities mostly. When she is sitting watching TV her hands may jerk or shakes some in an irregular fashion. When she goes to use a utensil or a drinking glass she may shake considerably in the right upper extremity (she is right-handed). In addition patient has had blurry and other vision changes recently. She gets occasional headaches and moving her eyes can give her nonspecific pain. She denies any dizziness. She complains of double vision in almost any direction. Allergies Allergy/AdvReac Type Severity Reaction Status Date / Time codeine Allergy Severe RASH Verified 05/28/19 06:34 Sulfa (Sulfonamide Allergy Intermediate rash Verified 05/28/19 06:34 Antibiotics) sulfabenzamide Allergy Intermediate rash Verified 05/28/19 06:34 sulfacetamide Allergy Intermediate rash Verified 05/28/19 06:34 sulfathiazole Allergy Intermediate rash Verified 05/28/19 06:34 insulin glargine Allergy Mild pruritus Verified 05/28/19 06:34 (noted after 7+ days of use) aspirin AdvReac Severe Gastrointestinal Unverified 05/28/19 06:34 Upset erythromycin base AdvReac Intermediate abdominal Verified 05/28/19 06:34 pain NSAIDS (Non-Steroidal AdvReac Intermediate gastric Verified 05/28/19 06:34 Anti-Inflamma bleeding hydrocodone AdvReac Mild itching Verified 05/28/19 06:34 oxycodone AdvReac Mild itching Verified 05/28/19 06:34 ciprofloxacin Allergy Unknown unknown Uncoded 05/28/19 06:34 reaction amitriptyline AdvReac Unknown "drunk Uncoded 05/28/19 06:34 feeling" erythromycin AdvReac Unknown abdominal Uncoded 05/28/19 06:34 cramps/pain Home Medications Home Medications Medication Instructions Recorded Confirmed Type multivitamin 1 tab PO QAM 07/18/18 05/28/19 History trazodone 50 mg PO HS PRN 07/18/18 05/28/19 History blood sugar diagnostic #10 ea 12/12/18 05/22/19 History lancets 28 gauge #25 ea 12/12/18 05/22/19 History pen needle, diabetic 31 gauge x #30 ea 12/12/18 05/22/19 History 3/" albuterol sulfate 2.5 mg/3 mL 2.5 mg INHALATION ONCE PRN #2 ml 12/18/18 05/28/19 History (0.083 %) solution for nebulization albuterol sulfate 90 mcg/actuation 2 puffs INH Q6H PRN #1 ea 12/18/18 05/28/19 Rx breath activated powder inhaler atenolol 50 mg tablet 50 mg PO QAM #90 tab 12/18/18 05/28/19 Rx biotin 1 mg tablet 1 mg PO QAM tab 12/18/18 05/28/19 History cholecalciferol (vitamin D3) 1,000 1,000 unit PO QAM 12/18/18 05/28/19 History unit capsule insulin NPH isoph U-100 human 100 30 units SUBCUT QAM ml 12/18/18 05/28/19 History unit/mL (3 mL) subcutaneous pen insulin NPH isoph U-100 human 100 See Rx Instructions SUBCUT HS ml 12/18/18 05/28/19 History unit/mL (3 mL) subcutaneous pen insulin lispro 100) 100 unit/mL See Rx Instructions SQ TID #3 box 03/07/19 05/28/19 Rx subcutaneous pen esomeprazole magnesium [Nexium] 20 mg PO QAM 04/21/19 05/28/19 History melatonin 5 mg PO HS PRN 04/21/19 05/28/19 History enalapril 10 1 tab PO DAILY #90 tab 05/07/19 05/28/19 Rx mg-hydrochlorothiazide 25 mg tablet simvastatin 20 mg tablet 40 mg PO QPM #90 tab 05/07/19 05/28/19 Rx diltiazem HCl 120 mg capsule,24 120 mg PO DAILY #90 cap 05/09/19 05/28/19 Rx hr,extended release Patient History Medical History Benign essential HTN (Chronic) Biliary dyskinesia (Resolved) Cervical spine degeneration (Chronic) Chronic cholecystitis Chronic obstructive pulmonary disease (Chronic) stable Constipation (Chronic) Cyst of right kidney Diabetes mellitus (Chronic) IDDM Diabetic nephropathy (Chronic) Diverticulosis (Chronic) Fibromyalgia (Chronic) Gastric bleeding hx years ago in setting of NSAID use Gastric polyps (Chronic) Gastroparesis (Chronic) GERD (gastroesophageal reflux disease) occasional Hearing loss, bilateral Hiatal hernia (Chronic) History of pancreatic cancer 1989 s/p whipple procedure HLD (hyperlipidemia) (Chronic) HTN (hypertension) Hypercholesteremia (Chronic) Insomnia (Chronic) Internal hemorrhoids (Chronic) Lumbar back pain with radiculopathy affecting left lower extremity (Chronic) Osteoarthritis (Chronic) Paroxysmal SVT (supraventricular tachycardia) on atenolol Tubular adenoma of colon (Chronic) Valvular heart disease (Chronic) Vitamin D deficiency (Chronic) Surgical History History of breast biopsy History of lumbar spinal fusion History of splenectomy whipple procedure ([facility]) Hx of colonoscopy Hx of esophagogastroduodenoscopy Hx of right inguinal hernia repair Hx of total hysterectomy with removal of both tubes and ovaries Family History Mother , age 92 [address] Arthritis Myocardial infarction Breast cancer Father , age 90 of a stroke. 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 Feels Safe at Home: Yes Smoking Status: Never smoker Second Hand Exposure: Yes ; Hx Alcohol Use: No Hx Substance Use: No Review of Systems Constitutional: + fatigue and + weakness; no fever Eyes: + diplopia, + eye pain and + worsening vision Ear, Nose, Mouth, Throat: + hearing loss; no ear pain, no tinnitus, no dizziness, no snoring, no hoarseness and no dysphagia Respiratory: no cough and no dyspnea Cardiovascular: no chest pain, no palpitations and no lightheadedness Gastrointestinal: + nausea; no abdominal pain and no vomiting Genitourinary: no dysuria, no urinary frequency and no urinary incontinence Musculoskeletal: + back pain, + neck pain, + radicular pain, + joint pain and + muscle weakness; no myalgia Integumentary: no rash and no lesions Neurologic: + gait abnormality, + generalized weakness, + tremor(s), + abnormal movements, + headache(s) and + confusion (With the medication); no localized weakness, no tingling, no numbness, no abnormal speech and no memory loss Psychiatric: + confusion; no depression, no irritability, no anxiety, no difficulty concentrating and no hallucinations Endocrine: + fatigue; no flushing Hematologic / Lymphatic: no easy bleeding and no easy bruising Allergy / Immunological: no urticaria and no problem reported Physical Exam Physical Exam: The patient is right-handed. The patient is awake, alert, and attentive. Speech is normal without any aphasia or dysarthria. She can name objects, repeat phrases, and has normal spontaneous speech. Mentation and thought processes are intact, with orientation to person, place and time, and normal fund of knowledge. She scored 29/30 points in a mini-mental status examination. Attention and concentration are normal. Mood and affect are normal and appropriate. General appearance and grooming are normal. Short and long-term memory are intact to conversation. The discs are sharp with positive venous pulsations bilaterally. There are no exudates, hemorrhages, or blood vessel changes seen. Pupils are 3 mm bilaterally and reactive to light. Lenses have mild cataract formation bilaterally. Extraocular eye muscle exam is difficult. She resist tracking but does have short ranges of smooth pursuit. She then will fix her gaze on the examiner without problem. She can move her eyes right left up and down to fix on an object briefly and then she looks away. There is no over shooting trying to fix on the target. She claims that she can see anywhere from 2-4 of an object in almost any visual field tested but I see no dysconjugate gaze. Visual acuity and visual luna seem normal grossly to confrontation. There are no deficits to sensation in the face in all 3 distributions of the fifth cranial nerve bilaterally. Corneal reflexes are positive bilaterally. Facial strength and symmetry was normal bilaterally. Hearing seems normal to whisper and finger rub bilaterally. Palate moves well without asymmetry. There is normal sternocleidomastoid and trapezius (shoulder shrug) strength bilaterally. Tongue is midline with good strength bilaterally. Neck has a full range of motion with some discomfort. There are no cervical bruits bilaterally. There are no cranial or ocular bruits. Heart is without murmur. There is a regular rhythm and rate. Cervical, thoracic, and lumbar spine are all tender to palpation diffusely including paraspinal muscles and spinous processes. Gait is difficult to test. She needs help to stand (at least assistance of 1) and is very unstable with eyes open. She completely loses her balance eyes closed. She can walk with a walker and shuffling matter. With outstretched arms there is no drift. There are no resting tremors. She has occasional myoclonic jerk like movements of the upper extremities but mostly when the examiner is asking her to do something. I did not notice much in the way of these movements when we were just talking and she was sitting in the chair. There is no pepito ataxia with finger to nose testing. However, there was a mild action tremor in the right upper extremity and some mild dysmetria of the left upper extremity but not a pepito ataxia. There is good facility in the hands bilaterally and excellent rapid alternating movements of the hands bilaterally. There is no ataxia with limited [id number] testing and she has good rapid alternating movement in the feet bilaterally. No other abnormal involuntary movements are noted except for some mild intermittent chin tremor. 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 She has giveaway weakness secondary to pain and proximal muscles. Motor strength is 5/5 initially diffusely in the legs bilaterally including hip flexors, quadriceps, hamstrings, gastrocnemius, tibialis anterior, tibialis posterior, and Peroneii muscles, but then she has giveaway weakness secondary to pain. Toe extensors are normal and there is good bulk in the extensor digitorum brevis muscles bilaterally. The limbs have good tone without rigidity or spasticity. I did not note any pepito bradykinesia or masklike face. There is no atrophy noted in the muscles. Muscle bulk is normal, there is no tenderness to palpation, no myotonia to percussion, and no fasciculations seen. Sensory examination is intact to touch and pin throughout all 4 limbs diffusely. Reflexes are 1/4 in the biceps, triceps, brachioradialis, and quadriceps tendons bilaterally. Achilles tendon reflexes were absent bilaterally. Whenever I checked her reflex, after a slight delay the patient had a jerk in her arm that was coarse and not related to the reflex There is no clonus bilaterally. Toes are downgoing with plantar stimulation bilaterally. Peripheral pulses are present and of normal quality distally in all 4 limbs. There is no peripheral edema noted in the limbs. Results & Data Vital Signs (Past 12 Hours) Vital Signs Temp Pulse Resp BP Pulse Ox 06/02/19 06:38 37.1 C 87 16 144/64 H 95 06/01/19 23:42 37.3 C 86 16 141/66 H 95 PG Care Time/CCT Total # of Minutes Spent Total Time Spent with Patient: Total time spent is greater than 50% in coordination of care (as documented) at patient's floor/unit and/or counseling patient:
--- NOTE | 2019-06-02 13:41 | Orthopedic Progress Note ---
Date of Service June 02, 2019 Assessment & Plan (1) Neurogenic claudication due to lumbar spinal stenosis: This time patient is no longer complaining of arm pain. She states she is not interested in rehab despite my encouragement. We discussed possible home health. She will hopefully be able to discharge home the next few days. Present on Admission?: Yes Subjective Patient's states her back pain is better this afternoon. She feels that she is walking better today than yesterday. Physical Exam Physical Exam: Patient is sitting up in bed comfortable she is eating without difficulty is good strength testing. Results & Data Vital Signs (Past 12 Hours) Vital Signs Temp Pulse Resp BP Pulse Ox 06/02/19 12:34 93 06/02/19 06:38 37.1 C 87 16 144/64 H 95
[2019-06-02] MEDS: SIMVASTATIN 40 MG TAB PO SCH (20:25)
[2019-06-02] MEDS: DOCUSATE SODIUM/SENNA 50/8.6MG TAB PO SCH (20:26)
--- NOTE | 2019-06-02 21:53 | Hospitalist Progress Note ---
Date of Service June 02, 2019 Assessment & Plan (1) Benign essential tremor: Suspected diagnosis based on history and current exam however this diagnosis still questionable given unclear history from the patient and her . However she feels they are having an effect on her rehabilitation therefore I would recommend consulting neurology at this time. Suspect initially exacerbated by operation, medication and DKA however her symptoms have persisted for 3 days without improvement. Will have patient f/u with neurology as an outpatient. (2) Coordination abnormal: Suspect upper extremity shaking due to benign essential tremor. I am un clear how acute lower extremity reduced coordination has been going on. CT head negative for acute pathology. (3) Poor appetite: Unclear etiology. She denies anxiety, dysphagia, odynophagia. Possibly early satiety due to diabetes. Will have nutrition consult at this time. (4) Binocular vision disorder with diplopia: Concerning regarding above coordination abnormalities. However history is subacute with associated vision loss on right eye. Progressive over the months the patient. CT head negative for acute pathology. Suspect secondary to cataracts and right eye worse than left causing disuse. (5) Diabetic ketoacidosis: Now resolved. Occurred post operatively due to late insulin given. High risk of DKA given pancreatectomy. Mild. pH 7.27. Anion gap 16. Appreciate pharmacy glycemic management of SQ insulin. 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 On long-term insulin with endocrinology. Appreciate glycemic pharmacy management, as above for DKA (7) Hypoxia: Repeat chest x-ray confirmed ongoing atelectasis but no pneumonia. Currently has wheezing on exertion which appears to be her baseline. No overt signs of COPD exacerbation (8) Status post lumbar spine operative procedure for decompression of spinal cord: POD #4. Pain management as per surgery. (9) Neurogenic claudication due to lumbar spinal stenosis: As above (10) Cervical radiculopathy at C6: Improving. Affect acute worsening due to positioning during surgery. (11) Benign essential HTN: Holding hydrochlorothiazide as her blood pressure remained stable off this Restarted on enalapril due to low normal blood pressures. Continue atenolol and diltiazem (12) GERD (gastroesophageal reflux disease): Esomeprazole switched to pantoprazole as per hospital formulary. (13) Paroxysmal SVT (supraventricular tachycardia): Continue atenolol and diltiazem (14) Chronic obstructive pulmonary disease: Unclear exact history and requested causing her pulmonary most recent visit and PFT results. Suspect she was started on Symbicort as per description, we will switch this to Advair while admitted. No current wheezing. Duo nebs as needed. (15) DVT prophylaxis: As per primary surgery team. (16) Discharge planning issues: Main issue pending medical clearance is hypoxia and ongoing balance issues (although unclear how acute her balance issues are). Suspect atelectasis is main cause of ongoing hypoxia, 6-minute walk ordered. recommended patient to continue to use incentive spirometer Subjective Patient reports no new symptoms. Review of Systems Eyes: + decreased night vision and + worsening vision (R > L); no discharge, no dry eyes, no eye pain, no itchy eyes, no loss of peripheral vision, no photophobia, not seeing flashes and no tunnel vision Ear, Nose, Mouth, Throat: + sore throat (New since operation); no ear pain, no ear discharge, no tinnitus, no dizziness, no nasal congestion, no nasal discharge, no post nasal drip, no dry mouth and no dysphagia Respiratory: + dyspnea on exertion; no cough Neurologic: + unsteadiness, + numbness (Right upper thigh), + lack of coordination and + abnormal movements; no dizziness, no syncope, no abnormal speech and no memory loss Physical Exam Physical Exam: Constitutional: well developed and + overweight; no acute distress Eyes: + anicteric sclerae; + EOM not intact (Diplopia resolves with monocular vision) ENMT: external ear and nose normal, oropharynx normal Mouth: + dry oral mucous membranes Neck: trachea midline, no thyromegaly Respiratory: normal respiratory effort; no respiratory distress, no retractions, does not use accessory muscles and no stridor Auscultation: + crackles (Fine crackles improved from previous day); no rales, no rhonchi and no wheezes Cardiovascular: Rate/Rhythm: regular rate and regular rhythm Heart Sounds: no murmur Vessels: no JVD Extremities: no edema Gastrointestinal (Abdomen): normal bowel sounds, soft, nontender, no hepatosplenomegaly Musculoskeletal: no cyanosis or clubbing, extremities motor strength 5/5 Skin: no rashes, warm and dry Neurologic: moves all extremities and awake; no focal motor deficits and not confused Motor/Sensory: + tremor (Bilateral equal intention, improves with rest) and + abnormal movement (Occasional jerking of bilateral upper and less frequent lower extremities); no pronator drift and no sensory deficit Gait: + wide-based gait (unsteady balance) Psychiatric: Orientation: alert and oriented x 3 Affect: + anxious affect Results & Data Vital Signs (Past 12 Hours) Vital Signs Temp Pulse Resp BP Pulse Ox 06/02/19 15:16 37.6 C H 78 16 115/59 L 96 06/02/19 12:34 93 PG Care Time/CCT Total # of Minutes Spent Total Time Spent with Patient: Total time spent is greater than 50% in coordination of care (as documented) at patient's floor/unit and/or counseling patient: (1) Diabetic ketoacidosis Diabetes mellitus complication detail: without coma Diabetes mellitus type: due to underlying condition Qualified Code(s): E08.10 - Diabetes mellitus due to underlying condition with ketoacidosis without coma (2) Diabetes mellitus Diabetes mellitus complication detail: with polyneuropathy Diabetes mellitus complication status: with neurologic complications Diabetes mellitus detention insulin use: with detention use Diabetes mellitus type: due to underlying condition Qualified Code(s): E08.42 - Diabetes mellitus due to underlying condition with diabetic polyneuropathy; Z79.4 - alf (current) use of insulin (3) Chronic obstructive pulmonary disease COPD type: unspecified COPD Qualified Code(s): J44.9 - Chronic obstructive pulmonary disease, unspecified (4) GERD (gastroesophageal reflux disease) Esophagitis presence: esophagitis presence not specified Qualified Code(s): K21.9 - Gastro-esophageal reflux disease without esophagitis
[2019-06-03] MEDS: TRAMADOL HCL 50 MG TABLET PO PRN (00:47)
[2019-06-03 07:15] VITALS: BP 146/72; TEMP 98.2; O2SAT 98
--- NOTE | 2019-06-03 08:35 | Neurology Progress Note ---
Date of Service June 03, 2019 Assessment & Plan (1) Benign essential tremor: (2) Lumbar back pain with radiculopathy affecting left lower extremity: (3) Cervical radiculopathy at C6: (4) Binocular vision disorder with diplopia: Patient has a mild essential-type tremor in the upper extremities and chin (although the chin tremor was not apparent today). I do not see any obvious resting tremor, significant bradykinesia, or cogwheel rigidity of the limbs. Therefore, she does not have Parkinson's disease or parkinsonism. Her gait was somewhat slow and shuffling yesterday but she has just had lumbar spine surgery. The etiology of the tremor could be medication effect (such as albuterol), chronic pain, or other. She recalls no history of tremor in her parents or siblings. She had unusual jerking of the limbs yesterday. They were reminiscent of myoclonic jerks, but they were not entirely random (they tended to occur when I asked to her to do things, but not in a consistent or physiologic manner). Today, she does not have any unusual jerking of the limbs. This may have been manifestation of pain medication. She has an unusual blurry and double vision problem, although I cannot detect any actual dysconjugate gaze. It was worse yesterday and much improved today. She could read the clock from across the room. This also may be a function of pain medication, however, an intracranial problem cannot entirely be excluded. She has chronic low back and cervical spine pain, post lumbar spine surgery 5 days ago. She continues to have radicular symptoms in the left greater than right leg (although improved today) and in the left greater than right arm (again today improved). Her balance is poor which is likely secondary to her pain and lumbar spine surgery Recommendations: 1. Obtain TSH in B12. 2. Obtain an ophthalmology consult as an outpatient. 3. Consider MRI of the brain as an outpatient, particularly if the ophthalmology consult is abnormal. 4. Consider EMG and nerve conduction studies of the upper extremities as an outpatient and, perhaps, an MRI of the cervical spine, depending on her findings and clinical course. 4. Physical and occupational therapy. She would benefit from a rehabilitation hospital stay, although the patient is resistant to this. I have no further neurologic recommendations to make at this time. Please contact me if I can be of further assistance. Overall, I spent a total of 35 minutes with this case including review of records, direct evaluation the patient at bedside, and discussion the case with the patient at bedside, her RN at bedside, Dr. Serrato and Dr. Casillas, including differential diagnosis and treatment options. Subjective Patient feels that she is doing a little bit better this morning. She can see a little bit better with her vision and has less abnormal movements. Her strength is improved also. She feels less pain this morning. Blood pressure is 146/72. Physical Exam Physical Exam: She is awake and alert. Although hard of hearing, speech is without aphasia or dysarthria and she is pleasant and cooperative. Thought processes are fairly intact to conversation. Mood is reasonable although she is a bit grumpy because she was woken up so early this morning. Extraocular eye muscles are intact without nystagmus. There is no facial droop. I note no myoclonic jerks or abnormal involuntary movements at rest. She has some mild, somewhat coarse, postural and action tremor bilaterally. There is no ataxia with [id number] testing. Motor strength is 5/5 in the arms both proximally and distally. Leg strength seems fairly close to 5/5 diffusely as well. There is less giveaway weakness secondary to pain this morning. Results & Data Vital Signs (Past 12 Hours) Vital Signs Temp Pulse Resp BP Pulse Ox 06/03/19 07:13 36.8 C 89 18 146/72 H 98 06/02/19 23:00 37.2 C 92 H 18 169/73 H 91 PG Care Time/CCT Total # of Minutes Spent Total Time Spent with Patient: Total time spent is greater than 50% in coordination of care (as documented) at patient's floor/unit and/or counseling patient:
[2019-06-03] MEDS: MULTIVITAMIN TAB PO SCH (08:45)
[2019-06-03] MEDS: CHOLECALCIFEROL 1,000 UNITS TAB PO SCH (08:45)
[2019-06-03] MEDS: PANTOprazole 40 MG TAB PO SCH (08:45)
[2019-06-03] MEDS: FLUTICASONE/SALMETEROL 250/50 (ADVAIR) 14 PUFF/1 INHALER INH SCH (08:45)
[2019-06-03] MEDS: ENALAPRIL MALEATE 10 MG TAB PO SCH (08:46)
[2019-06-03] MEDS: ATENOLOL 50 MG TABLET PO SCH (08:46)
[2019-06-03] MEDS: dilTIAZem ER 120 MG CAPCR PO SCH (08:46)
[2019-06-03] MEDS: INSULIN HUMAN NPH SC SCH (08:47)
[2019-06-03] MEDS: INSULIN ASPART 100 UNITS/ML 3 ML PEN SC SCH (08:47)
--- NOTE | 2019-06-03 11:08 | Pharmacy Report ---
Pharmacy Glycemic Short Note 2 - Date of Service June 03, 2019 - Glycemic Short BSG Results (Last 24 hours): 06/02/19 06/02/19 06/02/19 11:55 17:11 20:20 POC Glucose 192 H 71 107 H 06/03/19 07:58 POC Glucose 185 H OUTPATIENT ANTIDIABETIC REGIMEN: * NPH 30 units with breakfast, 26-28 with dinner * Humalog 10 units breakfast, 14 dinner * HbA1c: 8.4% (05/19/19) ASSESSMENT: * Patient is now POD #6 s/p lumbar decompression/fusion * BSGs yesterday ranging 71-192 mg/dL * Fasting BSG this morning is 185 mg/dL - will increase dinner NPH * Patient received 52 units of insulin yesterday (30 of which were basal) * NPH 25 units with breakfast and 5 units with dinner * Patient's BSGs tend to be low at dinner - possibly due to prandial insulin with lunch on top of NPH * Discharge likely in the next couple of days PLAN FOR INPATIENT GLYCEMIC CONTROL: * Basal insulin NPH: * Continue current NPH regimen of 25 units AM, * Increase PM scale (10 units if BSG < 120 mg/dL, 15 units if BS-200 mg/dL, 20 units if BSG > 200 mg/dL) * Bolus insulin - Adjust CR to be with breakfast and dinner only (0730,1630) * NovoLog per scale ACHS or Q6hrs while NPO * Goal Range: Low 110 mg/dL - High 140 mg/dL * Correction Factor: 20 mg/dL/unit (ACHS) * Nutritional / Prandial insulin per carb ratio of 1 unit per 6 grams CHO consumed (breakfast and dinner only) DISCHARGE: -A1c of 8.4% is above goal. Reasonable goal for most non- adults is less than 7%, but less than 8% may be reasonable for this patient based on age and comorbidities. -Consider increasing AM Humalog to 14 units based on consistently observed highs around lunchtime -Follow-up with outpatient provider responsible for diabetes management -Support Patient Self-Management -Healthy Lifestyle (diet, exercise, and smoking cessation) -Disease self-management (SMBG) -Prevention of complications (BP, Lipid goals, Immunizations) -Consider outpatient Diabetes Self-Management Education & Support
[2019-06-03] MEDS ORDERED: INSULIN ASPART 100 UNITS/ML 3 ML PEN SC SCH ×2 (11:30→16:30)
[2019-06-03 14:33] VITALS: PULSE 88
--- NOTE | 2019-06-03 14:41 | Discharge Summary ---
Date of Service June 03, 2019 Admission HPI Per Admitting Provider This is an 84-year-old female presents with chronic persistent back and bilateral leg pain. Failing extensive course of nonoperative care is here for surgical intervention. Principal Diagnosis Lumbar spinal stenosis with neurogenic claudication Discharge Data Allergies Allergy/AdvReac Type Severity Reaction Status Date / Time codeine Allergy Severe RASH Verified 05/28/19 06:34 Sulfa (Sulfonamide Allergy Intermediate rash Verified 05/28/19 06:34 Antibiotics) sulfabenzamide Allergy Intermediate rash Verified 05/28/19 06:34 sulfacetamide Allergy Intermediate rash Verified 05/28/19 06:34 sulfathiazole Allergy Intermediate rash Verified 05/28/19 06:34 insulin glargine Allergy Mild pruritus Verified 05/28/19 06:34 (noted after 7+ days of use) aspirin AdvReac Severe Gastrointestinal Unverified 05/28/19 06:34 Upset erythromycin base AdvReac Intermediate abdominal Verified 05/28/19 06:34 pain NSAIDS (Non-Steroidal AdvReac Intermediate gastric Verified 05/28/19 06:34 Anti-Inflamma bleeding hydrocodone AdvReac Mild itching Verified 05/28/19 06:34 oxycodone AdvReac Mild itching Verified 05/28/19 06:34 ciprofloxacin Allergy Unknown unknown Uncoded 05/28/19 06:34 reaction amitriptyline AdvReac Unknown "drunk Uncoded 05/28/19 06:34 feeling" erythromycin AdvReac Unknown abdominal Uncoded 05/28/19 06:34 cramps/pain Consultations 05/28/19 11:29 Consult Case Management - Discharge Planning Routine Consult Hospitalist Routine 05/28/19 17:23 Consult Health Information Management Routine 05/28/19 17:35 Consult Health Information Management Routine 06/01/19 23:28 Consult Neurology Routine Procedures Performed Operation Date: 05/28/19 07:45 Actual Procedures p L4-S1 Hardware Removal, L3-L5 Decompression and Fusion, with Spinal Cord Monitoring, Application of BMP(Not Applicable) - Marck Casillas DO Ordered Studies 05/28/19 07:45 FL fluoroscopy <1hr Routine FL lumbar spine 2-3V Routine 05/28/19 19:03 CT head/brain wo con Urgent Hospital Course (1) Neurogenic claudication due to lumbar spinal stenosis: Patient underwent lumbar decompression and fusion was taken to the ICU postoperatively. She had significant medical issues including episode of diabetic ketoacidosis. This did resolve over the course of 2 days she eventually transferred to the orthopedic floor and progressed appropriately with therapy. JOSSELYN drain decreasing appropriately. And after review with neurology physical therapy and myself felt the best that she be discharged to rehab. Last day of her admission she had good strength testing was comfortable. Subsequently she was discharged to rehab. Discharge orders instructions can be found the chart for further review. Total Time Total Time Spent Total Time Spent (In Minutes): 30 minutes Discharge Plan Discharge Items Patient Disposition: Transfer Inpatient Rehab Fac Reason For Visit: LUMBAR SPINAL STENOSIS W/O NEUROGENIC CLAUDICATION Discharge Diagnosis: Number spinal stenosis with neurogenic claudication Activity: As commented below Non-emergency contact: Primary Care Provider Call non-emergency contact if: you have any medication questions Follow-up/Referrals: Irvin Richard CRNP [Primary Care Provider] - Diet: Regular Addtl Attending Provider Instructions: ACTIVITY RECOMMENDATIONS: SELF CARE INSTRUCTIONS AFTER THORACIC/LUMBAR FUSIONS 1. You may walk to your tolerance. It is good exercise for your legs and back. Expect some back and intermittent leg aches and pains. 2. You may perform "counter-top" level activities (make a sandwich, kim with a project, etc.). 3. No bending or lifting of more than 10 pounds or back twisting of any nature (roll like a log when turning in bed). 4. You may ride in a car for 20-30 minutes at a time. No driving until after your first visit with your doctor. 5. Frequent changes of position and restricting sitting to 30 minutes at a time will help limit the amount of back spasms and stiffness you may experience. 6. You may discontinue the use of ambulatory aids (cane, crutches, etc.) once your strength and confidence allow. 7. You may rn integrated the shower and let water strike your incision when you arrive home at least once daily. Do not take a tub bath, sit in a hot tub or go into a swimming pool until after your first recheck in the office. SPECIAL CARE INSTRUCTIONS: VERY IMPORTANT TO READ AND REVIEW A. Your surgical incision has been closed with a cosmetic suture under the skin that will dissolve in about 6 weeks. In 14 days, you can use a pair of clean scissors and cut the suture that is left outside of the skin at the ends of your incision. 1. The small skin tapes can be removed 7 days after surgery if they have not fallen off by that point. 2. You may keep the wound open to air as much as possible to promote healing after post-op day number 5 unless told otherwise by your doctor. 3. If you think the wound looks like it is becoming infected (redness or worsening drainage) and/or you are experiencing fever, chill or worsening back pain and muscle spasms, contact the office so that we may evaluate you as soon as possible. B. Complications are uncommon, but please contact us if you have any signs or symptoms of: 1. wound infection (fever higher than 102.5 degrees F, redness, separation of wound, drainage, or increasing pain from the incision) 2. blood clots in legs (pain, swelling, redness and warmth in legs) 3. urinary tract infection (fever higher than 102.5 degrees F, burning upon urination or increased frequency of urination) 4. nerve problems (inability to walk on your toes or heels, numbness, loss of bowel or bladder control) 5. any other symptoms that concern you C. Please call the office at if you have any concerns or questions about your operation or recovery. D. No smoking! Smoking drastically decreases the chance of a solid fusion. E. Do not take any anti-inflammatory medications (Indocin, Advil, Motrin, Aspirin, Naprosyn, etc.) as these may inhibit the chance of a solid fusion. Tylenol is okay to take for pain. MANAGING PAIN AFTER SPINAL SURGERY 1. Narcotic medication is intended for short-term use and will be provided for surgical pain. Surgical pain usually lasts for a period of 4-6 weeks. Narcotic medication includes Percocet, Vicodin, Darvocet, Tylenol #3 or Lortab. 2. Longer-term pain is more appropriately treated with non-narcotic medication such as Tylenol ES. 3. Muscle spasm is not appropriately treated with narcotics. Muscle relaxers such as Soma, Flexeril or Skelaxin can be used along with Tylenol ES. 4. Remember that we all live with some "aches and pains". This is not unusual or uncommon after an injury or as we get older. a. Back pain is expected and may include muscle spasms for 4 to 6 weeks after surgery. The pain should gradually improve. If the pain worsens for no apparent reason, please contact the office. b. Intermittent leg pain may also be experienced and should not be concerned about unless it worsens for no apparent reason. If so, please contact the office. 5. We will provide appropriate medication within the normal guidelines of their prescribed use. We will also be very cautious and aware of potential abuse and extended duration of patients' medication needs. a. Pain medications are for your comfort and to assist with sleep and rest so that the tissue can heal. They are not provided in order to return to normal activity and should not be used through the day. To do so or worsening pain at night can result from ongoing tissue damage and develop ment of tolerance to the prescribed medicine. 6. Please allow 2-3 days to process refills. Prescriptions will not be mailed but must be picked up at the office. FOLLOW UP VISIT: Keep your scheduled follow-up appointment. Any questions, please call the office at . Pending Studies at Discharge: No Stand-Alone Forms: My [facility] Skilled Items Patient informed of condition?: Yes DNR: No Discharge Level of Care: Acute rehab Communicable Disease: No Discharge Prognosis: Improving Lines: None Urinary Catheter: No Medications and DC Order Prescriptions: New tramadol 50 mg tablet 50 mg PO Q6H PRN (Reason: pain, moderate) Qty: 30 RF: 0 Continued enalapril-hydrochlorothiazide 10-25 mg tablet 1 tab PO DAILY Qty: 90 RF: 3 simvastatin 20 mg tablet 40 mg PO QPM Qty: 90 RF: 1 diltiazem HCl 120 mg capsule,extended release 24 hr 120 mg PO DAILY Qty: 90 RF: 3 (DME) FreeStyle Lite Strips strip See Dose Instructions .ROUTE .MEDSUPPLY Qty: 10 RF: 0 (DME) lancets [FreeStyle Lancets] 28 gauge misc See Dose Instructions .ROUTE .MEDSUPPLY Qty: 25 RF: 0 (DME) pen needle, diabetic [BD Ultra-Fine Mini Pen Needle] 31 gauge x 3/16" needle See Dose Instructions .ROUTE .MEDSUPPLY Qty: 30 RF: 0 biotin 1 mg tablet 1 mg PO QAM RF: 0 atenolol 50 mg tablet 50 mg PO QAM Qty: 90 RF: 3 albuterol sulfate 90 mcg/actuation aerosol powdr breath activated 2 puffs INH Q6H PRN (Reason: shortness of breath or wheezing) Qty: 1 RF: 6 albuterol sulfate 2.5 mg /3 mL (0.083 %) solution for nebulization 2.5 mg inhalation ONCE PRN (Reason: SOB) Qty: 2 RF: 0 insulin lispro [Humalog KwikPen Insulin] 100 unit/mL insulin pen See Rx Instructions SQ TID Qty: 3 RF: 3 multivitamin Tablet 1 tab PO QAM RF: 0 trazodone 50 mg tablet 50 mg PO HS PRN (Reason: Sleep) RF: 0 cholecalciferol (vitamin D3) 1,000 unit capsule 1,000 unit PO QAM RF: 0 insulin NPH isoph U-100 human 100 unit/mL (3 mL) insulin pen 30 units subcut QAM RF: 0 insulin NPH isoph U-100 human 100 unit/mL (3 mL) insulin pen See Rx Instructions subcut HS RF: 0 esomeprazole magnesium [Nexium] 20 mg Capsule,Delayed Release(Dr/Ec) 20 mg PO QAM RF: 0 melatonin 5 mg Tablet 5 mg PO HS PRN (Reason: Sleep) RF: 0 Discharge Orders: Discharge Order (Routine); Ordered 06/03/19 Ordered By: Marck Casillas Admission Data Admit Date/Time: 05/28/19 10:14 Attending Provider: Marck Casillas Admit Provider: Marck Casillas Primary Care Provider: Irvin Richard Other Providers: Thor Jameson ; Bud Serrato ; [facility] Other Interventions: Discharge Summary Assessment (RN) Last Done: 06/03/19 14:32
== END 2019-06-03 15:03 | DRG 453 ==
LOC: ASU 06:08 → 3E 10:14 → 2E 21:22 → 3N 05-31 07:17

== ENCOUNTER 2019-08-11 10:19 | Inpatient (IN) ==
[2019-08-11] MEDS ORDERED: SODIUM CHLORIDE 0.9% 1000ML 1,000 ML IV ONE (10:45)
[2019-08-11] MEDS ORDERED: ONDANSETRON INJ 2 MG/ML 2 ML VIAL IV STA (10:45)
[2019-08-11] MEDS ORDERED: ACETAMINOPHEN 1,000 MG/100 ML VIAL IV STA (10:45)
[2019-08-11 11:38] LABS: Basophils # (auto) 0.07 K/uL (0-0.2); Basophils % (auto) 0.4 %; Eosinophils # (auto) 0.01 K/uL (0-0.5); Eosinophils % (auto) 0.1 %; Hematocrit (blood only) 36.3 % (37-47); Hemoglobin 12.3 g/dL (12.0-16.0); Immature Granulocytes % (auto) 0.5 %; Lymphocytes # (auto) 1.98 K/uL (1.2-3.4); Lymphocytes % (auto) 10.2 %; Mean Corpuscular Hemoglobin 30.9 pg (25-34); Mean Corpuscular Hgb Conc 33.9 g/dL (32-36); Mean Corpuscular Volume 91.2 fL (80-100); Mean Platelet Volume 10.4 fL (7.4-10.4); Monocytes # (auto) 1.74 K/uL (0.11-0.59); Neutrophils # (auto) 15.42 K/uL (1.4-6.5); Neutrophils % (auto) 79.8 %; Platelet Count 295 K/uL (130-400); RDW Coefficient of Variation 13.2 % (11.5-14.5); RDW Standard Deviation 43.6 fL (36.4-46.3); Red Blood Count 3.98 M/uL (4.2-5.4); White Blood Count 19.32 K/uL (4.8-10.8)
[2019-08-11 12:00] LABS: Alanine Aminotransferase 16 U/L (12-78); Albumin Level 3.7 gm/dl (3.4-5.0); Aspartate Aminotransferase 20 U/L (15-37); BUN Creatinine Ratio 27.7 (10-20); Bilirubin Direct < 0.1 mg/dl (0-0.2); Blood Urea Nitrogen 30 mg/dl (7-18); Calcium 9.6 mg/dl (8.5-10.1); Carbon Dioxide 30 mmol/L (21-32); Chloride 95 mmol/L (98-107); Est GFR (African American) 54.7; Est GFR (Non-African American) 47.2; Glucose 289 mg/dl (70-99); Lipase 110 U/L (73-393); Potassium 3.1 mmol/L (3.5-5.1); Sodium 132 mmol/L (136-145)
[2019-08-11 12:03] LABS: Alkaline Phosphatase 97 U/L (45-117); Bilirubin,Total 0.4 mg/dl (0.2-1); Total Protein 8.7 gm/dl (6.4-8.2)
--- NOTE | 2019-08-11 12:07 | XRay Report ---
XR abdomen 2V w PA chest CLINICAL HISTORY: vomiting COMPARISON STUDY: Chest x-ray dated 06/01/2019 FINDINGS: Direct chest reveals no evidence of free intraperitoneal air. There is no lobar consolidati on. Erect and supine views the abdomen reveal gas within nondilated large and small bowel loops. Ther e are no transition zones indicate bowel obstruction. There are postsurgical changes present within t he lumbar spine. There are a few scattered air-fluid levels on the erect study which may indicate an ileus. IMPRESSION: 1. Mild gaseous prominence of large and small bowel loops with a few scattered air-fluid levels. The findings could indicate a ileus. There is no conventional radiographic evidence of a bowel obstructio n. There is no free air. ACT 112: Negative or not required by law. Electronically signed by: Kareem Madison M.D. 08/11/2019 12:06 PM
[2019-08-11 12:08] LABS: Influenza A virus by PCR Neg for Influ A (Neg); Influenza B virus by PCR Neg for Influ B (Neg)
[2019-08-11 12:17] LABS: INR 1.2 (0.9-1.1); Partial Thromboplastin Time 27.6 Seconds (21.0-31.0); Prothrombin Time 11.8 Seconds (9.0-12.0)
[2019-08-11] MEDS ORDERED: IOVERSOL 100ml IV PRN (13:08)
--- NOTE | 2019-08-11 13:39 | CT Scan Report ---
CT abd pelvis IV con only CLINICAL HISTORY: abdominal pain fever leukocytosis possible small bowel obstruction COMPARISON STUDY: 07/25/2016 TECHNIQUE: The patient was scanned in a dynamic helical fashion during intravenous administration of 93 cc of Optiray 320 A dose lowering technique was utilized adhering to the principles of ALARA. CT DOSE: 306.17 mGy.cm FINDINGS: Lower chest: There is chronic right middle lobe scarring. There are dependent atelectatic changes. Th ere is subtle mosaic attenuation the lungs. Liver: The contrast-enhanced liver is normal in size, contour, and attenuation. There is no intrahepa tic biliary ductal dilatation. The hepatic veins and portal veins are patent. Gallbladder: Unremarkable. Spleen: The spleen is absent. There is a 1 cm left upper quadrant splenule. Pancreas: Pancreatic tail is absent. No pancreatic head masses are visualized. Adrenal glands: Unremarkable. Kidneys: There are right renal cysts measuring up to 4.8 cm in diameter. There is a suspected 1.5 mm right renal calculus. No ureteral calculi are visualized. Bowel: There are no transition zones indicate bowel obstruction. There is no evidence of acute divert iculitis. Appendix appears normal. Peritoneum: There is no intraperitoneal free air or abdominal ascites. Vasculature: The abdominal aorta is normal in course and caliber. Adenopathy: None. Pelvic viscera: The uterus appears surgically absent Skeletal structures: There is progressive right symphysis pubis sclerosis. Postsurgical changes are p resent within the lumbar spine. IMPRESSION: 1. No evidence of bowel obstruction. No evidence of free air 2. Normal appendix. No evidence of acute diverticulitis 3. Tiny right renal calculus. No ureteral or bladder calculi identified 4. 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 5. Right renal cysts ACT 112: Negative or not required by law. Electronically signed by: Kareem Madison M.D. 08/11/2019 1:37 PM
[2019-08-11] MEDS ORDERED: cefTRIAXone SODIUM 1,000 MG/50 ML BAG IV STA (13:50)
[2019-08-11] MEDS ORDERED: ALBUT/IPRATROP 3MG/0.5MG NEB 3 ML VIAL NEB PRN (15:34)
[2019-08-11] MEDS ORDERED: ONDANSETRON INJ 2 MG/ML 2 ML VIAL IV PRN (15:34)
[2019-08-11] MEDS ORDERED: GLUCAGON FOR INJ 1 MG VIAL SQ PRN (15:34)
[2019-08-11] MEDS ORDERED: POTASSIUM CHLORIDE 20 MEQ TABCR PO STA (15:34)
[2019-08-11] MEDS ORDERED: GLUCOSE 40% GEL 15 GM TUBE PO PRN (15:34)
[2019-08-11] MEDS ORDERED: DOCUSATE SODIUM 100 MG CAP PO PRN (15:34)
[2019-08-11] MEDS ORDERED: DEXTROSE 50% 50 ML SYRINGE IV PRN (15:34)
[2019-08-11] MEDS ORDERED: NON-FORMULARY MEDICATION (Melatonin 5 MG) PO PRN (15:34)
[2019-08-11] MEDS ORDERED: GLUCOSE 10 TABS/TUBE PO PRN (15:34)
[2019-08-11] MEDS ORDERED: METOCLOPRAMIDE HCL INJ 5 MG/ML 2 ML VIAL IV PRN (15:34)
[2019-08-11] MEDS ORDERED: ACETAMINOPHEN 325 MG TAB PO PRN (15:34)
[2019-08-11] MEDS ORDERED: CARBOHYDRATES FOR HYPOGLYCEMIA PO PRN (15:34)
[2019-08-11] MEDS: SODIUM CHLORIDE 0.9% 1000ML 1,000 ML IV SCH (15:37)
[2019-08-11] MEDS ORDERED: PHARMACY GLYCEMIC MGMT CONSULT PRN (16:10)
[2019-08-11] MEDS ORDERED: INSULIN HUMAN NPH SC STA (16:30)
--- NOTE | 2019-08-11 16:52 | Pharmacy Report ---
Glycemic Control Consultation - Date of Service August 11, 2019 - Scope Scope: Glycemic Pharmacist consulted by Dr. Kwong on 08/11/2019 for glycemic control and to write orders per [facility] inpatient glycemic control protocol - Objective Weight: 64.8 kg Accuchecks BSG (last 24hrs): 08/11/19 08/11/19 11:15 16:25 Glucose 289 H POC Glucose 232 H Laboratory Data (last 24hrs): 08/11/19 11:15 Potassium 3.1 L Carbon Dioxide 30 Anion Gap 7.0 Creatinine 1.09 Est Cr Clr Drug Dosing 36.0 - Recent Pertinent Medications Outpatient Anti-diabetic Regimen: * Insulin NPH 30 units every morning and 26-28 units at bedtime * Humalog 10 units with breakfast and 14 units with dinner * A1c = 8.4% on 05/19/2019 The patient is currently receiving: * No insulin ordered at this time Risk Factors for Insulin Resistance: * Infection: * Possible EENT infection, on ceftriaxone and augmentin * Diet: * T2DM - Assessment & Plan Assessment & Plan: ASSESSMENT: * 84 yo F admitted secondary to nausea and vomiting for the past 3 days * PMHx significant for HTN, HLD, COPD, CKD-III, GERD, T2DM (insulin-dependent), pancreatic cancer s/p pancreatectomy * Patient has had a poor appetite for several days and no insulin has been administered in the "past few days" * Admission BSG was 289, patient ordered a dinner tray and pre-prandial BSG was 232 PLAN FOR INPATIENT GLYCEMIC CONTROL: * Basal insulin * NPH 30 units SQ x 1 given hyperglycemia and lack of insulin over the past few days * Bolus insulin * NovoLog per scale ACHS or Q6hrs while NPO * Goal Range: Low 110 mg/dL - High 140 mg/dL * Correction Factor: 25 mg/dL/unit * Nutritional / Prandial insulin per carb ratio of 1 unit per 8 grams CHO consumed DISCHARGE RECOMMENDATIONS: * Pending at this time although previous A1c was uncontrolled * Please note that the plan above was derived based on current level of insulin resistance and hospital stress. These recommendations are appropriate for inpatient admission only. Plan of care upon discharge will need to be reassessed to avoid potential outpatient hypo/hyperglycemia. Thank you.
[2019-08-11] MEDS: TRAMADOL HCL 50 MG TABLET PO PRN (16:55)
[2019-08-11] MEDS: ENOXAPARIN INJ 30 MG/0.3 ML SYR SQ SCH (16:56)
[2019-08-11] MEDS: AMOXICILLIN/CLAVULANATE 500 MG TAB PO SCH (16:56)
[2019-08-11] MEDS: INSULIN ASPART 100 UNITS/ML 3 ML PEN SC SCH ×2 (17:52→20:30)
--- NOTE | 2019-08-11 18:06 | Emergency Department Note ---
Entered by Rhonda Vidal acting as a scribe for Giacomo Quiñonez History of Present Illness General Chief complaint: Illness Stated complaint: SINUS, EARACHE, VOMITING, SENT BY DR Aranda Seen by Provider: 08/11/19 10:33 Source: patient History of Present Illness Provider complaint: nausea and vomiting Onset (ago): day(s) (several) Pain Consistency: + other (pesistent ) Maximum Pain Intensity: 8 Relieved By: + none Exacerbated By: + none Associated symptoms: + other (-dark/bloody vomit, +abdominal pain, -hematuria, -pain during urination, +ear pain); no chest pain and no shortness of breath The patient is a 84 year old female who presents to the Emergency Room with complaints of persistent nausea and vomiting which started several days ago. The patient notes that she has been dehydrated recently. She notes that she has abdominal pain and ear pain. She mentions that she saw her PCP and they referred her to the ED. She denies any chest pain, shortness of breath, hematuria, pain during urination, dark or bloody vomit. Home Medications Home Medications Medication Instructions Recorded Confirmed Type multivitamin 1 tab PO QAM 07/18/18 08/11/19 History trazodone 50 mg PO HS PRN 07/18/18 08/11/19 History blood sugar diagnostic #10 ea 12/12/18 06/11/19 History lancets 28 gauge #25 ea 12/12/18 06/11/19 History pen needle, diabetic 31 gauge x #30 ea 12/12/18 06/11/19 History 3/16" albuterol sulfate 2.5 mg INHALATION ONCE PRN #2 ml 12/18/18 08/11/19 History albuterol sulfate 90 mcg/actuation 2 puffs INH Q6H PRN #1 ea 12/18/18 08/11/19 Rx breath activated powder inhaler atenolol 50 mg tablet 50 mg PO QAM #90 tab 12/18/18 08/11/19 Rx biotin 1 mg tablet 1 mg PO QAM tab 12/18/18 08/11/19 History cholecalciferol (vitamin D3) 25 1,000 unit PO QAM 12/18/18 08/11/19 History mcg (1,000 unit) capsule insulin NPH isoph U-100 human 100 26 - 28 unit SUBCUT HS ml 12/18/18 08/11/19 History unit/mL (3 mL) subcutaneous pen insulin NPH isoph U-100 human 100 30 units SUBCUT QAM ml 12/18/18 08/11/19 History unit/mL (3 mL) subcutaneous pen insulin lispro 100 unit/mL See Rx Instructions SQ TID #3 box 03/07/19 08/11/19 Rx subcutaneous pen esomeprazole magnesium [Nexium] 20 mg PO QAM 04/21/19 08/11/19 History melatonin 5 mg PO HS PRN 04/21/19 08/11/19 History enalapril 10 1 tab PO DAILY #90 tab 05/07/19 08/11/19 Rx mg-hydrochlorothiazide 25 mg tablet simvastatin 20 mg tablet 40 mg PO QPM #90 tab 05/07/19 08/11/19 Rx diltiazem HCl 120 mg capsule,24 120 mg PO DAILY #90 cap 05/09/19 08/11/19 Rx hr,extended release tramadol 50 mg PO Q6H PRN #30 tab 06/03/19 08/11/19 Rx Allergies Allergy/AdvReac Type Severity Reaction Status Date / Time codeine Allergy Severe RASH Verified 08/11/19 10:58 Sulfa (Sulfonamide Allergy Intermediate rash Verified 08/11/19 10:58 Antibiotics) sulfabenzamide Allergy Intermediate rash Verified 08/11/19 10:58 sulfacetamide Allergy Intermediate rash Verified 08/11/19 10:58 sulfathiazole Allergy Intermediate rash Verified 08/11/19 10:58 insulin glargine Allergy Mild pruritus Verified 08/11/19 10:58 (noted after 7+ days of use) aspirin AdvReac Severe Gastrointestinal Unverified 08/11/19 10:58 Upset erythromycin base AdvReac Intermediate abdominal Verified 08/11/19 10:58 pain NSAIDS (Non-Steroidal AdvReac Intermediate gastric Verified 08/11/19 10:58 Anti-Inflamma bleeding hydrocodone AdvReac Mild itching Verified 08/11/19 10:58 oxycodone AdvReac Mild itching Verified 08/11/19 10:58 ciprofloxacin Allergy Unknown unknown Uncoded 08/11/19 10:58 reaction amitriptyline AdvReac Unknown "drunk Uncoded 08/11/19 10:58 feeling" erythromycin AdvReac Unknown abdominal Uncoded 08/11/19 10:58 cramps/pain Past Med/Surg History Medical History Benign essential HTN (Chronic) Biliary dyskinesia (Resolved) Cervical spine degeneration (Chronic) Chronic cholecystitis Chronic obstructive pulmonary disease (Chronic) stable Constipation (Chronic) Cyst of right kidney Diabetes mellitus (Chronic) IDDM Diabetic nephropathy (Chronic) Diverticulosis (Chronic) Fibromyalgia (Chronic) Gastric bleeding hx years ago in setting of NSAID use Gastric polyps (Chronic) Gastroparesis (Chronic) GERD (gastroesophageal reflux disease) occasional Hearing loss, bilateral Hiatal hernia (Chronic) History of pancreatic cancer 1989 s/p whipple procedure HLD (hyperlipidemia) (Chronic) HTN (hypertension) Hypercholesteremia (Chronic) Insomnia (Chronic) Internal hemorrhoids (Chronic) Lumbar back pain with radiculopathy affecting left lower extremity (Chronic) Osteoarthritis (Chronic) Paroxysmal SVT (supraventricular tachycardia) on atenolol Tubular adenoma of colon (Chronic) Valvular heart disease (Chronic) Vitamin D deficiency (Chronic) Surgical History History of breast biopsy History of lumbar spinal fusion History of splenectomy whipple procedure ([facility]) Hx of colonoscopy Hx of esophagogastroduodenoscopy Hx of right inguinal hernia repair Hx of total hysterectomy with removal of both tubes and ovaries Family History Mother , age 92 of an AR. Arthritis Myocardial infarction Breast cancer Father , age 90 of a stroke. 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 Feels Safe at Home: Yes Safety Concerns: Feels Safe At This Time Smoking Status: Never smoker Do You Dip or Chew Tobacco: No ; Second Hand Exposure: No ; Hx Alcohol Use: No Hx Substance Use: No Childhood Exposure to Second-Hand Smoke: No caffeine: Yes during the past year weight has: remained stable Dental Care, Regularly: Yes Physical Activity Frequency: Does not Exercise Physical Activity Frequency Comment: due to physical condition Seatbelt Use: always Sunscreen Use: No Review of Systems See HPI for pertinent positives & negatives. and A total of 10 systems reviewed and were otherwise negative Physical Exam Vital Signs Vital Signs - 24 hr 08/11/19 10:28 08/11/19 11:15 08/11/19 12:20 Temperature 37.6 C H Temperature Source Oral Pulse Rate 101 H Pulse Rate [Left] 78 Pulse Rate from SpO2 Sensor Respiratory Rate 18 18 Blood Pressure 148/75 H Blood Pressure [Left Arm] 143/86 H Blood Pressure Mean 99 Blood Pressure Mean [Left Arm] 105 Pulse Oximetry 95 91 Oxygen Delivery Method Room Air Room Air Oxygen Flow Rate Sepsis Recent Fever Within 48 Hours No Sepsis New/Unexplained Change in Mental Status No Sepsis Action Taken by Nursing No Action Required Oxygen Flow Rate - Titration Fraction of Inspired Oxygen - Titration 08/11/19 12:35 08/11/19 13:15 08/11/19 13:18 Temperature 36.7 C Temperature Source Oral Pulse Rate 78 86 Pulse Rate [Left] Pulse Rate from SpO2 Sensor 86 Respiratory Rate 18 27 H Blood Pressure 143/86 H 160/88 H Blood Pressure [Left Arm] Blood Pressure Mean 106 118 Blood Pressure Mean [Left Arm] Pulse Oximetry 91 84 L Oxygen Delivery Method Room Air Room Air Oxygen Flow Rate Sepsis Recent Fever Within 48 Hours Sepsis New/Unexplained Change in Mental Status Sepsis Action Taken by Nursing Oxygen Flow Rate - Titration Fraction of Inspired Oxygen - Titration 08/11/19 13:31 08/11/19 14:00 08/11/19 14:09 Temperature Temperature Source Pulse Rate 78 76 Pulse Rate [Left] Pulse Rate from SpO2 Sensor 78 77 Respiratory Rate 18 17 Blood Pressure 157/72 H 153/82 H Blood Pressure [Left Arm] Blood Pressure Mean 95 109 Blood Pressure Mean [Left Arm] Pulse Oximetry 92 84 L 84 L Oxygen Delivery Method Room Air Room Air Room Air Nasal Cannula Oxygen Flow Rate 0 Sepsis Recent Fever Within 48 Hours Sepsis New/Unexplained Change in Mental Status Sepsis Action Taken by Nursing Oxygen Flow Rate - Titration 2 Fraction of Inspired Oxygen - Titration 97 08/11/19 14:30 Temperature Temperature Source Pulse Rate 73 Pulse Rate [Left] Pulse Rate from SpO2 Sensor 73 Respiratory Rate 21 Blood Pressure 144/77 H Blood Pressure [Left Arm] Blood Pressure Mean 97 Blood Pressure Mean [Left Arm] Pulse Oximetry 98 Oxygen Delivery Method Nasal Cannula Oxygen Flow Rate 2 Sepsis Recent Fever Within 48 Hours Sepsis New/Unexplained Change in Mental Status Sepsis Action Taken by Nursing Oxygen Flow Rate - Titration Fraction of Inspired Oxygen - Titration GENERAL: She is oriented to person, place, and time. She appears well-developed and well-nourished. She does not appear distressed. HENT: Exam performed. Head: Normocephalic and atraumatic. Right Ear: External ear normal. No mastoid tenderness. Left Ear: External ear normal. No mastoid tenderness. Mouth/Throat: The oropharynx is clear and moist. No trismus in the jaw. No dental abscesses or uvula swelling. No oropharyngeal exudate or tonsillar abscesses. EYES: Conjunctivae and EOM are normal. Pupils are equal, round, and reactive to light. Right eye exhibits no discharge. Left eye exhibits no discharge. No scleral icterus. NECK: Normal range of motion. Neck supple. No JVD present. No spinous process tenderness present. No carotid bruit present. No rigidity. No tracheal deviation and normal range of motion present. No Brudzinski's sign and no Kernig's sign noted. CV: Normal rate, regular rhythm, normal heart sounds and intact distal pulses. There is no peripheral edema. Palpable radial pulses bue. PULM/CHEST: Effort normal and breath sounds normal. No respiratory distress. No stridor. She has no wheezes. She has no rales. Chest Wall: She exhibits no tenderness. ABD: The abdomen is soft. Bowel sounds are normal. She has no distension. No mass is present. There is no tenderness. There is no rebound, no guarding, no Shelton's sign and no tenderness at McBurney's point. Rovsig negative MUSC/SKEL: Normal range of motion. There is no peripheral edema, tenderness or deformity. LYMPH: No cervical adenopathy. NEURO: She is alert and oriented to person, place, and time. She has normal strength. No cranial nerve deficit or sensory deficit. Coordination and gait normal. GCS eye subscore is 4. GCS verbal subscore is 5. GCS motor subscore is 6. cerbellar tests wnl. SKIN: Skin is warm and dry. She is not diaphoretic. PSYCH: She has a normal mood and affect. Her behavior is normal. Judgment and thought content normal. Course Course 1041: The patient was evaluated in room C8, and a complete history and physical examination were performed. EMR reviewed which showed that the patient has a history of fibromyalgia, HTN, hyperlipidemia, COPD, splenectomy, pancreatic cancer, and diverticulitis. 1345: Vital signs stable. Labs showed leukocytosis 19.3. X-Ray showed concerns for ileus. The patient still has abdominal pain. She will have a CT of the abdomen. 1410: Vital signs stable. CT showed no ileus or bowel obstruction. Given history of splenectomy, fever, leukocytosis, a blood culture will be sent and the patient will be admitted for further work-up. The patient was given 1 gram of Rocephin in the ED. I reviewed the patient's case with Dr. Michelle Kwong- [facility] Hospitalist. She will evaluate the patient for further management. Administered Medications Amoxicillin/Clavulanate Potassium (Augmentin 500mg) 1 tab PO TIDM AIMEE; Protocol Stop: 08/21/19 16:59 Last Admin: 08/11/19 16:56 Dose: 1 tab Documented by: [id number] Enoxaparin Sodium (Lovenox) 30 mg SQ Q24H AIMEE Stop: 09/10/19 16:59 Last Admin: 08/11/19 16:56 Dose: 30 mg Documented by: [id number] Ceftriaxone Sodium (Rocephin) 1,000 mg in 50 mls @ 100 mls/hr IV NOW STA Stop: 08/11/19 14:19 Last Infusion: 08/11/19 15:00 Dose: 0 mls/hr Documented by: [id number] Admin: 08/11/19 14:28 Dose: 100 mls/hr Documented by: [id number] Sodium Chloride (Nss 1000ml) 1,000 mls @ 80 mls/hr IV .[id number] [facility] Stop: 08/12/19 16:33 Last Admin: 08/11/19 15:37 Dose: 80 mls/hr Documented by: [id number] Insulin Aspart (Novolog Flexpen) 0 units SC ACHS AIMEE Stop: 09/10/19 16:29 Last Admin: 08/11/19 17:52 Dose: 6 units Documented by: [id number] Cosigned by: [id number] Insulin Human NPH (Novolin N Nph) 30 units SC NOW STA Stop: 08/11/19 16:31 Last Admin: 08/11/19 17:53 Dose: 30 units Documented by: [id number] Cosigned by: [id number] Ioversol (Optiray 320 100ml) 93 ml IV ONCE PRN PRN Reason: Interaction Checking Stop: 08/15/19 13:07 Last Admin: 08/11/19 13:09 Dose: 93 ml Documented by: [id number] Ondansetron HCl (Zofran) 4 mg IV Q6H PRN PRN Reason: Nausea Stop: 09/10/19 15:33 Last Admin: 08/11/19 16:53 Dose: 4 mg Documented by: [id number] Potassium Chloride (Klor-Con M20) 40 meq PO NOW STA Stop: 08/11/19 15:35 Last Admin: 08/11/19 16:55 Dose: 40 meq Documented by: [id number] Tramadol HCl (Ultram) 50 mg PO Q6H PRN PRN Reason: pain, moderate Stop: 09/10/19 15:33 Last Admin: 08/11/19 16:55 Dose: 50 mg Documented by: [id number] Discontinued Medications Sodium Chloride (Nss 1000ml) 1,000 mls @ 999 mls/hr IV .Q1H1M ONE Stop: 08/11/19 11:45 Last Infusion: 08/11/19 12:31 Dose: 0 mls/hr Documented by: [id number] Admin: 08/11/19 11:22 Dose: 999 mls/hr Documented by: [id number] Acetaminophen (Ofirmev) 1,000 mg in 100 mls @ 400 mls/hr IV NOW STA Stop: 08/11/19 10:59 Last Infusion: 08/11/19 11:42 Dose: 0 mls/hr Documented by: [id number] Admin: 08/11/19 11:22 Dose: 400 mls/hr Documented by: [id number] Ondansetron HCl (Zofran) 4 mg IV NOW STA Stop: 08/11/19 10:46 Last Admin: 08/11/19 11:22 Dose: 4 mg Documented by: [id number] Medical Decision Making Medical Records Attestation: I reviewed the patient's medical records. Home Medications Current Medication List: was personally reviewed by me Laboratory Data Attestation: I reviewed the patient's lab results. Result diagrams: 08/11/19 11:15 08/11/19 11:15 Lab Results 08/11/19 08/11/19 08/11/19 Range/Units 11:15 11:15 11:15 WBC 19.32 H (4.8-10.8) K/uL RBC 3.98 L (4.2-5.4) M/uL Hgb 12.3 (12.0-16.0) g/dL Hct 36.3 L (37-47) % MCV 91.2 (80-100) fL MCH 30.9 (25-34) pg MCHC 33.9 (32-36) g/dL RDW Std Deviation 43.6 (36.4-46.3) fL RDW Coeff of Flory 13.2 (11.5-14.5) % Plt Count 295 (130-400) K/uL MPV 10.4 (7.4-10.4) fL Immature Gran % (Auto) 0.5 % Neut % (Auto) 79.8 % Lymph % (Auto) 10.2 % [place] % (Auto) 9.0 % Eos % (Auto) 0.1 % Baso % (Auto) 0.4 % Immature Gran # (Auto) 0.10 H (0.00-0.02) K/uL Neut # (Auto) 15.42 H (1.4-6.5) K/uL Lymph # (Auto) 1.98 (1.2-3.4) K/uL [place] # (Auto) 1.74 H (0.11-0.59) K/uL Eos # (Auto) 0.01 (0-0.5) K/uL Baso # (Auto) 0.07 (0-0.2) K/uL PT 11.8 (9.0-12.0) Seconds INR 1.2 H (0.9-1.1) APTT 27.6 (21.0-31.0) Seconds PTT Ratio 1.0 Sodium 132 L (136-145) mmol/L Potassium 3.1 L (3.5-5.1) mmol/L Chloride 95 L (98-107) mmol/L Carbon Dioxide 30 (21-32) mmol/L Anion Gap 7.0 (3-11) BUN 30 H (7-18) mg/dl Creatinine 1.09 (0.6-1.2) mg/dl Est Cr Clr Drug Dosing 36.0 ml/min Est GFR ( Amer) 54.7 Est GFR (Non-Af Amer) 47.2 BUN/Creatinine Ratio 27.7 H (10-20) Glucose 289 H (70-99) mg/dl Calcium 9.6 (8.5-10.1) mg/dl Magnesium 2.0 (1.8-2.4) mg/dl Total Bilirubin 0.4 (0.2-1) mg/dl Direct Bilirubin < 0.1 (0-0.2) mg/dl AST 20 (15-37) U/L ALT 16 (12-78) U/L Alkaline Phosphatase 97 (45-117) U/L Total Protein 8.7 H (6.4-8.2) gm/dl Albumin 3.7 (3.4-5.0) gm/dl Lipase 110 (73-393) U/L Influenza Type A (PCR) (Neg) Influenza Type B (PCR) (Neg) 08/11/19 Range/Units 11:15 WBC (4.8-10.8) K/uL RBC (4.2-5.4) M/uL Hgb (12.0-16.0) g/dL Hct (37-47) % MCV (80-100) fL MCH (25-34) pg MCHC (32-36) g/dL RDW Std Deviation (36.4-46.3) fL RDW Coeff of Flory (11.5-14.5) % Plt Count (130-400) K/uL MPV (7.4-10.4) fL Immature Gran % (Auto) % Neut % (Auto) % Lymph % (Auto) % [place] % (Auto) % Eos % (Auto) % Baso % (Auto) % Immature Gran # (Auto) (0.00-0.02) K/uL Neut # (Auto) (1.4-6.5) K/uL Lymph # (Auto) (1.2-3.4) K/uL [place] # (Auto) (0.11-0.59) K/uL Eos # (Auto) (0-0.5) K/uL Baso # (Auto) (0-0.2) K/uL PT (9.0-12.0) Seconds INR (0.9-1.1) APTT (21.0-31.0) Seconds PTT Ratio Sodium (136-145) mmol/L Potassium (3.5-5.1) mmol/L Chloride (98-107) mmol/L Carbon Dioxide (21-32) mmol/L Anion Gap (3-11) BUN (7-18) mg/dl Creatinine (0.6-1.2) mg/dl Est Cr Clr Drug Dosing ml/min Est GFR ( Amer) Est GFR (Non-Af Amer) BUN/Creatinine Ratio (10-20) Glucose (70-99) mg/dl Calcium (8.5-10.1) mg/dl Magnesium (1.8-2.4) mg/dl Total Bilirubin (0.2-1) mg/dl Direct Bilirubin (0-0.2) mg/dl AST (15-37) U/L ALT (12-78) U/L Alkaline Phosphatase (45-117) U/L Total Protein (6.4-8.2) gm/dl Albumin (3.4-5.0) gm/dl Lipase (73-393) U/L Influenza Type A (PCR) Neg for Influ A (Neg) Influenza Type B (PCR) Neg for Influ B (Neg) Imaging Data Radiologist's Impression: Radiology results as stated below per my review and the radiologist's interpretation: XR abdomen 2V w PA chest CLINICAL HISTORY: vomiting COMPARISON STUDY: Chest x-ray dated 06/01/2019 FINDINGS: Direct chest reveals no evidence of free intraperitoneal air. There is no lobar consolidation. Erect and supine views the abdomen reveal gas within nondilated large and small bowel loops. There are no transition zones indicate bowel obstruction. There are postsurgical changes present within the lumbar spine. There are a few scattered air-fluid levels on the erect study which may indicate an ileus. IMPRESSION: 1. Mild gaseous prominence of large and small bowel loops with a few scattered air-fluid levels. The findings could indicate a ileus. There is no conventional radiographic evidence of a bowel obstruction. There is no free air. ACT 112: Negative or not required by law. Electronically signed by: Kareem Madison M.D. 08/11/2019 12:[address] abd pelvis IV con only CLINICAL HISTORY: abdominal pain fever leukocytosis possible small bowel obstruction COMPARISON STUDY: 07/25/2016 TECHNIQUE: The patient was scanned in a dynamic helical fashion during intravenous administration of 93 cc of Optiray 320 A dose lowering technique was utilized adhering to the principles of ALARA. CT DOSE: 306.17 mGy.cm FINDINGS: Lower chest: There is chronic right middle lobe scarring. There are dependent atelectatic changes. There is subtle mosaic attenuation the lungs. Liver: The contrast-enhanced liver is normal in size, contour, and attenuation. There is no intrahepatic biliary ductal dilatation. The hepatic veins and portal veins are patent. Gallbladder: Unremarkable. Spleen: The spleen is absent. There is a 1 cm left upper quadrant splenule. Pancreas: Pancreatic tail is absent. No pancreatic head masses are visualized. Adrenal glands: Unremarkable. Kidneys: There are right renal cysts measuring up to 4.8 cm in diameter. There is a suspected 1.5 mm right renal calculus. No ureteral calculi are visualized. Bowel: There are no transition zones indicate bowel obstruction. There is no evidence of acute diverticulitis. Appendix appears normal. Peritoneum: There is no intraperitoneal free air or abdominal ascites. Vasculature: The abdominal aorta is normal in course and caliber. Adenopathy: None. Pelvic viscera: The uterus appears surgically absent Skeletal structures: There is progressive right symphysis pubis sclerosis. Postsurgical changes are present within the lumbar spine. IMPRESSION: 1. No evidence of bowel obstruction. No evidence of free air 2. Normal appendix. No evidence of acute diverticulitis 3. Tiny right renal calculus. No ureteral or bladder calculi identified 4. 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 5. Right renal cysts ACT 112: Negative or not required by law. Electronically signed by: Kareem Madison M.D. 08/11/2019 1:37 PM ECG Data Attestation: I personally reviewed and interpreted this ECG as follows: Indication: + abdominal pain Rate (beats per minute): 86 Rhythm: + sinus rhythm ECG Intervals/blocks: + Normal QRS, + Normal QT and + Normal QT-c ECG ST segments: no ST depression and no ST elevation Blood Pressure Blood Pressure Findings: Elevated blood pressure Blood Pressure Disposition: further management by hospitalist [facility] Narrative 1041: The patient was evaluated in room C8, and a complete history and physical examination were performed. EMR reviewed which showed that the patient has a hi story of fibromyalgia, HTN, hyperlipidemia, COPD, splenectomy, pancreatic cancer, and diverticulitis. 1345: Vital signs stable. Labs showed leukocytosis 19.3. X-Ray showed concerns for ileus. The patient still has abdominal pain. She will have a CT of the abdomen. 1410: Vital signs stable. CT showed no ileus or bowel obstruction. Given history of splenectomy, fever, leukocytosis, a blood culture will be sent and the patient will be admitted for further work-up. The patient was given 1 gram of Rocephin in the ED. I reviewed the patient's case with Dr. Michelle Kwong- [facility] Hospitalist. She will evaluate the patient for further management. Impression & Plan SIRS (systemic inflammatory response syndrome) Discharge Plan Visit Data *Final* Discharge Date/Time: 08/11/19 15:17 Chief Complaint: Illness Stated Complaint: SINUS, EARACHE, VOMITING, SENT BY ED Provider: Giacomo Quiñonez Discharge Problem: SIRS (systemic inflammatory response syndrome) Patient Disposition: Still a Patient Discharge Instructions Interventions: ED Discharge Assessment Last Done: 08/11/19 15:17 The scribe's documentation has been prepared under my direction and personally reviewed by me in its entirety. I confirm that the note above accurately reflects all work, treatment, procedures, and medical decision making performed by me.
--- NOTE | 2019-08-11 18:13 | History & Physical Report ---
Date of Service August 11, 2019 Assessment & Plan (1) Hypoxia: Patient with episode of hypoxia in the ER, 84% on room air requiring supplemental O2. Presently improved, saturation 94% on 2L. CXR unremarkable. Patient denies SOB. No evidence of respiratory distress on exam -Supplemental O2 as needed -Incentive spirometry, encourage use Present on Admission?: Yes (2) Sinus pain: Patient complaining of significant sinus discomfort. Tenderness to palpation. Visible mucosa pink and moist with no exudate/discharge/ulcers or lesions. Also complaining of tooth discomfort, sore throat. Rapid strep testing negative. Suspect viral syndrome. -Augmentin -Continue to monitor -Tylenol as needed for pain Present on Admission?: Yes (3) Poor appetite: Patient with poor appetite, nausea and vomiting. ?developing or resolving ileus, gastroparesis, viral illness. -Encourage PO intake -Zofran and Reglan as needed Present on Admission?: Yes (4) Benign essential HTN: Blood pressure stable -Continue home medications, HCTZ, Atenolol -Continue to monitor Present on Admission?: Yes (5) GERD (gastroesophageal reflux disease): Chronic. -Continue Protonix Present on Admission?: Yes (6) Hypercholesteremia: Chronic -Continue Simvastatin Present on Admission?: Yes (7) Diabetes mellitus: Chronic. Blood sugar elevated at 289. Last HgbA1C in August 2018 - 8.4 -ISS, goal 110 - 140, CF=25, CR=8 -Glycemic management consultation Present on Admission?: Yes (8) Chronic obstructive pulmonary disease: Chronic. Stable. No SOB/wheeze -Continue home medications -Nebs as needed -Supplemental O2 as needed Present on Admission?: Yes (9) Paroxysmal SVT (supraventricular tachycardia): Chronic. Stable -Continue Atenolol, Diltiazem -Continue to monitor Present on Admission?: Yes (10) Hyponatremia: Ii=327, history of hyponatremia. No neurological findings. Most likely secondary to poor PO tolerance, volume contraction -NSS -Repeat BMP in AM Present on Admission?: Yes (11) Hypokalemia: Repleted -Repeat labs in AM F/E/N - NSS at 80mL/hr, monitor electrolytes and replete as needed, CC diet as tolerated Ppx - Lovenox Code - Full Dispo - Admit to medical floor Present on Admission?: Yes History of Present Illness Chief Complaint: nausea, vomiting, po intolerance Primary Care Provider: SHANNAN Hernandes Ruth Beltran is an 84yo C female with multiple medical problems, notably HTN/DM with gastroparesis/HLP/COPD/Fibromyalgia. Patient with history of pancreatic cancer s/p Whipple procedure, history of splenectomy as well. She reports persistent nausea with multiple episodes of vomiting over the last 3 days. She has been unable to tolerate PO intake and vomits even with sips of water. She reports poor appetite as well as sinus pain, bilateral ear pain, sore throat and body aches. She denies fevers but has been experiencing chills as well as a dry cough. Decreased urination and dark colored urine. No additional complaints at this time. ER Course: Tylenol, Ceftriaxone, Zofran, NSS x 1 liter Allergies Allergy/AdvReac Type Severity Reaction Status Date / Time codeine Allergy Severe RASH Verified 08/11/19 10:58 Sulfa (Sulfonamide Allergy Intermediate rash Verified 08/11/19 10:58 Antibiotics) sulfabenzamide Allergy Intermediate rash Verified 08/11/19 10:58 sulfacetamide Allergy Intermediate rash Verified 08/11/19 10:58 sulfathiazole Allergy Intermediate rash Verified 08/11/19 10:58 insulin glargine Allergy Mild pruritus Verified 08/11/19 10:58 (noted after 7+ days of use) aspirin AdvReac Severe Gastrointestinal Unverified 08/11/19 10:58 Upset erythromycin base AdvReac Intermediate abdominal Verified 08/11/19 10:58 pain NSAIDS (Non-Steroidal AdvReac Intermediate gastric Verified 08/11/19 10:58 Anti-Inflamma bleeding hydrocodone AdvReac Mild itching Verified 08/11/19 10:58 oxycodone AdvReac Mild itching Verified 08/11/19 10:58 ciprofloxacin Allergy Unknown unknown Uncoded 08/11/19 10:58 reaction amitriptyline AdvReac Unknown "drunk Uncoded 08/11/19 10:58 feeling" erythromycin AdvReac Unknown abdominal Uncoded 08/11/19 10:58 cramps/pain Home Medications Home Medications Medication Instructions Recorded Confirmed Type multivitamin 1 tab PO QAM 07/18/18 08/11/19 History trazodone 50 mg PO HS PRN 07/18/18 08/11/19 History blood sugar diagnostic #10 ea 05/30/19 11/27/19 History lancets 28 gauge #25 ea 12/12/18 06/11/19 History pen needle, diabetic 31 gauge x #30 ea 12/12/18 06/11/19 History 3/16" albuterol sulfate 2.5 mg INHALATION ONCE PRN #2 ml 12/18/18 08/11/19 History albuterol sulfate 90 mcg/actuation 2 puffs INH Q6H PRN #1 ea 12/18/18 08/11/19 Rx breath activated powder inhaler atenolol 50 mg tablet 50 mg PO QAM #90 tab 12/18/18 08/11/19 Rx biotin 1 mg tablet 1 mg PO QAM tab 12/18/18 08/11/19 History cholecalciferol (vitamin D3) 25 1,000 unit PO QAM 12/18/18 08/11/19 History mcg (1,000 unit) capsule insulin NPH isoph U-100 human 100 26 - 28 unit SUBCUT HS ml 12/18/18 08/11/19 History unit/mL (3 mL) subcutaneous pen insulin NPH isoph U-100 human 100 30 units SUBCUT QAM ml 12/18/18 08/11/19 History unit/mL (3 mL) subcutaneous pen insulin lispro 100 unit/mL See Rx Instructions SQ TID #3 box 03/07/19 08/11/19 Rx subcutaneous pen esomeprazole magnesium [Nexium] 20 mg PO QAM 04/21/19 08/11/19 History melatonin 5 mg PO HS PRN 04/21/19 08/11/19 History enalapril 10 1 tab PO DAILY #90 tab 05/07/19 08/11/19 Rx mg-hydrochlorothiazide 25 mg tablet simvastatin 20 mg tablet 40 mg PO QPM #90 tab 05/07/19 08/11/19 Rx diltiazem HCl 120 mg capsule,24 120 mg PO DAILY #90 cap 05/09/19 08/11/19 Rx hr,extended release tramadol 50 mg PO Q6H PRN #30 tab 06/03/19 08/11/19 Rx Past Med/Surg History Medical History Benign essential HTN (Chronic) Biliary dyskinesia (Resolved) Cervical spine degeneration (Chronic) Chronic cholecystitis Chronic obstructive pulmonary disease (Chronic) stable Constipation (Chronic) Cyst of right kidney Diabetes mellitus (Chronic) IDDM Diabetic nephropathy (Chronic) Diverticulosis (Chronic) Fibromyalgia (Chronic) Gastric bleeding hx years ago in setting of NSAID use Gastric polyps (Chronic) Gastroparesis (Chronic) GERD (gastroesophageal reflux disease) occasional Hearing loss, bilateral Hiatal hernia (Chronic) History of pancreatic cancer 1989 s/p whipple procedure HLD (hyperlipidemia) (Chronic) HTN (hypertension) Hypercholesteremia (Chronic) Insomnia (Chronic) Internal hemorrhoids (Chronic) Lumbar back pain with radiculopathy affecting left lower extremity (Chronic) Osteoarthritis (Chronic) Paroxysmal SVT (supraventricular tachycardia) on atenolol Tubular adenoma of colon (Chronic) Valvular heart disease (Chronic) Vitamin D deficiency (Chronic) Surgical History History of breast biopsy History of lumbar spinal fusion History of splenectomy whipple procedure ([facility]) Hx of colonoscopy Hx of esophagogastroduodenoscopy Hx of right inguinal hernia repair Hx of total hysterectomy with removal of both tubes and ovaries Family History Mother , age 92 of an DC. Arthritis Myocardial infarction Breast cancer Father , age 90 of a stroke. 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 Feels Safe at Home: Yes Safety Concerns: Feels Safe At This Time Smoking Status: Never smoker Do You Dip or Chew Tobacco: No ; Second Hand Exposure: No ; Hx Alcohol Use: No Hx Substance Use: No Childhood Exposure to Second-Hand Smoke: No caffeine: Yes during the past year weight has: remained stable Dental Care, Regularly: Yes Physical Activity Frequency: Does not Exercise Physical Activity Frequency Comment: due to physical condition Seatbelt Use: always Sunscreen Use: No Review of Systems Review of Systems: All systems reviewed & are unremarkable except as noted in HPI & below Physical Exam Physical Exam: General: patient resting comfortably, NAD, non-toxic in appearance, AA&O x 4 Skin: warm, dry, intact, no rashes or lesions HEENT: NC/AT, PERRL, EOMI, anicteric sclera, conjunctiva without injection, external ear normal to inspection and nontender, TM pearly and reese with good cone of light, mildly retracted bilaterally, nares patent, moist mucus membranes, dentition intact, posterior pharyngeal erythema, neck supple, trachea midline, no LAD, no thyromegaly, no JVD, +tenderness over frontal and maxillary sinuses Heart: +S1/S2, regular, no m/r/g Lungs: equal air entry bilaterally, no rales/rhonchi/wheezes Abd: +BS, soft, NT/ND, no masses/organomegaly/ascites Ext: warm, 2+ pulses in UE/LE bilaterally, no clubbing/cyanosis or edema Neuro: nonfocal, patient AA&O x 4, speech intact, no facial droop, moving all extremities on command with equal strength 5/5 Results & Data Vital Signs (Past 12 Hours) Vital Signs Temp Pulse Pulse Resp BP BP Pulse Ox 08/11/19 15:34 36.8 C 93 H 20 116/55 L 94 08/11/19 15:00 74 23 148/77 H 97 08/11/19 14:30 73 21 144/77 H 98 08/11/19 14:09 84 L 08/11/19 14:00 76 17 153/82 H 84 L 08/11/19 13:31 78 18 157/72 H 92 08/11/19 13:18 36.7 C 08/11/19 13:15 86 27 H 160/88 H 84 L 08/11/19 12:35 78 18 143/86 H 91 08/11/19 12:20 78 18 143/86 H 91 08/11/19 10:28 37.6 C H 101 H 18 148/75 H 95 Laboratory Results Lab Results 08/11/19 08/11/19 08/11/19 Range/Units 11:15 11:15 11:15 WBC 19.32 H (4.8-10.8) K/uL RBC 3.98 L (4.2-5.4) M/uL Hgb 12.3 (12.0-16.0) g/dL Hct 36.3 L (37-47) % MCV 91.2 (80-100) fL MCH 30.9 (25-34) pg MCHC 33.9 (32-36) g/dL RDW Std Deviation 43.6 (36.4-46.3) fL RDW Coeff of Flory 13.2 (11.5-14.5) % Plt Count 295 (130-400) K/uL MPV 10.4 (7.4-10.4) fL Immature Gran % (Auto) 0.5 % Neut % (Auto) 79.8 % Lymph % (Auto) 10.2 % [place] % (Auto) 9.0 % Eos % (Auto) 0.1 % Baso % (Auto) 0.4 % Immature Gran # (Auto) 0.10 H (0.00-0.02) K/uL Neut # (Auto) 15.42 H (1.4-6.5) K/uL Lymph # (Auto) 1.98 (1.2-3.4) K/uL [place] # (Auto) 1.74 H (0.11-0.59) K/uL Eos # (Auto) 0.01 (0-0.5) K/uL Baso # (Auto) 0.07 (0-0.2) K/uL PT 11.8 (9.0-12.0) Seconds INR 1.2 H (0.9-1.1) APTT 27.6 (21.0-31.0) Seconds PTT Ratio 1.0 Sodium 132 L (136-145) mmol/L Potassium 3.1 L (3.5-5.1) mmol/L Chloride 95 L (98-107) mmol/L Carbon Dioxide 30 (21-32) mmol/L Anion Gap 7.0 (3-11) BUN 30 H (7-18) mg/dl Creatinine 1.09 (0.6-1.2) mg/dl Est Cr Clr Drug Dosing 36.0 ml/min Est GFR ( Amer) 54.7 Est GFR (Non-Af Amer) 47.2 BUN/Creatinine Ratio 27.7 H (10-20) Glucose 289 H (70-99) mg/dl POC Glucose (70-99) mg/dl Calcium 9.6 (8.5-10.1) mg/dl Magnesium 2.0 (1.8-2.4) mg/dl Total Bilirubin 0.4 (0.2-1) mg/dl Direct Bilirubin < 0.1 (0-0.2) mg/dl AST 20 (15-37) U/L ALT 16 (12-78) U/L Alkaline Phosphatase 97 (45-117) U/L Total Protein 8.7 H (6.4-8.2) gm/dl Albumin 3.7 (3.4-5.0) gm/dl Lipase 110 (73-393) U/L Procalcitonin (0-0.5) ng/ml Influenza Type A (PCR) (Neg) Influenza Type B (PCR) (Neg) 08/11/19 08/11/19 08/11/19 Range/Units 11:15 15:43 16:25 WBC (4.8-10.8) K/uL RBC (4.2-5.4) M/uL Hgb (12.0-16.0) g/dL Hct (37-47) % MCV (80-100) fL MCH (25-34) pg MCHC (32-36) g/dL RDW Std Deviation (36.4-46.3) fL RDW Coeff of Flory (11.5-14.5) % Plt Count (130-400) K/uL MPV (7.4-10.4) fL Immature Gran % (Auto) % Neut % (Auto) % Lymph % (Auto) % [place] % (Auto) % Eos % (Auto) % Baso % (Auto) % Immature Gran # (Auto) (0.00-0.02) K/uL Neut # (Auto) (1.4-6.5) K/uL Lymph # (Auto) (1.2-3.4) K/uL [place] # (Auto) (0.11-0.59) K/uL Eos # (Auto) (0-0.5) K/uL Baso # (Auto) (0-0.2) K/uL PT (9.0-12.0) Seconds INR (0.9-1.1) APTT (21.0-31.0) Seconds PTT Ratio Sodium (136-145) mmol/L Potassium (3.5-5.1) mmol/L Chloride (98-107) mmol/L Carbon Dioxide (21-32) mmol/L Anion Gap (3-11) BUN (7-18) mg/dl Creatinine (0.6-1.2) mg/dl Est Cr Clr Drug Dosing ml/min Est GFR ( Amer) Est GFR (Non-Af Amer) BUN/Creatinine Ratio (10-20) Glucose (70-99) mg/dl POC Glucose 232 H (70-99) mg/dl Calcium (8.5-10.1) mg/dl Magnesium (1.8-2.4) mg/dl Total Bilirubin (0.2-1) mg/dl Direct Bilirubin (0-0.2) mg/dl AST (15-37) U/L ALT (12-78) U/L Alkaline Phosphatase (45-117) U/L Total Protein (6.4-8.2) gm/dl Albumin (3.4-5.0) gm/dl Lipase (73-393) U/L Procalcitonin 0.15 (0-0.5) ng/ml Influenza Type A (PCR) Neg for Influ A (Neg) Influenza Type B (PCR) Neg for Influ B (Neg) 08/11/19 Range/Units 19:51 WBC (4.8-10.8) K/uL RBC (4.2-5.4) M/uL Hgb (12.0-16.0) g/dL Hct (37-47) % MCV (80-100) fL MCH (25-34) pg MCHC (32-36) g/dL RDW Std Deviation (36.4-46.3) fL RDW Coeff of Flory (11.5-14.5) % Plt Count (130-400) K/uL MPV (7.4-10.4) fL Immature Gran % (Auto) % Neut % (Auto) % Lymph % (Auto) % [place] % (Auto) % Eos % (Auto) % Baso % (Auto) % Immature Gran # (Auto) (0.00-0.02) K/uL Neut # (Auto) (1.4-6.5) K/uL Lymph # (Auto) (1.2-3.4) K/uL [place] # (Auto) (0.11-0.59) K/uL Eos # (Auto) (0-0.5) K/uL Baso # (Auto) (0-0.2) K/uL PT (9.0-12.0) Seconds INR (0.9-1.1) APTT (21.0-31.0) Seconds PTT Ratio Sodium (136-145) mmol/L Potassium (3.5-5.1) mmol/L Chloride (98-107) mmol/L Carbon Dioxide (21-32) mmol/L Anion Gap (3-11) BUN (7-18) mg/dl Creatinine (0.6-1.2) mg/dl Est Cr Clr Drug Dosing ml/min Est GFR ( Amer) Est GFR (Non-Af Amer) BUN/Creatinine Ratio (10-20) Glucose (70-99) mg/dl POC Glucose 173 H (70-99) mg/dl Calcium (8.5-10.1) mg/dl Magnesium (1.8-2.4) mg/dl Total Bilirubin (0.2-1) mg/dl Direct Bilirubin (0-0.2) mg/dl AST (15-37) U/L ALT (12-78) U/L Alkaline Phosphatase (45-117) U/L Total Protein (6.4-8.2) gm/dl Albumin (3.4-5.0) gm/dl Lipase (73-393) U/L Procalcitonin (0-0.5) ng/ml Influenza Type A (PCR) (Neg) Influenza Type B (PCR) (Neg) Diagnostic Findings XR abdomen 2V w PA chest CLINICAL HISTORY: vomiting COMPARISON STUDY: Chest x-ray dated 06/01/2019 FINDINGS: Direct chest reveals no evidence of free intraperitoneal air. There is no lobar consolidation. Erect and supine views the abdomen reveal gas within nondilated large and small bowel loops. There are no transition zones indicate bowel obstruction. There are postsurgical changes present within the lumbar spine. There are a few scattered air-fluid levels on the erect study which may indicate an ileus. IMPRESSION: 1. Mild gaseous prominence of large and small bowel loops with a few scattered air-fluid levels. The findings could indicate a ileus. There is no conventional radiographic evidence of a bowel obstruction. There is no free air. ACT 112: Negative or not required by law. Electronically signed by: Kareem Madison M.D. 08/11/2019 12:06 PM Dictated: 08/11/191203 Transcribed: 08/11/[address] abd pelvis IV con only CLINICAL HISTORY: abdominal pain fever leukocytosis possible small bowel obstruction COMPARISON STUDY: 07/25/2016 TECHNIQUE: The patient was scanned in a dynamic helical fashion during intravenous administration of 93 cc of Optiray 320 A dose lowering technique was utilized adhering to the principles of ALARA. CT DOSE: 306.17 mGy.cm FINDINGS: Lower chest: There is chronic right middle lobe scarring. There are dependent atelectatic changes. There is subtle mosaic attenuation the lungs. Liver: The contrast-enhanced liver is normal in size, contour, and attenuation. There is no intrahepatic biliary ductal dilatation. The hepatic veins and portal veins are patent. Gallbladder: Unremarkable. Spleen: The spleen is absent. There is a 1 cm left upper quadrant splenule. Pancreas: Pancreatic tail is absent. No pancreatic head masses are visualized. Adrenal glands: Unremarkable. Kidneys: There are right renal cysts measuring up to 4.8 cm in diameter. There is a suspected 1.5 mm right renal calculus. No ureteral calculi are visualized. Bowel: There are no transition zones indicate bowel obstruction. There is no evidence of acute diverticulitis. Appendix appears normal. Peritoneum: There is no intraperitoneal free air or abdominal ascites. Vasculature: The abdominal aorta is normal in course and caliber. Adenopathy: None. Pelvic viscera: The uterus appears surgically absent Skeletal structures: There is progressive right symphysis pubis sclerosis. Postsurgical changes are present within the lumbar spine. IMPRESSION: 1. No evidence of bowel obstruction. No evidence of free air 2. Normal appendix. No evidence of acute diverticulitis 3. Tiny right renal calculus. No ureteral or bladder calculi identified 4. 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 5. Right renal cysts ACT 112: Negative or not required by law. Electronically signed by: Kareem Madison M.D. 08/11/2019 1:37 PM Dictated: 08/11/19 1330 Transcribed: 08/11/19 1330 ECG Additional Comments: THe study shows NSR at 85bpm with PACs, II=234, QRS=80, MUs=310, no acute ischemic changes Code Status & VTE Plan Code Status FULL CODE VTE Prophylaxis Plan VTE Prophylaxis will be ordered: Yes PG Care Time/CCT Total # of Minutes Spent Total Time Spent with Patient: Total time spent is greater than 50% in coordination of care (as documented) at patient's floor/unit and/or counseling patient: Coding Level of Care Code 78776 Initial Inpt Care Lvl 3 Diagnoses Hypoxia R09.02 Sinus pain J34.89 Poor appetite R63.0 Benign essential HTN I10 GERD (gastroesophageal reflux disease) K21.9 Esophagitis presence: esophagitis presence not specified Hypercholesteremia E78.00 Diabetes mellitus E08.42; Z79.4 Diabetes mellitus type: due to underlying condition Diabetes mellitus rat exterminator insulin use: with rat exterminator use Diabetes mellitus complication status: with neurologic complications Diabetes mellitus complication detail: with polyneuropathy Chronic obstructive pulmonary disease J44.9 COPD type: unspecified COPD Paroxysmal SVT (supraventricular tachycardia) I47.1 Hyponatremia E87.1 Hypokalemia E87.6 (1) GERD (gastroesophageal reflux disease) Esophagitis presence: esophagitis presence not specified Qualified Code(s): K21.9 - Gastro-esophageal reflux disease without esophagitis (2) Diabetes mellitus Diabetes mellitus type: due to underlying condition Diabetes mellitus rat exterminator insulin use: with nursing home use Diabetes mellitus complication status: with neurologic complications Diabetes mellitus complication detail: with polyneuropathy Qualified Code(s): E08.42 - Diabetes mellitus due to underlying condition with diabetic polyneuropathy; Z79.4 - skilled nursing (current) use of insulin (3) Chronic obstructive pulmonary disease COPD type: unspecified COPD Qualified Code(s): J44.9 - Chronic obstructive pulmonary disease, unspecified
--- NOTE | 2019-08-11 20:07 | Electrocardiogram Report ---
Test Reason : Blood Pressure : / mmHG Vent. Rate : 085 BPM Atrial Rate : 085 BPM P-R Int : 146 ms QRS Dur : 080 ms QT Int : 368 ms P-R-T Axes : 069 057 058 degrees QTc Int : 437 ms Poor data quality, interpretation may be adversely affected Sinus rhythm with Premature atrial complexes Nonspecific ST abnormality Abnormal ECG When compared with ECG of 30-JUL-2018 08:30, Premature atrial complexes are now Present Confirmed by Jimbo Sesay ([id number]) on 08/11/2019 8:07:20 PM Referred By: Irvin Richard Confirmed By:Gallito Sesay
[2019-08-11] MEDS: TRAZODONE HCL 50 MG TAB PO PRN (20:29)
[2019-08-11] MEDS: SIMVASTATIN 40 MG TAB PO SCH (20:29)
[2019-08-11] MEDS ORDERED: ALUMINUM/MAGNESIUM SUSP 30 ML UDC PO PRN (20:32)
[2019-08-11] MEDS ORDERED: ALUMINUM/MAGNESIUM SUSP 30 ML UDC ONE (20:38)
[2019-08-11] MEDS ORDERED: INSULIN GLARGINE SOLOSTAR 100 UNITS/ML 3 ML PEN SC SCH (21:00)
[2019-08-11 22:26] LABS: Appearance Urine Clear (Clear); Bacteria Urine Automated Negative (Negative); Bilirubin Urine Negative (Negative); Blood Urine Negative (Negative); Color Urine Yellow; Glucose Urine UA 1+ (Negative); Ketones Urine Negative (Negative); Leukocyte Esterase Urine Negative (Negative); Nitrite Urine Negative (Negative); Protein Urine 1+ (Negative); RBC Urine Automated 0-4 /hpf (0-4); Specific Gravity Urine > 1.045 (1.000-1.030); Urobilinogen Urine Negative (Negative)
[2019-08-12] MEDS: INSULIN ASPART 100 UNITS/ML 3 ML PEN SC SCH ×6 (00:01→21:00)
[2019-08-12] MEDS: SODIUM CHLORIDE 0.9% 1000ML 1,000 ML IV SCH (03:56)
[2019-08-12 06:33] LABS: Basophils # (auto) 0.05 K/uL (0-0.2); Basophils % (auto) 0.3 %; Eosinophils # (auto) 0.39 K/uL (0-0.5); Hematocrit (blood only) 34.3 % (37-47); Hemoglobin 11.3 g/dL (12.0-16.0); Immature Granulocytes # (auto) 0.07 K/uL (0.00-0.02); Immature Granulocytes % (auto) 0.4 %; Lymphocytes # (auto) 2.16 K/uL (1.2-3.4); Lymphocytes % (auto) 10.8 %; Mean Corpuscular Hemoglobin 30.9 pg (25-34); Mean Corpuscular Hgb Conc 32.9 g/dL (32-36); Mean Corpuscular Volume 93.7 fL (80-100); Mean Platelet Volume 10.6 fL (7.4-10.4); Monocytes # (auto) 2.06 K/uL (0.11-0.59); Monocytes % (auto) 10.3 %; Neutrophils % (auto) 76.2 %; Platelet Count 273 K/uL (130-400); RDW Coefficient of Variation 13.5 % (11.5-14.5); RDW Standard Deviation 46.5 fL (36.4-46.3); Red Blood Count 3.66 M/uL (4.2-5.4); White Blood Count 19.93 K/uL (4.8-10.8)
[2019-08-12] MEDS: TRAMADOL HCL 50 MG TABLET PO PRN (06:41)
[2019-08-12 07:05] LABS: BUN Creatinine Ratio 29.9 (10-20); Calcium 8.9 mg/dl (8.5-10.1); Creatinine Clr Calc Pharmacy 54.1 ml/min; Est GFR (African American) 88.9; Est GFR (Non-African American) 76.7; Potassium 3.6 mmol/L (3.5-5.1)
[2019-08-12] MEDS: hydroCHLOROthiazide 25 MG TAB PO SCH (08:16)
[2019-08-12] MEDS: AMOXICILLIN/CLAVULANATE 500 MG TAB PO SCH ×3 (08:16→18:04)
[2019-08-12] MEDS: PANTOprazole 40 MG TAB PO SCH (08:17)
[2019-08-12] MEDS: ATENOLOL 50 MG TABLET PO SCH (08:17)
[2019-08-12] MEDS: dilTIAZem ER 120 MG CAPCR PO SCH (08:18)
[2019-08-12] MEDS: ENALAPRIL MALEATE 10 MG TAB PO SCH (08:19)
[2019-08-12] MEDS: INSULIN HUMAN NPH SC SCH (08:24)
[2019-08-12] MEDS ORDERED: ENALAPRIL HYDROCHLOROTHIAZIDE PO SCH (09:00)
--- NOTE | 2019-08-12 10:00 | Pharmacy Report ---
Pharmacy Glycemic Short Note 2 - Date of Service August 12, 2019 - Glycemic Short BSG Results (Last 24 hours): 08/11/19 08/11/19 08/11/19 11:15 16:25 19:51 Glucose 289 H POC Glucose 232 H 173 H 08/11/19 08/12/19 08/12/19 23:59 03:36 05:56 Glucose 97 POC Glucose 79 95 08/12/19 07:44 Glucose POC Glucose 113 H OUTPATIENT ANTIDIABETIC REGIMEN: * Insulin NPH 30 units every morning and 26-28 units at bedtime * Humalog 10 units with breakfast and 14 units with dinner * A1c = 8.4% on 05/19/2019 ASSESSMENT: * 84 yo T2DM female admitted secondary to nausea and vomiting (no insulin given the "past few days" prior to admission) * Fasting BSG of 113 mg/dL is at goal. Patient was given a one time dose of NPH 30 units last evening around dinnertime. I will start the patient on NPH twice daily at a reduced dosage compared to home dose until oral intake returns to baseline. * Will tighten Novolog carb coverage. PLAN FOR INPATIENT GLYCEMIC CONTROL: * Basal insulin * NPH 18 units SQ this morning x 1, then * NPH 20 units SQ BID with meals (based on previous admission data) * Bolus insulin * NovoLog per scale ACHS or Q6hrs while NPO * Goal Range: Low 110 mg/dL - High 140 mg/dL * Correction Factor: 25 mg/dL/unit * Tighten Nutritional / Prandial insulin per carb ratio of 1 unit per 7 grams CHO consumed PLAN FOR DISCHARGE: * A1c = 8.4% * Goal A1c of 7-8% seems reasonable based on patient age and co morbidities * Insulin doses to be titrated by outpatient provider * Please note that the plan above was derived based on current level of insulin resistance and hospital stress. These recommendations are appropriate for inpatient admission only. Plan of care upon discharge will need to be reassessed to avoid potential outpatient hypo/hyperglycemia. Thank you.
[2019-08-12] MEDS ORDERED: OXYMETAZOLINE 0.05% 30 ML BTL NAE ONE (10:07)
[2019-08-12] MEDS ORDERED: INSULIN HUMAN NPH SC SCH (16:30)
[2019-08-12] MEDS: ENOXAPARIN INJ 30 MG/0.3 ML SYR SQ SCH (18:05)
[2019-08-12] MEDS: OXYMETAZOLINE 0.05% 30 ML BTL NAE SCH (21:01)
[2019-08-12] MEDS: SIMVASTATIN 40 MG TAB PO SCH (21:01)
--- NOTE | 2019-08-12 22:26 | Hospitalist Progress Note ---
Date of Service August 12, 2019 Assessment & Plan (1) Hypoxia: Acute bronchitis (likely viral) Patient with episode of hypoxia in the ER, 84% on room air requiring supplemental O2. Concern over possible bronchitis given elevated WBC, will also continue augmentin and monitor. (may be viral) Presently improved, saturation 94% on 2L. CXR unremarkable. Patient denies SOB. No evidence of respiratory distress on exam -Supplemental O2 as needed -Incentive spirometry, encourage use -Burt order oxymetazoline for possible sinusitis from viral infection. reviewed images from previous ct scan of chest, will recommend to followup images in 4 weeks. recommend f/u with pulmonary as an outpatien.t (2) Sinus pain: Patient complaining of significant sinus discomfort. Tenderness to palpation. Visible mucosa pink and moist with no exudate/discharge/ulcers or lesions. Also complaining of tooth discomfort, sore throat. Rapid strep testing negative. Suspect viral syndrome. -Augmentin -Continue to monitor -Tylenol as needed for pain (3) Poor appetite: Patient with poor appetite, nausea and vomiting. ?developing or resolving ileus, gastroparesis, viral illness. -Encourage PO intake -Zofran and Reglan as needed (4) Benign essential HTN: Blood pressure stable -Continue home medications, HCTZ, Atenolol -Continue to monitor (5) GERD (gastroesophageal reflux disease): Chronic. -Continue Protonix (6) Hypercholesteremia: Chronic -Continue Simvastatin (7) Diabetes mellitus: Chronic. Blood sugar elevated at 289. Last HgbA1C in August 2018 - 8.4 -ISS, goal 110 - 140, CF=25, CR=8 -Glycemic management consultation (8) Chronic obstructive pulmonary disease: Chronic. Stable. No SOB/wheeze -Continue home medications -Nebs as needed -Supplemental O2 as needed (9) Paroxysmal SVT (supraventricular tachycardia): Chronic. Stable -Continue Atenolol, Diltiazem -Continue to monitor (10) Hyponatremia: [id number], history of hyponatremia. No neurological findings. Most likely secondary to poor PO tolerance, volume contraction improved to 135. (11) Hypokalemia: Repleted F/E/N - NSS at 80mL/hr, monitor electrolytes and replete as needed, CC diet as tolerated Ppx - Lovenox Code - Full Dispo - Admit to medical floor Subjective 84 yo female reports still being short of breath when ambulating. She reports no new symptoms. Review of Systems Review of Systems: All systems reviewed & are unremarkable except as noted in HPI & below Physical Exam Physical Exam: General: patient resting comfortably, NAD, non-toxic in appearance, AA&O x 4 Skin: warm, dry, intact, no rashes or lesions HEENT: NC/AT, PERRL, EOMI, anicteric sclera, conjunctiva without injection, external ear normal to inspection and nontender,, nares patent, moist mucus membranes, dentition intact, posterior pharyngeal erythema, neck supple, trachea midline, no LAD, no thyromegaly, no JVD, +tenderness over frontal and maxillary sinuses Heart: +S1/S2, regular, no m/r/g Lungs: equal air entry bilaterally, no rales/rhonchi/wheezes Abd: +BS, soft, NT/ND, no masses/organomegaly/ascites Ext: warm, 2+ pulses in UE/LE bilaterally, no clubbing/cyanosis or edema Neuro: nonfocal, patient AA&O x 4, speech intact, no facial droop, moving all extremities on command with equal strength 5/5 Results & Data Vital Signs (Past 12 Hours) Vital Signs Temp Pulse Resp BP Pulse Ox 08/12/19 15:25 36.8 C 72 19 123/64 90 PG Care Time/CCT Total # of Minutes Spent Total Time Spent with Patient: Total time spent is greater than 50% in coordination of care (as documented) at patient's floor/unit and/or counseling patient: Coding Level of Care Code 82999 Subseq Hosp Care Lvl 3 Diagnoses Hypoxia R09.02 Sinus pain J34.89 Poor appetite R63.0 Benign essential HTN I10 GERD (gastroesophageal reflux disease) K21.9 Esophagitis presence: esophagitis presence not specified Hypercholesteremia E78.00 Diabetes mellitus E08.42; Z79.4 Diabetes mellitus complication detail: with polyneuropathy Diabetes mellitus complication status: with neurologic complications Diabetes mellitus shelter insulin use: with shelter use Diabetes mellitus type: due to underlying condition Chronic obstructive pulmonary disease J44.9 COPD type: unspecified COPD Paroxysmal SVT (supraventricular tachycardia) I47.1 Hyponatremia E87.1 Hypokalemia E87.6 Time Spent (min) 35 (1) Diabetes mellitus Diabetes mellitus complication detail: with polyneuropathy Diabetes mellitus complication status: with neurologic complications Diabetes mellitus shelter insulin use: with shelter use Diabetes mellitus type: due to underlying condition Qualified Code(s): E08.42 - Diabetes mellitus due to underlying condition with diabetic polyneuropathy; Z79.4 - 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
[2019-08-12] MEDS: TRAZODONE HCL 50 MG TAB PO PRN (23:09)
[2019-08-13] MEDS ORDERED: INSULIN HUMAN NPH SC SCH (08:30)
[2019-08-13] MEDS: ATENOLOL 50 MG TABLET PO SCH (08:35)
[2019-08-13] MEDS: PANTOprazole 40 MG TAB PO SCH (08:35)
[2019-08-13] MEDS: AMOXICILLIN/CLAVULANATE 500 MG TAB PO SCH ×2 (08:35→12:32)
[2019-08-13] MEDS: dilTIAZem ER 120 MG CAPCR PO SCH (08:35)
[2019-08-13] MEDS: ENALAPRIL MALEATE 10 MG TAB PO SCH (08:36)
[2019-08-13] MEDS: OXYMETAZOLINE 0.05% 30 ML BTL NAE SCH (08:36)
[2019-08-13] MEDS: hydroCHLOROthiazide 25 MG TAB PO SCH (08:36)
[2019-08-13] MEDS: INSULIN ASPART 100 UNITS/ML 3 ML PEN SC SCH ×2 (08:37→12:35)
[2019-08-13] MEDS: TRAMADOL HCL 50 MG TABLET PO PRN (08:41)
[2019-08-13 09:46] LABS: Basophils # (auto) 0.05 K/uL (0-0.2); Basophils % (auto) 0.5 %; Eosinophils # (auto) 0.46 K/uL (0-0.5); Eosinophils % (auto) 4.6 %; Hematocrit (blood only) 32.8 % (37-47); Hemoglobin 10.8 g/dL (12.0-16.0); Immature Granulocytes # (auto) 0.02 K/uL (0.00-0.02); Immature Granulocytes % (auto) 0.2 %; Lymphocytes # (auto) 2.18 K/uL (1.2-3.4); Lymphocytes % (auto) 21.7 %; Mean Corpuscular Hemoglobin 30.9 pg (25-34); Mean Corpuscular Hgb Conc 32.9 g/dL (32-36); Mean Platelet Volume 10.3 fL (7.4-10.4); Monocytes # (auto) 0.88 K/uL (0.11-0.59); Monocytes % (auto) 8.7 %; Neutrophils # (auto) 6.47 K/uL (1.4-6.5); Neutrophils % (auto) 64.3 %; Platelet Count 285 K/uL (130-400); RDW Coefficient of Variation 13.3 % (11.5-14.5); RDW Standard Deviation 45.8 fL (36.4-46.3); Red Blood Count 3.49 M/uL (4.2-5.4); White Blood Count 10.06 K/uL (4.8-10.8)
[2019-08-13 10:13] LABS: Albumin Level 2.7 gm/dl (3.4-5.0); BUN Creatinine Ratio 19.3 (10-20); Creatinine Clr Calc Pharmacy 46.4 ml/min; Est GFR (Non-African American) 63.8; Potassium 3.8 mmol/L (3.5-5.1)
[2019-08-13 10:20] LABS: Albumin Globulin Ratio 0.6 (0.9-2); Bilirubin,Total 0.4 mg/dl (0.2-1); Globulin 4.4 gm/dl (2.5-4.0); Total Protein 7.1 gm/dl (6.4-8.2)
[2019-08-13] MEDS: INSULIN HUMAN NPH SC SCH (10:31)
--- NOTE | 2019-08-19 13:26 | Discharge Summary ---
Date of Service August 13, 2019 Admission HPI Per Admitting Provider Ruth Beltran is an 84yo C female with multiple medical problems, notably HTN/DM with gastroparesis/HLP/COPD/Fibromyalgia. Patient with history of pancreatic cancer s/p Whipple procedure, history of splenectomy as well. She reports persistent nausea with multiple episodes of vomiting over the last 3 days. She has been unable to tolerate PO intake and vomits even with sips of water. She reports poor appetite as well as sinus pain, bilateral ear pain, sore throat and body aches. She denies fevers but has been experiencing chills as well as a dry cough. Decreased urination and dark colored urine. No add itional complaints at this time. ER Course: Tylenol, Ceftriaxone, Zofran, NSS x 1 liter Principal Diagnosis Acute bronchitis Discharge Exam General: patient resting comfortably, NAD, non-toxic in appearance, AA&O x 4 Skin: warm, dry, intact, no rashes or lesions HEENT: NC/AT, PERRL, EOMI, anicteric sclera, conjunctiva without injection, external ear normal to inspection and nontender,, nares patent, moist mucus membranes, dentition intact, posterior pharyngeal erythema, neck supple, trachea midline, no LAD, no thyromegaly, no JVD, +tenderness over frontal and maxillary sinuses Heart: +S1/S2, regular, no m/r/g Lungs: equal air entry bilaterally, no rales/rhonchi/wheezes Abd: +BS, soft, NT/ND, no masses/organomegaly/ascites Ext: warm, 2+ pulses in UE/LE bilaterally, no clubbing/cyanosis or edema Neuro: nonfocal, patient AA&O x 4, speech intact, no facial droop, moving all extremities on command with equal strength 5/5 Discharge Data Allergies Allergy/AdvReac Type Severity Reaction Status Date / Time codeine Allergy Severe RASH Verified 08/18/19 10:19 Sulfa (Sulfonamide Allergy Intermediate rash Verified 08/18/19 10:19 Antibiotics) sulfabenzamide Allergy Intermediate rash Verified 08/18/19 10:19 sulfacetamide Allergy Intermediate rash Verified 08/18/19 10:19 sulfathiazole Allergy Intermediate rash Verified 08/18/19 10:19 insulin glargine Allergy Mild pruritus Verified 08/18/19 10:19 (noted after 7+ days of use) aspirin AdvReac Severe Gastrointestinal Unverified 08/18/19 10:19 Upset erythromycin base AdvReac Intermediate abdominal Verified 08/18/19 10:19 pain NSAIDS (Non-Steroidal AdvReac Intermediate gastric Verified 08/18/19 10:19 Anti-Inflamma bleeding hydrocodone AdvReac Mild itching Verified 08/18/19 10:19 oxycodone AdvReac Mild itching Verified 08/18/19 10:19 ciprofloxacin Allergy Unknown unknown Uncoded 08/18/19 10:19 reaction amitriptyline AdvReac Unknown "drunk Uncoded 08/18/19 10:19 feeling" erythromycin AdvReac Unknown abdominal Uncoded 08/18/19 10:19 cramps/pain Consultations 08/11/19 14:04 ED Decision to Admit Stat Ordered Studies 08/11/19 12:36 CT abd pelvis IV con only Stat Hospital Course (1) Hypoxia: Acute bronchitis (likely viral) Patient with episode of hypoxia in the ER, 84% on room air requiring supplemental O2. Concern over possible bronchitis given elevated WBC, will also continue augmentin and monitor. (may be viral) During hospital stay, patient improved and was able to discharge patient on room air.CXR unremarkable. Patient denies SOB. No evidence of respiratory distress on exam -Supplemental O2 as needed -Incentive spirometry, encourage use -Patient also place on a short term oxymetazoline for possible sinusitis from viral infection. reviewed images from previous ct scan of chest, will recommend to followup images in 4 weeks. recommend f/u with pulmonary as an outpatient (2) Sinus pain: Patient complaining of significant sinus discomfort. Tenderness to palpation. Visible mucosa pink and moist with no exudate/discharge/ulcers or lesions. Also complaining of tooth discomfort, sore throat. Rapid strep testing negative. Suspect viral syndrome. will discharge on augmentin -Tylenol as needed for pain (3) Poor appetite: Patient with poor appetite, nausea and vomiting. ?developing or resolving ileus, gastroparesis, viral illness. -Encourage PO intake -Zofran and Reglan as needed (4) Benign essential HTN: Blood pressure stable -Continue home medications, HCTZ, Atenolol -Continue to monitor (5) GERD (gastroesophageal reflux disease): Chronic. -Continue Protonix (6) Hypercholesteremia: Chronic -Continue Simvastatin (7) Diabetes mellitus: Chronic. Blood sugar elevated at 289. Last HgbA1C in August 2018 - 8.4 -ISS, goal 110 - 140, CF=25, CR=8 -Glycemic management consultation (8) Chronic obstructive pulmonary disease: Chronic. Stable. No SOB/wheeze -Continue home medications -Nebs as needed -Supplemental O2 as needed (9) Paroxysmal SVT (supraventricular tachycardia): Chronic. Stable -Continue Atenolol, Diltiazem -Continue to monitor (10) Hyponatremia: Lw=860, history of hyponatremia. No neurological findings. Most likely secondary to poor PO tolerance, volume contraction improved to 135. (11) Hypokalemia: Repleted Ppx - Lovenox Total Time Total Time Spent Total Time Spent (In Minutes): 32 Total Time Includes: Examination of the Patient, Discharge Planning and Medication Reconciliation Discharge Plan Discharge Items Patient Disposition: Home - Self-Care Reason For Visit: HYPOXIA Discharge Diagnosis: Acute bronchitis/ sinusitis Activity: Resume your previous activity Non-emergency contact: Primary Care Provider Call non-emergency contact if: you have any medication questions Follow-up/Referrals: Irvin Richard CRNP [Primary Care Provider] - 08/18/19 10:15 am (Please, follow up with Irvin CAMPBELL on SundayAugust 18 at 10:15 am. *If you need to change this appointment, call the office at [phone].) Marck Randhawa MD [Physician] - 08/21/19 10:15 am (Please, follow up at [facility] Pulmonology Office with Dr. Randhawa on August 21 at 10:15 am. *The office is located in [address] of [facility], next to [facility]. If you need to change this appointment, call the office at [phone].) Diet: Carb Consistent or DM2 and Heart Healthy Addtl Attending Provider Instructions: You have been hospitalized for an acute medical problem. During your stay at [facility], we have made an effort to correct the problem that brought you to the hospital while keeping you as comfortable as possible. Medications were used to bring your condition under control and your discharge instructions will include directions for any medications you should take after leaving the hospital. Please make sure you see your Primary Care Provider as part of your follow up plan. Afrin (nasal spray): Last dose will be on 08/14 evening. Do not continue past that date. Pending Studies at Discharge: No Stand-Alone Forms: My [facility], Smoking Cessation Medications and DC Order Prescriptions: New oxymetazoline [Nasal [place] (oxymetazoline)] 0.05 % [place],Non-Aerosol 1 spray ANDREA BID Qty: 15 RF: 0 Continued enalapril-hydrochlorothiazide 10-25 mg tablet 1 tab PO DAILY Qty: 90 RF: 3 simvastatin 20 mg tablet 40 mg PO QPM Qty: 90 RF: 1 diltiazem HCl 120 mg capsule,extended release 24 hr 120 mg PO DAILY Qty: 90 RF: 3 (DME) FreeStyle Lite Strips strip See Dose Instructions .ROUTE .MEDSUPPLY Qty: 10 RF: 0 (DME) lancets [FreeStyle Lancets] 28 gauge misc See Dose Instructions .ROUTE .MEDSUPPLY Qty: 25 RF: 0 (DME) pen needle, diabetic [BD Ultra-Fine Mini Pen Needle] 31 gauge x 3/16" needle See Dose Instructions .ROUTE .MEDSUPPLY Qty: 30 RF: 0 biotin 1 mg tablet 1 mg PO QAM RF: 0 atenolol 50 mg tablet 50 mg PO QAM Qty: 90 RF: 3 albuterol sulfate 90 mcg/actuation aerosol powdr breath activated 2 puffs INH Q6H PRN (Reason: shortness of breath or wheezing) Qty: 1 RF: 6 albuterol sulfate 2.5 mg /3 mL (0.083 %) solution for nebulization 2.5 mg inhalation ONCE PRN (Reason: SOB) Qty: 2 RF: 0 insulin lispro [Humalog KwikPen Insulin] 100 unit/mL insulin pen See Rx Instructions SQ TID Qty: 3 RF: 3 multivitamin Tablet 1 tab PO QAM RF: 0 trazodone 50 mg tablet 50 mg PO HS PRN (Reason: Sleep) RF: 0 cholecalciferol (vitamin D3) 1,000 unit capsule 1,000 unit PO QAM RF: 0 insulin NPH isoph U-100 human 100 unit/mL (3 mL) insulin pen 30 units subcut QAM RF: 0 insulin NPH isoph U-100 human 100 unit/mL (3 mL) insulin pen 26 - 28 unit subcut HS RF: 0 esomeprazole magnesium [Nexium] 20 mg Capsule,Delayed Release(Dr/Ec) 20 mg PO QAM RF: 0 melatonin 5 mg Tablet 5 mg PO HS PRN (Reason: Sleep) RF: 0 tramadol 50 mg tablet 50 mg PO Q6H PRN (Reason: pain, moderate) Qty: 30 RF: 0 Discharge Orders: Discharge Order (Routine); Ordered 08/13/19 Ordered By: Bud Serrato Admission Data Admit Date/Time: 08/11/19 14:53 Attending Provider: Bud Serrato Admit Provider: Lorraine Kwong Primary Care Provider: Irvin Richard Other Providers: Lorraine Kwong Other Interventions: Discharge Summary Assessment (RN) Last Done: 08/13/19 12:54 DC Date/Time DO NOT enter until pt leaves facility: 08/13/19 14:17 Coding Level of Care Code D/C Day Management >30 mins Diagnoses Hypoxia R09.02 Sinus pain J34.89 Poor appetite R63.0 Benign essential HTN I10 GERD (gastroesophageal reflux disease) K21.9 Esophagitis presence: esophagitis presence not specified Hypercholesteremia E78.00 Diabetes mellitus E08.42; Z79.4 Diabetes mellitus complication detail: with polyneuropathy Diabetes mellitus complication status: with neurologic complications Diabetes mellitus mcc insulin 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
== END 2019-08-13 14:17 | disposition home or self-care (01) | DRG 191 ==
LOC: ED 10:19 → 4W 14:53 → SUATTDRO 14:53 → 4W 15:17

== ENCOUNTER 2022-01-24 10:36 | Observation (INO) ==
--- NOTE | 2022-01-24 10:43 | Emergency Department Note ---
Impression & Plan Cellulitis, Acute leg pain ED Provider Note NAME: FESTUS RESENDIZ AGE: 86 SEX: F : 1935 ARRIVES VIA: Walk-In INFORMANT: Patient, ED PROVIDER(S): Reji Gerardo MD Chief Complaint: Leg pain, worsening cellulitis HPI: Patient presents due to concern for bug bite versus infection. The patient states that she initially had what she thought was a bite in her bathroom on Sunday was seen on Sunday due to concern for some worsening redness was given IV antibiotics and subsequent by mouth prescription. The patient states she has had worsening redness over the last several days but that the central area is relatively unchanged darker in color red with associated pain. The patient denies any falls or trauma. The patient did not note what insect might of stung her. The patient is not take anything for pain at home. Patient denies any chest pain shortness of breath vomiting. The patient is at mild associated nausea. Patient did present back here again due to concern for the slightly expanding redness. ROS: See HPI for pertinent positives and negatives. A total of 10 systems were reviewed and otherwise negative. Past medical history: See below Surgical history: See below Social history: See below Physical Exam: GENERAL: NAD, wearing a mask, non-toxic. EYE EXAM: Normal conjunctiva. PERRL, no anisocoria and EOM's grossly intact w/o pain. OROPHARYNX: Moist mucus membranes. Grossly normal dentition. NECK: Supple, no nuchal rigidity, no adenopathy, non-tender. No signs of meningismus. LUNGS: Clear to auscultation. Normal chest wall mechanics. HEART: NSR, no MRG. ABDOMEN: Abdomen soft, non-tender, normo-active bowel sounds, no masses, no rebound or guarding. BACK: No CVA TTP. SKIN: 4 by 4 cm area of induration and central deeper redness with surrounding erythema approx 8 x 8 cm over left medial thigh no obvious crepitus, small areas of central blistering noted, clear fluid prime primarily. Scant purulent drainage noted. Mild TTP over the site but without any crepitus. Neurovascular intact distally. UPPER EXTREMITIES: Upper extremities are grossly normal. LOWER EXTREMITIES: Grossly normal, no edema. NEURO EXAM: A&O x3, cranial nerves II-XII grossly intact, normal speech, moves all 4 extremities on command w/o issue. Differential diagnoses: Cellulitis, abscess, MRSA infection, DVT, necrotizing fasciitis, dermatitis, drug eruption, allergic reaction, as well as other pathologies. Course: Patient was seen and evaluated the bedside. Full history physical exam was performed. Imaging Studies: See Below Cardiac monitoring: An order was placed for continuous cardiac monitoring. The monitor shows a rate of 62 with sinus rhythm. MDM: Patient was seen due to concern for worsening redness and cellulitic changes over the left lower extremity. Blood work was obtained. Patient was started on vancomycin as well as cefepime for MRSA and pseudomonal coverage given the patient's failed outpatient treatment as well as the fact that the patient is a diabetic. Patient with white count 11 virtually normal hemoglobin 11.9. Platelet count is normal. Mild hyponatremia. Patient does have some prerenal azotemia. Given the patient's failed outpatient treatment and diabetic status I did speak with the on-call hospitalist Dr. Hernandez. Patient was admitted to the medicine service. Of note one of the areas of blistering was unroofed. Primarily clear fluid but a small amount of purulent drainage was noted. No obvious central area for I&D at this time. Past Med/Surg History Medical History Benign essential HTN Cervical spine degeneration Chronic cholecystitis NOT REPORTED BY PT Chronic obstructive pulmonary disease SOB ON EXERTION Cyst of right kidney Depression Diverticulosis Fibromyalgia Gastric bleeding hx years ago in setting of NSAID use Gastroparesis GERD (gastroesophageal reflux disease) occasional Hayfever Hearing loss, bilateral Hiatal hernia History of pancreatic cancer 1989 s/p whipple procedure HLD (hyperlipidemia) HTN (hypertension) Hypercalcemia Insomnia Lumbar back pain Lumbar back pain with radiculopathy affecting left lower extremity Osteoarthritis Paroxysmal SVT (supraventricular tachycardia) on atenolol SOB (shortness of breath) on exertion Tubular adenoma of colon HX Valvular heart disease NOT REPORTED BY PT Surgical History History of breast biopsy History of lumbar spinal fusion TOTAL OF 2 BACK SURGERIES , PT NOT SURE DETAILS 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 Arthritis Myocardial infarction Breast cancer Father , age 90 of a stroke. 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 Feels Safe at Home: Yes Safety Concerns: Feels Safe At This Time Childhood Exposure to Second-Hand Smoke: No caffeine: Yes during the past year weight has: remained stable Dental Care, Regularly: Yes Physical Activity Frequency: Does not Exercise Physical Activity Frequency Comment: due to physical condition Seatbelt Use: always Sunscreen Use: No Assistive Devices: Denture - Upper, Denture - Lower, Glasses and Hearing Aid - Bilateral Allergies Allergies Allergy/AdvReac Type Severity Reaction Status Date / Time codeine Allergy Severe RASH Verified 01/24/22 14:50 Sulfa (Sulfonamide Allergy Intermediate rash Verified 01/24/22 14:50 Antibiotics) sulfabenzamide Allergy Intermediate rash Verified 01/24/22 14:50 sulfacetamide Allergy Intermediate rash Verified 01/24/22 14:50 sulfathiazole Allergy Intermediate rash Verified 01/24/22 14:50 insulin glargine Allergy Mild pruritus Verified 01/24/22 14:50 (noted after 7+ days of use) aspirin AdvReac Severe Gastrointestinal Verified 01/24/22 14:50 Upset erythromycin base AdvReac Intermediate abdominal Verified 01/24/22 14:50 pain NSAIDS (Non-Steroidal AdvReac Intermediate gastric Verified 01/24/22 14:50 Anti-Inflamma bleeding rosuvastatin AdvReac Intermediate muscle Verified 01/24/22 14:50 aches, cramps in calves hydrocodone AdvReac Mild itching Verified 01/24/22 14:50 oxycodone AdvReac Mild itching Verified 01/24/22 14:50 ciprofloxacin Allergy Unknown unknown Uncoded 01/24/22 14:50 reaction amitriptyline AdvReac Unknown "drunk Uncoded 01/24/22 14:50 feeling" erythromycin AdvReac Unknown abdominal Uncoded 01/24/22 14:50 cramps/pain Home Meds Home Medications Medication Instructions Recorded Confirmed melatonin 5 mg tablet 5 mg PO HS 04/21/19 01/24/22 acetaminophen 500 mg capsule 500 mg PO UD PRN 12/03/20 01/24/22 cyanocobalamin (vitamin B-12) 500 500 mcg PO DAILY 12/03/20 01/24/22 mcg tablet (Vitamin B-12) cholecalciferol (vitamin D3) 25 5,000 unit PO Q OTHER DAY cap 02/01/21 01/24/22 mcg (1,000 unit) capsule insulin NPH isoph U-100 human 100 See Rx Instructions .ROUTE .COMPLEX 10/19/21 01/24/22 unit/mL (3 mL) subcutaneous pen (Humulin N NPH U-100 Insulin KwikPen) Previous Rx's Medication Instructions Recorded fluticasone 100 mcg-salmeterol 50 1 inh INHALATION BID #180 ea 06/14/21 mcg/dose blistr powdr for inhalation (Advair Diskus) enalapril maleate 10 mg tablet 10 mg PO QAM #90 tab 08/11/21 diltiazem HCl 120 mg capsule,24 120 mg PO QAM #90 cap 11/04/21 hr,extended release omeprazole 40 mg capsule,delayed 40 mg PO DAILY #90 cap 11/07/21 release trazodone 50 mg tablet 50 mg PO HS #90 tab 11/07/21 duloxetine 60 mg capsule,delayed 60 mg PO DAILY #90 cap 11/28/21 release simvastatin 40 mg tablet 40 mg PO QPM 90 Days #90 tab 12/05/21 Humalog KwikPen Insulin 100 14 unit SQ BID 90 Days #30 ml NS 12/06/21 unit/mL subcutaneous (insulin MDD 30 units lispro) BD Ultra-Fine Mini Pen Needle 31 #400 ea NS 06/07/22 gauge x 3/16" (pen needle, diabetic) BD Ultra-Fine Mini Pen Needle 31 #400 ea NS 12/20/21 gauge x 3/16" (pen needle, diabetic) atenolol 50 mg tablet 50 mg PO QAM #90 tab 12/26/21 cetirizine 5 mg tablet 5 mg PO DAILY #30 tab 12/27/21 gabapentin 300 mg capsule 300 mg PO DAILY PRN #90 cap 12/27/21 FreeStyle Lite Strips (blood sugar #300 ea NS 12/28/21 diagnostic) FreeStyle Lancets 28 gauge #300 ea NS 12/30/21 (lancets) cephalexin 500 mg capsule 500 mg PO BID 10 Days #20 cap 01/22/22 doxycycline hyclate 100 mg tablet 100 mg PO BID 10 Days #20 tab 01/22/22 Results & Data (ED) Vital Signs Vital Signs - 24 hr 01/24/22 10:38 01/24/22 11:28 Temperature 36.5 C Temperature Source Temporal Artery Scan Pulse Rate 69 70 Respiratory Rate 16 16 Respiratory Effort / Characteristics Non-Labored Respiratory Depth Normal Blood Pressure 182/72 H Blood Pressure Mean 108 Pulse Oximetry 97 98 Oxygen Delivery Method Room Air Room Air Sepsis Recent Fever Within 48 Hours No Sepsis New/Unexplained Change in Mental Status No Sepsis Action Taken by Nursing No Action Required Home Medications Current Medication List: was personally reviewed by me Laboratory Data Attestation: I reviewed the patient's lab results. Result diagrams: 01/24/22 11:23 01/24/22 11:23 Lab Results 01/24/22 01/24/22 01/24/22 Range/Units 11:23 11:23 11:23 WBC 11.04 H (4.8-10.8) K/ul RBC 3.93 (3.93-5.22) M/uL Hgb 11.9 L (12.0-16.0) g/dl Hct 35.3 (34.1-44.9) % MCV 89.8 (80.0-100.0) fL MCH 30.3 (25.0-34.0) pg MCHC 33.7 (32.0-36.0) g/dL RDW Std Deviation 43.8 (36.4-46.3) fL RDW Coeff of Flory 13.2 (11.5-14.5) % Plt Count 276 (130-400) K/uL MPV 10.8 (9.4-12.3) fL Immature Gran % (Auto) 0.3 % Neut % (Auto) 64.7 % Lymph % (Auto) 20.5 % Stokes % (Auto) 11.5 % Eos % (Auto) 2.0 % Baso % (Auto) 1.0 % Neut # (Auto) 7.15 H (1.4-6.5) K/uL Lymph # (Auto) 2.26 (1.2-3.4) K/uL Stokes # (Auto) 1.27 H (0.24-0.82) K/uL Eos # (Auto) 0.22 (0-0.50) K/uL Baso # (Auto) 0.11 (0-0.2) K/uL Immature Gran # (Auto) 0.03 H (0.00-0.02) K/uL ESR 46 H (0-30) mm/hr Sodium 133 L (136-145) mmol/L Potassium 3.6 (3.5-5.1) mmol/L Chloride 98 (98-107) mmol/L Carbon Dioxide 30 (21-32) mmol/L Anion Gap 5 (3-11) BUN 28 H (6-23) mg/dl Creatinine 1.02 (0.6-1.2) mg/dl Est Cr Clr Drug Dosing 37.4 ml/min Est GFR ( Amer) 58.5 ml/min Est GFR (Non-Af Amer) 50.5 ml/min BUN/Creatinine Ratio 27.5 H (10-20) Glucose 258 H (70-99(Fasting)) mg/dl Calcium 9.9 (8.5-10.1) mg/dl Total Bilirubin 0.4 (0.2-1.0) mg/dl AST 20 (13-39) U/L ALT 13 (7-52) U/L Alkaline Phosphatase 73 (34-104) U/L C-Reactive Protein (0-0.5) mg/dl Total Protein 7.8 (6.0-8.3) gm/dl Albumin 4.0 (3.4-5.0) gm/dl Globulin 3.8 (2.5-4.0) gm/dl Albumin/Globulin Ratio 1.1 (0.9-2) Procalcitonin (0-0.5) ng/ml 01/24/22 01/24/22 Range/Units 11:23 11:23 WBC (4.8-10.8) K/ul RBC (3.93-5.22) M/uL Hgb (12.0-16.0) g/dl Hct (34.1-44.9) % MCV (80.0-100.0) fL MCH (25.0-34.0) pg MCHC (32.0-36.0) g/dL RDW Std Deviation (36.4-46.3) fL RDW Coeff of Flory (11.5-14.5) % Plt Count (130-400) K/uL MPV (9.4-12.3) fL Immature Gran % (Auto) % Neut % (Auto) % Lymph % (Auto) % Stokes % (Auto) % Eos % (Auto) % Baso % (Auto) % Neut # (Auto) (1.4-6.5) K/uL Lymph # (Auto) (1.2-3.4) K/uL Stokes # (Auto) (0.24-0.82) K/uL Eos # (Auto) (0-0.50) K/uL Baso # (Auto) (0-0.2) K/uL Immature Gran # (Auto) (0.00-0.02) K/uL ESR (0-30) mm/hr Sodium (136-145) mmol/L Potassium (3.5-5.1) mmol/L Chloride (98-107) mmol/L Carbon Dioxide (21-32) mmol/L Anion Gap (3-11) BUN (6-23) mg/dl Creatinine (0.6-1.2) mg/dl Est Cr Clr Drug Dosing ml/min Est GFR ( Amer) ml/min Est GFR (Non-Af Amer) ml/min BUN/Creatinine Ratio (10-20) Glucose (70-99(Fasting)) mg/dl Calcium (8.5-10.1) mg/dl Total Bilirubin (0.2-1.0) mg/dl AST (13-39) U/L ALT (7-52) U/L Alkaline Phosphatase (34-104) U/L C-Reactive Protein 6.50 H (0-0.5) mg/dl Total Protein (6.0-8.3) gm/dl Albumin (3.4-5.0) gm/dl Globulin (2.5-4.0) gm/dl Albumin/Globulin Ratio (0.9-2) Procalcitonin 0.06 (0-0.5) ng/ml Administered Medications Discontinued Medications Acetaminophen (Acetaminophen 500 Mg Tab) 1,000 mg PO NOW STA Stop: 01/24/22 11:06 Last Admin: 01/24/22 11:31 Dose: Not Given Documented by: [id number] Vancomycin HCl 1,750 mg/ (Sodium Chloride) 535 mls @ 200 mls/hr IV NOW ONE Stop: 01/24/22 14:57 Last Infusion: 01/24/22 15:52 Dose: 0 mls/hr Documented by: [id number] Admin: 01/24/22 13:29 Dose: 200 mls/hr Documented by: [id number] Cefepime HCl (Maxipime) 2,000 mg in 20 mls @ 5 mls/min IV NOW STA; Protocol Stop: 01/24/22 12:20 Last Admin: 01/24/22 13:29 Dose: 5 mls/min Documented by: [id number] Ondansetron HCl (Ondansetron Inj 2 Mg/Ml 2 Ml Vial) 4 mg IV NOW STA Stop: 01/24/22 11:06 Last Admin: 01/24/22 11:31 Dose: Not Given Documented by: [id number] Discharge Plan Visit Data Chief Complaint: Bite Stated Complaint: BUG BITE ON L LEG, WORSENING ED Provider: Reji Gerardo Discharge Problem: Cellulitis, Acute leg pain Patient Disposition: Admitted As Inpatient Discharge Instructions Interventions: ED Discharge Assessment Last Done: 01/24/22 14:40
[2022-01-24] MEDS ORDERED: ONDANSETRON INJ 2 MG/ML 2 ML VIAL IV STA (11:05)
[2022-01-24] MEDS ORDERED: ACETAMINOPHEN 500 MG TAB PO STA (11:05)
[2022-01-24 11:40] LABS: Basophils # (auto) 0.11 K/uL (0-0.2); Eosinophils # (auto) 0.22 K/uL (0-0.50); Hematocrit (blood only) 35.3 % (34.1-44.9); Hemoglobin 11.9 g/dl (12.0-16.0); Immature Granulocytes # (auto) 0.03 K/uL (0.00-0.02); Immature Granulocytes % (auto) 0.3 %; Lymphocytes # (auto) 2.26 K/uL (1.2-3.4); Lymphocytes % (auto) 20.5 %; Mean Corpuscular Hemoglobin 30.3 pg (25.0-34.0); Mean Corpuscular Hgb Conc 33.7 g/dL (32.0-36.0); Mean Corpuscular Volume 89.8 fL (80.0-100.0); Mean Platelet Volume 10.8 fL (9.4-12.3); Monocytes # (auto) 1.27 K/uL (0.24-0.82); Monocytes % (auto) 11.5 %; Neutrophils # (auto) 7.15 K/uL (1.4-6.5); Neutrophils % (auto) 64.7 %; Platelet Count 276 K/uL (130-400); RDW Coefficient of Variation 13.2 % (11.5-14.5); RDW Standard Deviation 43.8 fL (36.4-46.3); Red Blood Count 3.93 M/uL (3.93-5.22); White Blood Count 11.04 K/ul (4.8-10.8)
[2022-01-24 12:08] LABS: Albumin Globulin Ratio 1.1 (0.9-2); BUN Creatinine Ratio 27.5 (10-20); Bilirubin,Total 0.4 mg/dl (0.2-1.0); Calcium 9.9 mg/dl (8.5-10.1); Creatinine Clr Calc Pharmacy 37.4 ml/min; Est GFR (African American) 58.5 ml/min; Est GFR (Non-African American) 50.5 ml/min; Globulin 3.8 gm/dl (2.5-4.0); Potassium 3.6 mmol/L (3.5-5.1); Total Protein 7.8 gm/dl (6.0-8.3)
--- NOTE | 2022-01-24 12:15 | Electrocardiogram Report ---
Test Reason : Blood Pressure : / mmHG Vent. Rate : 062 BPM Atrial Rate : 062 BPM P-R Int : 164 ms QRS Dur : 078 ms QT Int : 416 ms P-R-T Axes : 070 045 040 degrees QTc Int : 422 ms Poor data quality, interpretation may be adversely affected Normal sinus rhythm Normal ECG When compared with ECG of 11-AUG-2019 11:12, Premature atrial complexes are no longer Present Confirmed by Jimbo Sesay ([id number]) on 01/24/2022 12:15:06 PM Referred By: REFERRED SELF Confirmed By:Gallito Sesay
[2022-01-24] MEDS ORDERED: VANCOMYCIN HCL 1,750 MG in SODIUM CHLORIDE 0.9% 500 ML IV ONE (12:17)
[2022-01-24] MEDS ORDERED: VANCOMYCIN CONSULT ACTIVE PRN (12:17)
[2022-01-24] MEDS ORDERED: CEFEPIME 2,000 MG/20 ML VIAL IV STA (12:17)
[2022-01-24] MEDS ORDERED: GLUCAGON FOR INJ 1 MG VIAL SQ PRN (15:07)
[2022-01-24] MEDS ORDERED: ONDANSETRON INJ 2 MG/ML 2 ML VIAL IV PRN (15:07)
[2022-01-24] MEDS ORDERED: GABAPENTIN 300 MG CAP PO PRN (15:07)
[2022-01-24] MEDS ORDERED: CARBOHYDRATES FOR HYPOGLYCEMIA PO PRN (15:07)
[2022-01-24] MEDS ORDERED: GLUCOSE 10 TAB/TUBE PO PRN (15:07)
[2022-01-24] MEDS ORDERED: GLUCOSE 40% GEL 15 GM TUBE PO PRN (15:07)
[2022-01-24] MEDS ORDERED: DEXTROSE 50% 50 ML SYRINGE IV PRN (15:07)
[2022-01-24] MEDS ORDERED: ACETAMINOPHEN 325 MG TAB PO PRN (15:07)
--- NOTE | 2022-01-24 15:58 | Pharmacy Report ---
Pharmacy PK ABX Note - Date of Service January 24, 2022 - Assessment and Plan Assessment 86 year old F receiving Vancomycin and Cefepime for treatment of skin and soft tissue infection. * Patient was seen in ED on 01/22/22 for possible cellulitis. Discharged with prescriptions for Keflex and Doxy. Culture from that date showed no growth. * Returns today for no improvement. * Afebrile. Mild leukocytosis of 11k. Renal fxn at baseline. ESR/CRP slightly elevated. Procalcitonin negative. Plan Vancomycin * Loading dose: 1750 mg IV x 1 * Maintenance dose: 1000 mg IV every 24 hours * Regimen is predicted to achieve target AUC/ULISES of 400-600 mg/L.hr * Random level ordered for: 01/26/22 Cefepime * Target dose: 2000 mg IV every 8 hours * Adjusted to 2000 mg IV every 12 hours for CrCl 30-60 mL/min Pharmacy will continue to follow and will adjust dose/frequency as necessary. Thank you. Pharmacy has transitioned to AUC monitoring for vancomycin. AUC/ULISES is the preferred PK/PD target and is associated with decreased risk of nephrotoxicity compared to traditional trough targets.
--- NOTE | 2022-01-24 17:01 | History & Physical Report ---
Date of Service January 24, 2022 Assessment & Plan (1) Cellulitis: Plan: Not clearly failing outpatient treatment with Keflex and doxycycline given improvement in her white blood count however definitively worsening erythema and increasing pain recommend transitioning to intravenous cefepime and vancomycin and monitoring patient in the hospital to make sure improving prior to discharge. Increased risk of progression due to diabetes. Blood and wound cultures pending (2) Insulin dependent diabetes mellitus: Plan: Hemoglobin A1c 8.3 in October. Repeat with a.m. labs Humulin N 15 units SQ twice daily (usually takes 26 units twice daily at home) - reduction due to change in diet while in hospital NovoLog: --Goal BSG Range: Low 110 mg/dL, High 140 mg/dL --Correction Factor: 15 mg/dL/unit --Carbohydrate ratio = 6 g/unit --BSGs ACHS if eating, q6h if npo (3) Hyperlipidemia: Plan: Increased risk of myalgias due to diltiazem and simvastatin use therefore reduce his simvastatin to 5 mg p.o. at bedtime. Consider reduction long-term. (4) Diabetic nephropathy: Plan: Continue gabapentin 300 mg daily as needed, duloxetine 60 mg p.o. daily (5) HTN (hypertension): Plan: Continue usual home medications with atenolol 50 mg PO daily, Diltazem 120mg PO daily, enalapril 10mg PO daily Plan VTE prophylaxis - Lovenox 40 mg SQ daily Diet - T2DM Disposition observation status to med/surg Admission and Anticipated Discharge Date Admission Date: January 24, 2022 History of Present Illness Chief Complaint: Left leg erythema Primary Care Provider: SHANNAN Hernandes Ruth Devin is an 86 year old female who represents to the ER with worsening cellulitis despite treatment with Keflex and doxycycline. Her initial injury she feels was down to something biting her when she was putting on her trousers on 01/21 (3 days ago). She came to the ER 2 days ago with erythema surrounding pustule area. She was given her initial dose of ceftriaxone and doxycycline in the emergency room and discharged home with Keflex and doxycycline. She cannot remember her medications but reports being compliant with the antibiotics. She reports being told to return to the ER if the erythema spread beyond the marked blue ring on her leg therefore she returned to the ER today because this happened. She denies any fever or chills. Pain in this area and pustules have become worse over the last 2 days. In the ER WBC has improved from 16.72 to 11.04. However given diabetes, worsening pain and erythema she was referred to medicine for admission and ongoing management of cellulitis. Allergies Allergy/AdvReac Type Severity Reaction Status Date / Time codeine Allergy Severe RASH Verified 01/24/22 14:50 Sulfa (Sulfonamide Allergy Intermediate rash Verified 01/24/22 14:50 Antibiotics) sulfabenzamide Allergy Intermediate rash Verified 01/24/22 14:50 sulfacetamide Allergy Intermediate rash Verified 01/24/22 14:50 sulfathiazole Allergy Intermediate rash Verified 01/24/22 14:50 insulin glargine Allergy Mild pruritus Verified 01/24/22 14:50 (noted after 7+ days of use) ciprofloxacin [From Cipro] Allergy Unknown Verified 01/24/22 17:28 aspirin AdvReac Severe Gastrointestinal Verified 01/24/22 14:50 Upset erythromycin base AdvReac Intermediate abdominal Verified 01/24/22 14:50 pain NSAIDS (Non-Steroidal AdvReac Intermediate gastric Verified 01/24/22 14:50 Anti-Inflamma bleeding rosuvastatin AdvReac Intermediate muscle Verified 01/24/22 14:50 aches, cramps in calves hydrocodone AdvReac Mild itching Verified 01/24/22 14:50 oxycodone AdvReac Mild itching Verified 01/24/22 14:50 amitriptyline AdvReac Drowsy Verified 01/24/22 17:28 Home Medications Medication Instructions Recorded Confirmed Type melatonin 5 mg tablet 5 mg PO HS 04/21/19 01/24/22 History acetaminophen 500 mg capsule 500 mg PO UD PRN Pain 12/03/20 01/24/22 History cyanocobalamin (vitamin B-12) 500 500 mcg PO DAILY 12/03/20 01/24/22 History mcg tablet (Vitamin B-12) cholecalciferol (vitamin D3) 25 5,000 unit PO Q OTHER DAY 02/01/21 01/24/22 History mcg (1,000 unit) capsule fluticasone 100 mcg-salmeterol 50 1 inh inhalation BID COPD #180 ea 06/14/21 01/24/22 Rx mcg/dose blistr powdr for inhalation (Advair Diskus) enalapril maleate 10 mg tablet 10 mg PO QAM #90 tabs 08/11/21 01/24/22 Rx insulin NPH isoph U-100 human 100 See Rx Instructions .Route .COMPLEX 10/19/21 01/24/22 History unit/mL (3 mL) subcutaneous pen (Humulin N NPH U-100 Insulin KwikPen) diltiazem HCl 120 mg capsule,24 120 mg PO QAM #90 caps 11/04/21 01/24/22 Rx hr,extended release omeprazole 40 mg capsule,delayed 40 mg PO DAILY #90 caps 11/07/21 01/24/22 Rx release trazodone 50 mg tablet 50 mg PO HS Sleep #90 tabs 11/07/21 01/24/22 Rx duloxetine 60 mg capsule,delayed 60 mg PO DAILY #90 caps 11/28/21 01/24/22 Rx release simvastatin 40 mg tablet 40 mg PO QPM 90 days #90 tabs 12/05/21 01/24/22 Rx Humalog KwikPen Insulin 100 14 unit (0.14 mL) subcut BID 90 12/06/21 01/24/22 Rx unit/mL subcutaneous (insulin days #30 mL lispro) BD Ultra-Fine Mini Pen Needle 31 #400 ea 12/20/21 12/27/21 Rx gauge x 3/16" (pen needle, diabetic) BD Ultra-Fine Mini Pen Needle 31 #400 ea 12/20/21 12/27/21 Rx gauge x 3/16" (pen needle, diabetic) atenolol 50 mg tablet 50 mg PO QAM #90 tabs 12/26/21 01/24/22 Rx cetirizine 5 mg tablet 5 mg PO DAILY allergy symptoms #30 12/27/21 01/24/22 Rx tabs gabapentin 300 mg capsule 300 mg PO DAILY PRN Pain #90 caps 12/27/21 01/24/22 Rx FreeStyle Lite Strips (blood sugar #300 ea 12/28/21 Rx diagnostic) FreeStyle Lancets 28 gauge #300 ea 12/30/21 Rx (lancets) cephalexin 500 mg capsule 500 mg PO BID 10 days #20 caps 01/22/22 01/24/22 Rx doxycycline hyclate 100 mg tablet 100 mg PO BID 10 days #20 tabs 01/22/22 01/24/22 Rx Past Med/Surg History Medical History (Updated 01/25/22 @ 06:34 by Raymond Hernandez MD) Benign essential HTN Cervical spine degeneration Chronic cholecystitis NOT REPORTED BY PT Chronic obstructive pulmonary disease SOB ON EXERTION Cyst of right kidney Depression Diverticulosis Fibromyalgia Gastric bleeding hx years ago in setting of NSAID use Gastroparesis GERD (gastroesophageal reflux disease) occasional Hayfever Hearing loss, bilateral Hiatal hernia History of pancreatic cancer 1989 s/p whipple procedure HLD (hyperlipidemia) HTN (hypertension) Hypercalcemia Insomnia Lumbar back pain Lumbar back pain with radiculopathy affecting left lower extremity Osteoarthritis Paroxysmal SVT (supraventricular tachycardia) on atenolol SOB (shortness of breath) on exertion Tubular adenoma of colon HX Valvular heart disease NOT REPORTED BY PT Surgical History History of breast biopsy History of lumbar spinal fusion TOTAL OF 2 BACK SURGERIES , PT NOT SURE DETAILS 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 Arthritis Myocardial infarction Breast cancer Father , age 90 of a stroke. Stroke Prostate cancer Brother Diabetes Lung cancer Sister Diabetes Breast cancer Aunt Breast cancer Son Myocardial infarction Thyroid cancer Tongue cancer Prostate cancer Family/Other Asthma Denies family history of Ovarian cancer Colorectal cancer Social History Smoking Status: Never smoker Second Hand Exposure: Yes; Hx Alcohol Use: No Hx Substance Use: No Preferred Language: Sinhala Communication Ability: Effective Visual Impairment: No Limitations Hearing Ability: Use of Hearing Aid Hotel Director Required: No Beliefs That Will Affect Care: None marital status: Current Living Situation: Spouse current occupational status: retired How many Children do You have: 6 Other Information That Helps Us Care for You: No other: 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 Feels Safe at Home: Yes Safety Concerns: Feels Safe At This Time Childhood Exposure to Second-Hand Smoke: No caffeine: Yes during the past year weight has: remained stable Dental Care, Regularly: Yes Physical Activity Frequency: Does not Exercise Physical Activity Frequency Comment: due to physical condition Seatbelt Use: always Sunscreen Use: No Assistive Devices: Denture - Upper, Denture - Lower, Glasses and Hearing Aid - Bilateral Review of Systems Review of Systems: All systems reviewed & are unremarkable except as noted in HPI & below Physical Exam Constitutional: WD/WN, vitals as above Eyes: + anicteric sclerae; normal pupil size ENMT: external ear and nose normal, oropharynx normal Neck: trachea midline, no thyromegaly Respiratory: normal respiratory effort, lungs clear to auscultation Cardiovascular: RRR, no murmur, no edema Gastrointestinal (Abdomen): normal bowel sounds, soft, nontender, no hepatosplenomegaly Musculoskeletal: no cyanosis or clubbing, extremities motor strength 5/5 Skin: + erythema (approximately 15cm diameter, extends 1 inch beyond blue line) central pustular area Neurologic: moves all extremities and awake; not confused Psychiatric: A+Ox3, euthymic affect Results & Data Results & Data ([facility]) Vital Signs (Past 12 Hours) Vital Signs Temp Pulse Pulse Resp BP BP Pulse Ox 01/24/22 15:00 36.9 C 59 L 18 166/70 H 95 01/24/22 14:40 72 18 167/74 H 98 01/24/22 13:00 67 18 184/78 H 96 01/24/22 11:28 70 16 98 01/24/22 10:38 36.5 C 69 16 182/72 H 97 Laboratory Results Abnormal lab results 01/24/22 01/24/22 01/24/22 Range/Units 11:23 11:23 11:23 WBC 11.04 H (4.8-10.8) K/ul Hgb 11.9 L (12.0-16.0) g/dl Neut # (Auto) 7.15 H (1.4-6.5) K/uL [place] # (Auto) 1.27 H (0.24-0.82) K/uL Immature Gran # (Auto) 0.03 H (0.00-0.02) K/uL ESR 46 H (0-30) mm/hr Sodium 133 L (136-145) mmol/L BUN 28 H (6-23) mg/dl BUN/Creatinine Ratio 27.5 H (10-20) Glucose 258 H (70-99(Fasting)) mg/dl POC Glucose (70-99) mg/dl C-Reactive Protein (0-0.5) mg/dl 01/24/22 01/24/22 01/24/22 Range/Units 11:23 15:54 17:16 WBC (4.8-10.8) K/ul Hgb (12.0-16.0) g/dl Neut # (Auto) (1.4-6.5) K/uL [place] # (Auto) (0.24-0.82) K/uL Immature Gran # (Auto) (0.00-0.02) K/uL ESR (0-30) mm/hr Sodium (136-145) mmol/L BUN (6-23) mg/dl BUN/Creatinine Ratio (10-20) Glucose (70-99(Fasting)) mg/dl POC Glucose 107 H 158 H (70-99) mg/dl C-Reactive Protein 6.50 H (0-0.5) mg/dl 01/24/22 Range/Units 20:47 WBC (4.8-10.8) K/ul Hgb (12.0-16.0) g/dl Neut # (Auto) (1.4-6.5) K/uL [place] # (Auto) (0.24-0.82) K/uL Immature Gran # (Auto) (0.00-0.02) K/uL ESR (0-30) mm/hr Sodium (136-145) mmol/L BUN (6-23) mg/dl BUN/Creatinine Ratio (10-20) Glucose (70-99(Fasting)) mg/dl POC Glucose 104 H (70-99) mg/dl C-Reactive Protein (0-0.5) mg/dl Medications Administered ER Medications Given: Ondansetron 4mg IV Acetaminophen 1g PO Vancomycin 1750mg IV Cefepime 2g IV ECG Rate (beats per minute): 62 Rhythm: normal sinus Findings: no acute ischemic change Comparison ECG Date: from (August 11, 2019) Change: the following changes noted (PACs no longer present) Code Status & VTE Plan Code Status Full VTE Prophylaxis Plan VTE Prophylaxis will be ordered: Yes PG Care Time/CCT Total # of Minutes Spent Total Time Spent with Patient: Total time spent is greater than 50% in coordination of care (as documented) at patient's floor/unit and/or counseling patient: Coding Level of Care Code INT OBSERVATION CARE 50M LVL 2 Diagnoses Cellulitis L03.90 Site of cellulitis: unspecified site Insulin dependent diabetes mellitus Hyperlipidemia E78.5 Diabetic nephropathy E11.21 HTN (hypertension) I10 (1) Cellulitis Site of cellulitis: unspecified site Qualified Code(s): L03.90 - Cellulitis, unspecified
[2022-01-24] MEDS: INSULIN ASPART PER UNIT SC SCH ×2 (17:26→21:02)
[2022-01-24] MEDS ORDERED: CALCIUM CARBONATE 500 MG CHEWABLE TAB PO PRN (20:53)
[2022-01-24] MEDS ORDERED: SIMVASTATIN 10 MG TAB PO SCH (21:00)
[2022-01-24] MEDS ORDERED: INSULIN HUMAN NPH SC SCH (21:00)
[2022-01-24] MEDS ORDERED: traZODone HCL 50 MG TAB PO SCH (21:00)
[2022-01-24] MEDS ORDERED: MELATONIN 3 MG TAB PO SCH (21:00)
[2022-01-24] MEDS: INSULIN HUMAN NPH SC SCH (22:12)
[2022-01-25] MEDS: CEFEPIME 2,000 MG in SYRINGE 0 ML IV SCH ×2 (01:47→13:24)
[2022-01-25] MEDS ORDERED: INSULIN HUMAN NPH SC SCH (08:00)
[2022-01-25] MEDS ORDERED: VANCOMYCIN HCL 1,000 MG in SODIUM CHLORIDE 0.9% 250 ML IV SCH (08:00)
[2022-01-25 09:00] LABS: Estimated Average Glucose 183 mg/dl
[2022-01-25] MEDS ORDERED: CYANOCOBALAMIN (B-12) 500 MCG TABLET PO SCH (09:00)
[2022-01-25] MEDS ORDERED: FLUTICASONE/VILANTEROL 100/25MCG 14 PUFFS/INHALER INH SCH (09:00)
[2022-01-25] MEDS ORDERED: ENALAPRIL MALEATE 10 MG TAB PO SCH (09:00)
[2022-01-25] MEDS ORDERED: dilTIAZem ER 120 MG CAPCR PO SCH (09:00)
[2022-01-25] MEDS ORDERED: PANTOprazole 40 MG TAB PO SCH (09:00)
[2022-01-25] MEDS ORDERED: ENOXAPARIN INJ 40 MG/0.4 ML SYR SQ SCH (09:00)
[2022-01-25] MEDS ORDERED: ATENOLOL 50 MG TABLET PO SCH (09:00)
[2022-01-25] MEDS ORDERED: DULoxetine HCL 60 MG CAP PO SCH (09:00)
[2022-01-25] MEDS ORDERED: CETIRIZINE HCL 10 MG TABLET PO SCH (09:00)
--- NOTE | 2022-01-25 09:02 | Hospitalist Progress Note ---
Date of Service January 25, 2022 Assessment & Plan (1) Cellulitis: Plan: outpatient treatment with Keflex and doxycycline transitioning to intravenous cefepime and vancomycin and monitoring patient in the hospital to make sure improving Blood and wound cultures pending (2) Insulin dependent diabetes mellitus: Plan: Hemoglobin A1c 8.3 in October. Repeat with a.m. labs Humulin N 15 units SQ twice daily (usually takes 26 units twice daily at home) - reduction due to change in diet while in hospital NovoLog: --Goal BSG Range: Low 110 mg/dL, High 140 mg/dL --Correction Factor: 15 mg/dL/unit --Carbohydrate ratio = 6 g/unit --BSGs ACHS if eating, q6h if npo (3) Hyperlipidemia: Plan: Increased risk of myalgias due to diltiazem and simvastatin use therefore reduce simvastatin to 5 mg p.o. at bedtime. Consider reduction long-term. (4) Diabetic nephropathy: Plan: Continue gabapentin 300 mg daily as needed, duloxetine 60 mg p.o. daily (5) HTN (hypertension): Plan: Continue usual home medications with atenolol 50 mg PO daily, Diltazem 120mg PO daily, enalapril 10mg PO daily Plan VTE prophylaxis - Lovenox 40 mg SQ daily Diet - T2DM Disposition observation status to med/surg Admission and Anticipated Discharge Date Admission Date: January 24, 2022 Results & Data Results & Data ([facility]) Vital Signs (Past 12 Hours) Vital Signs Temp Pulse Resp BP BP Pulse Ox O2 Del Method 01/25/22 08:10 97.7 F 51 L 16 167/63 H 97 Room Air 01/24/22 21:02 97.9 F 73 20 147/93 H 94 Room Air PG Care Time/CCT Total # of Minutes Spent Total Time Spent with Patient: Total time spent is greater than 50% in coordination of care (as documented) at patient's floor/unit and/or counseling patient: Coding Diagnoses Cellulitis L03.90 Site of cellulitis: unspecified site Insulin dependent diabetes mellitus Hyperlipidemia E78.5 Diabetic nephropathy E11.21 HTN (hypertension) I10 (1) Cellulitis Site of cellulitis: unspecified site Qualified Code(s): L03.90 - Cellulitis, unspecified
[2022-01-25 09:12] LABS: BUN Creatinine Ratio 24.7 (10-20); Calcium 9.6 mg/dl (8.5-10.1); Creatinine Clr Calc Pharmacy 42.8 ml/min; Est GFR (Non-African American) 59.5 ml/min; Potassium 4.1 mmol/L (3.5-5.1)
[2022-01-25 09:22] LABS: Basophils # (auto) 0.13 K/uL (0-0.2); Basophils % (auto) 1.4 %; Eosinophils # (auto) 0.43 K/uL (0-0.50); Eosinophils % (auto) 4.6 %; Hematocrit (blood only) 34.8 % (34.1-44.9); Hemoglobin 11.7 g/dl (12.0-16.0); Immature Granulocytes # (auto) 0.03 K/uL (0.00-0.02); Immature Granulocytes % (auto) 0.3 %; Lymphocytes # (auto) 1.83 K/uL (1.2-3.4); Lymphocytes % (auto) 19.7 %; Mean Corpuscular Hemoglobin 30.2 pg (25.0-34.0); Mean Corpuscular Hgb Conc 33.6 g/dL (32.0-36.0); Mean Corpuscular Volume 89.9 fL (80.0-100.0); Mean Platelet Volume 11.5 fL (9.4-12.3); Monocytes # (auto) 0.99 K/uL (0.24-0.82); Monocytes % (auto) 10.7 %; Neutrophils # (auto) 5.87 K/uL (1.4-6.5); Neutrophils % (auto) 63.3 %; Platelet Count 224 K/uL (130-400); Platelet Estimate Normal (Normal); RDW Coefficient of Variation 13.2 % (11.5-14.5); RDW Standard Deviation 43.3 fL (36.4-46.3); Red Blood Count 3.87 M/uL (3.93-5.22); White Blood Count 9.28 K/ul (4.8-10.8)
[2022-01-25] MEDS: INSULIN ASPART PER UNIT SC SCH ×2 (09:23→12:58)
[2022-01-25] MEDS: INSULIN HUMAN NPH SC SCH (09:25)
--- NOTE | 2022-01-25 16:39 | Discharge Summary ---
Date of Service January 25, 2022 Admission HPI Per Admitting Provider Ruth Beltran is an 86 year old female who represents to the ER with worsening cellulitis despite treatment with Keflex and doxycycline. Her initial injury she feels was down to something biting her when she was putting on her trousers on 01/21 (3 days ago). She came to the ER 2 days ago with erythema surrounding pustule area. She was given her initial dose of ceftriaxone and doxycycline in the emergency room and discharged home with Keflex and doxycycline. She cannot remember her medications but reports being compliant with the antibiotics. She reports being told to return to the ER if the erythema spread beyond the marked blue ring on her leg therefore she returned to the ER today because this happened. She denies any fever or chills. Pain in this area and pustules have become worse over the last 2 days. In the ER WBC has improved from 16.72 to 11.04. However given diabetes, worsening pain and erythema she was referred to medicine for admission and ongoing management of cellulitis. Principal Diagnosis SPIDER BITE NECROSIS CELLULITIS Discharge Exam The skin exam of her right posterior thigh was examined there was an area of demarcation that the erythema was well within. There is some central areas of necrotic tissue consistent with a spider bite. Overall this looks to be improved from initial description. Discharge Data Allergies Allergy/AdvReac Type Severity Reaction Status Date / Time codeine Allergy Severe RASH Verified 01/24/22 14:50 Sulfa (Sulfonamide Allergy Intermediate rash Verified 01/24/22 14:50 Antibiotics) sulfabenzamide Allergy Intermediate rash Verified 01/24/22 14:50 sulfacetamide Allergy Intermediate rash Verified 01/24/22 14:50 sulfathiazole Allergy Intermediate rash Verified 01/24/22 14:50 insulin glargine Allergy Mild pruritus Verified 01/24/22 14:50 (noted after 7+ days of use) ciprofloxacin [From Cipro] Allergy Unknown Verified 01/24/22 17:28 aspirin AdvReac Severe Gastrointestinal Verified 01/24/22 14:50 Upset erythromycin base AdvReac Intermediate abdominal Verified 01/24/22 14:50 pain NSAIDS (Non-Steroidal AdvReac Intermediate gastric Verified 01/24/22 14:50 Anti-Inflamma bleeding rosuvastatin AdvReac Intermediate muscle Verified 01/24/22 14:50 aches, cramps in calves hydrocodone AdvReac Mild itching Verified 01/24/22 14:50 oxycodone AdvReac Mild itching Verified 01/24/22 14:50 amitriptyline AdvReac Drowsy Verified 01/24/22 17:28 Consultations 01/24/22 12:42 ED Decision to Admit Stat Hospital Course (1) Cellulitis: With the tissue necrosis centrally in this lesion it looks to be consistent with a spider bite. Patient will complete outpatient treatment with Keflex and doxycycline Blood and wound cultures pending at the time of discharge (2) Insulin dependent diabetes mellitus: Hemoglobin A1c 8.3 in October. Repeat 8.0 Humulin N 26 units twice daily at home -plus Humalog with meals (3) Hyperlipidemia: Patient continues on simvastatin we will recommend to discuss with her primary care doctor the utility of continuing this (4) Diabetic nephropathy: Continue gabapentin 300 mg daily as needed, duloxetine 60 mg p.o. daily (5) HTN (hypertension): Continue usual home medications with atenolol 50 mg PO daily, Diltazem 120mg PO daily, enalapril 10mg PO daily Plan Diet - T2DM Disposition observation status to med/surg Total Time Total Time Spent Total Time Spent (In Minutes): It required greater than 30 minutes to prepare this patient for discharge Discharge Plan Discharge Items Patient Disposition: Home - Self-Care Reason For Visit: BUG BITE ON L LEG, WORSENING Discharge Diagnosis: Spider bite with tissue necrosis cellulitis(skin infection) Activity: Resume your previous activity Non-emergency contact: Primary Care Provider Call non-emergency contact if: your symptoms worsen and you have a fever Follow-up/Referrals: Irvin Richard CRNP [Primary Care Provider] - 01/27/22 9:00 am (An appointment has been made for you with ARMANI Jacques. If you are unable to keep this follow up appointment please call the office to reschedule.) Diet: Carb Consistent or DM2 Addtl Attending Provider Instructions: If your wound is from a spider bite, expect it to heal slowly and be occasionally painful this will leave a discolored scar. If the area that is red expands or gets bigger, or if you develop a fever more than 100F please seek medical attention -Wash the area with soap and water at least once a day and/or if it gets soiled -do not use astringent agents such as alcohol or peroxide -use a small amount of antibioitc ointment to keep the wound from drying out -keep clean and covered if wearing clothes that would rub on it, if you wish you may let it open to air but it it dries out use another treatment of antibiotic ointment. This ointment should be over the counter kind -use pain medicines sparingly -follow up with your family doctor Pending Studies at Discharge: Yes (final culture results from blood and wound) Stand-Alone Forms: [facility], Smoking Cessation Medications and DC Order Prescriptions: New hydromorphone [Dilaudid] 2 mg tablet 2 mg PO Q8H Qty: 20 0RF Continued fluticasone propion-salmeterol [Advair Diskus] 100-50 mcg/dose blister with device 1 inh INHALATION BID Qty: 180 2RF enalapril maleate 10 mg tablet 10 mg PO QAM Qty: 90 1RF Humulin N NPH Insulin KwikPen 100 unit/mL (3 mL) insulin pen See Rx Instructions .ROUTE .COMPLEX Rx Instructions: Inject 26 units in the AM and 20 units in the PM; 26 units am and 20 units pm Patient reports taking 26 units BID diltiazem HCl 120 mg capsule,extended release 24 hr 120 mg PO QAM Qty: 90 1RF omeprazole 40 mg capsule,delayed release(DR/EC) 40 mg PO DAILY Qty: 90 1RF trazodone 50 mg tablet 50 mg PO HS Qty: 90 1RF duloxetine 60 mg capsule,delayed release(DR/EC) 60 mg PO DAILY Qty: 90 3RF simvastatin 40 mg tablet 40 mg PO QPM 90 Days Qty: 90 3RF insulin lispro [Humalog KwikPen Insulin] 100 unit/mL insulin pen 14 unit SQ BID MDD 30 units 90 Days Qty: 30 3RF Rx Instructions: Patient reports 8 in morning and 12 in afternoon with food (DME) pen needle, diabetic [BD Ultra-Fine Mini Pen Needle] 31 gauge x 3/16" needle See Dose Instructions .ROUTE .MEDSUPPLY Qty: 400 3RF Rx Instructions: Use 4 per day with insulin (DME) pen needle, diabetic [BD Ultra-Fine Mini Pen Needle] 31 gauge x 3/16" needle See Dose Instructions .ROUTE .MEDSUPPLY Qty: 400 3RF Rx Instructions: Use 4 per day with insulin atenolol 50 mg tablet 50 mg PO QAM Qty: 90 1RF (DME) FreeStyle Lite Strips Strip See Dose Instructions .ROUTE .MEDSUPPLY Qty: 300 3RF Rx Instructions: Test blood sugar 3 times daily (DME) lancets [FreeStyle Lancets] 28 gauge misc See Rx Instructions .ROUTE .MEDSUPPLY Qty: 300 3RF Rx Instructions: Test TID gabapentin 300 mg capsule 300 mg PO DAILY PRN (Reason: Pain) Qty: 90 1RF cetirizine 5 mg tablet 5 mg PO DAILY Qty: 30 0RF cholecalciferol (vitamin D3) 25 mcg (1,000 unit) capsule 5,000 unit PO Q OTHER DAY melatonin 5 mg Tablet 5 mg PO HS cyanocobalamin (vitamin B-12) [Vitamin B-12] 500 mcg Tablet 500 mcg PO DAILY acetaminophen 500 mg Capsule 500 mg PO UD PRN (Reason: Pain) cephalexin 500 mg capsule 500 mg PO BID 10 Days Qty: 20 0RF doxycycline hyclate 100 mg tablet 100 mg PO BID 10 Days Qty: 20 0RF Discharge Orders: Discharge Order (Routine); Ordered 01/25/22 Ordered By: Girma Pettit/Other Patient Handouts: Cellulitis Dc Admission Data Admit Date/Time: 01/24/22 12:39 Attending Provider: Girma Jorgensen Admit Provider: Raymond Hernandez Primary Care Provider: Irvin Richard Other Providers: Raymond Hernandez Other Interventions: Discharge Summary Assessment (RN) Last Done: 01/25/22 13:15 Coding Level of Care Code D/C DAY MANAGEMENT >30 MINS Diagnoses Cellulitis L03.90 Site of cellulitis: unspecified site Insulin dependent diabetes mellitus Hyperlipidemia E78.5 Diabetic nephropathy E11.21 HTN (hypertension) I10
[2022-01-26] MEDS ORDERED: VANCOMYCIN LEVEL ONE (07:00)
[2022-01-26] MEDS ORDERED: CHOLECALCIFEROL 5,000 UNITS 125 MCG TAB PO SCH (09:00)
== END 2022-01-25 14:10 | disposition home or self-care (01) ==
LOC: 3W 10:36 → ED 10:36 → SUATTDRO 12:39 → 3W 14:40

== ENCOUNTER 2025-01-08 11:21 | Inpatient (IN) ==
[2025-01-08 12:13] LABS: Hematocrit (blood only) 35.7 % (37.0-47.0); Hemoglobin 12.4 g/dl (12.0-16.0); Mean Corpuscular Hemoglobin 30.8 pg (25.0-34.0); Mean Corpuscular Volume 88.8 fL (80.0-100.0); Platelet Count 195 K/uL (130-400); RDW Standard Deviation 41.1 fL (36.4-46.3); Red Blood Count 4.02 M/uL (4.20-5.40); White Blood Count 9.51 K/ul (4.8-10.8)
[2025-01-08 12:20] LABS: Appearance Urine Clear (Clear); Bacteria Urine Automated None Seen (None Seen); Cast Urine Automated 0-2 /lpf (0-2); Epithelial Cell Urine Auto 0-2 /hpf (0-2); Glucose Urine UA 3+ (Negative); RBC Urine Automated 0-2 /hpf (0-2); WBC Urine Automated 0-5 /hpf (0-5)
--- NOTE | 2025-01-08 12:20 | Emergency Department Note ---
Impression & Plan Acute hyponatremia, Febrile, Hyperglycemia, Elevated troponin ED Provider Note NAME: FESTUS RESENDIZ AGE: 89 SEX: F : 1935 ARRIVES VIA: Ambulance INFORMANT: Patient ED PROVIDER(S): Sascha Gamez DO CHIEF COMPLAINT: Altered mental status HPI: Patient is an 89-year-old female with a past medical history of diabetes, hypertension, chronic back pain who presents to the ER as a son called her and noticed that she was confused. She notes that she has chronic back pain. He brought her in due to the confusion. When he went outside for the EMS and he came back in she had fallen and hit her head. She does not remember this event at all. He is not sure whether she passed out but does not think. She admits to belly pain as well as nausea but no vomiting. Admits to dysuria and urgency. She admits to chronic back pain which again is unchanged. No other exacerbating or remitting factors. ADDITIONAL HISTORY OBTAINED: Per HPI Chronic Medical/Social Conditions Affecting Care: Per HPI PAST MEDICAL HISTORY:See Below PAST SURGICAL HISTORY:See Below FAMILY HISTORY:See Below SOCIAL HISTORY:See Below HOME MEDICATIONS:See Below ALLERGIES:See Below VITALS:See Below PHYSICAL EXAMINATION: GENERAL: alert, well appearing, well nourished, no distress, non-toxic HEAD: normal cephalic, laceration and contusion to the right forehead EYE EXAM: normal conjunctiva, PERRL and EOM's grossly intact OROPHARYNX: no exudate, no erythema, lips, buccal mucosa, and tongue normal and mucous membranes are moist NECK: supple, no nuchal rigidity, no adenopathy, non-tender CHEST: stable to compression anteriorly and posteriorly LUNGS: clear to auscultation. Normal chest wall mechanics HEART: no murmurs, S1 normal and S2 normal ABDOMEN: abdomen soft, tender to palpation periumbilically and tracking to the epigastric region, normo-active bowel sounds, no masses, no rebound or guarding. PELVIS: stable to compression anteriorly and posteriorly BACK: Back is symmetrical on inspection and there is no deformity, no midline tenderness, no CVA tenderness. UPPER EXTREMITIES: full active and passive range of motion of all joints without tenderness to palpation LOWER EXTREMITIES: full active and passive range of motion of all joints without tenderness to palpation NEURO EXAM: Awake alert oriented to person, place and year, cranial nerves II- XII grossly intact, normal speech, no gross weakness of arms, no gross weakness of legs. GCS: 15. MEDICAL DECISION MAKING: Patient is an 89-year-old female who presents ER for above-stated complaint. IV was established and blood work was obtained. Labs showed no significant leukocytosis or anemia. INR unremarkable at 1.3. BMP with hyponatremia 125. Glucose elevated 360. Lactate was initially slightly elevated at 2.1. She was given IV fluids. LFTs and bilirubin were unremarkable. Troponin was positive. UA was negative. Viral panel was negative. CT head cervical spine abdomen pelvis was unremarkable. Chest x-ray suggested early pneumonia however CT would suggest atelectasis. Patient was covered with IV antibiotics given IV fluids. Updated at bedside. Confusion did improve. Discussed case with the hospitalist for further evaluation management treatment. Patient was given IV Rocephin, fluids and Tylenol. Consults/Care Managements Discussions: Per [facility] Triage Nursing notes reviewed. Limited review of prior medical records performed Vital Signs: reviewed and remarkable for tachycardic and febrile Differential diagnosis: Differential diagnosis includes etiologies such as sepsis, UTI, pneumonia, metabolic, electrolyte abnormalities, cardiac sources, intracerebral event, toxicologic, neurological, as well as others were entertained. ER treatment provided: See below Diagnostics interpreted by me include EKG and cardiac monitoring as listed below: -Cardiac Monitoring: An order was placed for continuous cardiac monitoring. The monitor shows a rate of 90 with sinus rhythm. -ECG: Sinus rhythm rate of 91 Normal axis No PVCs QTc 437 -Laboratory studies:Interpreted by me as stated above in MDM and shown below. 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 Bronchiectasis HTN (hypertension) Hypoglycemia associated with type 2 diabetes mellitus Depression GERD (gastroesophageal reflux disease) (Chronic) Vitamin D deficiency (Chronic) Diabetic nephropathy (Chronic) Gastric polyps (Chronic) Hypercholesteremia (Chronic) Bunion of great toe Neurogenic claudication due to lumbar spinal stenosis Osteopenia Binocular vision disorder with diplopia Cervical radiculopathy at C6 Benign essential tremor Chronic sinusitis Insulin dependent diabetes mellitus CKD (chronic kidney disease) stage 3, GFR 30-59 ml/min Medical History (Updated 01/08/25 @ 16:11 by Raymond Hernandez MD) Arthralgia, cervical spine Hayfever Hypercalcemia Gastric bleeding hx years ago in setting of NSAID use Cyst of right kidney Hearing loss, bilateral Tubular adenoma of colon HX Paroxysmal SVT (supraventricular tachycardia) on atenolol Insomnia Hiatal hernia Gastroparesis Fibromyalgia Diverticulosis Chronic obstructive pulmonary disease SOB ON EXERTION Cervical spine degeneration Valvular heart disease NOT REPORTED BY PT Chronic cholecystitis NOT REPORTED BY PT History of pancreatic cancer 1989 s/p whipple procedure Osteoarthritis Benign essential HTN HLD (hyperlipidemia) GERD (gastroesophageal reflux disease) occasional Lumbar back pain with radiculopathy affecting left lower extremity Surgical History (Updated 10/01/24 @ 07:43 by SHANNAN Hernandes) Status post lumbar spine operative procedure for decompression of spinal cord S/P cataract surgery apr 2021 bilateral History of partial pancreatectomy History of breast biopsy History of lumbar spinal fusion TOTAL OF 2 BACK SURGERIES , PT NOT SURE DETAILS Hx of right inguinal hernia repair Hx of total hysterectomy with removal of both tubes and ovaries Hx of esophagogastroduodenoscopy Hx of colonoscopy History of splenectomy whipple procedure ([facility]) Family History Mother , age 92 of an LA. Arthritis Myocardial infarction Breast cancer Father , age 90 of a stroke. Stroke Prostate cancer Brother Diabetes Lung cancer Sister Diabetes Breast cancer Aunt Breast cancer Son Myocardial infarction Thyroid cancer Tongue cancer Prostate cancer Family/Other Asthma Denies family history of Ovarian cancer Colorectal cancer Social History Smoking Status: Unknown if ever smoked Second Hand Exposure: Yes; Do You Dip or Chew Tobacco: No; Hx Alcohol Use: No Hx Substance Use: No Preferred Language: Danish Communication Ability: Effective Visual Impairment: No Limitations Hearing Ability: Use of Hearing Aid Dental Billing Specialist Required: No Beliefs That Will Affect Care: None marital status: Current Living Situation: Spouse current occupational status: retired How many Children do You have: 6 other: 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 Feels Safe at Home: Yes Childhood Exposure to Second-Hand Smoke: No Diet: regular caffeine: Yes during the past year weight has: remained stable Dental Care, Regularly: Yes Physical Activity Frequency: Does not Exercise Physical Activity Frequency Comment: due to physical condition Seatbelt Use: always Sunscreen Use: No Assistive Devices: None Allergies Allergies Allergy/AdvReac Type Severity Reaction Status Date / Time codeine Allergy Severe RASH Verified 09/30/24 13:23 Sulfa (Sulfonamide Allergy Intermediate rash Verified 09/30/24 13:23 Antibiotics) sulfabenzamide Allergy Intermediate rash Verified 09/30/24 13:23 sulfacetamide Allergy Intermediate rash Verified 09/30/24 13:23 sulfathiazole Allergy Intermediate rash Verified 09/30/24 13:23 insulin glargine Allergy Mild pruritus Verified 09/30/24 13:23 (noted after 7+ days of use) ciprofloxacin [From Cipro] Allergy Unknown Unknown Verified 09/30/24 13:23 aspirin AdvReac Severe Gastrointestinal Verified 09/30/24 13:23 Upset amitriptyline AdvReac Intermediate Drowsy Verified 09/30/24 13:23 erythromycin base AdvReac Intermediate abdominal Verified 09/30/24 13:23 pain NSAIDS (Non-Steroidal AdvReac Intermediate gastric Verified 09/30/24 13:23 Anti-Inflamma bleeding rosuvastatin AdvReac Intermediate muscle Verified 09/30/24 13:23 aches, cramps in calves hydrocodone AdvReac Mild itching Verified 09/30/24 13:23 oxycodone AdvReac Mild itching Verified 09/30/24 13:23 Home Meds Home Medications Medication Instructions Recorded Confirmed acetaminophen 500 mg capsule 500 mg PO UD PRN Pain 12/03/20 01/08/25 cyanocobalamin (vitamin B-12) 500 500 mcg PO DAILY 12/03/20 01/08/25 mcg tablet (Vitamin B-12) cholecalciferol (vitamin D3) 25 2,000 unit PO DAILY 10/12/22 01/08/25 mcg (1,000 unit) capsule melatonin 5 mg tablet 10 mg PO HS 01/02/23 01/08/25 Previous Rx's Medication Instructions Recorded blood-glucose meter (FreeStyle #1 ea 01/15/24 Lite Meter kit) FreeStyle Lancets 28 gauge #400 ea 02/11/24 (lancets) pen needle, diabetic 31 gauge x #400 ea 03/21/24/16" (BD Ultra-Fine Mini Pen Needle) enalapril maleate 10 mg tablet 10 mg PO QAM #90 tabs 06/05/24 FreeStyle Lite Strips (blood sugar #400 ea 08/07/24 diagnostic) gabapentin 300 mg capsule 300 mg PO DAILY PRN Pain #90 caps 08/07/24 insulin lispro 100 unit/mL 8 unit (0.08 mL) subcut BIDWMEAL 08/07/24 subcutaneous pen (Humalog KwikPen 90 days #15 mL (U-100) Insulin) diltiazem HCl 120 mg capsule,24 120 mg PO QAM #90 caps 09/29/24 hr,extended release tramadol 50 mg tablet 50 mg PO BID PRN pain #60 tabs 10/01/24 insulin NPH isoph U-100 human 100 19 unit (0.19 mL) subcut BID 90 01/05/25 unit/mL (3 mL) subcutaneous pen days #45 mL (Humulin N NPH U-100 Insulin KwikPen) Results & Data (ED) Vital Signs Vital Signs - 24 hr 01/08/25 11:26 01/08/25 11:30 01/08/25 11:45 Temperature 39.1 C H Temperature Source Oral Pulse Rate 91 H 93 H 85 Pulse Rate [Apical] Pulse Rate from SpO2 Sensor 86 Pulse Rhythm [Apical] Respiratory Rate 22 20 Respiratory Effort / Characteristics Respiratory Depth Respiratory Pattern Blood Pressure 132/75 132/75 Blood Pressure [Left Radial Artery] Blood Pressure Mean 94 94 Blood Pressure Mean [Left Radial Artery] Blood Pressure Position [Left Radial Artery] Pulse Oximetry 94 91 Oxygen Delivery Method Room Air Sepsis Recent Fever Within 48 Hours Yes Sepsis New/Unexplained Change in Mental Status Yes Sepsis Action Taken by Nursing Physician Notified 01/08/25 11:47 01/08/25 11:47 01/08/25 12:28 Temperature Temperature Source Pulse Rate 79 Pulse Rate [Apical] Pulse Rate from SpO2 Sensor 79 Pulse Rhythm [Apical] Respiratory Rate 19 Respiratory Effort / Characteristics Respiratory Depth Respiratory Pattern Blood Pressure 159/67 H Blood Pressure [Left Radial Artery] Blood Pressure Mean 97 Blood Pressure Mean [Left Radial Artery] Blood Pressure Position [Left Radial Artery] Pulse Oximetry 94 93 Oxygen Delivery Method Room Air Room Air Sepsis Recent Fever Within 48 Hours Sepsis New/Unexplained Change in Mental Status Sepsis Action Taken by Nursing 01/08/25 13:15 01/08/25 13:30 01/08/25 13:37 Temperature 37 C Temperature Source Oral Pulse Rate 75 74 Pulse Rate [Apical] Pulse Rate from SpO2 Sensor 74 74 Pulse Rhythm [Apical] Respiratory Rate 21 15 Respiratory Effort / Characteristics Respiratory Depth Respiratory Pattern Blood Pressure Blood Pressure [Left Radial Artery] Blood Pressure Mean Blood Pressure Mean [Left Radial Artery] Blood Pressure Position [Left Radial Artery] Pulse Oximetry 92 93 Oxygen Delivery Method Sepsis Recent Fever Within 48 Hours Sepsis New/Unexplained Change in Mental Status Sepsis Action Taken by Nursing 01/08/25 13:45 01/08/25 14:00 01/08/25 14:30 Temperature Temperature Source Pulse Rate 74 74 70 Pulse Rate [Apical] Pulse Rate from SpO2 Sensor 74 74 71 Pulse Rhythm [Apical] Respiratory Rate 15 20 18 Respiratory Effort / Characteristics Respiratory Depth Respiratory Pattern Blood Pressure 135/69 Blood Pressure [Left Radial Artery] Blood Pressure Mean 102 Blood Pressure Mean [Left Radial Artery] Blood Pressure Position [Left Radial Artery] Pulse Oximetry 96 96 94 Oxygen Delivery Method Sepsis Recent Fever Within 48 Hours Sepsis New/Unexplained Change in Mental Status Sepsis Action Taken by Nursing 01/08/25 15:00 01/08/25 15:36 01/08/25 16:16 Temperature Temperature Source Pulse Rate 69 69 Pulse Rate [Apical] 65 Pulse Rate from SpO2 Sensor 69 Pulse Rhythm [Apical] Regular Respiratory Rate 17 24 Respiratory Effort / Characteristics Non-Labored Spontaneous Respiratory Depth Normal Respiratory Pattern Regular Blood Pressure 130/66 Blood Pressure [Left Radial Artery] 121/70 Blood Pressure Mean 87 Blood Pressure Mean [Left Radial Artery] 87 Blood Pressure Position [Left Radial Artery] Lying Pulse Oximetry 94 97 Oxygen Delivery Method Room Air Sepsis Recent Fever Within 48 Hours Sepsis New/Unexplained Change in Mental Status Sepsis Action Taken by Nursing Laboratory Data 01/08/25 11:28 01/08/25 11:28 Lab Results 01/08/25 01/08/25 01/08/25 Range/Units 11:28 11:37 13:16 WBC 9.51 (4.8-10.8) K/ul RBC 4.02 L (4.20-5.40) M/uL Hgb 12.4 (12.0-16.0) g/dl Hct 35.7 L (37.0-47.0) % MCV 88.8 (80.0-100.0) fL MCH 30.8 (25.0-34.0) pg MCHC 34.7 (32.0-36.0) g/dL RDW Std Deviation 41.1 (36.4-46.3) fL RDW Coeff of Flory 12.7 (11.5-14.5) % Plt Count 195 (130-400) K/uL MPV 10.4 (9.4-12.4) fL Immature Gran % (Auto) 1.2 % Neut % (Auto) 93.3 % Lymph % (Auto) 3.2 % Vernon % (Auto) 1.8 % Eos % (Auto) 0.0 % Baso % (Auto) 0.5 % Neut # (Auto) 8.88 H (1.40-6.50) K/uL Lymph # (Auto) 0.30 L (1.20-3.40) K/uL Vernon # (Auto) 0.17 (0.11-0.59) K/uL Eos # (Auto) 0.00 (0.00-0.50) K/uL Baso # (Auto) 0.05 (0.00-0.20) K/uL Immature Gran # (Auto) 0.11 (0.01-0.20) K/uL PT 13.6 H (9.0-12.0) Seconds INR 1.3 H (0.9-1.1) APTT 27 (21-31) Seconds PTT Ratio 1.0 Sodium 125 L (136-145) mmol/L Potassium 3.5 (3.5-5.1) mmol/L Chloride 92 L (98-107) mmol/L Carbon Dioxide 24 (21-32) mmol/L Anion Gap 9 (3-11) BUN 24 H (6-23) mg/dl Creatinine 0.94 (0.6-1.2) mg/dl Est Cr Clr Drug Dosing 39.4 ml/min eGFR 58.73 BUN/Creatinine Ratio 25.5 H (10-20) Glucose 363 H* (70-99(Fasting)) mg/dl Lactate 2.1 H* (0.4-2.0) mmol/L Calcium 8.6 (8.6-10.3) mg/dl Magnesium 1.6 L (1.7-2.4) mg/dl Total Bilirubin 0.5 (0.2-1.0) mg/dl AST 56 H (13-39) U/L ALT 25 (7-52) U/L Alkaline Phosphatase 57 (34-104) U/L Troponin I High Sens 41.2 H (0-14) pg/ml Total Protein 7.0 (6.0-8.3) gm/dl Albumin 3.8 (3.4-5.0) gm/dl Globulin 3.2 (2.5-4.0) gm/dl Albumin/Globulin Ratio 1.2 (0.9-2) Procalcitonin 0.69 H (0-0.5) ng/ml Urine Color Yellow Urine Appearance Clear (Clear) Urine pH 6.5 (4.5-7.5) Ur Specific [place] 1.029 (1.000-1.030) Urine Protein 2+ H (Negative) Urine Glucose (UA) 3+ H (Negative) Urine Ketones 1+ H (Negative) Urine Blood 1+ H (Negative) Urine Nitrite Negative (Negative) Urine Bilirubin Negative (Negative) Urine Urobilinogen Negative (Negative) Ur Leukocyte Esterase Negative (Negative) Urine WBC (Auto) 0-5 (0-5) /hpf Urine RBC (Auto) 0-2 (0-2) /hpf U Hyaline Cast (Auto) 0-2 (0-2) /lpf U Epithel Cells (Auto) 0-2 (0-2) /hpf Urine Bacteria (Auto) None Seen (None Seen) Urine Comment Adenovirus (PCR) Not Detected (NotDetected) B. pertussis DNA (PCR) Not Detected (NotDetected) B.parapertussis DNA PCR Not Detected (NotDetected) C. pneumoniae DNA (PCR) Not Detected (NotDetected) Coronavirus OC43 (PCR) Not Detected (NotDetected) Coronavirus HKU1 (PCR) Not Detected (NotDetected) Coronavirus 229E (PCR) Not Detected (NotDetected) SARS-CoV-2 (PCR) Not Detected (NotDetected) Coronavirus NL63 (PCR) Not Detected (NotDetected) Human Metapneumovir PCR Not Detected (NotDetected) Influenza Type A (PCR) Not Detected (NotDetected) Influenza Type B (PCR) Not Detected (NotDetected) M. pneumoniae (PCR) Not Detected (NotDetected) Parainfluenza 1 (PCR) Not Detected (NotDetected) Parainfluenza 2 (PCR) Not Detected (NotDetected) Parainfluenza 3 (PCR) Not Detected (NotDetected) Parainfluenza 4 (PCR) Not Detected (NotDetected) RSV (PCR) Not Detected (NotDetected) Entero/Rhino (PCR) Not Detected (NotDetected) 01/08/25 Range/Units 13:56 WBC (4.8-10.8) K/ul RBC (4.20-5.40) M/uL Hgb (12.0-16.0) g/dl Hct (37.0-47.0) % MCV (80.0-100.0) fL MCH (25.0-34.0) pg MCHC (32.0-36.0) g/dL RDW Std Deviation (36.4-46.3) fL RDW Coeff of Flory (11.5-14.5) % Plt Count (130-400) K/uL MPV (9.4-12.4) fL Immature Gran % (Auto) % Neut % (Auto) % Lymph % (Auto) % Vernon % (Auto) % Eos % (Auto) % Baso % (Auto) % Neut # (Auto) (1.40-6.50) K/uL Lymph # (Auto) (1.20-3.40) K/uL Vernon # (Auto) (0.11-0.59) K/uL Eos # (Auto) (0.00-0.50) K/uL Baso # (Auto) (0.00-0.20) K/uL Immature Gran # (Auto) (0.01-0.20) K/uL PT (9.0-12.0) Seconds INR (0.9-1.1) APTT (21-31) Seconds PTT Ratio Sodium (136-145) mmol/L Potassium (3.5-5.1) mmol/L Chloride (98-107) mmol/L Carbon Dioxide (21-32) mmol/L Anion Gap (3-11) BUN (6-23) mg/dl Creatinine (0.6-1.2) mg/dl Est Cr Clr Drug Dosing ml/min eGFR BUN/Creatinine Ratio (10-20) Glucose (70-99(Fasting)) mg/dl Lactate 1.4 (0.4-2.0) mmol/L Calcium (8.6-10.3) mg/dl Magnesium (1.7-2.4) mg/dl Total Bilirubin (0.2-1.0) mg/dl AST (13-39) U/L ALT (7-52) U/L Alkaline Phosphatase (34-104) U/L Troponin I High Sens 40.3 H (0-14) pg/ml Total Protein (6.0-8.3) gm/dl Albumin (3.4-5.0) gm/dl Globulin (2.5-4.0) gm/dl Albumin/Globulin Ratio (0.9-2) Procalcitonin (0-0.5) ng/ml Urine Color Urine Appearance (Clear) Urine pH (4.5-7.5) Ur Specific [place] (1.000-1.030) Urine Protein (Negative) Urine Glucose (UA) (Negative) Urine Ketones (Negative) Urine Blood (Negative) Urine Nitrite (Negative) Urine Bilirubin (Negative) Urine Urobilinogen (Negative) Ur Leukocyte Esterase (Negative) Urine WBC (Auto) (0-5) /hpf Urine RBC (Auto) (0-2) /hpf U Hyaline Cast (Auto) (0-2) /lpf U Epithel Cells (Auto) (0-2) /hpf Urine Bacteria (Auto) (None Seen) Urine Comment Adenovirus (PCR) (NotDetected) B. pertussis DNA (PCR) (NotDetected) B.parapertussis DNA PCR (NotDetected) C. pneumoniae DNA (PCR) (NotDetected) Coronavirus OC43 (PCR) (NotDetected) Coronavirus HKU1 (PCR) (NotDetected) Coronavirus 229E (PCR) (NotDetected) SARS-CoV-2 (PCR) (NotDetected) Coronavirus NL63 (PCR) (NotDetected) Human Metapneumovir PCR (NotDetected) Influenza Type A (PCR) (NotDetected) Influenza Type B (PCR) (NotDetected) M. pneumoniae (PCR) (NotDetected) Parainfluenza 1 (PCR) (NotDetected) Parainfluenza 2 (PCR) (NotDetected) Parainfluenza 3 (PCR) (NotDetected) Parainfluenza 4 (PCR) (NotDetected) RSV (PCR) (NotDetected) Entero/Rhino (PCR) (NotDetected) Administered Medications Discontinued Medications Acetaminophen (Acetaminophen 325 Mg Tab) 650 mg PO NOW STA Stop: 01/08/25 12:16 Last Admin: 01/08/25 12:51 Dose: 650 mg Documented By: MELANIE Sodium Chloride (Nss) 1,000 mls @ 999 mls/hr IV .Q1H1M ONE Stop: 01/08/25 13:14 Last Infusion: 01/08/25 14:33 Dose: Infused Documented By: Admin: 01/08/25 12:51 Dose: 999 mls/hr Documented By: MELANIE Ceftriaxone Sodium (Rocephin) 2,000 mg in 50 mls @ 100 mls/hr IV NOW STA Stop: 01/08/25 12:43 Last Infusion: 01/08/25 14:33 Dose: Infused Documented By: Admin: 01/08/25 13:30 Dose: 100 mls/hr Documented By: MELANIE Imaging Data Radiologist's Impression: Chest X-Ray 01/08/25 11:47 XR chest 1V portable CLINICAL HISTORY: Sepsis COMPARISON STUDY: 08/11/2019 FINDINGS: There is mild cardiomegaly without pulmonary vascular congestion. There is faint reticular and patchy opacity at the right lung base. No other consolidation or pleural effusion. No pneumothorax. IMPRESSION: Early pneumonia versus atelectasis right lung base. ACT 112: Negative or not required by law. Electronically signed by: Molina Santoro M.D. 01/08/2025 12:39 PM Abdomen/Pelvis CT 01/08/25 11:[address] WITHOUT CONTRAST CT DOSE: 837.55 mGy.cm HISTORY: Acute sepsis with generalized abdominal pain sepsis and abd pain TECHNIQUE: Multiaxial CT images of the abdomen and pelvis were performed without contrast. A dose lowering technique was utilized adhering to the principles of ALARA. COMPARISON STUDY: 09/30/2020 FINDINGS: Cardiomegaly with coronary artery calcifications. Bibasilar densities suggest atelectasis with air trapping. No pneumatosis or pneumoperitoneum. Prior splenectomy with distal pancreatectomy. Residual pancreas is atrophic. Unremarkable adrenal glands and gallbladder. Hepatic steatosis. Cysts of the right kidney measure up to approximately 4 to 5 cm. A right renal calculus. No hydronephrosis. Decompressed urinary bladder with mild wall thickening. Uterus appears surgically absent. Atherosclerosis of the aorta without aneurysm. Retroaortic left renal vein. No lymphadenopathy. Tiny hiatal hernia. No bowel obstruction or bowel wall thickening. Colonic diverticulosis without acute diverticulitis identified. Normal appendix. Degenerative and postoperative changes of the lumbar spine. IMPRESSION: 1. No acute intra-abdominal or intrapelvic abnormality. 2. Punctate right renal calculus. No hydronephrosis. 3. Chronic postoperative findings as above. 4. Colonic diverticulosis. ACT 112: Negative or not required by law. The above report was generated using voice recognition software. It may contain grammatical, syntax or spelling errors. Electronically signed by: Cisco Park M.D. 01/08/2025 12:[address] 01/08/25 12:14 CT cervical spine wo con CT DOSE: 1080.7 mGy.cm CLINICAL HISTORY: 89 years-old Female with fall. Acute neck injury status post fall COMPARISON: Head CT of same day, CT cervical spine 02/06/2022 TECHNIQUE: Multiple axial CT images of the cervical spine were obtained without contrast. A dose lowering technique was utilized adhering to the principles of ALARA. FINDINGS: Straightening of the normal cervical lordosis. Moderate multilevel degenerative changes are again noted without acute fracture or subluxation. There are no suspicious bone lesions identified. Multilevel neural foraminal stenosis. Mild mucosal thickening of the paranasal sinuses. No pneumothorax. Mild biapical pleural-parenchymal scarring. Unremarkable soft tissues. IMPRESSION: No acute cervical spine fracture or subluxation. ACT 112: Negative or not required by law. The above report was generated using voice recognition software. It may contain grammatical, syntax or spelling errors. Electronically signed by: Cisco Park M.D. 01/08/2025 1:[address] 01/08/25 12:14 CT head/brain wo con CLINICAL HISTORY: fall. TECHNIQUE: Multiple axial CT images of the head were obtained without contrast. A dose lowering technique was utilized adhering to the principles of ALARA. CT DOSE: 1081 COMPARISON: 02/06/2022. FINDINGS: No intracranial hemorrhage seen. No mass effect, midline shift, or hydrocephalus. There are mild chronic small vessel ischemic changes. There is a trace right frontal scalp hematoma. No skull fracture seen. Visualized paranasal sinuses and mastoid air cells are clear. IMPRESSION: No acute intracranial findings. ACT 112: Negative or not required by law. The above report was generated using voice recognition software. It may contain grammatical, syntax or spelling errors. Electronically signed by: Molina Santoro M.D. 01/08/2025 12:42 PM Discharge Plan Visit Data Chief Complaint: Abdominal Pain Stated Complaint: CONFUSION, AB PAIN, CHEST PAIN ED Provider: Sascha Gamez Discharge Problem: Acute hyponatremia, Febrile, Hyperglycemia, Elevated troponin Condition: Fair Forms Stand Alone Forms: [facility] Prescriptions Prescriptions: No Action (DME) lancets [FreeStyle Lancets] 28 gauge misc See Rx Instructions .ROUTE .MEDSUPPLY Qty: 400 5RF Rx Instructions: Test QID (DME) pen needle, diabetic [BD Ultra-Fine Mini Pen Needle] 31 gauge x 3/16" needle See Rx Instructions .Route Qty: 400 3RF Rx Instructions: use with insulin injections, QID enalapril maleate 10 mg tablet 10 mg PO QAM Qty: 90 3RF insulin lispro [Humalog KwikPen Insulin] 100 unit/mL insulin pen 8 unit SQ BIDWMEAL 90 Days Qty: 15 1RF (DME) FreeStyle Lite Strips Strip See Dose Instructions .ROUTE .MEDSUPPLY Qty: 400 3RF Rx Instructions: Test blood sugar 4 times daily gabapentin 300 mg capsule 300 mg PO DAILY PRN (Reason: Pain) Qty: 90 1RF diltiazem HCl 120 mg capsule,extended release 24hr 120 mg PO QAM Qty: 90 1RF Humulin N NPH Insulin KwikPen 100 unit/mL (3 mL) insulin pen 19 unit subcut BID MDD 38 units 90 Days Qty: 45 1RF (DME) blood-glucose meter [FreeStyle Lite Meter] Kit See Rx Instructions .Route Qty: 1 0RF Rx Instructions: To test blood sugars tramadol 50 mg tablet 50 mg PO BID PRN (Reason: pain) Qty: 60 0RF cholecalciferol (vitamin D3) 25 mcg (1,000 unit) capsule 2,000 unit PO DAILY Rx Instructions: Unable to verify OTC meds at this date/time. melatonin 5 mg tablet 10 mg PO HS Rx Instructions: Unable to verify OTC meds at this date/time. cyanocobalamin (vitamin B-12) [Vitamin B-12] 500 mcg Tablet 500 mcg PO DAILY Rx Instructions: Unable to verify OTC meds at this date/time. acetaminophen 500 mg Capsule 500 mg PO UD PRN (Reason: Pain) Rx Instructions: Unable to verify OTC meds at this date/time. Referrals Referrals: Irvin Richard CRNP [Primary Care Provider] -
--- NOTE | 2025-01-08 12:26 | CT Scan Report ---
ABDOMEN AND PELVIS CT WITHOUT CONTRAST CT DOSE: 837.55 mGy.cm HISTORY: Acute sepsis with generalized abdominal pain sepsis and abd pain TECHNIQUE: Multiaxial CT images of the abdomen and pelvis were performed without contrast. A dose lo wering technique was utilized adhering to the principles of ALARA. COMPARISON STUDY: 09/30/2020 FINDINGS: Cardiomegaly with coronary artery calcifications. Bibasilar densities suggest atelectasis w ith air trapping. No pneumatosis or pneumoperitoneum. Prior splenectomy with distal pancreatectomy. R esidual pancreas is atrophic. Unremarkable adrenal glands and gallbladder. Hepatic steatosis. Cysts of the right kidney measure up to approximately 4 to 5 cm. A right renal calculus. No hydroneph rosis. Decompressed urinary bladder with mild wall thickening. Uterus appears surgically absent. Athe rosclerosis of the aorta without aneurysm. Retroaortic left renal vein. No lymphadenopathy. Tiny hiatal hernia. No bowel obstruction or bowel wall thickening. Colonic diverticulosis without acu te diverticulitis identified. Normal appendix. Degenerative and postoperative changes of the lumbar s pine. IMPRESSION: 1. No acute intra-abdominal or intrapelvic abnormality. 2. Punctate right renal calculus. No hydronephrosis. 3. Chronic postoperative findings as above. 4. Colonic diverticulosis. ACT 112: Negative or not required by law. The above report was generated using voice recognition software. It may contain grammatical, syntax o r spelling errors. Electronically signed by: Cisco Park M.D. 01/08/2025 12:25 PM
[2025-01-08 12:35] LABS: Alanine Aminotransferase 25.0 U/L (7-52); Albumin Globulin Ratio 1.2 (0.9-2); Alkaline Phosphatase 57.0 U/L (34-104); Anion Gap 9.0 (3-11); Bilirubin,Total 0.5 mg/dl (0.2-1.0); Blood Urea Nitrogen 24.0 mg/dl (6-23); Calcium 8.6 mg/dl (8.6-10.3); Carbon Dioxide 24.0 mmol/L (21-32); Chloride 92.0 mmol/L (98-107); Creatinine Clr Calc Pharmacy 39.4 ml/min; Globulin 3.2 gm/dl (2.5-4.0); Glucose 363.0 mg/dl (70-99(Fasting)); Magnesium 1.6 mg/dl (1.7-2.4); Potassium 3.5 mmol/L (3.5-5.1); Sodium 125.0 mmol/L (136-145); Total Protein 7.0 gm/dl (6.0-8.3)
--- NOTE | 2025-01-08 12:41 | XRay Report ---
XR chest 1V portable CLINICAL HISTORY: Sepsis COMPARISON STUDY: 08/11/2019 FINDINGS: There is mild cardiomegaly without pulmonary vascular congestion. There is faint reticular and patchy opacity at the right lung base. No other consolidation or pleural effusion. No pneumothora x. IMPRESSION: Early pneumonia versus atelectasis right lung base. ACT 112: Negative or not required by law. Electronically signed by: Molina Santoro M.D. 01/08/2025 12:39 PM
[2025-01-08 12:42] LABS: Immature Granulocytes # (auto) 0.11 K/uL (0.01-0.20); Immature Granulocytes % (auto) 1.2 %
--- NOTE | 2025-01-08 12:44 | CT Scan Report ---
CT head/brain wo con CLINICAL HISTORY: fall. TECHNIQUE: Multiple axial CT images of the head were obtained without contrast. A dose lowering tech nique was utilized adhering to the principles of ALARA. CT DOSE: 1081 COMPARISON: 02/06/2022. FINDINGS: No intracranial hemorrhage seen. No mass effect, midline shift, or hydrocephalus. There are mild chronic small vessel ischemic changes. There is a trace right frontal scalp hematoma. No skull fracture seen. Visualized paranasal sinuses and mastoid air cells are clear. IMPRESSION: No acute intracranial findings. ACT 112: Negative or not required by law. The above report was generated using voice recognition software. It may contain grammatical, syntax o r spelling errors. Electronically signed by: Molina Santoro M.D. 01/08/2025 12:42 PM
[2025-01-08] MEDS: ACETAMINOPHEN 325 MG TAB PO STA (12:51)
[2025-01-08] MEDS: SODIUM CHLORIDE 0.9% 1,000 ML IV ONE (12:51)
[2025-01-08 13:00] LABS: Chlamydia pneumoniae PCR Not Detected (NotDetected); Coronavirus 229E PCR Not Detected (NotDetected); Coronavirus CoV-2 (COVID19)PCR Not Detected (NotDetected); Coronavirus HKU1 PCR Not Detected (NotDetected); Coronavirus NL63 PCR Not Detected (NotDetected); Coronavirus OC43PCR Not Detected (NotDetected); Human Metapneumovirus PCR Not Detected (NotDetected); Parainfluenza Virus 1 PCR Not Detected (NotDetected); Parainfluenza Virus 2 PCR Not Detected (NotDetected); Parainfluenza Virus 3 PCR Not Detected (NotDetected); Parainfluenza Virus 4 PCR Not Detected (NotDetected); Respiratory Syncytial VirusPCR Not Detected (NotDetected); Rhinovirus/Enterovirus PCR Not Detected (NotDetected)
--- NOTE | 2025-01-08 13:05 | CT Scan Report ---
CT cervical spine wo con CT DOSE: 1080.7 mGy.cm CLINICAL HISTORY: 89 years-old Female with fall. Acute neck injury status post fall COMPARISON: Head CT of same day, CT cervical spine 02/06/2022 TECHNIQUE: Multiple axial CT images of the cervical spine were obtained without contrast. A dose low ering technique was utilized adhering to the principles of ALARA. FINDINGS: Straightening of the normal cervical lordosis. Moderate multilevel degenerative changes are again noted without acute fracture or subluxation. There are no suspicious bone lesions identified. Multilevel neural foraminal stenosis. Mild mucosal thickening of the paranasal sinuses. No pneumotho rax. Mild biapical pleural-parenchymal scarring. Unremarkable soft tissues. IMPRESSION: No acute cervical spine fracture or subluxation. ACT 112: Negative or not required by law. The above report was generated using voice recognition software. It may contain grammatical, syntax o r spelling errors. Electronically signed by: Cisco Park M.D. 01/08/2025 1:03 PM
[2025-01-08] MEDS: cefTRIAXone SODIUM 2,000 MG/50 ML BAG IV STA (13:30)
[2025-01-08 14:20] LABS: INR 1.3 (0.9-1.1); Partial Thromboplastin Time 27 Seconds (21-31); Prothrombin Time 13.6 Seconds (9.0-12.0)
--- NOTE | 2025-01-08 14:41 | History & Physical Report ---
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: (2) Hyponatremia: (3) Pneumonia: (4) HTN (hypertension): (5) Acute metabolic encephalopathy: (6) Laceration of head: Plan 89 year old female presents to the ER with confusion and generalized illness for the last 2 days #Pneumonia / hypoxia Mild CXR and CT changes but with elevated procalcitonin and fever this is the most likely source IV ceftriaxone + doxycycline Incentive spirometry Aim O2 sats > 90% #Acute metabolic encephalopathy Suspect current infection related with her current temperature Re-orientate frequently, at risk of delirium #Fall with head laceration CT head without acute intracranial findings Removal of sutures in 5-7 days #Hyponatremia Corrected sodium 131, should improve with better glucose control #Type 2 diabetes mellitus HBA1C 8.0 in September, repeat level with AM Consult pharmacy for glycemic control #Hypomagnesemia Mg level 1.6, Mg sulfate 2g IV #Hypertension Continue enalapril + diltiazem VTE Prophylaxis - Lovenox 40mg SQ daily Disposition - admit to med/tele Admission and Anticipated Discharge Date Admission Date: January 08, 2025 History of Present Illness Chief Complaint: Altered mental state Primary Care Provider: SHANNAN Hernandes Ruth Devin is an 89 year old female who presents to the ER with generalized illness for the last 2 days and confusion today. Unable to get a good history from the patient due to confusion. History obtained from her grandson at bedside. Reportedly not feeling well for last 2 days but without any specific symptoms. When her grandson found her today she was very confused. No nasal congestion, cough, shortness of breath, diarrhea, urinary symptoms. No current chest pain but triage note reportedly had chest/epigastric pain. While attempting to get dressed for EMS she fell and hit her head. Allergies Allergy/AdvReac Type Severity Reaction Status Date / Time codeine Allergy Severe RASH Verified 09/30/24 13:23 Sulfa (Sulfonamide Allergy Intermediate rash Verified 09/30/24 13:23 Antibiotics) sulfabenzamide Allergy Intermediate rash Verified 09/30/24 13:23 sulfacetamide Allergy Intermediate rash Verified 09/30/24 13:23 sulfathiazole Allergy Intermediate rash Verified 09/30/24 13:23 insulin glargine Allergy Mild pruritus Verified 09/30/24 13:23 (noted after 7+ days of use) ciprofloxacin [From Cipro] Allergy Unknown Unknown Verified 09/30/24 13:23 aspirin AdvReac Severe Gastrointestinal Verified 09/30/24 13:23 Upset amitriptyline AdvReac Intermediate Drowsy Verified 09/30/24 13:23 erythromycin base AdvReac Intermediate abdominal Verified 09/30/24 13:23 pain NSAIDS (Non-Steroidal AdvReac Intermediate gastric Verified 09/30/24 13:23 Anti-Inflamma bleeding rosuvastatin AdvReac Intermediate muscle Verified 09/30/24 13:23 aches, cramps in calves hydrocodone AdvReac Mild itching Verified 09/30/24 13:23 oxycodone AdvReac Mild itching Verified 09/30/24 13:23 Home Medications Medication Instructions Recorded Confirmed Type acetaminophen 500 mg capsule 500 mg PO UD PRN Pain 12/03/20 01/08/25 History cyanocobalamin (vitamin B-12) 500 500 mcg PO DAILY 12/03/20 01/08/25 History mcg tablet (Vitamin B-12) cholecalciferol (vitamin D3) 25 2,000 unit PO DAILY 10/12/22 01/08/25 History mcg (1,000 unit) capsule melatonin 5 mg tablet 10 mg PO HS 01/02/23 01/08/25 History blood-glucose meter (FreeStyle #1 ea 01/15/24 09/30/24 Rx Lite Meter kit) FreeStyle Lancets 28 gauge #400 ea 02/11/24 09/30/24 Rx (lancets) pen needle, diabetic 31 gauge x #400 ea 03/21/24 09/30/24 Rx 3/16" (BD Ultra-Fine Mini Pen Needle) enalapril maleate 10 mg tablet 10 mg PO QAM #90 tabs 06/05/24 01/08/25 Rx FreeStyle Lite Strips (blood sugar #400 ea 08/07/24 09/30/24 Rx diagnostic) gabapentin 300 mg capsule 300 mg PO DAILY PRN Pain #90 caps 08/07/24 01/08/25 Rx insulin lispro 100 unit/mL 8 unit (0.08 mL) subcut BIDWMEAL 08/07/24 01/08/25 Rx subcutaneous pen (Humalog KwikPen 90 days #15 mL (U-100) Insulin) diltiazem HCl 120 mg capsule,24 120 mg PO QAM #90 caps 09/29/24 01/08/25 Rx hr,extended release tramadol 50 mg tablet 50 mg PO BID PRN pain #60 tabs 10/01/24 01/08/25 Rx insulin NPH isoph U-100 human 100 19 unit (0.19 mL) subcut BID 90 01/05/25 01/08/25 Rx unit/mL (3 mL) subcutaneous pen days #45 mL (Humulin N NPH U-100 Insulin KwikPen) Past Med/Surg History Problem List (Updated 01/08/25 @ 22:02 by Raymond Hernandez MD) Laceration of head Acute metabolic encephalopathy Pneumonia 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 Bronchiectasis HTN (hypertension) Hypoglycemia associated with type 2 diabetes mellitus Depression GERD (gastroesophageal reflux disease) (Chronic) Vitamin D deficiency (Chronic) Diabetic nephropathy (Chronic) Gastric polyps (Chronic) Hypercholesteremia (Chronic) Bunion of great toe Neurogenic claudication due to lumbar spinal stenosis Osteopenia Binocular vision disorder with diplopia Cervical radiculopathy at C6 Benign essential tremor Chronic sinusitis Insulin dependent diabetes mellitus CKD (chronic kidney disease) stage 3, GFR 30-59 ml/min Medical History (Updated 01/08/25 @ 22:02 by Raymond Hernandez MD) Arthralgia, cervical spine Hayfever Hypercalcemia Gastric bleeding hx years ago in setting of NSAID use Cyst of right kidney Hearing loss, bilateral Tubular adenoma of colon HX Paroxysmal SVT (supraventricular tachycardia) on atenolol Insomnia Hiatal hernia Gastroparesis Fibromyalgia Diverticulosis Chronic obstructive pulmonary disease SOB ON EXERTION Cervical spine degeneration Valvular heart disease NOT REPORTED BY PT Chronic cholecystitis NOT REPORTED BY PT History of pancreatic cancer 1989 s/p whipple procedure Osteoarthritis Benign essential HTN HLD (hyperlipidemia) GERD (gastroesophageal reflux disease) occasional Lumbar back pain with radiculopathy affecting left lower extremity Surgical History (Updated 10/01/24 @ 07:43 by SHANNAN Hernandes) Status post lumbar spine operative procedure for decompression of spinal cord S/P cataract surgery apr 2021 bilateral History of partial pancreatectomy History of breast biopsy History of lumbar spinal fusion TOTAL OF 2 BACK SURGERIES , PT NOT SURE DETAILS Hx of right inguinal hernia repair Hx of total hysterectomy with removal of both tubes and ovaries Hx of esophagogastroduodenoscopy Hx of colonoscopy History of splenectomy whipple procedure ([facility]) Family History Mother , age 92 of an NH. Arthritis Myocardial infarction Breast cancer Father , age 90 of a stroke. Stroke Prostate cancer Brother Diabetes Lung cancer Sister Diabetes Breast cancer Aunt Breast cancer Son Myocardial infarction Thyroid cancer Tongue cancer Prostate cancer Family/Other Asthma Denies family history of Ovarian cancer Colorectal cancer Social History Smoking Status: Never smoker Second Hand Exposure: Yes; Do You Dip or Chew Tobacco: No; Hx Alcohol Use: No Hx Substance Use: No Preferred Language: Amharic Communication Ability: Effective Visual Impairment: No Limitations Hearing Ability: Use of Hearing Aid Process Camera Operator Required: No Beliefs That Will Affect Care: None marital status: Current Living Situation: Alone current occupational status: retired How many Children do You have: 6 Other Information That Helps Us Care for You: No other: 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 Feels Safe at Home: Yes Safety Concerns: Feels Safe At This Time Childhood Exposure to Second-Hand Smoke: No Diet: regular caffeine: Yes during the past year weight has: remained stable Dental Care, Regularly: Yes Physical Activity Frequency: Does not Exercise Physical Activity Frequency Comment: due to physical condition Seatbelt Use: always Sunscreen Use: No Assistive Devices: Denture - Upper, Denture - Lower, Hearing Aid - Bilateral and Walker Review of Systems Review of Systems: All systems reviewed & are unremarkable except as noted in HPI & below Physical Exam Constitutional: WD/WN, vitals as above ENMT: Mouth: + dry oral mucous membranes Respiratory: + labored breathing and + uses accessory muscles Auscultation: + crackles (bibasal) and + rhonchi (anteriorly); breath sounds present, no diminished lung sounds and no wheezes Cardiovascular: RRR, no murmur, no edema Gastrointestinal (Abdomen): normal bowel sounds, soft, nontender, no hepatosplenomegaly Skin: no rashes, warm and dry Trauma: + evidence of skin trauma (sutured laceration on head) Neurologic: moves all extremities and awake; no focal motor deficits and not confused Psychiatric: Orientation: alert; + not oriented x 3 Results & Data Results & Data Vital Signs (Past 12 Hours) Vital Signs Temp Pulse Resp BP Pulse Ox O2 Del Method 01/08/25 13:37 37 C 01/08/25 11:47 Room Air 01/08/25 11:47 94 Room Air 01/08/25 11:30 93 H 01/08/25 11:26 39.1 C H 91 H 22 132/75 94 Room Air Laboratory Results Abnormal lab results 01/08/25 01/08/25 01/08/25 Range/Units 11:28 11:37 13:16 RBC 4.02 L (4.20-5.40) M/uL Hct 35.7 L (37.0-47.0) % Neut # (Auto) 8.88 H (1.40-6.50) K/uL Lymph # (Auto) 0.30 L (1.20-3.40) K/uL PT 13.6 H (9.0-12.0) Seconds INR 1.3 H (0.9-1.1) Sodium 125 L (136-145) mmol/L Chloride 92 L (98-107) mmol/L BUN 24 H (6-23) mg/dl BUN/Creatinine Ratio 25.5 H (10-20) Glucose 363 H* (70-99(Fasting)) mg/dl Lactate 2.1 H* (0.4-2.0) mmol/L Magnesium 1.6 L (1.7-2.4) mg/dl AST 56 H (13-39) U/L Troponin I High Sens 41.2 H (0-14) pg/ml Procalcitonin 0.69 H (0-0.5) ng/ml Urine Protein 2+ H (Negative) Urine Glucose (UA) 3+ H (Negative) Urine Ketones 1+ H (Negative) Urine Blood 1+ H (Negative) 01/08/25 Range/Units 13:56 RBC (4.20-5.40) M/uL Hct (37.0-47.0) % Neut # (Auto) (1.40-6.50) K/uL Lymph # (Auto) (1.20-3.40) K/uL PT (9.0-12.0) Seconds INR (0.9-1.1) Sodium (136-145) mmol/L Chloride (98-107) mmol/L BUN (6-23) mg/dl BUN/Creatinine Ratio (10-20) Glucose (70-99(Fasting)) mg/dl Lactate (0.4-2.0) mmol/L Magnesium (1.7-2.4) mg/dl AST (13-39) U/L Troponin I High Sens 40.3 H (0-14) pg/ml Procalcitonin (0-0.5) ng/ml Urine Protein (Negative) Urine Glucose (UA) (Negative) Urine Ketones (Negative) Urine Blood (Negative) Diagnostic Findings CT head/brain wo con CLINICAL HISTORY: fall. TECHNIQUE: Multiple axial CT images of the head were obtained without contrast. A dose lowering technique was utilized adhering to the principles of ALARA. CT DOSE: 1081 COMPARISON: 02/06/2022. FINDINGS: No intracranial hemorrhage seen. No mass effect, midline shift, or hydrocephalus. There are mild chronic small vessel ischemic changes. There is a trace right frontal scalp hematoma. No skull fracture seen. Visualized paranasal sinuses and mastoid air cells are clear. IMPRESSION: No acute intracranial findings. CT cervical spine wo con CT DOSE: 1080.7 mGy.cm CLINICAL HISTORY: 89 years-old Female with fall. Acute neck injury status post fall COMPARISON: Head CT of same day, CT cervical spine 02/06/2022 TECHNIQUE: Multiple axial CT images of the cervical spine were obtained without contrast. A dose lowering technique was utilized adhering to the principles of ALARA. FINDINGS: Straightening of the normal cervical lordosis. Moderate multilevel deg enerative changes are again noted without acute fracture or subluxation. There are no suspicious bone lesions identified. Multilevel neural foraminal stenosis. Mild mucosal thickening of the paranasal sinuses. No pneumothorax. Mild biapical pleural-parenchymal scarring. Unremarkable soft tissues. IMPRESSION: No acute cervical spine fracture or subluxation. XR chest 1V portable CLINICAL HISTORY: Sepsis COMPARISON STUDY: 08/11/2019 FINDINGS: There is mild cardiomegaly without pulmonary vascular congestion. There is faint reticular and patchy opacity at the right lung base. No other consolidation or pleural effusion. No pneumothorax. IMPRESSION: Early pneumonia versus atelectasis right lung base. ABDOMEN AND PELVIS CT WITHOUT CONTRAST CT DOSE: 837.55 mGy.cm HISTORY: Acute sepsis with generalized abdominal pain sepsis and abd pain TECHNIQUE: Multiaxial CT images of the abdomen and pelvis were performed without contrast. A dose lowering technique was utilized adhering to the principles of ALARA. COMPARISON STUDY: 09/30/2020 FINDINGS: Cardiomegaly with coronary artery calcifications. Bibasilar densities suggest atelectasis with air trapping. No pneumatosis or pneumoperitoneum. Prior splenectomy with distal pancreatectomy. Residual pancreas is atrophic. Unremarkable adrenal glands and gallbladder. Hepatic steatosis. Cysts of the right kidney measure up to approximately 4 to 5 cm. A right renal calculus. No hydronephrosis. Decompressed urinary bladder with mild wall thickening. Uterus appears surgically absent. Atherosclerosis of the aorta without aneurysm. Retroaortic left renal vein. No lymphadenopathy. Tiny hiatal hernia. No bowel obstruction or bowel wall thickening. Colonic diverticulosis without acute diverticulitis identified. Normal appendix. Degenerative and postoperative changes of the lumbar spine. IMPRESSION: 1. No acute intra-abdominal or intrapelvic abnormality. 2. Punctate right renal calculus. No hydronephrosis. 3. Chronic postoperative findings as above. 4. Colonic diverticulosis. Medications Administered ER Medications Given: Normal saline 1000ml bolus Ceftriaxone 2000mg IV Acetaminophen 650mg PO ECG Rate (beats per minute): 91 Rhythm: normal sinus Findings: + nonspecific-ST abn Comparison ECG Date: from (January 24, 2022) Change: no significant change Code Status & VTE Plan Code Status Full VTE Prophylaxis Plan VTE Prophylaxis will be ordered: Yes PG Care Time/CCT Total # of Minutes Spent Total Time Spent with Patient: Total time spent is greater than 50% in coordination of care (as documented) at patient's floor/unit and/or counseling patient: Coding Level of Care Code 73850 INT INP/OBS CARE 375MIN Diagnoses 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
[2025-01-08] MEDS ORDERED: PHARMACY GLYCEMIC MGMT CONSULT PRN (15:08)
[2025-01-08] MEDS ORDERED: DEXTROSE 50% 50 ML SYRINGE IV PRN (15:08)
[2025-01-08] MEDS ORDERED: GLUCAGON FOR INJ 1 MG VIAL SQ PRN (15:08)
[2025-01-08] MEDS ORDERED: GLUCOSE 10 TAB/TUBE PO PRN (15:08)
[2025-01-08] MEDS ORDERED: GLUCOSE 40% GEL 15 GM TUBE PO PRN (15:08)
[2025-01-08] MEDS: LIDOCAINE/EPINEPH/TETRACAINE 1 EA SYR EXT STA (17:12)
--- NOTE | 2025-01-08 18:19 | Emergency Department Note ---
ED Visit Note I was asked by my attending, Dr. Gamez, to evaluate this 89-year-old female who obtained a laceration to her right forehead. On evaluation of the patient there is a 1.5 cm laceration in a V shape that is superficial but could be better approximated with suture closure. Procedure note seen below. No complications were met the patient tolerated the procedure well. Location: Right forehead Total length: 1.5 - in a V shape Complexity: Simple Verbal consent was obtained after the risks and benefits were explained, including but not limited to bleeding, scarring, infection, pain, and bone/joint/nerve damage. At this time, the risks of the procedure are less than the risks of NOT performing the procedure. A time out was taken and the correct patient and site identified. The skin was prepped with betadine. Let gel was applied to the area. Once properly anesthetized the area was thoroughly irrigated with normal saline. The skin was re-prepped with betadine and a sterile field set. The wound was explored for foreign bodies and none found. Examination revealed no injury to deep structures.The wound edges were approximated using 2, 6 -0 simple interrupted nylon sutures. Hemostasis and excellent approximation was achieved. Antibacterial ointment and a sterile dressing applied. Detailed wound care instructions and signs and symptoms of infection reviewed with the patient. Discussed removal of the sutures in the next 5 to 7 days.
[2025-01-08] MEDS ORDERED: GABAPENTIN 300 MG CAP PO PRN (18:55)
[2025-01-08] MEDS: MAGNESIUM SULFATE / D5W 1 GM/100 ML BAG IV SCH (19:25)
[2025-01-08] MEDS: INSULIN ASPART PER UNIT CHARGE SC SCH (19:26)
[2025-01-08] MEDS: INSULIN HUMAN NPH SC SCH (19:26)
[2025-01-08] MEDS: ACETAMINOPHEN 325 MG TAB PO PRN (19:29)
[2025-01-08] MEDS: DOXYCYCLINE HYCLATE 100 MG in DEXTROSE 5% MINI-B 100 ML IV SCH (20:59)
[2025-01-08] MEDS ORDERED: NON-FORMULARY MEDICATION (Insulin Nph Isoph U-100 Human [Humulin N Nph Insulin Kwikpen] 10 SQ SCH (21:00)
[2025-01-08] MEDS: AZITHROMYCIN 500 MG/255 ML BAG IV SCH (21:37)
[2025-01-09] MEDS: INSULIN ASPART PER UNIT CHARGE SC SCH (01:00)
[2025-01-09] MEDS: ENOXAPARIN INJ 40 MG/0.4 ML SYR SQ SCH (01:05)
[2025-01-09] MEDS: CARBOHYDRATES FOR HYPOGLYCEMIA PO PRN (04:02)
[2025-01-09 06:55] LABS: Hematocrit (blood only) 35.6 % (37.0-47.0); Hemoglobin 12.2 g/dl (12.0-16.0); Mean Corpuscular Hemoglobin 30.4 pg (25.0-34.0); Mean Corpuscular Volume 88.8 fL (80.0-100.0); Platelet Count 141 K/uL (130-400); RDW Standard Deviation 41.8 fL (36.4-46.3); Red Blood Count 4.01 M/uL (4.20-5.40); White Blood Count 7.20 K/ul (4.8-10.8)
[2025-01-09 07:11] LABS: Hemoglobin A1C 7.7 % (4.5-5.6)
[2025-01-09 07:19] LABS: Anion Gap 7.0 (3-11); Blood Urea Nitrogen 24.0 mg/dl (6-23); Calcium 8.2 mg/dl (8.6-10.3); Carbon Dioxide 26.0 mmol/L (21-32); Chloride 97.0 mmol/L (98-107); Creatinine Clr Calc Pharmacy 46.3 ml/min; Glucose 141.0 mg/dl (70-99(Fasting)); Potassium 3.3 mmol/L (3.5-5.1); Sodium 130.0 mmol/L (136-145)
[2025-01-09] MEDS: ENALAPRIL MALEATE 10 MG TAB PO SCH (08:22)
[2025-01-09] MEDS: MAGNESIUM OXIDE 400 MG TAB PO SCH (08:24)
[2025-01-09] MEDS: POTASSIUM CHLORIDE 20 MEQ/15 ML UDC PO STA (08:24)
[2025-01-09] MEDS: INSULIN HUMAN NPH SC SCH (08:26)
[2025-01-09 08:53] LABS: Anaplasmosis Smear(Rpt to DOH) Pos for Anaplasma
[2025-01-09] MEDS: ONDANSETRON INJ 2 MG/ML 2 ML VIAL IV PRN (09:53)
[2025-01-09 10:10] LABS: Immature Granulocytes # (auto) 0.02 K/uL (0.01-0.20); Immature Granulocytes % (auto) 0.3 %; Toxic Vacuolation 1+
--- NOTE | 2025-01-09 10:50 | Hospitalist Progress Note ---
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 She is anaplasmosis positive Anaplasmosis Peripheral smear positive Continue doxycycline 100 mg twice daily Complete 10 days through January 18. If still intermittently febrile extend antibiotics until defervesced for at least 72 hours. Platelet count normal, slight AST elevation on admission Patient still feels generally unwell and shaky. PT/OT trending although with poor clinical appearance may not engage with them very well today. Recommend following as inpatient for at least a day or 2 to ensure adequate progression on doxycycline. # Atelectasis Suspected to have early pneumonia versus atelectasis Initially with Rocephin/doxycycline for pneumonia however subsequently anaplasmosis positive. No hypoxia. Suspect PCT and illness is due to anaplasmosis Will continue doxycycline, discontinue Rocephin. If she clinically deteriorates or breathing status worsens then resume Rocephin for treatment of concurrent pneumonia although suspect this is less likely #Fall with head laceration CT head without acute intracranial findings Removal of sutures in 5-7 days #Hyponatremia - Corrected sodium 131 on admission Remains 130, potassium/chloride low and somewhat solute depleted Liberalized diet encouraged Potassium 3.3, 40 mEq ordered x 1 #Type 2 diabetes mellitus HBA1C 8.0 in September Pharmacy glycemic consult following A1c 7.7% #Hypertension Continue enalapril + diltiazem VTE Prophylaxis - Lovenox 40mg SQ daily Disposition - admit to med/tele Admission and Anticipated Discharge Date Admission Date: January 08, 2025 Subjective Seen at bedside. Still feels poorly. Very shaky. Reports she just feels generally unwell, and very tired. She notes she did have some type of insect bite on her right calf in the last month which was a little erythematous and then seemed to get better but still has a slight dark area at the area of insect bite. Did not notice that this was a tick. Has felt slightly feverish. Denies cough. Denies dysuria. Denies abdominal pain Physical Exam Physical Exam: General: Alert and oriented. Appears fatigued. Slightly pale. HEENT: Atraumatic, normocephalic. MM tacky vision and hearing grossly intact, is very hard of hearing Pulm: Diminished. Slight basilar crackles which clear on deep breathing/cough. Symmetrical chest rise. No increase in work of breathing. No respiratory distress. Cardiac: RRR, -mrg. Radial pulses intact and symmetrical. Extremities: Right posterior calf with small area of hyperpigmentation and central punctate lesion suspicious for prior insect bite. No demarcated erythema. No tenderness Results & Data Results & Data Vital Signs (Past 12 Hours) Vital Signs Temp Pulse Pulse Resp BP BP Pulse Ox 01/09/25 07:45 36.8 C 68 18 142/63 H 95 01/09/25 07:36 95 01/09/25 07:35 01/09/25 05:37 78 01/09/25 04:38 140/68 01/09/25 03:59 37.5 C 86 20 207/60 H 98 01/09/25 00:14 37.4 C 93 H 20 134/67 92 O2 Del Method O2 Flow Rate 01/09/25 07:45 Room Air 01/09/25 07:36 Room Air, Nasal Cannula 0 01/09/25 07:35 Room Air 01/09/25 05:37 01/09/25 04:38 01/09/25 03:59 Nasal Cannula 2 01/09/25 00:14 Nasal Cannula 2 PG Care Time/CCT Total # of Minutes Spent Total Time Spent with Patient: Total time spent is greater than 50% in coordination of care (as documented) at patient's floor/unit and/or counseling patient: Coding Level of Care Code 68356 SUB INP/OBS CARE 3/50MIN Diagnoses 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
--- NOTE | 2025-01-09 11:56 | Electrocardiogram Report ---
Test Reason : Blood Pressure : */* mmHG Vent. Rate : 91 BPM Atrial Rate : 91 BPM P-R Int : 148 ms QRS Dur : 78 ms QT Int : 356 ms P-R-T Axes : 53 63 58 degrees QTcB Int : 437 ms Poor data quality, interpretation may be adversely affected Normal sinus rhythm Nonspecific ST abnormality Abnormal ECG When compared with ECG of 24-Jan-2022 11:24, Nonspecific ST abnormality is now Present Confirmed by Brayan Rodriguez ([id number]) on 01/09/2025 11:56:24 AM Referred By: REFERRED SELF Confirmed By: Brayan Rodriguez
[2025-01-09] MEDS ORDERED: cefTRIAXone SODIUM 2,000 MG/50 ML BAG IV SCH (13:00)
--- NOTE | 2025-01-09 14:47 | Pharmacy Report ---
Pharmacy Glycemic Short Note 2 - Date of Service January 09, 2025 - Glycemic Short BSG Results (Last 24 hours): 01/08/25 01/08/25 01/08/25 18:32 18:42 20:26 Glucose POC Glucose 271 H 220 H 228 H 01/09/25 01/09/25 01/09/25 00:02 03:52 03:57 Glucose POC Glucose 84 69 L* 66 L* 01/09/25 01/09/25 01/09/25 04:36 06:30 07:57 Glucose 141 H POC Glucose 169 H 164 H 01/09/25 12:01 Glucose POC Glucose 153 H OUTPATIENT ANTIDIABETIC REGIMEN: * insulin NPH 19 units SQ BIDM * Humalog 8 units SQ BIDM * HbA1c 7.7% (01/09/25), 8% (09/30/24) ASSESSMENT: * Ruth is a 89 year old female admitted with pneumonia/anaplasmosis with a history of type 2 diabetes mellitus. Pharmacy has been consulted to assist with glycemic management while inpatient. * Hyperglycemic on admission, insulin NPH given at approximately 1926 and hypoglycemic overnight, overcorrection and late NPH administration (cannot use Lantus to allergy). Will initiate NPH at a reduced dose (approximately 50% home dose) administered BIDM. * No changes to NovoLog at this time. She is on doxycycline IV, no other glycemic stressors noted. PLAN FOR INPATIENT GLYCEMIC CONTROL: * Hold outpatient oral diabetes medications * Basal insulin * Insulin NPH 8 units SQ BID * Bolus insulin * NovoLog per scale ACHS or Q6hrs while NPO * Goal Range: Low 110 mg/dL - High 140 mg/dL * Correction Factor: 40 mg/dL/unit * Nutritional / Prandial insulin per carb ratio of 1 unit per 10 grams CHO consumed
[2025-01-10 06:42] LABS: Hematocrit (blood only) 34.4 % (37.0-47.0); Hemoglobin 12.1 g/dl (12.0-16.0); Mean Corpuscular Hemoglobin 31.0 pg (25.0-34.0); Mean Corpuscular Volume 88.2 fL (80.0-100.0); Platelet Count 119 K/uL (130-400); RDW Standard Deviation 41.7 fL (36.4-46.3); Red Blood Count 3.90 M/uL (4.20-5.40); White Blood Count 4.69 K/ul (4.8-10.8)
[2025-01-10 07:04] LABS: Anion Gap 7.0 (3-11); Blood Urea Nitrogen 29.0 mg/dl (6-23); Calcium 8.3 mg/dl (8.6-10.3); Carbon Dioxide 27.0 mmol/L (21-32); Chloride 95.0 mmol/L (98-107); Creatinine Clr Calc Pharmacy 37.2 ml/min; Glucose 115.0 mg/dl (70-99(Fasting)); Potassium 3.3 mmol/L (3.5-5.1); Sodium 129.0 mmol/L (136-145)
[2025-01-10 07:29] LABS: Acanthocytes 1+; Immature Granulocytes # (auto) 0.01 K/uL (0.01-0.20); Immature Granulocytes % (auto) 0.2 %
--- NOTE | 2025-01-10 07:44 | Hospitalist Progress Note ---
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 She is anaplasmosis positive Anaplasmosis Peripheral smear positive Continue doxycycline 100 mg twice daily Complete 10 days through January 18. If still intermittently febrile extend antibiotics until defervesced for at least 72 hours. Platelet count normal, slight AST elevation on admission Patient still feels generally unwell and shaky. Additionally with poor p.o. intake and appears solute depleted with low sodium, potassium, chloride with tacky mucous membranes and elevated creatinine/BUN ratio. Potassium repletion ordered, 1 L supplement LR ordered, magnesium repletion continued. Check electrolytes daily PT/OT ordered,declined PT due to feeling very weak today Abdominal pain, nausea, vomiting Treated for anaplasmosis with doxycycline as above. Gastric prophylaxis ordered with Pepcid twice daily Abdomen is not rigid, she does have diffuse mild tenderness and some left CVA tenderness on exam. CTA/P on 01/08 did not show any intra-abdominal or intrapelvic abnormality or obstructive stones and specifically she did not have any evidence of pyelonephritis. Some mild bladder wall thickening. Urine culture has no growth, no evidence of UTI at that time she did receive Rocephin which was discontinued for doxycycline monotherapy for treatment of anaplasmosis. Creatinine is normal, no evidence of obstruction. Does appear slightly volume contracted with supplemental fluids have been ordered Continue management as above, supportive care. Zofran continued every 6 hours, Pepcid continued No signs of vesicles/shingles overlapping her flank pain although she does describe her pain as wrapping around from the abdomen to her back into dermatomal strength. Does not think she her abdomen. If erythema/vesicles develop and start acyclovir at that time. # Atelectasis Suspected to have early pneumonia versus atelectasis Initially with Rocephin/doxycycline for pneumonia however subsequently anaplasmosis positive. No hypoxia. Suspect PCT and illness is due to anaplasmosis Doxycycline continued. I-S encouraged #Fall with head laceration CT head without acute intracranial findings Removal of sutures in 5-7 days #Hyponatremia - Corrected sodium 131 on admission Remains below 129. Poor p.o. intake suspect solute depletion. Liberalized diet, supplemental fliuds as needed Liberalized diet encouraged Potassium 3.3, 40 mEq ordered x 1 #Type 2 diabetes mellitus HBA1C 8.0 in September Pharmacy glycemic consult following A1c 7.7% #Hypertension Continue enalapril + diltiazem VTE Prophylaxis - Lovenox 40mg SQ daily Disposition - admit to med/tele Admission and Anticipated Discharge Date Admission Date: January 08, 2025 Subjective Seen at the bedside. Does have some left upper abdominal pain wrapping around to her back/flank. Still feels shaky and generally poor. Very tired. Endorses nausea/vomiting. Shaky/tremulous. Denied PT due to feeling very poor. She reports she would like to go home, but knowledges she does not feel well enough to go home. She has not been able to eat very much. Poor appetite. Food does not worsen pain Physical Exam Physical Exam: General: Alert and oriented. Appears fatigued. Slightly pale. Skin: NAD abdomen/back without erythema/warmth. Patient does endorse some tenderness wrapping around her left flank. No overlying vesicles/lesions are seen. HEENT: Atraumatic, normocephalic. MM tacky vision and hearing grossly intact, is very hard of hearing Pulm: Diminished. Mild basilar crackles which clear on deep breathing/cough. Symmetrical chest rise. No increase in work of breathing. No respiratory distress. Cardiac: RRR, -mrg. Radial pulses intact and symmetrical. Abdomen: Diffuse mild tenderness to palpation, endorses left CVA tenderness. No rigidity/involuntary guarding Extremities: Right posterior calf with small area of hyperpigmentation and central punctate lesion suspicious for prior insect bite. No demarcated erythema. 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
[2025-01-10 08:37] LABS: Magnesium 2.3 mg/dl (1.7-2.4)
[2025-01-10] MEDS: POTASSIUM CHLORIDE CRTAB 20 MEQ TABCR PO STA (09:29)
[2025-01-10] MEDS: LACTATED RINGER'S 1,000 ML IV SCH (09:29)
[2025-01-10] MEDS: FAMOTIDINE 20MG IV PUSH 20 MG/5 ML SYR IV SCH (11:33)
[2025-01-11 07:20] LABS: Hematocrit (blood only) 31.8 % (37.0-47.0); Hemoglobin 11.1 g/dl (12.0-16.0); Mean Corpuscular Hemoglobin 31.1 pg (25.0-34.0); Mean Corpuscular Volume 89.1 fL (80.0-100.0); Platelet Count 101 K/uL (130-400); RDW Standard Deviation 42.8 fL (36.4-46.3); Red Blood Count 3.57 M/uL (4.20-5.40); White Blood Count 6.99 K/ul (4.8-10.8)
[2025-01-11 07:30] LABS: Anion Gap 5.0 (3-11); Blood Urea Nitrogen 22.0 mg/dl (6-23); Calcium 8.2 mg/dl (8.6-10.3); Carbon Dioxide 29.0 mmol/L (21-32); Chloride 96.0 mmol/L (98-107); Creatinine Clr Calc Pharmacy 39.2 ml/min; Glucose 188.0 mg/dl (70-99(Fasting)); Potassium 3.9 mmol/L (3.5-5.1); Sodium 130.0 mmol/L (136-145)
--- NOTE | 2025-01-11 07:43 | Hospitalist Progress Note ---
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 She is anaplasmosis positive Anaplasmosis Peripheral smear positive Continue doxycycline 100 mg twice daily Complete 10 days through January 18. If still intermittently febrile extend antibiotics until defervesced for at least 72 hours. Platelet count normal, slight AST elevation on admission Clinically progressing, although did have fever of 38.5 and transient hypoxia overnight. PT/OT ordered,declined PT due to feeling very weak today Abdominal pain, nausea, vomiting Treated for anaplasmosis with doxycycline as above. Gastric prophylaxis ordered with Pepcid twice daily Abdomen is not rigid, she does have diffuse mild tenderness and some left CVA tenderness on exam. CTA/P on 01/08 did not show any intra-abdominal or intrapelvic abnormality or obstructive stones and specifically she did not have any evidence of pyelonephritis. Some mild bladder wall thickening. Urine culture has no growth, no evidence of UTI at that time she did receive Rocephin which was discontinued for doxycycline monotherapy for treatment of anaplasmosis. Creatinine is normal, no evidence of obstruction. Does appear slightly volume contracted with supplemental fluids have been ordered Continue management as above, supportive care. Zofran continued every 6 hours, Pepcid continued No signs of vesicles/shingles overlapping her flank pain although she does describe her pain as wrapping around from the abdomen to her back into dermatomal strength. Does not think she her abdomen. If erythema/vesicles develop and start acyclovir at that time. # Atelectasis versus pneumonia Suspected to have early pneumonia versus atelectasis Initially with Rocephin/doxycycline for pneumonia however subsequently anaplasmosis positive, was continued on doxycycline monotherapy. Patient with slow clinical progression, and transient oxygen requirement. Remains with crackles in the right lower lobe x-ray has a right lung infiltrate which may have been due to atelectasis however given persistent dry cough, hypoxia, and slow progress with persistent fevers will cover for potential superimposed pneumonia with Rocephin 5-day course to be complete 01/15 #Fall with head laceration CT head without acute intracranial findings Removal of sutures in 5-7 days, this can be done prior to discharge #Hyponatremia - Corrected sodium 131 on admission Remains low, slightly improved Liberalize diet encouraged Potassium normalized following repletion #Type 2 diabetes mellitus HBA1C 8.0 in September Pharmacy glycemic consult following A1c 7.7% #Hypertension Continue enalapril + diltiazem VTE Prophylaxis - Lovenox 40mg SQ daily Disposition - admit to med/tele Admission and Anticipated Discharge Date Admission Date: January 08, 2025 Subjective Continues to be febrile overnight. Seen at bedside this morning. She reports she feels improved but was again febrile at 38.5 overnight. She continues to have a dry nonproductive cough. She is not short of breath, but was transiently on 4 L of oxygen overnight. Denies fever chills or sweats. She reports that "this infection was very bad, I was so confused "and notes she is aware of how she can few she was previously but is starting to feel like she is thinking more clearly She reports she does not want to go to rehab and is very worried about the care of her cats at home. Given her fever overnight, hypoxia, and shaky appearance with recent initiation of Rocephin to potentially cover for secondary pneumonia do not feel she should be discharged today and certainly not before PT/OT evaluations. She is however appearing stronger and more alert and overall with much better color than the day prior despite still being febrile. If clinically progressing may be appropriate for conversion to orals as early as tomorrow. Physical Exam Physical Exam: General: Alert and oriented. Sitting up in a chair at time of visit. Color improved from prior Skin: NAD abdomen/back without erythema/warmth. Patient does endorse some tenderness wrapping around her left flank. No overlying vesicles/lesions are seen. HEENT: Atraumatic, normocephalic. MM tacky vision and hearing grossly intact, is very hard of hearing Pulm: Diminished. Crackles persist in right lower lobe. Symmetrical chest rise. No increase in work of breathing. No respiratory distress. Cardiac: RRR, -mrg. Radial pulses intact and symmetrical. Abdomen: Soft, NT. No rigidity/involuntary guarding Results & Data Results & Data Vital Signs (Past 12 Hours) Vital Signs Temp Pulse Pulse Resp BP Pulse Ox O2 Del Method 01/11/25 04:04 37.6 C H 01/11/25 03:09 38.5 C H 99 H 20 166/60 H 90 Nasal Cannula 01/10/25 23:43 36.7 C 107 H 18 100/72 93 Room Air 01/10/25 22:10 91 H O2 Flow Rate 01/11/25 04:04 01/11/25 03:09 4 01/10/25 23:43 01/10/25 22:10 PG Care Time/CCT Total # of Minutes Spent Total Time Spent with Patient: Total time spent is greater than 50% in coordination of care (as documented) at patient's floor/unit and/or counseling patient: Coding Level of Care Code 73937 SUB INP/OBS CARE 3/50MIN Diagnoses 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
[2025-01-11 07:57] LABS: Acanthocytes 1+; Howell-Jolly Bodies 1+; Immature Granulocytes # (auto) 0.04 K/uL (0.01-0.20); Immature Granulocytes % (auto) 0.6 %
[2025-01-11] MEDS: cefTRIAXone SODIUM 2,000 MG/50 ML BAG IV SCH (09:14)
[2025-01-11] MEDS: D5W AND LACTATED RINGERS 1,000 ML IV SCH (19:10)
[2025-01-11] MEDS: MELATONIN 3 MG TAB PO PRN (20:48)
[2025-01-11] MEDS: METOPROLOL TARTRATE 1 MG/ML VIAL IV ONE (21:04)
[2025-01-11] MEDS: MAGNESIUM SULFATE / D5W 1 GM/100 ML BAG IV ONE (21:06)
[2025-01-11] MEDS ORDERED: METOPROLOL TARTRATE 1 MG/ML VIAL IV STA (21:14)
[2025-01-11 21:32] LABS: Base Excess VBG -1.3 mEq/L; HCO3 VBG 23 mmol/L; Oxygen Saturation VBG 99.0 %; PCO2 VBG 35 mmHg (38-50); PO2 VBG 107 mmHg; pH VBG 7.42 (7.36-7.41)
[2025-01-11] MEDS ORDERED: Heparin IV Adult Wt-Based Standard *NO* INITIAL Bolus Protocol IV STA (21:35)
[2025-01-11] MEDS: METOPROLOL TARTRATE 1 MG/ML VIAL IV STA ×2 (21:38→21:47)
--- NOTE | 2025-01-11 21:43 | Communication Note ---
Date of Service: January 11, 2025 Notified by nursing that patient showing Afib on tele with HR 150-170s. EKG with findings of Afib RVR. V/S: BP 184/87, Temp 37.5, 92% we just put her on O2 3L bc she was 97 on Oxymask 6L. Patient denied any chest pain, arm or jaw pains. States having abdominal pain. After second dose of Lopressor HR went down to 110s. Tylenol given. Labs and CXR ordered. CXR: no consolidation, no pulmonary edema or effusion on my interpretation Lab remarkable for troponin 99. BNP 428. Hypokalemia of 3.3. Magnesium 1.7 ChadVasc score 4 - Female, age, gender and Hypertension. Patient placed on heparin drip. Transferred to PCU Potassium replaced. Will continue to monitor
[2025-01-11 21:55] LABS: Anion Gap 10.0 (3-11); Blood Urea Nitrogen 21.0 mg/dl (6-23); Carbon Dioxide 23.0 mmol/L (21-32); Chloride 91.0 mmol/L (98-107); Potassium 3.3 mmol/L (3.5-5.1); Sodium 124.0 mmol/L (136-145)
[2025-01-11 21:56] LABS: Alanine Aminotransferase 50.0 U/L (7-52); Albumin Globulin Ratio 1.0 (0.9-2); Alkaline Phosphatase 111.0 U/L (34-104); Bilirubin,Total 0.5 mg/dl (0.2-1.0); Calcium 8.3 mg/dl (8.6-10.3); Creatinine Clr Calc Pharmacy 43.6 ml/min; Globulin 3.1 gm/dl (2.5-4.0); Glucose 238.0 mg/dl (70-99(Fasting)); INR 1.1 (0.9-1.1); Magnesium 1.7 mg/dl (1.7-2.4); Partial Thromboplastin Time 31 Seconds (21-31); Prothrombin Time 12.3 Seconds (9.0-12.0); Total Protein 6.2 gm/dl (6.0-8.3)
[2025-01-11 22:06] LABS: ANTI-Xa, UFH(UnfractionatedHep 0.11 IU/ml (0.3-0.7)
[2025-01-11 22:15] LABS: Hematocrit (blood only) 30.6 % (37.0-47.0); Hemoglobin 10.9 g/dl (12.0-16.0); Mean Corpuscular Hemoglobin 31.0 pg (25.0-34.0); Mean Corpuscular Volume 86.9 fL (80.0-100.0); Platelet Count 108 K/uL (130-400); RDW Standard Deviation 41.5 fL (36.4-46.3); Red Blood Count 3.52 M/uL (4.20-5.40); White Blood Count 10.06 K/ul (4.8-10.8)
[2025-01-11 22:34] LABS: Acanthocytes 1+; Howell-Jolly Bodies 1+; Immature Granulocytes # (auto) 0.07 K/uL (0.01-0.20); Immature Granulocytes % (auto) 0.7 %
[2025-01-11] MEDS: HEPARIN 25000 UNIT/500 ML D5W 25,000 UNITS/500 ML BAG IV SCH (23:24)
[2025-01-11] MEDS: POTASSIUM CHLORIDE CRTAB 20 MEQ TABCR PO STA (23:24)
--- NOTE | 2025-01-11 23:55 | XRay Report ---
Exam(s): XR CXR 1 VIEW EXAM: XR Chest, 1 View CLINICAL HISTORY: Reason for exam: Hypoxia. TECHNIQUE: Frontal view of the chest. COMPARISON: Prior chest x-ray from January 08, 2025. FINDINGS: Lungs: Mild to moderate peribronchial thickening of the central and peripheral bronchi with increased interstitial opacities throughout the lungs and patchy opacity in the right lower lobe. No consolidation. Pleural space: Unremarkable. No pneumothorax. Heart: Unremarkable. No cardiomegaly. Mediastinum: Unremarkable. Normal mediastinal contour. Bones/joints: Unremarkable. No acute fracture. Diffuse osteopenia throughout the visualized bones. IMPRESSION: Bronchitis with right lower lobe infiltrate. Electronically signed by: Torri Willis MD 01/11/25 23:54 PM
[2025-01-12 06:15] LABS: Anion Gap 6.0 (3-11); Blood Urea Nitrogen 16.0 mg/dl (6-23); Calcium 8.5 mg/dl (8.6-10.3); Carbon Dioxide 28.0 mmol/L (21-32); Chloride 97.0 mmol/L (98-107); Creatinine Clr Calc Pharmacy 45.7 ml/min; Glucose 251.0 mg/dl (70-99(Fasting)); Potassium 3.9 mmol/L (3.5-5.1); Sodium 131.0 mmol/L (136-145)
[2025-01-12 06:24] LABS: ANTI-Xa, UFH(UnfractionatedHep 0.73 IU/ml (0.3-0.7)
[2025-01-12 06:31] LABS: Thyroid Stimulating Hormone 1.568 uIu/ml (0.300-4.500)
[2025-01-12 06:59] LABS: Hematocrit (blood only) 31.2 % (37.0-47.0); Hemoglobin 11.1 g/dl (12.0-16.0); Mean Corpuscular Hemoglobin 31.0 pg (25.0-34.0); Mean Corpuscular Volume 87.2 fL (80.0-100.0); Platelet Count 103 K/uL (130-400); RDW Standard Deviation 40.9 fL (36.4-46.3); Red Blood Count 3.58 M/uL (4.20-5.40); White Blood Count 10.37 K/ul (4.8-10.8)
--- NOTE | 2025-01-12 07:39 | Hospitalist Progress Note ---
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 She is anaplasmosis positive Anaplasmosis Peripheral smear positive Continue doxycycline 100 mg twice daily for total 10 days (through January 18) If still intermittently febrile extend antibiotics until defervesced for at least 72 hours. Platelet count normal, mild AST elevation persists (56 --> 72) Clinically progressing, afebrile, intermittently requiring supplemental O2 to maintain SpO2 > 90% PT/OT ordered New-onset afib - 01/11 PM developed a-fib w/ RVR, HR 150s-170s per telemetry & EKG - Given 2 x Lopressor & HR improved to 110s - Pt was placed on heparin drip d/t [id number] score of 4 - CXR was ordered & negative - Elevated trop downtrending 99 --> 63.7. BNP elevated at 428. K+ initially low at 3.3, improved to 3.9 this AM - Plan to stop heparin drip and start Eliquis this evening. Then continue Eliquis 5mg bid - Given extra 120 mg diltiazem today. Will initiate new dosing of 240mg qAM starting tomorrow. Abdominal pain, nausea, vomiting Treated for anaplasmosis with doxycycline as above. Gastric prophylaxis ordered with Pepcid twice daily Abdomen is not rigid, she does have diffuse mild tenderness and some left CVA tenderness on exam. CTA/P on 01/08 did not show any intra-abdominal or intrapelvic abnormality or obstructive stones and specifically she did not have any evidence of pyelonephritis. Some mild bladder wall thickening. Urine culture has no growth, no evidence of UTI at that time she did receive Rocephin which was discontinued for doxycycline monotherapy for treatment of anaplasmosis. Creatinine is normal, no evidence of obstruction. Does appear slightly volume contracted with supplemental fluids have been ordered Continue management as above, supportive care. Zofran continued every 6 hours, Pepcid continued No signs of vesicles/shingles overlapping her flank pain although she does describe her pain as wrapping around from the abdomen to her back into dermatomal strength. Does not think she her abdomen. If erythema/vesicles develop and start acyclovir at that time. - Miralax 5 doses given today. Continue Miralax prn. Consider senna or lactulose if no BM or pt still uncomfortable # Atelectasis versus pneumonia Suspected to have early pneumonia versus atelectasis Initially with Rocephin/doxycycline for pneumonia however subsequently anaplasmosis positive, was continued on doxycycline monotherapy. Patient with slow clinical progression, and transient oxygen requirement. Remains with crackles in the right lower lobe x-ray has a right lung infiltrate which may have been due to atelectasis however given persistent dry cough, hypoxia, and slow progress with persistent fevers will cover for potential superimposed pneumonia with Rocephin 5-day course to be complete 01/15 #Fall with head laceration CT head without acute intracranial findings Plan to remove sutures today or tomorrow #Hyponatremia - Corrected sodium 131 on admission Remains low, slightly improved Liberalize diet encouraged Potassium normalized following repletion #Type 2 diabetes mellitus HBA1C 8.0 in September Pharmacy glycemic consult following A1c 7.7% #Hypertension Continue enalapril + diltiazem VTE Prophylaxis - Lovenox 40mg SQ daily Disposition - admit to med/tele Admission and Anticipated Discharge Date Admission Date: January 08, 2025 Supervising Physician Co-Signing Physician Notes I personally examined the patient and verified all james points of history and exam, discussed case, and agree with decision making with Dr Harrell no cardiopulmonary complaints. Still on oxygen. Would like to go home. Also notes that she has not had a bowel movement in about a week. Vitals noted, in general she is awake and alert no distress. HEENT normocephalic atraumatic mucous membranes moist. Cardio shows heart rate slowed down to about 105 whenever I see her. Lungs show faint rales scattered predominantly in the lower lung luna no rhonchi no wheezes. Extremities are without cyanosis or clubbing. Neuro shows no focal deficits. Anaplasmosisimprovingcontinue doxycycline A-fib/RVRrate controlled (was chronically on diltiazemincrease the dose, start Eliquis. HypoxiaI wonder about some diastolic CHF related to the RVR, and at the same time the chest x-ray looks like there is a bit of a right lower lobe infiltrateis on ceftriaxone in addition to the doxycycline. Continue to follow, try to wean oxygen as possible. ConstipationMiraLAX. Otherwise as above. Subjective Overnight, telemetry showed afib w/ HR 150s-170s; EKG showed afib w/ RVR. Pt given 2 x Lopressor & HR improved to 110s. Pt was placed on heparin drip & transferred to PCU. CXR was ordered & negative. Labs ordered & notable for trop 99, BNP 428, and low K+ and Mg at 3.3 and 1.7. Today, pt feels a bit unwell due to feeling constipated. Reports her last BM was over a week ago. Otherwise, denies any pain or discomfort, n/v, weakness or dizziness, CP, SOB, palpitations. Review of Systems Review of Systems: As per HPI. Physical Exam Physical Exam: Gen: Very [place], well-appearing, NAD HEENT: NCAT, normal conjunctiva, anicteric sclera, MMM CV: Elevated HR, irregular rhythm, no murmur appreciated, no LE edema Resp: CTAB, symmetrical chest rise, no increased WOB on 3L NC Abd: Soft, NT/ND, +BS, no HSM MSK: No gross deformities on inspection Skin: Warm, dry, well-perfused, no rashes appreciated, head lac sutured and healing well Neuro: CN II-XII grossly intact, no focal deficits Psych: Full, euthymic affect. Speech pace normal. Thoughts somewhat tangential and perseverative on wanting to leave, despite whatever topic she had initially introduced. Results & Data Results & Data Vital Signs (Past 12 Hours) Vital Signs Temp Pulse Pulse Resp BP BP BP 01/12/25 07:11 36.7 C 127 H 18 149/78 H 01/12/25 04:01 36.8 C 93 H 20 148/76 H 01/12/25 00:02 36.3 C L 95 H 19 153/95 H 01/11/25 22:22 117 H 01/11/25 22:20 37.1 C 108 H 22 142/77 H 01/11/25 22:10 37.3 C 01/11/25 22:09 107 H 150/88 H 01/11/25 22:00 01/11/25 21:55 01/11/25 21:47 130 H 01/11/25 21:47 113 H 161/93 H 01/11/25 21:29 37.7 C H 134 H 18 156/84 H 01/11/25 21:19 131 H 157/91 H 01/11/25 21:18 37.9 C H 131 H 20 157/91 H 01/11/25 21:07 121 H 20 155/80 H 01/11/25 21:04 01/11/25 21:04 159 H 01/11/25 20:50 37.5 C 157 H 18 184/87 H 01/11/25 20:00 39.3 C H 74 18 175/77 H Pulse Ox O2 Del Method O2 Flow Rate 01/12/25 07:11 98 Room Air 01/12/25 04:01 99 Nasal Cannula 4 01/12/25 00:02 97 Nasal Cannula 4 01/11/25 22:22 01/11/25 22:20 97 Oxymask 6 01/11/25 22:10 97 Oxymask 6 01/11/25 22:09 01/11/25 22:00 Oxymask 6 01/11/25 21:55 Oxymask 6 01/11/25 21:47 01/11/25 21:47 01/11/25 21:29 96 Oxymask 6 01/11/25 21:19 01/11/25 21:18 97 Oxymask 6 01/11/25 21:07 94 Oxymask 6 01/11/25 21:04 89 L Nasal Cannula 6 01/11/25 21:04 01/11/25 20:50 92 Nasal Cannula 01/11/25 20:00 96 Room Air
[2025-01-12] MEDS: INSULIN ASPART PER UNIT CHARGE SC SCH ×2 (08:12→12:15)
[2025-01-12 08:43] LABS: Acanthocytes 1+; Immature Granulocytes # (auto) 0.06 K/uL (0.01-0.20); Immature Granulocytes % (auto) 0.6 %; Polychromasia 1+; Smudge Cells Present
--- NOTE | 2025-01-12 09:31 | Electrocardiogram Report ---
Test Reason : Blood Pressure : */* mmHG Vent. Rate : 156 BPM Atrial Rate : 166 BPM P-R Int : * ms QRS Dur : 76 ms QT Int : 262 ms P-R-T Axes : * 52 261 degrees QTcB Int : 422 ms Poor data quality, interpretation may be adversely affected Atrial fibrillation with rapid ventricular response Abnormal ECG When compared with ECG of 08-Jan-2025 11:27, Atrial fibrillation has replaced Sinus rhythm Vent. rate has increased by 65 bpm T wave inversion now evident in Inferior leads T wave inversion now evident in Lateral leads Confirmed by Emilio Fischer [id number]) on 01/12/2025 9:31:39 AM Referred By: REFERRED SELF Confirmed By: Emilio Fischer
--- NOTE | 2025-01-12 11:23 | Pharmacy Report ---
Pharmacy Glycemic Short Note 2 - Date of Service January 12, 2025 - Glycemic Short BSG Results (Last 24 hours): 01/11/25 01/11/25 01/11/25 12:00 17:05 17:06 Glucose POC Glucose 207 H 68 L* 73 01/11/25 01/11/25 01/11/25 18:54 20:44 21:22 Glucose 238 H POC Glucose 191 H 267 H 01/12/25 01/12/25 01/12/25 05:31 07:12 11:06 Glucose 251 H POC Glucose 256 H 242 H OUTPATIENT ANTIDIABETIC REGIMEN: * insulin NPH 19 units SQ BIDM * Humalog 8 units SQ BIDM * HbA1c 7.7% (01/09/25), 8% (09/30/24) ASSESSMENT: 01/12 * Ruth received a total of 24 units of insulin yesterday (8 units were NPH insulin and 16 units were bolus). BSGs were [phone]/dL. * Fasting BSG was 256mg/dL this morning. I suspect that the higher blood glucose seen in the evening and this morning were due to the supper time dose of NPH being held. Will continue NPH with current dosing of NPH insulin (8 units BID meals) * Her blood glucose has been > 200mg/dL at lunch time that last few days and then usually appears to run lower in the evening. Will trial tightening the bolus insulin parameters with breakfast and then loosening the rest of the day. 01/09 * Ruth is a 89 year old female admitted with pneumonia/anaplasmosis with a history of type 2 diabetes mellitus. Pharmacy has been consulted to assist with glycemic management while inpatient. * Hyperglycemic on admission, insulin NPH given at approximately 1926 and hypoglycemic overnight, overcorrection and late NPH administration (cannot use Lantus to allergy). Will initiate NPH at a reduced dose (approximately 50% home dose) administered BIDM. * No changes to NovoLog at this time. She is on doxycycline IV, no other glycemic stressors noted. PLAN FOR INPATIENT GLYCEMIC CONTROL: * Hold outpatient oral diabetes medications * Basal insulin * Insulin NPH 8 units SQ BID * Bolus insulin * NovoLog per scale ACHS or Q6hrs while NPO * Goal Range: Low 120 mg/dL - High 160 mg/dL * Breakfast: -Correction Factor: 35 mg/dL/unit -Nutritional / Prandial insulin per carb ratio of 1 unit per 8 grams CHO consumed * lunch, supper, HS -Correction Factor: 45 mg/dL/unit -Nutritional / Prandial insulin per carb ratio of 1 unit per 15 grams CHO consumed
[2025-01-12 13:33] LABS: ANTI-Xa, UFH(UnfractionatedHep 0.49 IU/ml (0.3-0.7)
[2025-01-12] MEDS: POLYETHYLENE (MIRALAX) 17 GM PACK PO ONE (15:54)
[2025-01-12] MEDS ORDERED: POLYETHYLENE (MIRALAX) 17 GM PACK PO PRN (17:06)
--- NOTE | 2025-01-12 17:11 | Billing Data ---
Date of Service January 12, 2025 Coding Level of Care Code 54366 SUB INP/OBS CARE MIN
[2025-01-12] MEDS: APIXABAN 5 MG TABLET PO ONE (18:01)
[2025-01-12] MEDS: FAMOTIDINE 20 MG TAB PO SCH (20:09)
[2025-01-12] MEDS ORDERED: APIXABAN 5 MG TABLET PO SCH (21:00)
--- NOTE | 2025-01-13 06:55 | Discharge Summary ---
Date of Service January 13, 2025 Admission HPI Per Admitting Provider Ruth Beltran is an 89 year old female who presents to the ER with generalized illness for the last 2 days and confusion today. Unable to get a good history from the patient due to confusion. History obtained from her grandson at bedside. Reportedly not feeling well for last 2 days but without any specific symptoms. When her grandson found her today she was very confused. No nasal congestion, cough, shortness of breath, diarrhea, urinary symptoms. No current chest pain but triage note reportedly had chest/epigastric pain. While attempting to get dressed for EMS she fell and hit her head. Principal Diagnosis anaplasmosis Discharge Exam Gen: Very [place], well-appearing, NAD HEENT: NCAT, normal conjunctiva, anicteric sclera, MMM CV: RRR, no murmur appreciated, no LE edema Resp: CTAB, symmetrical chest rise, no increased WOB on 3L NC Abd: Soft, NT/ND, +BS MSK: No gross deformities on inspection Skin: Warm, dry, well-perfused, no rashes appreciated, head lac healing well Neuro: CN II-XII grossly intact, no focal deficits Psych: Full, euthymic affect. Speech pace normal. Fair judgement and insight. Discharge Data Allergies Allergy/AdvReac Type Severity Reaction Status Date / Time codeine Allergy Severe RASH Verified 09/30/24 13:23 Sulfa (Sulfonamide Allergy Intermediate rash Verified 09/30/24 13:23 Antibiotics) sulfabenzamide Allergy Intermediate rash Verified 09/30/24 13:23 sulfacetamide Allergy Intermediate rash Verified 09/30/24 13:23 sulfathiazole Allergy Intermediate rash Verified 09/30/24 13:23 insulin glargine Allergy Mild pruritus Verified 09/30/24 13:23 (noted after 7+ days of use) ciprofloxacin [From Cipro] Allergy Unknown Unknown Verified 09/30/24 13:23 aspirin AdvReac Severe Gastrointestinal Verified 09/30/24 13:23 Upset amitriptyline AdvReac Intermediate Drowsy Verified 09/30/24 13:23 erythromycin base AdvReac Intermediate abdominal Verified 09/30/24 13:23 pain NSAIDS (Non-Steroidal AdvReac Intermediate gastric Verified 09/30/24 13:23 Anti-Inflamma bleeding rosuvastatin AdvReac Intermediate muscle Verified 09/30/24 13:23 aches, cramps in calves hydrocodone AdvReac Mild itching Verified 09/30/24 13:23 oxycodone AdvReac Mild itching Verified 09/30/24 13:23 Consultations 01/08/25 13:38 ED Decision to Admit Stat Ordered Studies 01/08/25 11:51 CT abd pelvis wo con Stat 01/08/25 12:14 CT cervical spine wo con Stat CT head/brain wo con Stat Hospital Course (1) Acute metabolic encephalopathy: (2) Hyponatremia: (3) Anaplasmosis: (4) Pneumonia: (5) 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 She tested positive for anaplasmosis and was admitted for appropriate workup. She developed a-fib during her admission. She was deemed safe for discharge when clinically improved and established on appropriate antibiotic and anticoagulation Anaplasmosis Peripheral smear positive Continue doxycycline 100 mg twice daily for total 10 days (through January 18) If still intermittently febrile extend antibiotics until defervesced for at least 72 hours. Platelet count normal, mild AST elevation (72 on 01/11) Substaintially clinically improved by time of discharge, afebrile, SpO2 > 90% on room air Evaluated by PT/OT who had recommended rehab/SNF; however, team walked with patient through the halls prior to discharge and she was stable with a walker including standing, sitting, and turning New-onset afib - 01/11 PM developed a-fib w/ RVR, HR 150s-170s per telemetry & EKG. CXR was ordered & negative. Given 2 x Lopressor & HR improved to 110s. Mildly elevated trop at 99 which improved to 63.7. BNP was elevated at 428. - Pt was placed on heparin drip d/t [id number] score of 4. - Heparin was discontinued 01/12 PM. Patient was started on 5mg Eliquis BID. - Patient was also given extra 120 mg diltiazem on 01/12. Converted to nsr around 20:00. Can resume usual dosing at discharge Abdominal pain / Nausea, vomiting Given Miralax 5 doses (85g) on 01/12 and patient had "copious diarrhea" per nursing prior to discharge Abdomen not rigid, distended, or tender at time of discharge - improved from prior exam. CT A/P on 01/08 did not show any intra-abdominal or intrapelvic abnormality or obstructive stones; no evidence of pyelonephritis - Urine culture has no growth, no evidence of UTI at that time she did receive Rocephin which was discontinued for doxycycline monotherapy for treatment of anaplasmosis. Creatinine is normal, no evidence of obstruction. Initially appeared slightly volume contracted; improved with supplemental IVF Pt was treated for anaplasmosis with doxycycline as above. Gastric prophylaxis ordered with Pepcid BID; Zofran q6h hours # Atelectasis versus pneumonia Suspected to have early pneumonia versus atelectasis Initially with Rocephin/doxycycline for pneumonia however subsequently anaplasmosis positive, was continued on doxycycline monotherapy. Patient with slow clinical progression, and transient oxygen requirement. Remains with crackles in the right lower lobe x-ray has a right lung infiltrate which may have been due to atelectasis however given persistent dry cough, hypoxia, and slow progress with persistent fevers will cover for potential superimposed pneumonia with Rocephin 5-day course to be complete 01/15 #Fall with head laceration CT head without acute intracranial findings Sutures remoed prior to discharge with no complications #Hyponatremia - Corrected sodium 131 on admission; improved to 133 by discharge Liberalize diet encouraged Potassium normalized following repletion #Type 2 diabetes mellitus HBA1C 8.0 in September Pharmacy glycemic consult following A1c 7.7% #Hypertension Continue enalapril + diltiazem VTE Prophylaxis - Lovenox 40mg SQ daily Total Time Total Time Spent Total Time Spent (In Minutes): See attending documentation Discharge Plan Discharge Items Patient Disposition: Home - Self-Care Reason For Visit: ACUTE ENCEPHALOPATHY Discharge Diagnosis: Anaplasmosis Condition on Discharge: Fair Activity: As commented below Activity Comment: activity progression as tolerated with fall precautions Non-emergency contact: Primary Care Provider Call non-emergency contact if: you have any medication questions, your symptoms worsen and you have a fever Follow-up/Referrals: Irvin Richard CRNP [Primary Care Provider] - 01/27/25 8:20 am (Hospital follow up scheduled January 27 at 8:20) Diet: Carb Consistent or DM2 and Heart Healthy Addtl Attending Provider Instructions: You were admitted to the hospital with anaplasmosis, a tickborne illness. You are being discharged on doxycycline - please complete the course as outlined below. While taking this medication, please make sure to wear sunscreen when outdoors, as this medication increases your sensitivity to the sun. Additionally, take with a full glass of water. While in the hospital, you developed an abnormal heart rhythm called atrial fibrillation. Fortunately, you converted back to a normal rhythm prior to discharge. The likelihood of this arrhythmia recurring is fairly high - because of this, we recommend continuing the blood thinner (Eliquis) that you were started on in the hospital. This is to reduce your stroke risk moving forward. Prior to discharge, we removed the sutures from your head laceration. Please keep this area clean, you may cover with a thin layer of Vaseline to keep it moist. New medications: Doxycycline: Continue to take 1 tab twice daily for another 7 days, starting in the evening on 01/13/25 Eliquis: Please take 1 tab twice daily, with your first dose in the evening on 01/13/25 Pending Studies at Discharge: No Stand-Alone Forms: My [facility] [employer], Smoking Cessation Medications and DC Order Prescriptions: New Eliquis 5 mg Tablet 5 mg PO BID Qty: 30 0RF doxycycline hyclate 100 mg capsule 100 mg PO BID 7 Days Qty: 14 0RF Continued (DME) lancets [FreeStyle Lancets] 28 gauge misc See Rx Instructions .ROUTE .MEDSUPPLY Qty: 400 5RF Rx Instructions: Test QID (DME) pen needle, diabetic [BD Ultra-Fine Mini Pen Needle] 31 gauge x 3/16" needle See Rx Instructions .Route Qty: 400 3RF Rx Instructions: use with insulin injections, QID enalapril maleate 10 mg tablet 10 mg PO QAM Qty: 90 3RF insulin lispro [Humalog KwikPen Insulin] 100 unit/mL insulin pen 8 unit SQ BIDWMEAL 90 Days Qty: 15 1RF (DME) FreeStyle Lite Strips Strip See Dose Instructions .ROUTE .MEDSUPPLY Qty: 400 3RF Rx Instructions: Test blood sugar 4 times daily gabapentin 300 mg capsule 300 mg PO DAILY PRN (Reason: Pain) Qty: 90 1RF diltiazem HCl 120 mg capsule,extended release 24hr 120 mg PO QAM Qty: 90 1RF Humulin N NPH Insulin KwikPen 100 unit/mL (3 mL) insulin pen 19 unit subcut BID MDD 38 units 90 Days Qty: 45 1RF (DME) blood-glucose meter [FreeStyle Lite Meter] Kit See Rx Instructions .Route Qty: 1 0RF Rx Instructions: To test blood sugars tramadol 50 mg tablet 50 mg PO BID PRN (Reason: pain) Qty: 60 0RF cholecalciferol (vitamin D3) 25 mcg (1,000 unit) capsule 2,000 unit PO DAILY Rx Instructions: Unable to verify OTC meds at this date/time. melatonin 5 mg tablet 10 mg PO HS Rx Instructions: Unable to verify OTC meds at this date/time. cyanocobalamin (vitamin B-12) [Vitamin B-12] 500 mcg Tablet 500 mcg PO DAILY Rx Instructions: Unable to verify OTC meds at this date/time. acetaminophen 500 mg Capsule 500 mg PO UD PRN (Reason: Pain) Rx Instructions: Unable to verify OTC meds at this date/time. Discharge Orders: Discharge Order (Routine); Ordered 01/13/25 Ordered By: Mickie Pettit/Other Patient Handouts: High Blood Sugar (Hyperglycemia), Managing Type 2 Diabetes Admission Data Admit Date/Time: 01/08/25 15:15 Attending Provider: Sascha Marc Admit Provider: Raymond Hernandez Primary Care Provider: Irvin Richard Other Providers: Raymond Hernandez Other Interventions: Discharge Summary Assessment (RN) Last Done: 01/13/25 13:30 Supervising Physician Co-Signing Physician Notes I personally examined the patient and verified all james points of history and exam, discussed case, and agree with decision making with Dr Harrell Feels okay and would like to go home. No complaints. Vitals noted, in general she is awake alert oriented to person, place, situation, etc. No distress. Breathing unlabored. We walk about 100 feet togethershe is able to get up and out of bed, walk down the hallway, and get back in bed on her own completely unassistedshe does use a walker. She does note that she has a walker at home. No focal neurodeficits. Skin without rashes pallor or icterus. Anaplasmosisimprovingcontinue doxycycline For a total of 14 daysdiscussed risks for sun sensitivity and pill esophagitis and ways to mitigate these risks. A-fib/RVRrate controlled Given that she converted to sinus rhythm, while we increased her diltiazem briefly here in the hospital, we will discharge her on her home dosing and dose can be increased if she has a degree of tachycardia at follow-up. Anticoagulation started. Hypoxia Has resolved, ambulating on room air with no dyspnea or notable hypoxia. ConstipationMiraLAX. Improved Otherwise as above. safe/stable for home. Resident Activity Tracking Resident Involvement: Resident Care Provided Care Provided: Adult Hospital Medicine
[2025-01-13 07:37] LABS: Hematocrit (blood only) 31.3 % (37.0-47.0); Hemoglobin 11.0 g/dl (12.0-16.0); Mean Corpuscular Hemoglobin 31.1 pg (25.0-34.0); Mean Corpuscular Volume 88.4 fL (80.0-100.0); Platelet Count 150 K/uL (130-400); RDW Standard Deviation 43.6 fL (36.4-46.3); Red Blood Count 3.54 M/uL (4.20-5.40); White Blood Count 9.87 K/ul (4.8-10.8)
[2025-01-13 07:55] LABS: Anion Gap 8.0 (3-11); Blood Urea Nitrogen 14.0 mg/dl (6-23); Calcium 9.1 mg/dl (8.6-10.3); Carbon Dioxide 29.0 mmol/L (21-32); Chloride 96.0 mmol/L (98-107); Creatinine Clr Calc Pharmacy 42.4 ml/min; Glucose 152.0 mg/dl (70-99(Fasting)); Magnesium 2.0 mg/dl (1.7-2.4); Potassium 3.4 mmol/L (3.5-5.1); Sodium 133.0 mmol/L (136-145)
[2025-01-13] MEDS: APIXABAN 5 MG TABLET PO SCH (08:06)
[2025-01-13] MEDS: POTASSIUM CHLORIDE CRTAB 20 MEQ TABCR PO STA (11:20)
[2025-01-13 11:50] VITALS: RESP 18; TEMP 98.1; O2SAT 93
[2025-01-13 12:48] VITALS: PULSE 76
--- NOTE | 2025-01-13 13:15 | Billing Data ---
Date of Service January 13, 2025 Coding Level of Care Code 63238 IN/OBS DISCH 30 MIN/LESS
[2025-01-13 13:31] VITALS: BP 223/106
--- NOTE | 2025-01-19 09:05 | Coding Query ---
CODING QUERY FOR DIABETES TYPE 2 WITH INSULIN DEFICIENCY To promote full compliance with coding requirements relating to patient care, provider participation is requested in all cases of cpc coder uncertainty. Please assist us with the question(s) below: Coding Question: The term uncontrolled Diabetes was used throughout the record. To be able to code this diagnosis properly, could you please clarify the diagnosis below: ( ) Diabetes type 2 with insulin deficiency meaning hypoglycemia ( x ) Diabetes type 2 with insulin deficiency meaning hyperglycemia ( ) Other (please specify) Principal Diagnosis: "that condition established after study, to be chiefly responsible for occasioning the admission of the patient to the hospital for care." Co-Existing Principal Diagnosis: "when two or more diagnoses equally meet the criteria for principal diagnosis as determined by the circumstances of admission, diagnostic work up, and/or therapy provided, and the Alphabetic Index, Tabular List, or another coding guideline does not provide sequencing direction, any one of the diagnoses may be sequenced first." "When the physician has documented what appears to be a current diagnosis in the body of the record, but has not included the diagnosis in the final diagnostic statement, the physician should be asked whether the diagnosis should be added." (Source Coding Clinic 2 QTR90. p3-4) IVETH
== END 2025-01-13 13:32 | disposition home or self-care (01) | DRG 867 ==
LOC: ED 11:21 → 2N 15:15 → SUATTDRO 15:15 → 2N 18:14 → 2S 01-11 22:20